=== PATIENT | female | born 1950 | race Caucasian/White ===

== ENCOUNTER → 2016-07-14 | Outpatient (CLI) | payer BC ==
[~2016-07-14] MED LIST: ALBUAER INH; ASPI81TA28 PO; CHOL100010 PO; CLON2TAB3 PO; CRAN1CAP15 PO; HYDR-5688 PO; KLN1X PO; MRLP17 PO; OMEG10007 PO; ONDA4TAB65 PO; ONDA8TAB7 PO; OXYC-164 PO; PANT40TA PO; POLY335019 PO; SERT1TAB68 PO; SNKUDL5 PO; VTMD1000 PO; ZOLP10TA PO
--- NOTE | 2016-07-15 08:17 | PULMONARY FUNCTION TEST ---
Spirometry is consistent with a mild obstructive pattern. Repeat study done following bronchodilator showed mild improvement in function. The forced vital capacity improved by 8% and FEV1 improved by 6%. Flow volume loops were consistent with spirometric findings. No prior studies were available for comparison.
== END | disposition home or self-care (01) ==
LOC: C.RC 10:38
PROVIDERS: ATTEND Family Medicine
DX: R05 Cough (principal)

== ENCOUNTER → 2016-07-19 | Outpatient (CLI) | payer BC ==
--- NOTE | 2016-07-19 12:19 | DIAGNOSTIC IMAGING REPORT ---
CHEST 2 VIEWS ROUTINE HISTORY: Persistent cough. COMPARISON: Chest 10/14/2015. FINDINGS: No focal lung consolidations to suggest pneumonia. No evidence for pulmonary edema. The heart is normal in size. No pleural effusions. No pneumothorax. A few bibasilar linear densities favor subsegmental atelectasis or scarring. This has improved in the interval. IMPRESSION: No acute process. Electronically signed by: Andreas Tavera M.D. 07/19/2016 12:18 PM Dictated Date/Time: 07/19/2016 12:16 PM
== END | disposition home or self-care (01) ==
LOC: C.RAD 11:46
PROVIDERS: ATTEND Family Medicine
DX: J20.9 Acute bronchitis, unspecified (principal); J45.909 Unspecified asthma, uncomplicated

== ENCOUNTER → 2016-10-07 | Outpatient (CLI) | payer BC ==
--- NOTE | 2016-10-07 14:02 | DIAGNOSTIC IMAGING REPORT ---
RIGHT FEMUR 2 VIEWS CLINICAL HISTORY: Right thigh pain. FINDINGS: AP and crosstable lateral views of the right femur are correlated with radiographs of the right hip dated 11/22/2015. The skeletal structures are osteopenic. There is no radiographic evidence of right femoral fracture. Arthritic change is noted in the right hip and knee joints. The visualized right hemipelvis appears intact. Numerous surgical clips project over the pelvis. The soft tissues of the right thigh are normal as imaged. IMPRESSION: Osteopenia with no acute bony abnormality identified in the right femur. Electronically signed by: Saad Pollard M.D. 10/07/2016 2:01 PM Dictated Date/Time: 10/07/2016 1:59 PM
--- NOTE | 2016-10-07 14:05 | DIAGNOSTIC IMAGING REPORT ---
LUMBAR SPINE MIN 4 VIEWS CLINICAL HISTORY: Low back pain and right thigh pain COMPARISON STUDY: 11/22/2015 FINDINGS: There is a mild lumbar levoscoliosis. There are moderate multilevel degenerative changes. There is mild anterolisthesis of L3 on L4 and L4 and L5. This is likely degenerative. There are multiple surgical clips within the pelvis. There are postsurgical changes of prior laminectomies at the L3 and L4 levels. IMPRESSION: Postsurgical and degenerative change. No acute fractures or traumatic subluxations are visualized Electronically signed by: Basilio Patton M.D. 10/07/2016 2:04 PM Dictated Date/Time: 10/07/2016 2:02 PM
== END | disposition home or self-care (01) ==
LOC: C.RDSM 12:50
PROVIDERS: ATTEND Physician Assistant
DX: M85.851 Other specified disorders of bone density and structure, right thigh (principal); M54.5 Low back pain

== ENCOUNTER → 2016-10-26 | Outpatient (CLI) | payer BC ==
--- NOTE | 2016-10-26 15:59 | DIAGNOSTIC IMAGING REPORT ---
LUMBAR SPINE MRI HISTORY: Back pain neuropathy TECHNIQUE: Multiplanar multisequence MRI of the lumbar spine was performed without the use of contrast. COMPARISON: None. FINDINGS: For the purpose of the report the L5-S1 disc space will be located on axial image 27 of 30. Degenerative disc change throughout the entire lumbar region. Partial fusion at L5-S1 segments. Vertebral body stature is unremarkable. Grade 1 anterolisthesis of L4 on L5 estimated at 4 mm. L1-L2: No significant central canal or neural foraminal narrowing. L2-L3: Very mild transverse narrowing of spinal canal. Mild broad-based disc bulge. Minimal narrowing of the neuroforamina bilaterally. L3-L4: Moderate multifactorial narrowing of the spinal canal. Mild broad-based disc herniation. Findings of a prior posterior hemilaminotomy hemilaminotomy. L4-L5: Findings of a posterior hemilaminotomy. Posterior osteophytic and hypertrophic reaction. Moderate narrowing right lateral facet and right neural foramina. Minimal narrowing of the left. L5-S1: Findings consistent with posterior fusion. Neuroforamina are patent bilaterally. IMPRESSION: 1. Significant degenerative disc change at the entire lumbar region. 2. Grade 1 anterolisthesis of L4 on L5 presumably on a degenerative basis. 3. Multilevel narrowing of the spinal canal considered moderate at all levels described. 4. No evidence for a high-grade component of spinal stenosis or significant foraminal stenosis. Electronically signed by: Sergey Escalante M.D. 10/26/2016 3:57 PM Dictated Date/Time: 10/26/2016 3:47 PM
== END | disposition home or self-care (01) ==
LOC: C.MRI 14:12
PROVIDERS: ATTEND Neurological Surgery
DX: M54.40 Lumbago with sciatica, unspecified side (principal); M43.16 Spondylolisthesis, lumbar region

== ENCOUNTER 2016-11-23 11:13 | Inpatient (IN) | payer BC, OTHER ==
[~2016-11-23] VITALS: Ht 165.1 cm; Wt 68.2 kg
[~2016-11-23 11:13] MED LIST changes: -HYDR-5688 PO; -KLN1X PO; -MRLP17 PO; -ONDA4TAB65 PO; -OXYC-164 PO; -POLY335019 PO; -SNKUDL5 PO; -ZOLP10TA PO
[2016-11-23] MEDS ORDERED: OXYC-164 PO (11:29)
[2016-11-23] MEDS ORDERED: ONDANSETRON 8 MG/54 ML D5W IV STA (12:28)
[2016-11-23] MEDS ORDERED: SODIUM CHLORIDE 0.9% 1000ML 1,000 ML IV STA (12:28)
[2016-11-23] MEDS ORDERED: SODIUM CHLORIDE 0.9% 500ML 500 ML IV STA (12:28)
[2016-11-23] MEDS ORDERED: OPTIRAY 320 IV PRN (12:45)
[2016-11-23 12:56] LABS: BASO % 0.1 %; BASO ABS # 0.02 K/uL (0-0.2); COMPLETE YES; EOS % 0.2 %; HEMATOCRIT 44.2 % (37-47); IG% 0.3 %; LYMPH ABS # 1.09 K/uL (1.2-3.4); MEAN CELL VOLUME 94.6 fL (80-100); MEAN CORPUSCULAR HEMOGLOBIN 31.9 pg (25-34); MEAN CORPUSCULAR HGB CONC 33.7 g/dl (32-36); MEAN PLATELET VOLUME 8.7 fL (7.4-10.4); MONO % 4.1 %; NEUT % 88.3 %; PLATELET COUNT 419 K/uL (130-400); RED BLOOD COUNT 4.67 M/uL (4.2-5.4); WHITE BLOOD COUNT 15.55 K/uL (4.8-10.8)
[2016-11-23] MEDS: HYDROmorphone INJ 1 MG/ML SYR IV PRN ×3 (12:57→21:26)
[2016-11-23 13:06] LABS: ALT/SGPT 36 U/L (12-78); BLOOD UREA NITROGEN 20 mg/dl (7-18); BUN/CREATININE RATIO 30.6 (10-20); CARBON DIOXIDE 33 mmol/L (21-32); CHLORIDE 101 mmol/L (98-107); CREATININE 0.65 mg/dl (0.60-1.20); GLUCOSE 124 mg/dl (70-99); POTASSIUM 4.1 mmol/L (3.5-5.1); SODIUM 141 mmol/L (136-145)
[2016-11-23 13:09] LABS: ALKALINE PHOSPHATASE 113 U/L (45-117); AST/SGOT 12 U/L (15-37)
[2016-11-23 13:16] LABS: CALCIUM 10.1 mg/dl (8.5-10.1)
--- NOTE | 2016-11-23 14:38 | DIAGNOSTIC IMAGING REPORT ---
ABDOMEN AND PELVIS CT WITH IV CONTRAST CT DOSE: 562.15 mGy.cm HISTORY: right abd pain, prior obstruction, KAREN TECHNIQUE: Multiaxial CT images of the abdomen and pelvis were performed following the use of intravenous contrast. COMPARISON STUDY: Abdomen and pelvis CT 12/12/2014. FINDINGS: Bibasilar linear densities consistent with subsegmental atelectasis. Mild elevation of the left hemidiaphragm. No pneumoperitoneum. No pneumatosis. Posterior decompression at L3-L4. There are midline skin veronique within the lumbar region due to the recent postoperative change. A 3.6 x 2.2 cm fluid collection posterior to the right L3-L4 facet likely representing postoperative change/seroma. There are multiple distended and fluid-filled loops of small bowel seen throughout the abdomen. There is a transition point located at a thickened loop of small bowel within the right lower quadrant on images 286 through 342. There is also distended and fluid-filled stomach. Therefore, these findings are consistent with a small bowel obstruction. The bladder is unremarkable. The uterus is surgically absent. Moderate stool within the colon. The liver, gallbladder, pancreas, spleen, and adrenal glands are unremarkable. There is a punctate stone within the left kidney. There are also a few punctate stones within the right kidney. No hydronephrosis. There are 1 cm hypodense lesions within each kidney. These favor cysts. No retroperitoneal lymphadenopathy. IMPRESSION: 1. Multiple distended fluid-filled loops of small bowel with a transition point located within a thickened loop of small bowel within the right lower quadrant. These findings are consistent with a small bowel obstruction. The thickened loop of bowel raises the possibility of a focal enteritis. 2. Bilateral nephrolithiasis. No hydronephrosis. 3. Interval postoperative changes within the lumbar spine. Electronically signed by: Andreas Tavera M.D. 11/23/2016 2:37 PM Dictated Date/Time: 11/23/2016 2:22 PM
[2016-11-23] MEDS ORDERED: XYLOCAINE 1%/SOD BICARB 20 ML VIAL INFIL ONE (15:00)
[2016-11-23] MEDS ORDERED: METOCLOPRAMIDE HCL INJ 5 MG/ML 2 ML VIAL IV STA (15:00)
--- NOTE | 2016-11-23 15:29 | History and Physical ---
History & Physical Date & Time of Service: November 23, 2016 at 15:28 Chief Complaint: Nausea, Pain, Dizziness Primary Care Physician: Carroll Simon M.D. History of Present Illness Source: patient 66 y/o F Hx MS, depression/anxiety and chronic back pain. Pt has history of hysterectomy and has had several SBOs due to adhesions, one of which required surgical intervention. 2 weeks ago she underwent Lumbar surgery although this was done from a posterior approach. She developed abdominal pain, nausea and vomiting earlier in the day. A CT obtained on arrival to the hospital is consistent with an SBO. She denies SOB, CP, fevers, dysuria. She morillo not currently require treatment for her MS. Past Medical/Surgical History Medical Problems: (1) Anxiety State Nos Status: Chronic (2) back surgery Status: Resolved (3) Chills with fever Status: Resolved (4) Depressive Disorder Nec Status: Chronic (5) Esophageal Reflux Status: Chronic (6) Fever Status: Resolved (7) Hx pulmonary embolism Status: Resolved (8) Knee replacement Status: Resolved (9) Left knee DJD Status: Resolved (10) Lumbar stenosis with neurogenic claudication Status: Resolved (11) Multiple sclerosis Status: Chronic (12) Pneumonia Status: Resolved (13) Pneumonia Status: Resolved (14) Pulmonary embolism Status: Resolved (15) Rheumatoid Arthritis Status: Chronic Surgical Problems: (1) Hx of hysterectomy Status: Resolved (2) Hx of tonsillectomy Status: Resolved (3) Knee Joint Replacement Status Status: Resolved Family History Diabetes mellitus FH: cancer FH: heart disease Hypertension Father due to DC 82 Mother alive - spinal stenosis Social History Smoking Status: Never Smoker Alcohol Use: socially Drug Use: none Marital Status: Occupational Status: unemployed Immunizations History of Influenza Vaccine: Yes Influenza Vaccine Date: Apr 26, 2013 History of Tetanus Vaccine?: Yes Tetanus Immunization Date: Jul 27, 2012 History of Pneumococcal: Yes Pneumococcal Date: Jul 27, 2010 History of Hepatitis B Vaccine: Yes Hepatitis Immunization Date: Jul 27, 2009 Multi-Drug Resistant Organisms History of MDRO: No Allergies Coded Allergies: Promethazine (Verified Allergy, Intermediate, HALLUCINATIONS, 11/05/15) Adhesives (Verified Allergy, Mild, ALLERGY TO PLASTIC CLEAR TAPE = CAUSES HIVES, 11/05/15) Sulfa Antibiotics (Verified Allergy, Unknown, HIVES, 11/05/15) Home Medications Scheduled Clonazepam (Klonopin), 1-2 TAB PO HS Sertraline Hcl (Zoloft), 100 MG PO BID Scheduled PRN Oxycodone Hcl (Oxycodone Hcl), 10 MG PO Q4H PRN for Pain Review of Systems Constitutional: No chills, No fever, No sweats Eyes: No eye pain, No worsening of vision ENT: No hearing loss, No nasal symptoms, No unusual epistaxis Respiratory: No cough, No sputum, No wheezing Cardiovascular: No PND, No chest pain, No orthopnea Abdomen: + nausea, + pain, + vomiting, No constipation, No diarrhea Musculoskeletal: No joint pain, No muscle pain Genitourinary - Female: No dysuria, No hematuria, No urinary frequency, No urinary incontinence, No urinary retention, No urinary urgency Neurologic: No memory loss, No paralysis, No weakness Psychiatric: No depression symptoms Endocrine: No fatigue Hematologic / Lymphatic: No abnormal bleeding/bruising Integumentary: No rash Allergic / Immunologic: No environmental allergies Physical Exam Vital Signs Date Time Temp Pulse Resp B/P Pulse Ox O2 Delivery O2 Flow Rate FiO2 11/23/16 13:06 87 18 127/71 94 Room Air 11/23/16 11:17 36.8 94 18 123/74 96 General Appearance: WD/WN, no apparent distress Head: normocephalic, atraumatic Eyes: normal inspection, PERRL, EOMI ENT: normal ENT inspection, hearing grossly normal, TMs normal, pharynx normal Neck: supple, no adenopathy, thyroid normal, no JVD Respiratory/Chest: chest non-tender, lungs clear, normal breath sounds, no respiratory distress, no accessory muscle use Cardiovascular: regular rate, rhythm, no edema, no gallop, no JVD, no murmur, normal peripheral pulses Abdomen/GI: + tenderness, + abnormal bowel sounds, + distended Back: normal inspection, no CVA tenderness, no muscle spasm, normal range of motion Extremities/Musculoskelatal: normal inspection, no calf tenderness, normal capillary refill, no pedal edema, normal range of motion Neurologic/Psych: sizing sprayer II-XII nml as tested, no motor/sensory deficits, alert, normal mood/affect, normal reflexes, oriented x 3 Skin: normal color Diagnostics Laboratory Results Results Past 24 Hours Test 11/23/16 12:25 Range/Units White Blood Count 15.55 4.8-10.8 K/uL Red Blood Count 4.67 4.2-5.4 M/uL Hemoglobin 14.9 12.0-16.0 g/dL Hematocrit 44.2 37-47 % Mean Corpuscular Volume 94.6 80-100 fL Mean Corpuscular Hemoglobin 31.9 25-34 pg Mean Corpuscular Hemoglobin Concent 33.7 32-36 g/dl Platelet Count 419 130-400 K/uL Mean Platelet Volume 8.7 7.4-10.4 fL Neutrophils (%) (Auto) 88.3 % Lymphocytes (%) (Auto) 7.0 % Monocytes (%) (Auto) 4.1 % Eosinophils (%) (Auto) 0.2 % Basophils (%) (Auto) 0.1 % Neutrophils # (Auto) 13.72 1.4-6.5 K/uL Lymphocytes # (Auto) 1.09 1.2-3.4 K/uL Monocytes # (Auto) 0.64 0.11-0.59 K/uL Eosinophils # (Auto) 0.03 0-0.5 K/uL Basophils # (Auto) 0.02 0-0.2 K/uL RDW Standard Deviation 43.1 36.4-46.3 fL RDW Coefficient of Variation 12.6 11.5-14.5 % Immature Granulocyte % (Auto) 0.3 % Immature Granulocyte # (Auto) 0.05 0.00-0.02 K/uL Sodium Level 141 136-145 mmol/L Potassium Level 4.1 3.5-5.1 mmol/L Chloride Level 101 98-107 mmol/L Carbon Dioxide Level 33 21-32 mmol/L Anion Gap 7.0 3-11 mmol/L Blood Urea Nitrogen 20 7-18 mg/dl Creatinine 0.65 0.60-1.20 mg/dl Estimated GFR () 106.5 Estimated GFR (Non- 91.9 BUN/Creatinine Ratio 30.6 10-20 Random Glucose 124 70-99 mg/dl Calcium Level 10.1 8.5-10.1 mg/dl Total Bilirubin 0.6 0.2-1 mg/dl Direct Bilirubin 0.1 0-0.2 mg/dl Aspartate Amino Transf (AST/SGOT) 12 15-37 U/L Alanine Aminotransferase (ALT/SGPT) 36 12-78 U/L Alkaline Phosphatase 113 45-117 U/L Total Protein 7.5 6.4-8.2 gm/dl Albumin 4.1 3.4-5.0 gm/dl Lipase 95 73-393 U/L Diagnostic Radiology CT abdomen 1. Multiple distended fluid-filled loops of small bowel with a transition point located within a thickened loop of small bowel within the right lower quadrant. These findings are consistent with a small bowel obstruction. The thickened loop of bowel raises the possibility of a focal enteritis. 2. Bilateral nephrolithiasis. No hydronephrosis. 3. Interval postoperative changes within the lumbar spine. Impression Assessment and Plan 66 y/o F Hx MS, depression/anxiety and chronic back pain. Pt has history of hysterectomy and has had several SBOs due to adhesions, one of which required surgical intervention. 2 weeks ago she underwent Lumbar surgery although this was done from a posterior approach. She developed abdominal pain, nausea and vomiting earlier in the day. A CT obtained on arrival to the hospital is consistent with an SBO. 1) SBO - pt with NG - antiemetics, narcotics, IVF provided - NPO - surgery is following. 2) MS - not currently treated - she also has a diagnosis of RA but has not required treatment in an extended period 3) Anxiety/depression - pt cannot take her Klonazepam so that we will provide PRN Ativan until tolerating PO Full code - Heparin prophylaxis Total time for this admit including review of labs, meds, imaging, records - discussion with pt and ER MD - 34 min Level of Care Med/Surg Resuscitation Status FULL RESUSCITATION VTE Prophylaxis VTE Risk Assessment Done? Y/N: Yes Risk Level: Low Given or contraindicated: Unfractionated heparin SQ
--- NOTE | 2016-11-23 15:36 | Medical Consult ---
Consultation Date of Consultation: November 23, 2016. Attending Physician: Reason for Consultation: bowel obstruction History of Present Illness 66 yo female w/ N/V, abd pain over 2-3 days- ER evaluation shows sbo- possible distal transition point, stool in colon, said she passed flatus h/o hyster, lysis of adhesions- last > 10 yrs ago recent back surgery 2 weeks ago- Dr Luna Davila Past Medical/Surgical History Medical Problems: (1) Anxiety State Nos Status: Chronic (2) Depressive Disorder Nec Status: Chronic (3) Esophageal Reflux Status: Chronic (4) Hypoxia Status: Acute (5) Multiple sclerosis Status: Chronic (6) Precordial chest pain Status: Acute (7) Rheumatoid Arthritis Status: Chronic Family History Diabetes mellitus FH: cancer FH: heart disease Hypertension Social History Smoking Status: Never Smoker Drug Use: none Marital Status: Housing Status: lives with family Occupation Status: unemployed Allergies Coded Allergies: Promethazine (Verified Allergy, Intermediate, HALLUCINATIONS, 11/05/15) Adhesives (Verified Allergy, Mild, ALLERGY TO PLASTIC CLEAR TAPE = CAUSES HIVES, 11/05/15) Sulfa Antibiotics (Verified Allergy, Unknown, HIVES, 11/05/15) Current Inpatient Medications Current Inpatient Medications Medications (Trade) Dose Ordered Sig/Harmeet Route Start Time Stop Time Status Last Admin Dose Admin Hydromorphone HCl 1 mg 1 mg Q15M PRN IV 11/23/16 12:30 12/07/16 12:29 11/23/16 12:57 1 MG Sodium Chloride (Nss 1000ml) 1,000 ml @ 125 mls/hr Q8H STAT IV 11/23/16 12:28 11/23/16 20:27 11/23/16 13:28 125 MLS/HR Ioversol (Optiray 320) 100 ml UD PRN IV 11/23/16 12:45 11/27/16 12:44 Heparin Sodium (Porcine) (Heparin Sq 5000 Unit/0.5ml) 5,000 unit Q8H SQ 11/23/16 15:30 12/23/16 15:29 UNV Ondansetron HCl (Zofran Inj) 4 mg Q6H PRN IV 11/23/16 15:30 12/23/16 15:29 UNV Review of Systems Constitutional: No chills, No fever Respiratory: No cough, No shortness of breath Cardiovascular: No chest pain Abdomen: + nausea, + pain, + vomiting (pain epigastric) Musculoskeletal: No joint pain Genitourinary - Female: No dysuria Integumentary: No rash Physical Exam Date Time Temp Pulse Resp B/P Pulse Ox O2 Delivery O2 Flow Rate FiO2 11/23/16 13:06 87 18 127/71 94 Room Air 11/23/16 11:17 36.8 94 18 123/74 96 General Appearance: WD/WN, + mild distress Head: atraumatic Eyes: sclerae normal Neck: supple Respiratory/Chest: lungs clear Cardiovascular: regular rate, rhythm Abdomen/GI: + distended (upper abd discomfort to deep palpation) Extremities/Musculoskelatal: no pedal edema Neurologic/Psych: alert Skin: no rash Laboratory Results Last 24 Hours Test 11/23/16 12:25 White Blood Count 15.55 K/uL Red Blood Count 4.67 M/uL Hemoglobin 14.9 g/dL Hematocrit 44.2 % Mean Corpuscular Volume 94.6 fL Mean Corpuscular Hemoglobin 31.9 pg Mean Corpuscular Hemoglobin Concent 33.7 g/dl Platelet Count 419 K/uL Mean Platelet Volume 8.7 fL Neutrophils (%) (Auto) 88.3 % Lymphocytes (%) (Auto) 7.0 % Monocytes (%) (Auto) 4.1 % Eosinophils (%) (Auto) 0.2 % Basophils (%) (Auto) 0.1 % Neutrophils # (Auto) 13.72 K/uL Lymphocytes # (Auto) 1.09 K/uL Monocytes # (Auto) 0.64 K/uL Eosinophils # (Auto) 0.03 K/uL Basophils # (Auto) 0.02 K/uL RDW Standard Deviation 43.1 fL RDW Coefficient of Variation 12.6 % Immature Granulocyte % (Auto) 0.3 % Immature Granulocyte # (Auto) 0.05 K/uL Sodium Level 141 mmol/L Potassium Level 4.1 mmol/L Chloride Level 101 mmol/L Carbon Dioxide Level 33 mmol/L Anion Gap 7.0 mmol/L Blood Urea Nitrogen 20 mg/dl Creatinine 0.65 mg/dl Estimated GFR () 106.5 Estimated GFR (Non- 91.9 BUN/Creatinine Ratio 30.6 Random Glucose 124 mg/dl Calcium Level 10.1 mg/dl Total Bilirubin 0.6 mg/dl Direct Bilirubin 0.1 mg/dl Aspartate Amino Transf (AST/SGOT) 12 U/L Alanine Aminotransferase (ALT/SGPT) 36 U/L Alkaline Phosphatase 113 U/L Total Protein 7.5 gm/dl Albumin 4.1 gm/dl Lipase 95 U/L Assessment & Plan 11/23/16- adm with sbo- IV fluids, NG decompression- monitor progress may need operative intervention if she does not improve over 24-48 hrs
[2016-11-23] MEDS ORDERED: LORAZEPAM 2 MG/ML 1 ML VIAL IV PRN (15:45)
[2016-11-23] MEDS ORDERED: LORAZEPAM INJ 1 MG in SYRINGE 0.5 ML IV PRN (16:15)
[2016-11-23] MEDS: ONDANSETRON INJ 2 MG/ML 2 ML VIAL IV PRN ×2 (16:48→21:27)
[2016-11-23 17:15] VITALS: BP 161/77; PULSE 85; TEMP 37.2; O2SAT 92; Ht 165.1 cm; Wt 68.2 kg
--- NOTE | 2016-11-23 17:24 | EMERGENCY ROOM VISIT NOTE ---
History Report prepared by Matthew: Harmony Lr Under the Supervision of: Dr. Fareed Chaudhary M.D. First contact with patient: 12:04 Chief Complaint: PAIN (GENERALIZED) Stated Complaint: NAUSEA, PAIN, DIZZINESS History of Present Illness The patient is a 66 year old female who presents to the Emergency Room with complaints of worsening generalized pain since yesterday afternoon. The patient had a laminectomy and CSF leak repair [address] Carrasco of neurosurgery in [place]. She was discharged from the hospital last week and states that she has been doing well since her surgery. She denies any drainage from her incision or redness around the incision. Yesterday afternoon she developed back pain and diffuse abdominal pain. She has had nausea and vomiting. The patient rates her pain as a 10/10 in severity. She gave herself a suppository and had a normal bowel movement yesterday and this morning. She denies any diarrhea. The patient has a history of a bowel obstruction and multiple abdominal surgeries. She called Dr. Carrasco and he advised her to come to the hospital for further evaluation. Pt denies LOC, headache, fevers, chills, diaphoresis, visual changes , neck pain, chest pain, breathing difficulties, melena, hematochezia, urinary symptoms, numbness, weakness, lymphadenopathy, rash, or other complaints. Source of History: patient Onset: yesterday afternoon Position: other (generalized) Symptom Intensity: 10/10 Timing: worsening Associated Symptoms: + abdominal pain, + back pain, + nausea, + vomiting Review of Systems See HPI for pertinent positives and negatives. A total of ten systems were reviewed and were otherwise negative. Past Medical & Surgical Medical Problems: (1) Anxiety State Nos (2) back surgery (3) CHEST PAIN, UNSPECIFIED (4) Chills with fever (5) Depressive Disorder Nec (6) Esophageal Reflux (7) Fever (8) Hx pulmonary embolism (9) Knee replacement (10) Left knee DJD (11) Lumbar stenosis with neurogenic claudication (12) Multiple sclerosis (13) Pneumonia (14) Pneumonia (15) Pulmonary embolism (16) Rheumatoid Arthritis (17) SBO (small bowel obstruction) Surgical Problems: (1) Hx of hysterectomy (2) Hx of tonsillectomy (3) Knee Joint Replacement Status Family History Diabetes mellitus FH: cancer FH: heart disease Hypertension Social History Smoking Status: Never Smoker Alcohol Use: occasionally Drug Use: none Marital Status: Housing Status: lives with family Occupation Status: unemployed Current/Historical Medications Scheduled Clonazepam (Klonopin), 1-2 TAB PO HS Sertraline Hcl (Zoloft), 100 MG PO BID Scheduled PRN Oxycodone Hcl (Oxycodone Hcl), 10 MG PO Q4H PRN for Pain Allergies Coded Allergies: Promethazine (Verified Allergy, Intermediate, HALLUCINATIONS, 11/05/15) Adhesives (Verified Allergy, Mild, ALLERGY TO PLASTIC CLEAR TAPE = CAUSES HIVES, 11/05/15) Sulfa Antibiotics (Verified Allergy, Unknown, HIVES, 11/05/15) Physical Exam Vital Signs Date Time Temp Pulse Resp B/P Pulse Ox O2 Delivery O2 Flow Rate FiO2 11/23/16 17:08 36.8 82 18 121/68 94 11/23/16 16:51 82 18 121/68 94 Room Air 11/23/16 13:06 87 18 127/71 94 Room Air 11/23/16 11:17 36.8 94 18 123/74 96 Physical Exam GENERAL: Awake, alert, well-appearing, in no distress HENT: Normocephalic, atraumatic. Oropharynx unremarkable. EYES: Normal conjunctiva. Sclera non-icteric. NECK: Supple. No nuchal rigidity. FROM. No JVD. RESPIRATORY: Clear to auscultation. CARDIAC: Regular rate, normal rhythm. Extremities warm and well perfused. Pulses equal. ABDOMEN: Soft, non-distended. Tenderness in the RLQ and epigastric region with mild diffuse abdominal tenderness. No rebound or guarding. No masses. RECTAL: Deferred. MUSCULOSKELETAL: Chest examination reveals no tenderness. The back is symmetrical on inspection without obvious abnormality. Incision is clean, dry, and intact without any redness or drainage. There is no CVA tenderness to palpation. No joint edema. LOWER EXTREMITIES: Calves are equal size bilaterally and non-tender. No edema. No discoloration. NEURO: Normal sensorium. No sensory or motor deficits noted. SKIN: No rash or jaundice noted. Medical Decision & Procedures ER Provider Diagnostic Interpretation: Radiology results as stated below per my review and radiologist interpretation: ABDOMEN AND PELVIS CT WITH IV CONTRAST CT DOSE: 562.15 mGy.cm HISTORY: right abd pain, prior obstruction, KAREN TECHNIQUE: Multiaxial CT images of the abdomen and pelvis were performed following the use of intravenous contrast. COMPARISON STUDY: Abdomen and pelvis CT 12/12/2014. FINDINGS: Bibasilar linear densities consistent with subsegmental atelectasis. Mild elevation of the left hemidiaphragm. No pneumoperitoneum. No pneumatosis. Posterior decompression at L3-L4. There are midline skin veronique within the lumbar region due to the recent postoperative change. A 3.6 x 2.2 cm fluid collection posterior to the right L3-L4 facet likely representing postoperative change/seroma. There are multiple distended and fluid-filled loops of small bowel seen throughout the abdomen. There is a transition point located at a thickened loop of small bowel within the right lower quadrant on images 286 through 342. There is also distended and fluid-filled stomach. Therefore, these findings are consistent with a small bowel obstruction. The bladder is unremarkable. The uterus is surgically absent. Moderate stool within the colon. The liver, gallbladder, pancreas, spleen, and adrenal glands are unremarkable. There is a punctate stone within the left kidney. There are also a few punctate stones within the right kidney. No hydronephrosis. There are 1 cm hypodense lesions within each kidney. These favor cysts. No retroperitoneal lymphadenopathy. IMPRESSION: 1. Multiple distended fluid-filled loops of small bowel with a transition point located within a thickened loop of small bowel within the right lower quadrant. These findings are consistent with a small bowel obstruction. The thickened loop of bowel raises the possibility of a focal enteritis. 2. Bilateral nephrolithiasis. No hydronephrosis. 3. Interval postoperative changes within the lumbar spine. Electronically signed by: Andreas Tavera M.D. 11/23/2016 2:37 PM Dictated Date/Time: 11/23/2016 2:22 PM Laboratory Results 11/23/16 12:25 Red Blood Count 4.67, Mean Corpuscular Volume 94.6, Mean Corpuscular Hemoglobin 31.9, Mean Corpuscular Hemoglobin Concent 33.7, Mean Platelet Volume 8.7, Neutrophils (%) (Auto) 88.3, Lymphocytes (%) (Auto) 7.0, Monocytes (%) (Auto) 4.1, Eosinophils (%) (Auto) 0.2, Basophils (%) (Auto) 0.1, Neutrophils # (Auto) 13.72, Lymphocytes # (Auto) 1.09, Monocytes # (Auto) 0.64, Eosinophils # (Auto) 0.03, Basophils # (Auto) 0.02 11/23/16 12:25 Test 11/23/16 12:25 White Blood Count 15.55 K/uL (4.8-10.8) Red Blood Count 4.67 M/uL (4.2-5.4) Hemoglobin 14.9 g/dL (12.0-16.0) Hematocrit 44.2 % (37-47) Mean Corpuscular Volume 94.6 fL (80-100) Mean Corpuscular Hemoglobin 31.9 pg (25-34) Mean Corpuscular Hemoglobin Concent 33.7 g/dl (32-36) Platelet Count 419 K/uL (130-400) Mean Platelet Volume 8.7 fL (7.4-10.4) Neutrophils (%) (Auto) 88.3 % Lymphocytes (%) (Auto) 7.0 % Monocytes (%) (Auto) 4.1 % Eosinophils (%) (Auto) 0.2 % Basophils (%) (Auto) 0.1 % Neutrophils # (Auto) 13.72 K/uL (1.4-6.5) Lymphocytes # (Auto) 1.09 K/uL (1.2-3.4) Monocytes # (Auto) 0.64 K/uL (0.11-0.59) Eosinophils # (Auto) 0.03 K/uL (0-0.5) Basophils # (Auto) 0.02 K/uL (0-0.2) RDW Standard Deviation 43.1 fL (36.4-46.3) RDW Coefficient of Variation 12.6 % (11.5-14.5) Immature Granulocyte % (Auto) 0.3 % Immature Granulocyte # (Auto) 0.05 K/uL (0.00-0.02) Anion Gap 7.0 mmol/L (3-11) Estimated GFR () 106.5 Estimated GFR (Non- 91.9 BUN/Creatinine Ratio 30.6 (10-20) Calcium Level 10.1 mg/dl (8.5-10.1) Total Bilirubin 0.6 mg/dl (0.2-1) Direct Bilirubin 0.1 mg/dl (0-0.2) Aspartate Amino Transf (AST/SGOT) 12 U/L (15-37) Alanine Aminotransferase (ALT/SGPT) 36 U/L (12-78) Alkaline Phosphatase 113 U/L (45-117) Total Protein 7.5 gm/dl (6.4-8.2) Albumin 4.1 gm/dl (3.4-5.0) Lipase 95 U/L (73-393) Laboratory results reviewed by me. Medications Administered Medications (Trade) Dose Ordered Sig/Harmeet Route Start Time Stop Time Status Last Admin Dose Admin Ondansetron HCl (Zofran 8mg Iv) 8 mg NOW STAT IV 11/23/16 12:28 11/23/16 12:30 DC 11/23/16 12:57 8 MG Hydromorphone HCl 1 mg 1 mg Q15M PRN IV 11/23/16 12:30 12/07/16 12:29 11/23/16 16:48 1 MG Sodium Chloride 1,000 ml @ 125 mls/hr Q8H STAT IV 11/23/16 12:28 11/23/16 20:27 11/23/16 13:28 125 MLS/HR Sodium Chloride (Nss 500ml) 500 ml @ 999 mls/hr Q31M STAT IV 11/23/16 12:28 11/23/16 12:58 DC 11/23/16 12:58 999 MLS/HR Metoclopramide HCl (Reglan Inj) 5 mg NOW STAT IV 11/23/16 15:00 11/23/16 15:03 DC 11/23/16 15:40 5 MG Lidocaine HCl (Buffered Lidocaine 1% Inj) 2 ml ONE ONCE INFIL 11/23/16 15:00 11/23/16 15:03 DC 11/23/16 15:30 2 ML Ondansetron HCl (Zofran Inj) 4 mg Q6H PRN IV 11/23/16 15:30 12/23/16 15:29 11/23/16 16:48 4 MG ED Course 1225: The patient was evaluated in room B9. A complete history and physical exam was performed. 1228: NSS 500 ml @ 999 mls/hr IV, NSS 1000 ml @ 125 mls/hr IV, Zofran 8 mg IV 1230: Dilaudid 1 mg IV - PRN 1312: I reassessed the patient at this time. She is feeling better after Dilaudid. 1459: I spoke with Dr. Antunez of general surgery. We discussed the patient's case and he will come to the ED to evaluate the patient. 1500: Lidocaine HCl 2 ml IV, Reglan 5 mg IV 1504: I reassessed the patient at this time. She is feeling better and resting comfortably. I discussed the results and treatment plan with the patient. I answered all pertaining questions that she had. She expressed understanding and verbalized agreement. 1506: I spoke with Dr. James. We discussed the patient's results and treatment plan. The patient will be evaluated by the [facility] for further management. Medical Decision Triage Nursing notes reviewed. The patient's presentation and history were concerning for abdominal pain. Etiologies such as appendicitis, diverticulitis, obstruction, inflammatory bowel disease, renal colic, PUD, biliary pathology, pancreatitis, mesenteric ischemia, aortic pathology, infections, genitourinary, UTI, perforated viscus, as well as others were entertained. The patient was evaluated. Her back surgery incision appeared to be clean, dry and intact. She had findings concerning on her abdominal examination. She has a history of Valtrex and. The patient had an IV established. She was given Dilaudid, Zofran, and normal saline. Supplemental oxygen was also applied. The patient had a mild leukocytosis on CBC of 15,000. Chemistry panel revealed dehydration. LFTs and lipase were negative. Urinalysis is pending. The patient underwent CT imaging which revealed findings concerning for small bowel obstruction with transition point in the right lower quadrant. Surgery and internal medicine were consulted. The patient was given 5 mg of Reglan and atomized lidocaine in the naris prior to NG tube placement. NG tube was placed and a significant amount of fluid was obtained. Patient was evaluated in the Emergency Room by surgery and internal medicine and admitted for further treatment. The chart was completed utilizing [employer] Speech voice recognition software. Grammatical errors, random word insertions, pronoun errors, and incomplete sentences are an occasional consequence of this system due to software limitations, ambient noise, and hardware issues. Any formal questions or concerns about the content, text, or information contained within the body of this dictation should be directly addressed to the physician for clarification. Consults Time Called: 088 Consulting Physician: Dr. Antunez Returned Call: [address] Antunez of general surgery. We discussed the patient's case and he will come to the ED to evaluate the patient. Additional Consults: Time Called: 1506 Consulted Physician: Dr. James Returned Call: 1506 Additional Comments: I spoke with Dr. James. We discussed the patient's results and treatment plan. The patient will be evaluated by the [facility] for further management. Impression Primary Impression: SBO (small bowel obstruction) Scribe Attestation The scribe's documentation has been prepared under my direction and personally reviewed by me in its entirety. I confirm that the note above accurately reflects all work, treatment, procedures, and medical decision making performed by me. Departure Information Dispostion Being Evaluated By Hospitalist Referrals Carroll Simon M.D. (PCP) Patient Instructions [facility]
[2016-11-23 17:55] VITALS: BP 163/72; PULSE 87; TEMP 37.1; O2SAT 92
[2016-11-23] MEDS: D5W AND NSS 1,000 ML IV SCH (18:20)
[2016-11-23 19:10] VITALS: BP 117/75; PULSE 76; O2SAT 92
[2016-11-23] MEDS: HEPARIN SOD 5000 UNIT/0.5 ML CARP SQ SCH (21:31)
[2016-11-23 23:02] VITALS: BP 122/69; PULSE 84; TEMP 37.1; O2SAT 93
[2016-11-24 00:12] LABS: URINE APPEARANCE CLEAR (CLEAR); URINE BILIRUBIN NEG (NEG); URINE COLOR DK YELLOW; URINE NITRITE NEG (NEG); URINE SPECIFIC GRAVITY > 1.045 (1.000-1.030); UROBILINOGEN NEG (NEG); ZZUR CULT IF INDIC CLEAN CATCH NO
[2016-11-24 00:26] LABS: MANUAL MICROSCOPIC REQUIRED? NO; REVIEW REQ? NO
[2016-11-24] MEDS: HYDROmorphone INJ 1 MG/ML SYR IV PRN ×4 (00:40→18:08)
[2016-11-24] MEDS: D5W AND NSS 1,000 ML IV SCH (00:45)
[2016-11-24] MEDS: ONDANSETRON INJ 2 MG/ML 2 ML VIAL IV PRN ×2 (04:32→10:47)
[2016-11-24 05:47] LABS: HEMATOCRIT 37.4 % (37-47); MEAN CELL VOLUME 96.1 fL (80-100); MEAN CORPUSCULAR HEMOGLOBIN 32.4 pg (25-34); MEAN CORPUSCULAR HGB CONC 33.7 g/dl (32-36); MEAN PLATELET VOLUME 8.7 fL (7.4-10.4); PLATELET COUNT 304 K/uL (130-400); RED BLOOD COUNT 3.89 M/uL (4.2-5.4); WHITE BLOOD COUNT 9.08 K/uL (4.8-10.8)
[2016-11-24 06:13] LABS: BUN/CREATININE RATIO 35.2 (10-20); CALCIUM 8.4 mg/dl (8.5-10.1); CREATININE 0.55 mg/dl (0.60-1.20); PHOSPHORUS 2.9 mg/dl (2.5-4.9); POTASSIUM 3.6 mmol/L (3.5-5.1)
--- NOTE | 2016-11-24 06:18 | Surgery Progress Note ---
Surgery Progress Note Date of Service November 24, 2016. Subjective + flatus, + pain controlled, No bowel movement, No nausea, No vomiting abdominal fullness- NG had 300 bilious output over approx 12 hrs adequate urine output, some flatus, no bm Objective Vital Signs: Date Time Temp Pulse Resp B/P Pulse Ox O2 Delivery O2 Flow Rate FiO2 11/24/16 00:01 Room Air 11/23/16 23:02 37.1 84 16 122/69 93 Room Air 11/23/16 19:10 76 18 117/75 92 Room Air 11/23/16 17:55 37.1 87 18 163/72 92 Room Air 11/23/16 17:15 37.2 85 16 161/77 92 Room Air 11/23/16 17:08 36.8 82 18 121/68 94 11/23/16 16:51 82 18 121/68 94 Room Air 11/23/16 13:06 87 18 127/71 94 Room Air 11/23/16 11:17 36.8 94 18 123/74 96 General Appearance: no apparent distress Respiratory/Chest: no respiratory distress Cardiovascular: regular rate, rhythm Abdomen: + distended (less distended than yesterday, some bs- diminished) Laboratory Results: Results Past 24 Hours Test 11/23/16 12:25 11/23/16 23:17 11/24/16 05:20 Range/Units White Blood Count 15.55 9.08 4.8-10.8 K/uL Red Blood Count 4.67 3.89 4.2-5.4 M/uL Hemoglobin 14.9 12.6 12.0-16.0 g/dL Hematocrit 44.2 37.4 37-47 % Mean Corpuscular Volume 94.6 96.1 80-100 fL Mean Corpuscular Hemoglobin 31.9 32.4 25-34 pg Mean Corpuscular Hemoglobin Concent 33.7 33.7 32-36 g/dl Platelet Count 419 304 130-400 K/uL Mean Platelet Volume 8.7 8.7 7.4-10.4 fL Neutrophils (%) (Auto) 88.3 % Lymphocytes (%) (Auto) 7.0 % Monocytes (%) (Auto) 4.1 % Eosinophils (%) (Auto) 0.2 % Basophils (%) (Auto) 0.1 % Neutrophils # (Auto) 13.72 1.4-6.5 K/uL Lymphocytes # (Auto) 1.09 1.2-3.4 K/uL Monocytes # (Auto) 0.64 0.11-0.59 K/uL Eosinophils # (Auto) 0.03 0-0.5 K/uL Basophils # (Auto) 0.02 0-0.2 K/uL RDW Standard Deviation 43.1 44.1 36.4-46.3 fL RDW Coefficient of Variation 12.6 12.7 11.5-14.5 % Immature Granulocyte % (Auto) 0.3 % Immature Granulocyte # (Auto) 0.05 0.00-0.02 K/uL Sodium Level 141 136-145 mmol/L Potassium Level 4.1 3.5-5.1 mmol/L Chloride Level 101 98-107 mmol/L Carbon Dioxide Level 33 21-32 mmol/L Anion Gap 7.0 3-11 mmol/L Blood Urea Nitrogen 20 7-18 mg/dl Creatinine 0.65 0.60-1.20 mg/dl Estimated GFR () 106.5 Estimated GFR (Non- 91.9 BUN/Creatinine Ratio 30.6 10-20 Random Glucose 124 70-99 mg/dl Calcium Level 10.1 8.5-10.1 mg/dl Total Bilirubin 0.6 0.2-1 mg/dl Direct Bilirubin 0.1 0-0.2 mg/dl Aspartate Amino Transf (AST/SGOT) 12 15-37 U/L Alanine Aminotransferase (ALT/SGPT) 36 12-78 U/L Alkaline Phosphatase 113 45-117 U/L Total Protein 7.5 6.4-8.2 gm/dl Albumin 4.1 3.4-5.0 gm/dl Lipase 95 73-393 U/L Urine Color DK YELLOW Urine Appearance CLEAR CLEAR Urine pH 5.0 4.5-7.5 Urine Specific [place] > 1.045 1.000-1.030 Urine Protein NEG NEG Urine Glucose (UA) NEG NEG Urine Ketones NEG NEG Urine Occult Blood NEG NEG Urine Nitrite NEG NEG Urine Bilirubin NEG NEG Urine Urobilinogen NEG NEG Urine Leukocyte Esterase NEG NEG Assessment & Plan 11/24/16- some mild improvement with NG in place- will try to have pt ambulate. leave NG, check am labs- consider repeat CT with contrast via NG but will hold off for now-
[2016-11-24] MEDS: D5W AND 1/2NSS + 20MEQ KCL 1,000 ML IV SCH ×2 (06:39→15:41)
[2016-11-24] MEDS: HEPARIN SOD 5000 UNIT/0.5 ML CARP SQ SCH ×3 (06:43→22:19)
--- NOTE | 2016-11-24 07:41 | DIAGNOSTIC IMAGING REPORT ---
ABDOMEN 2 VIEWS CLINICAL HISTORY: sob COMPARISON STUDY: CT examination dated 11/23/2016 FINDINGS: Mild improvement in bowel pattern compared to the prior study. Distended loops of small bowel are stable to slightly diminished. Slight increase in air and fecal content within the colon. Stable postoperative changes of the soft tissue pelvis as well as low lumbar spinal region. IMPRESSION: Mild improvement in small bowel obstructive change with a moderate residual ileus. Electronically signed by: Sergey Escalante M.D. 11/24/2016 7:39 AM Dictated Date/Time: 11/24/2016 7:37 AM
[2016-11-24 07:47] VITALS: BP 151/80; PULSE 81; TEMP 36.8; O2SAT 95
[2016-11-24] MEDS ORDERED: HYDROmorphone INJ 1 MG/ML SYR ONE (11:36)
[2016-11-24 15:13] VITALS: BP 120/65; PULSE 86; TEMP 36.9; O2SAT 95
[2016-11-24] MEDS ORDERED: ONDANSETRON INJ 2 MG/ML 2 ML VIAL IV ONE (15:41)
--- NOTE | 2016-11-24 16:10 | Progress Note ---
Subjective Date of Service: November 24, 2016. Subjective pt is tolerating ngt and having waves of abdominal pain scheduled for a barium study to help determine grade of SBO Problem List Medical Problems: (1) Anxiety State Nos Status: Chronic (2) Depressive Disorder Nec Status: Chronic (3) Esophageal Reflux Status: Chronic (4) Hypoxia Status: Acute (5) Multiple sclerosis Status: Chronic (6) Precordial chest pain Status: Acute (7) Rheumatoid Arthritis Status: Chronic Review of Systems Constitutional: No chills, No fever Respiratory: No cough, No shortness of breath Cardiac: No chest pain, No edema Abdomen: + nausea, + pain, No diarrhea, No vomiting Female : No dysuria, No urinary frequency Objective Vital Signs Date Time Temp Pulse Resp B/P Pulse Ox O2 Delivery O2 Flow Rate FiO2 11/24/16 07:47 36.8 81 15 151/80 95 Room Air 11/24/16 00:01 Room Air 11/23/16 23:02 37.1 84 16 122/69 93 Room Air 11/23/16 19:10 76 18 117/75 92 Room Air 11/23/16 17:55 37.1 87 18 163/72 92 Room Air 11/23/16 17:15 37.2 85 16 161/77 92 Room Air 11/23/16 17:08 36.8 82 18 121/68 94 11/23/16 16:51 82 18 121/68 94 Room Air 11/23/16 13:06 87 18 127/71 94 Room Air 11/23/16 11:17 36.8 94 18 123/74 96 Physical Exam General Appearance: WD/WN, + moderate distress Neck: supple, thyroid normal Respiratory/Chest: chest non-tender, lungs clear, normal breath sounds Cardiovascular: regular rate, rhythm, no murmur Abdomen: soft, + abnormal bowel sounds, + guarding, + tenderness Extremities: no pedal edema, no calf tenderness Neurologic/Psychiatric: alert, oriented x 3 Laboratory Results Last 24 Hours Test 11/23/16 12:25 11/23/16 23:17 11/24/16 05:20 White Blood Count 15.55 K/uL 9.08 K/uL Red Blood Count 4.67 M/uL 3.89 M/uL Hemoglobin 14.9 g/dL 12.6 g/dL Hematocrit 44.2 % 37.4 % Mean Corpuscular Volume 94.6 fL 96.1 fL Mean Corpuscular Hemoglobin 31.9 pg 32.4 pg Mean Corpuscular Hemoglobin Concent 33.7 g/dl 33.7 g/dl Platelet Count 419 K/uL 304 K/uL Mean Platelet Volume 8.7 fL 8.7 fL Neutrophils (%) (Auto) 88.3 % Lymphocytes (%) (Auto) 7.0 % Monocytes (%) (Auto) 4.1 % Eosinophils (%) (Auto) 0.2 % Basophils (%) (Auto) 0.1 % Neutrophils # (Auto) 13.72 K/uL Lymphocytes # (Auto) 1.09 K/uL Monocytes # (Auto) 0.64 K/uL Eosinophils # (Auto) 0.03 K/uL Basophils # (Auto) 0.02 K/uL RDW Standard Deviation 43.1 fL 44.1 fL RDW Coefficient of Variation 12.6 % 12.7 % Immature Granulocyte % (Auto) 0.3 % Immature Granulocyte # (Auto) 0.05 K/uL Sodium Level 141 mmol/L 143 mmol/L Potassium Level 4.1 mmol/L 3.6 mmol/L Chloride Level 101 mmol/L 109 mmol/L Carbon Dioxide Level 33 mmol/L 30 mmol/L Anion Gap 7.0 mmol/L 4.0 mmol/L Blood Urea Nitrogen 20 mg/dl 19 mg/dl Creatinine 0.65 mg/dl 0.55 mg/dl Estimated GFR () 106.5 112.5 Estimated GFR (Non- 91.9 97.1 BUN/Creatinine Ratio 30.6 35.2 Random Glucose 124 mg/dl 136 mg/dl Calcium Level 10.1 mg/dl 8.4 mg/dl Total Bilirubin 0.6 mg/dl Direct Bilirubin 0.1 mg/dl Aspartate Amino Transf (AST/SGOT) 12 U/L Alanine Aminotransferase (ALT/SGPT) 36 U/L Alkaline Phosphatase 113 U/L Total Protein 7.5 gm/dl Albumin 4.1 gm/dl Lipase 95 U/L Urine Color DK YELLOW Urine Appearance CLEAR Urine pH 5.0 Urine Specific [place] > 1.045 Urine Protein NEG Urine Glucose (UA) NEG Urine Ketones NEG Urine Occult Blood NEG Urine Nitrite NEG Urine Bilirubin NEG Urine Urobilinogen NEG Urine Leukocyte Esterase NEG Est Creatinine Clear Calc Drug Dose 89.3 ml/min Phosphorus Level 2.9 mg/dl Magnesium Level 2.0 mg/dl Assessment and Plan 66 y/o F history of hysterectomy and has had several SBOs due to adhesions, one of which required surgical intervention. Recent Lumbar surgery from a posterior approach. CT abd/pelvis consistent with an SBO. SBO - NG - antiemetics, narcotics, IVF surgery consult has ordered barium small bowel follow through [place] - not currently treated Anxiety/depression - PRN Ativan hold ssri heparin for DVT prevention
--- NOTE | 2016-11-24 16:28 | Medical Student: [facility] ---
Med Student Progress Note Date of Service November 24, 2016. Subjective Pt evaluation today including: conversation w/ patient, conversation w/ family , physical exam, chart review, lab review, review of studies Pain: controlled with pain meds PO Intake: npo Voiding: no voiding problems no acute events overnight. patient reports symptomatic improvement following placement of NG tube. she has some waves of pain and is feeling nauseated. denies vomiting. had a small bowel movement this morning. no other symptoms to report. Review of Systems Constitutional: + sweats, No chills, No fever Respiratory: No cough, No shortness of breath, No sputum Cardiac: No chest pain, No orthopnea Abdomen: + nausea, + pain, No diarrhea, No vomiting Female : No dysuria Objective Vital Signs Date Time Temp Pulse Resp B/P Pulse Ox O2 Delivery O2 Flow Rate FiO2 11/24/16 15:13 36.9 86 16 120/65 95 Room Air 11/24/16 07:47 36.8 81 15 151/80 95 Room Air 11/24/16 07:15 Room Air 11/24/16 00:01 Room Air 11/23/16 23:02 37.1 84 16 122/69 93 Room Air 11/23/16 19:10 76 18 117/75 92 Room Air 11/23/16 17:55 37.1 87 18 163/72 92 Room Air 11/23/16 17:15 37.2 85 16 161/77 92 Room Air 11/23/16 17:08 36.8 82 18 121/68 94 11/23/16 16:51 82 18 121/68 94 Room Air Physical Exam General Appearance: WD/WN, + mild distress ENT: hearing grossly normal, pharynx normal Neck: supple, no JVD Respiratory/Chest: chest non-tender, lungs clear, normal breath sounds Cardiovascular: regular rate, rhythm, no edema, no gallop, no murmur Abdomen: soft, + abnormal bowel sounds (occasional high pitched tinkling sounds ), + tenderness Extremities: non-tender, normal inspection, no pedal edema Neurologic/Psychiatric: alert, oriented x 3 Skin: normal color, no rash Laboratory Results Last 24 Hours Test 11/23/16 23:17 11/24/16 05:20 Urine Color DK YELLOW Urine Appearance CLEAR Urine pH 5.0 Urine Specific Harts > 1.045 Urine Protein NEG Urine Glucose (UA) NEG Urine Ketones NEG Urine Occult Blood NEG Urine Nitrite NEG Urine Bilirubin NEG Urine Urobilinogen NEG Urine Leukocyte Esterase NEG White Blood Count 9.08 K/uL Red Blood Count 3.89 M/uL Hemoglobin 12.6 g/dL Hematocrit 37.4 % Mean Corpuscular Volume 96.1 fL Mean Corpuscular Hemoglobin 32.4 pg Mean Corpuscular Hemoglobin Concent 33.7 g/dl RDW Standard Deviation 44.1 fL RDW Coefficient of Variation 12.7 % Platelet Count 304 K/uL Mean Platelet Volume 8.7 fL Sodium Level 143 mmol/L Potassium Level 3.6 mmol/L Chloride Level 109 mmol/L Carbon Dioxide Level 30 mmol/L Anion Gap 4.0 mmol/L Blood Urea Nitrogen 19 mg/dl Creatinine 0.55 mg/dl Est Creatinine Clear Calc Drug Dose 89.3 ml/min Estimated GFR () 112.5 Estimated GFR (Non- 97.1 BUN/Creatinine Ratio 35.2 Random Glucose 136 mg/dl Calcium Level 8.4 mg/dl Phosphorus Level 2.9 mg/dl Magnesium Level 2.0 mg/dl Medications Current Inpatient Medications Medications (Trade) Dose Ordered Sig/Harmeet Route Start Time Stop Time Status Last Admin Dose Admin Ioversol (Optiray 320) 100 ml UD PRN IV 11/23/16 12:45 11/27/16 12:44 Heparin Sodium (Porcine) (Heparin Sq 5000 Unit/0.5ml) 5,000 unit Q8H SQ 11/23/16 22:00 12/23/16 21:59 11/24/16 13:46 5,000 UNIT Lorazepam 1 mg 1 mg Q8H PRN IV 11/23/16 15:45 12/23/16 15:44 Lorazepam 1 mg/ Syringe 1 ml @ 1 mls/min Q8H PRN IV 11/23/16 16:15 12/23/16 16:14 Potassium Chloride/Dextrose/ Sod Cl (D5W And 1/2nss + 20meq KCl) 1,000 ml @ 100 mls/hr Q10H IV 11/24/16 05:30 12/24/16 05:29 11/24/16 15:41 100 MLS/HR Hydromorphone HCl (Dilaudid Inj) 1 mg Q3H PRN IV 11/24/16 12:45 12/08/16 12:44 Metoclopramide HCl 10 mg 10 mg Q6H PRN IV 11/24/16 15:45 12/24/16 15:44 Ondansetron HCl/ Dextrose (Zofran Inj/D5 50ml) 54 ml @ 216 mls/hr Q5H PRN IV 11/24/16 16:15 12/24/16 16:14 Assessment and Plan Assessment and Plan: This is a 66 yo female with a history of hysterectomy, back pain, and depression and anxiety who presented with small bowel obstruction. Small bowel obstruction: -CT/Xray consistent with partial small bowel obstruction -Pain relieved partly by NG decompression -Pain control adequate with hydromorphone 1 mg IV q3h -Will do contrast study to evaluate extent of obstruction -Maintain NPO until further information -Ondansetron for nausea -IV fluids running (D5, 1/2 nss, 20 kcl 1000 ml at 100 ml/hr) Back pain: -Recent back surgery -Continue pain management prn Depression/anxiety: -Holding SSRI -Lorazepam prn for anxiety DVT prophylaxis: -Heparin 5000 u subq q8h Disposition: -Will evaluate progression/resolution of SBO following contrast study Continued [facility] stay due to: inadequate po fluid intake, inadequate oral pain control, multiple IV medications needed Discharge planning: home
[2016-11-24] MEDS: METOCLOPRAMIDE HCL INJ 5 MG/ML 2 ML VIAL IV PRN (18:10)
[2016-11-24] MEDS ORDERED: ONDANSETRON INJ 2 MG/ML 2 ML VIAL IV PRN (21:30)
[2016-11-24] MEDS: ONDANSETRON INJ 8 MG in DEXTROSE 5% 50ML 50 ML IV PRN (22:27)
[2016-11-24 23:13] VITALS: BP 108/57; PULSE 76; TEMP 36.9; O2SAT 94
[2016-11-25] MEDS: D5W AND 1/2NSS + 20MEQ KCL 1,000 ML IV SCH ×3 (00:20→21:28)
[2016-11-25] MEDS: HYDROmorphone INJ 1 MG/ML SYR IV PRN ×8 (01:12→23:04)
[2016-11-25] MEDS: METOCLOPRAMIDE HCL INJ 5 MG/ML 2 ML VIAL IV PRN ×3 (04:07→19:24)
[2016-11-25] MEDS: HEPARIN SOD 5000 UNIT/0.5 ML CARP SQ SCH ×3 (05:57→21:33)
[2016-11-25] MEDS: ONDANSETRON INJ 8 MG in DEXTROSE 5% 50ML 50 ML IV PRN ×3 (06:07→23:04)
--- NOTE | 2016-11-25 06:30 | Surgery Progress Note ---
Surgery Progress Note Date of Service November 25, 2016. Subjective No bowel movement, No nausea still some intermittent abd pain- same. increased urine output, min flatus, no bm had 250+ NG output Objective Vital Signs: Date Time Temp Pulse Resp B/P Pulse Ox O2 Delivery O2 Flow Rate FiO2 11/25/16 00:00 Room Air 11/24/16 23:13 36.9 76 16 108/57 94 Room Air 11/24/16 15:45 Room Air 11/24/16 15:13 36.9 86 16 120/65 95 Room Air 11/24/16 07:47 36.8 81 15 151/80 95 Room Air 11/24/16 07:15 Room Air General Appearance: no apparent distress Respiratory/Chest: no respiratory distress Abdomen: + distended (mild distention , decreased bowel sounds) Laboratory Results: Results Past 24 Hours Test 11/25/16 06:07 Range/Units Assessment & Plan 11/25/16- Currently receiving contrast for CT via NG- will check scan- assess transit of contrast- check labs- may need surgery if no improvement. prior operations may increase complexity of surgery if needed. addendum- CT this am shows decompressed small bowel with contrast into cecum- distal small bowel is thickened- c/w enteritis. It would appear sbo is resolving and would not require surgery. Will ask GI to see and leave NG for now- has not had bm yet. If pt requires surgery , I have discussed transfer to [place] with pt and - they would agree 11/24/16- some mild improvement with NG in place- will try to have pt ambulate. leave NG, check am labs- consider repeat CT with contrast via NG but will hold off for now- 11/24/16- some mild improvement with NG in place- will try to have pt ambulate. leave NG, check am labs- consider repeat CT with contrast via NG but will hold off for now-
[2016-11-25 07:41] VITALS: BP 144/74; PULSE 74; TEMP 37; O2SAT 94
[2016-11-25 08:05] LABS: BUN/CREATININE RATIO 14.5 (10-20); CREATININE 0.44 mg/dl (0.60-1.20); MAGNESIUM 1.9 mg/dl (1.8-2.4); PHOSPHORUS 2.7 mg/dl (2.5-4.9); POTASSIUM 3.7 mmol/L (3.5-5.1)
[2016-11-25 08:34] LABS: CALCIUM 8.7 mg/dl (8.5-10.1)
--- NOTE | 2016-11-25 09:43 | DIAGNOSTIC IMAGING REPORT ---
CT ABD/PELVIS IV AND ORAL CONT CLINICAL HISTORY: Diffuse abdominal pain nausea, vomiting. COMPARISON STUDY: 11/23/2016 TECHNIQUE: Following the IV administration of 110 mL of Optiray-320, CT scan of the abdomen and pelvis was performed from the lung bases to the proximal femurs. Images are reviewed in the axial, sagittal, and coronal planes. IV contrast was administered without complication. CT DOSE: 401.33 mGy.cm FINDINGS: Lower chest: There are bibasal atelectatic changes. There is a joint nasogastric tube. Liver: The contrast-enhanced liver is normal in size, contour, and attenuation. There is no intrahepatic biliary ductal dilatation. The hepatic veins and portal veins are patent. Gallbladder: Hyperdense bile, and equivocal gallstone. Spleen: Normal in size and attenuation. Pancreas: Unremarkable. Adrenal glands: Unremarkable. Kidneys: There are small bilateral nonobstructing renal calculi. There is no hydronephrosis. There are bilateral renal cysts the largest of which measures 1 cm on the right, and 12 mm on the left. Bowel: There is contrast present within nondilated colon. There is decreased small bowel dilatation however the proximal small bowel remains more dilated than the distal small bowel. There are multiple small bowel loops demonstrating bowel wall thickening. The findings are consistent with a partial small bowel obstruction or small bowel enteritis. There is no portal venous gas. Peritoneum: There is no intraperitoneal free air or abdominal ascites. Vasculature: The abdominal aorta is normal in course and caliber. Adenopathy: None. Pelvic viscera: The uterus appears surgically absent. Skeletal structures: There are postsurgical changes within the lumbar spine. IMPRESSION: 1. Interval placement of a nasogastric tube 2. Decreasing small bowel dilatation, but continued evidence for a low-grade partial small bowel obstruction. 3. Multiple thick walled small bowel loops, consistent with a nonspecific enteritis 4. Nonobstructing bilateral renal calculi 5. Equivocal gallbladder calculus Electronically signed by: Basilio Patton M.D. 11/25/2016 9:42 AM Dictated Date/Time: 11/25/2016 9:29 AM
[2016-11-25] MEDS ORDERED: ONDANSETRON INJ 8 MG in DEXTROSE 5% 50ML 50 ML IV SCH (10:00)
--- NOTE | 2016-11-25 10:25 | Gastrointestinal Consultation ---
Gastrointestinal Consultation Date of Consultation: November 25, 2016 Attending Physician: Hortensia Consulting Physician: Merlin Reason for Consultation: SBO History of Present Illness Patient is a 66 year old female w/ PMH significant for MS, depression/anxiety, hysterectomy w/ pelvic adhesion, SBO x2, chronic back pain s/p lumbar surgery last week who presented through the ED with abdominal pain, nausea an vomiting. As an outpatient she was using prescribed narcotics at night for back pain since her procedure. She was ambulating well and was tolerating a regular diet. There was gradual onset after eating a salad for dinner of generalized abdominal pain, nausea and vomiting. CT was obtained and indicative of a small bowel obstruction. This has been managed conservatively by surgery. GI is consulted for additional management at the request of Dr. Antunez. Pt was seen and evaluated this AM. Presents is NPO with NG to suction with yellow output. No evidence of hematemesis or coffee ground emesis. She tells me she feels much better than she did on admission. No abdominal pain. No nausea. No vomiting. + flatus. Passed two small pebble like BMs yesterday. None today. Bowels typically move once every two to three days. No persistent episodes of loose stools. No history of BRBPR. No family history of inflammatory bowel disease. CT abd 11/25/16: Interval placement of a nasogastric tube Decreasing small bowel dilatation, but continued evidence for a low-grade partial small bowel obstruction. Multiple thick walled small bowel loops, consistent with a nonspecific enteritis Nonobstructing bilateral renal calculi Equivocal gallbladder calculus KUB 11/24/16: Mild improvement in small bowel obstructive change with a moderate residual ileus. CT abd 11/23/16: Multiple distended fluid-filled loops of small bowel with a transition pointlocated within a thickened loop of small bowel within the right lower quadrant. These findings are consistent with a small bowel obstruction. The thickened loop of bowel raises the possibility of a focal enteritis. Bilateral nephrolithiasis. No hydronephrosis. Interval postoperative changes within the lumbar spine. Colonoscopy: 5 years ago in [place] - advised to repeat in 5 years, I do not have access to these reports EGD: Many years ago by Dr. Regan - was started on a PPI Past Medical/Surgical History Medical Problems: (1) Anxiety State Nos Status: Chronic (2) Depressive Disorder Nec Status: Chronic (3) Esophageal Reflux Status: Chronic (4) Hypoxia Status: Acute (5) Multiple sclerosis Status: Chronic (6) Precordial chest pain Status: Acute (7) Rheumatoid Arthritis Status: Chronic Past Medical History: MS, depression/anxiety, pelvic adhesion, SBO, chronic back Past Surgical History: back surgery 2 weeks ago, hysterectomy, ex-lap, revision of adhesion, EGD, colonoscopy Family History Diabetes mellitus FH: cancer FH: heart disease Hypertension Social History Smoking Status: Never Smoker Alcohol Use: occasionally Drug Use: none Marital Status: Housing Status: lives with family Occupation Status: unemployed Allergies Coded Allergies: Promethazine (Verified Allergy, Intermediate, HALLUCINATIONS, 11/05/15) Adhesives (Verified Allergy, Mild, ALLERGY TO PLASTIC CLEAR TAPE = CAUSES HIVES, 11/05/15) Sulfa Antibiotics (Verified Allergy, Unknown, HIVES, 11/05/15) Current Medications Home Meds and Scripts Medications Dose Route/Sig Max Daily Dose Days Date Category Oxycodone Hcl 10 Mg Tab 10 Mg PO Q4H PRN 11/23/16 Reported Zoloft (Sertraline Hcl) 100 Mg Tab 100 Mg PO BID 11/27/12 Reported Klonopin (Clonazepam) 2 Mg Tab 1-2 Tab PO HS 07/30/12 Reported Review of Systems Constitutional: No chills, No fever Respiratory: No cough, No shortness of breath Cardiac: No chest pain, No edema Abdomen: + constipation, No GI bleeding, No diarrhea, No nausea, No pain, No vomiting Physical Exam Date Time Temp Pulse Resp B/P Pulse Ox O2 Delivery O2 Flow Rate FiO2 11/25/16 07:41 37.0 74 19 144/74 94 Room Air 11/25/16 00:00 Room Air 11/24/16 23:13 36.9 76 16 108/57 94 Room Air 11/24/16 15:45 Room Air 11/24/16 15:13 36.9 86 16 120/65 95 Room Air General Appearance: no apparent distress ( is at bedside, she was reading the paper prior to my examination) Eyes: PERRL ENT: hearing grossly normal Neck: supple Respiratory/Chest: lungs clear, no accessory muscle use Cardiovascular: regular rate, rhythm, no murmur Abdomen: non tender, no organomegaly, no pulsatile mass, + abnormal bowel sounds (present x 4 quadrants but hypoactive), + distended (mild distention) Neurologic/Psych: alert, normal mood/affect, oriented x 3 Skin: normal color, no jaundice, warm/dry, no rash Laboratory Results Last 24 Hours Test 11/25/16 07:19 Sodium Level 140 mmol/L Potassium Level 3.7 mmol/L Chloride Level 104 mmol/L Carbon Dioxide Level 31 mmol/L Anion Gap 5.0 mmol/L Blood Urea Nitrogen 6 mg/dl Creatinine 0.44 mg/dl Est Creatinine Clear Calc Drug Dose 111.6 ml/min Estimated GFR () 121.1 Estimated GFR (Non- 104.5 BUN/Creatinine Ratio 14.5 Random Glucose 113 mg/dl Calcium Level 8.7 mg/dl Phosphorus Level 2.7 mg/dl Magnesium Level 1.9 mg/dl Impression Patient is a 66 year old female with history of SBO (risk factors include numerous abdominal surgeries, adhesions, revision of adhesions) who presented through the ED with nausea, vomiting, constipation and abdominal pain after outpatient narcotic use following a back surgery. On admission, CT evidence of SBO w/ an elevated white count. Surgical eval w/ recommendation for conservative management with IVF, bowel rest, NG tube and daily KUBs. Repeat CT with contrast w/ multiple thick walled small bowel loops, consistent with a nonspecific enteritis. Differentials include nonspecific enteritis, IBD etc. Plan Continue with conservative management of SBO NPO for bowel rest IVF NG tube to suction Antiemetics PRN Avoid narcotic use Encourage ambulation Daily KUB until resolution of SBO May use one dose of Relistor with resolution of SBO Suggest outpatient colonoscopy in 4-6 weeks At discharge, she should be started on a bowel regimen Miralax once daily GI to follow. Further recommendations pending reviewing CT scan with radiologist - Reviewed imaging with Dr. Boyer and radiology - will proceed with Relistor and conservative management. She should be transferred to a tertiary care center if surgical intervention is warranted. She can have an outpatient colonoscopy at regular scheduled interval with previously established provider. ATTESTATION: I have performed a history and physical examination of this patient and reviewed the electronic record. Specifically, on physical examination abdomen is soft with minimal tenderness. I have discussed the case with DIEGO Calloway. The above note reflects my findings, conclusions, and recommendations. Angel Boyer MD
[2016-11-25] MEDS ORDERED: METHYLNALTREXONE BROMIDE INJ 12 MG/0.6 ML SYR SQ SCH (15:00)
--- NOTE | 2016-11-25 15:42 | Medical Student: [facility] ---
Med Student Progress Note Date of Service November 25, 2016. Subjective Pt evaluation today including: conversation w/ patient, conversation w/ family , physical exam, chart review, lab review, review of studies Pain: controlled with IV pain meds PO Intake: npo Voiding: no voiding problems no acute events overnight. patient continues to c/o nausea. pain is well controlled with IV dilaudid. she says that overall she is feeling better. she has not had a bowel movement since yesterday morning. no new symptoms to report. Review of Systems Constitutional: No chills, No fever Respiratory: No cough, No shortness of breath Cardiac: No chest pain Abdomen: + nausea, + pain, No diarrhea, No vomiting Objective Vital Signs Date Time Temp Pulse Resp B/P Pulse Ox O2 Delivery O2 Flow Rate FiO2 11/25/16 07:45 Room Air 11/25/16 07:41 37.0 74 19 144/74 94 Room Air 11/25/16 00:00 Room Air 11/24/16 23:13 36.9 76 16 108/57 94 Room Air 11/24/16 15:45 Room Air Physical Exam General Appearance: WD/WN, no apparent distress ENT: hearing grossly normal, pharynx normal, + pertinent finding (NG tube in right nares) Neck: supple, no JVD Respiratory/Chest: chest non-tender, lungs clear, normal breath sounds Cardiovascular: regular rate, rhythm, no edema, no gallop, no murmur Abdomen: normal bowel sounds, soft, + tenderness (moderate tenderness diffusely , greatest in left lower quadrant) Extremities: non-tender, no pedal edema Neurologic/Psychiatric: alert, oriented x 3 Skin: normal color, no rash Laboratory Results Last 24 Hours Test 11/25/16 07:19 Sodium Level 140 mmol/L Potassium Level 3.7 mmol/L Chloride Level 104 mmol/L Carbon Dioxide Level 31 mmol/L Anion Gap 5.0 mmol/L Blood Urea Nitrogen 6 mg/dl Creatinine 0.44 mg/dl Est Creatinine Clear Calc Drug Dose 111.6 ml/min Estimated GFR () 121.1 Estimated GFR (Non- 104.5 BUN/Creatinine Ratio 14.5 Random Glucose 113 mg/dl Calcium Level 8.7 mg/dl Phosphorus Level 2.7 mg/dl Magnesium Level 1.9 mg/dl Medications Current Inpatient Medications Medications (Trade) Dose Ordered Sig/Harmeet Route Start Time Stop Time Status Last Admin Dose Admin Ioversol (Optiray 320) 100 ml UD PRN IV 11/23/16 12:45 11/27/16 12:44 Heparin Sodium (Porcine) (Heparin Sq 5000 Unit/0.5ml) 5,000 unit Q8H SQ 11/23/16 22:00 12/23/16 21:59 11/25/16 14:29 5,000 UNIT Lorazepam 1 mg 1 mg Q8H PRN IV 11/23/16 15:45 12/23/16 15:44 Lorazepam 1 mg/ Syringe 1 ml @ 1 mls/min Q8H PRN IV 11/23/16 16:15 12/23/16 16:14 Potassium Chloride/Dextrose/ Sod Cl (D5W And 1/2nss + 20meq KCl) 1,000 ml @ 100 mls/hr Q10H IV 11/24/16 05:30 12/24/16 05:29 11/25/16 10:41 100 MLS/HR Hydromorphone HCl (Dilaudid Inj) 1 mg Q3H PRN IV 11/24/16 12:45 12/08/16 12:44 11/25/16 13:13 1 MG Metoclopramide HCl 10 mg 10 mg Q6H PRN IV 11/24/16 15:45 12/24/16 15:44 11/25/16 13:14 10 MG Ondansetron HCl 8 mg/Dextrose 54 ml @ 216 mls/hr Q5H PRN IV 11/24/16 16:15 12/24/16 16:14 11/25/16 06:07 216 MLS/HR Ondansetron HCl/ Dextrose (Zofran Inj/D5 50ml) 54 ml @ 200 mls/hr TODAY@1000 IV 11/25/16 10:00 11/25/16 18:00 11/25/16 10:41 200 MLS/HR Mineral Oil (Mineral Oil) 30 ml NOW ONCE PO 11/25/16 16:00 11/25/16 16:01 Senna (Senokot Syrup) 8.8 mg BID PO 11/25/16 21:00 12/25/16 20:59 Methylnaltrexone [place] (Relistor Inj) 12 mg Q2D SQ 11/25/16 15:00 12/25/16 14:59 Assessment and Plan Assessment and Plan: This is a 66 yo female with a history of hysterectomy, back pain, and depression and anxiety who presented with small bowel obstruction. Small bowel obstruction: -CT with IV and oral contrast this morning showed partial obstruction with small bowel thickening consistent with enteritis -Pain relieved partly by NG decompression -Pain control adequate with hydromorphone 1 mg IV q3h -Started relistor per GI -Maintain NPO until further information -Ondansetron for nausea -IV fluids running (D5, 1/2 nss, 20 kcl 1000 ml at 100 ml/hr) Back pain: -Recent back surgery -Continue pain management prn Depression/anxiety: -Holding SSRI -Lorazepam prn for anxiety DVT prophylaxis: -Heparin 5000 u subq q8h Disposition: -Per recs from surgery, will continue conservative management as it appears that SBO is resolving -Should surgery be necessary, transfer to [facility] given past surgical history. good note concise but informative Continued [facility] stay due to: inadequate po fluid intake, inadequate oral pain control, multiple IV medications needed Discharge planning: home
[2016-11-25 15:46] VITALS: BP 146/81; PULSE 73; TEMP 36.7; O2SAT 93
[2016-11-25] MEDS ORDERED: MINERAL OIL 30 ML UDC PO ONE (16:00)
--- NOTE | 2016-11-25 17:20 | Progress Note ---
Subjective Date of Service: November 25, 2016. Subjective this pt is comfortable and tolerating NGT updated family at bedside Problem List Medical Problems: (1) Anxiety State Nos Status: Chronic (2) Depressive Disorder Nec Status: Chronic (3) Esophageal Reflux Status: Chronic (4) Hypoxia Status: Acute (5) Multiple sclerosis Status: Chronic (6) Precordial chest pain Status: Acute (7) Rheumatoid Arthritis Status: Chronic Review of Systems Constitutional: No chills, No fever Respiratory: No cough, No shortness of breath, No sputum Cardiac: No chest pain, No edema Abdomen: + pain, No diarrhea, No nausea, No vomiting Psychiatric: No anxiety, No depression symptoms Objective Vital Signs Date Time Temp Pulse Resp B/P Pulse Ox O2 Delivery O2 Flow Rate FiO2 11/25/16 07:41 37.0 74 19 144/74 94 Room Air 11/25/16 00:00 Room Air 11/24/16 23:13 36.9 76 16 108/57 94 Room Air 11/24/16 15:45 Room Air 11/24/16 15:13 36.9 86 16 120/65 95 Room Air Physical Exam General Appearance: WD/WN, + mild distress Neck: supple, no JVD Respiratory/Chest: chest non-tender, lungs clear Cardiovascular: regular rate, rhythm, no murmur Abdomen: soft, + abnormal bowel sounds, + guarding, + tenderness Laboratory Results Last 24 Hours Test 11/25/16 07:19 Assessment and Plan 66 y/o F history of hysterectomy and has had several SBOs due to adhesions, one of which required surgical intervention. Recent Lumbar surgery from a posterior approach. initial CT abd/pelvis consistent with an SBO. subsequent CT shows contrast to colon partial bowel obstruction with suggestion of small bowel thickening, will have GI opinion, not advancing diet per surgery and keep ngt MS - not currently treated Anxiety/depression - PRN Ativan hold ssri, she seems to be coping well heparin for DVT prevention Continued [facility] stay due to: inadequate po fluid intake, inadequate oral pain control, multiple IV medications needed Discharge planning: home
[2016-11-25] MEDS: SENNA 8.8 MG/5 ML UDP PO SCH (21:28)
[2016-11-25 23:08] VITALS: BP 129/74; PULSE 76; TEMP 37; O2SAT 92
[2016-11-26] MEDS: METOCLOPRAMIDE HCL INJ 5 MG/ML 2 ML VIAL IV PRN ×4 (03:04→23:45)
[2016-11-26] MEDS: HYDROmorphone INJ 1 MG/ML SYR IV PRN ×7 (03:04→23:45)
[2016-11-26] MEDS ORDERED: HYDROmorphone INJ 1 MG/ML SYR IV PRN (05:30)
--- NOTE | 2016-11-26 05:33 | Surgery Progress Note ---
Surgery Progress Note Date of Service November 26, 2016. Subjective resting comfortably- no record of bm yet min NG output Objective Vital Signs: Date Time Temp Pulse Resp B/P Pulse Ox O2 Delivery O2 Flow Rate FiO2 11/25/16 23:08 37.0 76 16 129/74 92 Room Air 11/25/16 19:35 Room Air 11/25/16 15:46 36.7 73 16 146/81 93 11/25/16 07:45 Room Air 11/25/16 07:41 37.0 74 19 144/74 94 Room Air General Appearance: no apparent distress Respiratory/Chest: no respiratory distress Abdomen: non distended Laboratory Results: Results Past 24 Hours Test 11/25/16 07:19 11/26/16 04:44 11/26/16 04:49 Range/Units Sodium Level 140 136-145 mmol/L Potassium Level 3.7 3.5-5.1 mmol/L Chloride Level 104 98-107 mmol/L Carbon Dioxide Level 31 21-32 mmol/L Anion Gap 5.0 3-11 mmol/L Blood Urea Nitrogen 6 7-18 mg/dl Creatinine 0.44 0.60-1.20 mg/dl Est Creatinine Clear Calc Drug Dose 111.6 ml/min Estimated GFR () 121.1 Estimated GFR (Non- 104.5 BUN/Creatinine Ratio 14.5 10-20 Random Glucose 113 70-99 mg/dl Calcium Level 8.7 8.5-10.1 mg/dl Phosphorus Level 2.7 2.5-4.9 mg/dl Magnesium Level 1.9 1.8-2.4 mg/dl Assessment & Plan 11/26/16- will give dose of Miralax via NG then d/c NG. Try clear liquids. on Relistor and Reglan- on CT , colon has formed stool from cecum to rectum. 11/25/16- Currently receiving contrast for CT via NG- will check scan- assess transit of contrast- check labs- may need surgery if no improvement. prior operations may increase complexity of surgery if needed. addendum- CT this am shows decompressed small bowel with contrast into cecum- distal small bowel is thickened- c/w enteritis. It would appear sbo is resolving and would not require surgery. Will ask GI to see and leave NG for now- has not had bm yet. If pt requires surgery , I have discussed transfer to [place] with pt and - they would agree 11/24/16- some mild improvement with NG in place- will try to have pt ambulate. leave NG, check am labs- consider repeat CT with contrast via NG but will hold off for now- 11/25/16- Currently receiving contrast for CT via NG- will check scan- assess transit of contrast- check labs- may need surgery if no improvement. prior operations may increase complexity of surgery if needed. addendum- CT this am shows decompressed small bowel with contrast into cecum- distal small bowel is thickened- c/w enteritis. It would appear sbo is resolving and would not require surgery. Will ask GI to see and leave NG for now- has not had bm yet. If pt requires surgery , I have discussed transfer to [place] with pt and - they would agree 11/24/16- some mild improvement with NG in place- will try to have pt ambulate. leave NG, check am labs- consider repeat CT with contrast via NG but will hold off for now-
[2016-11-26] MEDS: POLYETHYLENE (MIRALAX) 17 GM PACK PO SCH ×2 (06:05→08:51)
[2016-11-26] MEDS: HEPARIN SOD 5000 UNIT/0.5 ML CARP SQ SCH ×3 (06:06→21:45)
[2016-11-26 07:00] VITALS: BP 131/75; PULSE 67; TEMP 36.9; O2SAT 92
--- NOTE | 2016-11-26 07:10 | Gastroenterology Progress Note ---
Progress Note Date of Service: November 26, 2016 Subjective Pt evaluation today including: conversation w/ patient, physical exam, chart review Pt was seen and evaluated this AM. First dose of relistor given yesterday - no report of BM to date. She is passing gas and abdominal pain is slightly improved this morning on exam - explained more as a pressure and mild discomfort rather than a sharp severe pain. She was given miralax by NG this morning and tolerated. NG was discontinued. She has not gone for her morning KUB yet - will follow up this study when available. Denies fever, chills, chest pain, SOB. Review of Systems Constitutional: No chills, No fever Respiratory: No cough, No shortness of breath Cardiac: No chest pain, No edema Abdomen: + constipation, + pain, No GI bleeding, No diarrhea, No nausea, No vomiting Medications Current Inpatient Medications Medications (Trade) Dose Ordered Sig/Harmeet Route Start Time Stop Time Status Last Admin Dose Admin Ioversol (Optiray 320) 100 ml UD PRN IV 11/23/16 12:45 11/27/16 12:44 Heparin Sodium (Porcine) (Heparin Sq 5000 Unit/0.5ml) 5,000 unit Q8H SQ 11/23/16 22:00 12/23/16 21:59 11/26/16 06:06 5,000 UNIT Lorazepam 1 mg 1 mg Q8H PRN IV 11/23/16 15:45 12/23/16 15:44 Lorazepam 1 mg/ Syringe 1 ml @ 1 mls/min Q8H PRN IV 11/23/16 16:15 12/23/16 16:14 Potassium Chloride/Dextrose/ Sod Cl (D5W And 1/2nss + 20meq KCl) 1,000 ml @ 100 mls/hr Q10H IV 11/24/16 05:30 12/24/16 05:29 11/25/16 21:28 100 MLS/HR Hydromorphone HCl (Dilaudid Inj) 1 mg Q3H PRN IV 11/24/16 12:45 12/08/16 12:44 11/26/16 06:07 1 MG Metoclopramide HCl 10 mg 10 mg Q6H PRN IV 11/24/16 15:45 12/24/16 15:44 11/26/16 03:04 10 MG Ondansetron HCl/ Dextrose (Zofran Inj/D5 50ml) 54 ml @ 216 mls/hr Q5H PRN IV 11/24/16 16:15 12/24/16 16:14 11/25/16 23:04 216 MLS/HR Senna (Senokot Syrup) 8.8 mg BID PO 11/25/16 21:00 12/25/16 20:59 11/25/16 21:28 8.8 MG Methylnaltrexone [place] (Relistor Inj) 12 mg Q2D SQ 11/25/16 15:00 12/25/16 14:59 11/25/16 15:27 12 MG Polyethylene (Miralax Powder Packet) 17 gm DAILY PO 11/26/16 07:00 12/26/16 06:59 11/26/16 06:05 17 GM Hydromorphone HCl (Dilaudid Inj) 0.5 mg Q3H PRN IV 11/26/16 05:30 12/10/16 05:29 Objective Vital Signs Date Time Temp Pulse Resp B/P Pulse Ox O2 Delivery O2 Flow Rate FiO2 11/26/16 07:00 36.9 67 16 131/75 92 Room Air 11/25/16 23:08 37.0 76 16 129/74 92 Room Air 11/25/16 19:35 Room Air 11/25/16 15:46 36.7 73 16 146/81 93 11/25/16 07:45 Room Air 11/25/16 07:41 37.0 74 19 144/74 94 Room Air Physical Exam General Appearance: no apparent distress Eyes: PERRL ENT: hearing grossly normal Neck: supple Respiratory/Chest: lungs clear, no respiratory distress Cardiovascular: regular rate, rhythm, no JVD Abdomen: soft, no organomegaly, no pulsatile mass, + abnormal bowel sounds ( present but hypoactive), + tenderness (generalzied mild discomfort, worse in left quadrant) Neurologic/Psych: alert, normal mood/affect, oriented x 3 Skin: normal color Laboratory Results Last 24 Hours Test 11/25/16 07:19 11/26/16 04:44 11/26/16 04:49 Sodium Level 140 mmol/L Potassium Level 3.7 mmol/L Chloride Level 104 mmol/L Carbon Dioxide Level 31 mmol/L Anion Gap 5.0 mmol/L Blood Urea Nitrogen 6 mg/dl Creatinine 0.44 mg/dl Est Creatinine Clear Calc Drug Dose 111.6 ml/min Estimated GFR () 121.1 Estimated GFR (Non- 104.5 BUN/Creatinine Ratio 14.5 Random Glucose 113 mg/dl Calcium Level 8.7 mg/dl Phosphorus Level 2.7 mg/dl Magnesium Level 1.9 mg/dl Assessment and Plan Patient is a 66 year old female with history of SBO (risk factors include numerous abdominal surgeries, adhesions, revision of adhesions) who presented through the ED with nausea, vomiting, constipation and abdominal pain after outpatient narcotic use following a back surgery. On admission, CT evidence of SBO w/ an elevated white count. Surgical eval w/ recommendation for conservative management with IVF, bowel rest, NG tube and daily KUBs. Repeat CT with contrast w/ multiple thick walled small bowel loops, consistent with a nonspecific enteritis. Differentials include nonspecific enteritis, IBD etc. Plan Continue with conservative management of SBO - will follow advancement with surgery clear liquids as tolerated IVF d/c NG tube Antiemetics PRN Avoid narcotic use Encourage ambulation Daily KUB until resolution of SBO May use one dose of Relistor with resolution of SBO Colonoscopy as outpatient At discharge, she should be started on a bowel regimen Miralax once daily Discussed Relistor with pharmacy - insurance should cover, will order PRN constipation ATTESTATION: I have performed a history and physical examination of this patient and reviewed the electronic record. Specifically, on physical examination abdomen is soft and non-tender. I have discussed the case with DIEGO Calloway. The above note reflects my findings, conclusions, and recommendations. Angel Boyer MD
[2016-11-26 07:15] LABS: HEMATOCRIT 34.3 % (37-47); MEAN CELL VOLUME 92.7 fL (80-100); MEAN CORPUSCULAR HEMOGLOBIN 32.2 pg (25-34); MEAN CORPUSCULAR HGB CONC 34.7 g/dl (32-36); MEAN PLATELET VOLUME 8.6 fL (7.4-10.4); PLATELET COUNT 290 K/uL (130-400)
[2016-11-26] MEDS: D5W AND 1/2NSS + 20MEQ KCL 1,000 ML IV SCH ×2 (07:26→17:55)
[2016-11-26 07:30] VITALS: O2SAT 92
[2016-11-26 07:48] LABS: CALCIUM 8.8 mg/dl (8.5-10.1); CREATININE 0.55 mg/dl (0.60-1.20); MAGNESIUM 1.9 mg/dl (1.8-2.4); POTASSIUM 3.7 mmol/L (3.5-5.1)
[2016-11-26] MEDS: ONDANSETRON INJ 8 MG in DEXTROSE 5% 50ML 50 ML IV PRN ×3 (08:00→19:58)
[2016-11-26 08:01] LABS: PHOSPHORUS 3.9 mg/dl (2.5-4.9)
[2016-11-26] MEDS: SENNA 8.8 MG/5 ML UDP PO SCH ×2 (09:10→21:33)
--- NOTE | 2016-11-26 11:30 | DIAGNOSTIC IMAGING REPORT ---
KUB CLINICAL HISTORY: Small bowel obstruction COMPARISON STUDY: 11/24/2016 FINDINGS: There is contrast present within the colon. Anterior skin veronique are visualized. There are innumerable surgical clips within the lower abdomen and pelvis. There are mildly dilated small bowel loops measuring up to 4 cm in diameter. IMPRESSION: Persistent mild small bowel dilatation with bowel loops measuring up to 4 cm. Contrast within nondilated colon. Electronically signed by: Basilio Patton M.D. 11/26/2016 11:29 AM Dictated Date/Time: 11/26/2016 11:27 AM
--- NOTE | 2016-11-26 12:41 | Medical Student: [facility] ---
Med Student Progress Note Date of Service November 26, 2016. Subjective Pt evaluation today including: conversation w/ patient, physical exam, chart review, lab review, review of studies Pain: well controlled with oral meds PO Intake: clear liquids Voiding: no voiding problems no acute events overnight. patient is feeling much better. no difficulties with removal of NG tube. nausea improved. still has not had a bowel movement. no other symptoms to report. Review of Systems Constitutional: No chills, No fever Respiratory: No cough, No shortness of breath Cardiac: No chest pain, No orthopnea Abdomen: + constipation, + nausea, No diarrhea, No pain, No vomiting Female : No dysuria Objective Vital Signs Date Time Temp Pulse Resp B/P Pulse Ox O2 Delivery O2 Flow Rate FiO2 11/26/16 07:30 92 Room Air 11/26/16 07:00 36.9 67 16 131/75 92 Room Air 11/25/16 23:08 37.0 76 16 129/74 92 Room Air 11/25/16 19:35 Room Air 11/25/16 15:46 36.7 73 16 146/81 93 Physical Exam General Appearance: WD/WN, no apparent distress (seated in chair) ENT: hearing grossly normal, pharynx normal Neck: supple, no JVD Respiratory/Chest: chest non-tender, lungs clear, normal breath sounds Cardiovascular: regular rate, rhythm, no edema, no gallop, no murmur Abdomen: normal bowel sounds, soft, + tenderness (mild tenderness in lower abdomen) Extremities: non-tender, no pedal edema Neurologic/Psychiatric: alert, oriented x 3 Skin: normal color, no rash Laboratory Results Last 24 Hours Test 11/26/16 06:40 White Blood Count 6.70 K/uL Red Blood Count 3.70 M/uL Hemoglobin 11.9 g/dL Hematocrit 34.3 % Mean Corpuscular Volume 92.7 fL Mean Corpuscular Hemoglobin 32.2 pg Mean Corpuscular Hemoglobin Concent 34.7 g/dl RDW Standard Deviation 40.7 fL RDW Coefficient of Variation 12.0 % Platelet Count 290 K/uL Mean Platelet Volume 8.6 fL Sodium Level 141 mmol/L Potassium Level 3.7 mmol/L Chloride Level 104 mmol/L Carbon Dioxide Level 32 mmol/L Anion Gap 5.0 mmol/L Blood Urea Nitrogen 4 mg/dl Creatinine 0.55 mg/dl Est Creatinine Clear Calc Drug Dose 89.3 ml/min Estimated GFR () 112.5 Estimated GFR (Non- 97.1 BUN/Creatinine Ratio 7.0 Random Glucose 117 mg/dl Calcium Level 8.8 mg/dl Phosphorus Level 3.9 mg/dl Magnesium Level 1.9 mg/dl Medications Current Inpatient Medications Medications (Trade) Dose Ordered Sig/Harmeet Route Start Time Stop Time Status Last Admin Dose Admin Ioversol (Optiray 320) 100 ml UD PRN IV 11/23/16 12:45 11/27/16 12:44 Heparin Sodium (Porcine) (Heparin Sq 5000 Unit/0.5ml) 5,000 unit Q8H SQ 11/23/16 22:00 12/23/16 21:59 11/26/16 06:06 5,000 UNIT Lorazepam 1 mg 1 mg Q8H PRN IV 11/23/16 15:45 12/23/16 15:44 Lorazepam 1 mg/ Syringe 1 ml @ 1 mls/min Q8H PRN IV 11/23/16 16:15 12/23/16 16:14 Potassium Chloride/Dextrose/ Sod Cl (D5W And 1/2nss + 20meq KCl) 1,000 ml @ 100 mls/hr Q10H IV 11/24/16 05:30 12/24/16 05:29 11/26/16 07:26 100 MLS/HR Hydromorphone HCl (Dilaudid Inj) 1 mg Q3H PRN IV 11/24/16 12:45 12/08/16 12:44 11/26/16 09:13 1 MG Metoclopramide HCl 10 mg 10 mg Q6H PRN IV 11/24/16 15:45 12/24/16 15:44 11/26/16 09:13 10 MG Ondansetron HCl/ Dextrose (Zofran Inj/D5 50ml) 54 ml @ 216 mls/hr Q5H PRN IV 11/24/16 16:15 12/24/16 16:14 11/26/16 08:00 216 MLS/HR Senna (Senokot Syrup) 8.8 mg BID PO 11/25/16 21:00 12/26/16 20:59 11/26/16 09:10 8.8 MG Polyethylene (Miralax Powder Packet) 17 gm DAILY PO 11/26/16 07:00 12/26/16 06:59 11/26/16 08:51 17 GM Hydromorphone HCl (Dilaudid Inj) 0.5 mg Q3H PRN IV 11/26/16 05:30 12/10/16 05:29 Methylnaltrexone [place] (Relistor Inj) 12 mg Q2D PRN SQ 11/27/16 11:00 12/27/16 10:59 Assessment and Plan Assessment and Plan: This is a 66 yo female with a history of hysterectomy, back pain, and depression and anxiety who presented with small bowel obstruction. Small bowel obstruction: -Continues to improve. NG tube removed this morning -Pain control adequate with hydromorphone 1 mg IV q3h -Started relistor per GI. May receive one more dose tomorrow. -Clear liquid diet. tolerating well -Will consider suppository this afternoon if no bowel movement. -had senna and miralax this morning -Ondansetron for nausea -IV fluids running (D5, 1/2 nss, 20 kcl 1000 ml at 100 ml/hr) Back pain: -Recent back surgery -Continue pain management prn Depression/anxiety: -Resume oral SSRI -Lorazepam prn for anxiety DVT prophylaxis: -Heparin 5000 u subq q8h Disposition: -Per recs from surgery, will continue to monitor for further clinical improvement. -Should surgery be necessary, transfer to [place] given past surgical history. Continued [facility] stay due to: inadequate po fluid intake, inadequate oral pain control, multiple IV medications needed Discharge planning: home
[2016-11-26] MEDS: SERTRALINE HCL 100 MG TAB PO SCH ×2 (13:41→21:32)
--- NOTE | 2016-11-26 13:56 | Progress Note ---
Subjective Date of Service: November 26, 2016. Subjective this pt is doing better, ngt removed, tolerating clears, restarting zoloft Problem List Medical Problems: (1) Anxiety State Nos Status: Chronic (2) Depressive Disorder Nec Status: Chronic (3) Esophageal Reflux Status: Chronic (4) Hypoxia Status: Acute (5) Multiple sclerosis Status: Chronic (6) Precordial chest pain Status: Acute (7) Rheumatoid Arthritis Status: Chronic Review of Systems Constitutional: + chills, + fatigue, + weakness, No fever Respiratory: No cough, No shortness of breath Cardiac: No chest pain, No edema Abdomen: No diarrhea, No nausea, No pain, No vomiting Female : No dysuria, No hematuria Psychiatric: + depression symptoms, No anhedonism Objective Vital Signs Date Time Temp Pulse Resp B/P Pulse Ox O2 Delivery O2 Flow Rate FiO2 11/26/16 07:30 92 Room Air 11/26/16 07:00 36.9 67 16 131/75 92 Room Air 11/25/16 23:08 37.0 76 16 129/74 92 Room Air 11/25/16 19:35 Room Air 11/25/16 15:46 36.7 73 16 146/81 93 Physical Exam General Appearance: WD/WN, + mild distress Neck: supple, no JVD Respiratory/Chest: chest non-tender, lungs clear, normal breath sounds Cardiovascular: regular rate, rhythm, no murmur Abdomen: normal bowel sounds, soft, + guarding, + tenderness Extremities: no pedal edema, no calf tenderness Neurologic/Psychiatric: alert, oriented x 3 Laboratory Results Last 24 Hours Test 11/26/16 06:40 White Blood Count 6.70 K/uL Red Blood Count 3.70 M/uL Hemoglobin 11.9 g/dL Hematocrit 34.3 % Mean Corpuscular Volume 92.7 fL Mean Corpuscular Hemoglobin 32.2 pg Mean Corpuscular Hemoglobin Concent 34.7 g/dl RDW Standard Deviation 40.7 fL RDW Coefficient of Variation 12.0 % Platelet Count 290 K/uL Mean Platelet Volume 8.6 fL Sodium Level 141 mmol/L Potassium Level 3.7 mmol/L Chloride Level 104 mmol/L Carbon Dioxide Level 32 mmol/L Anion Gap 5.0 mmol/L Blood Urea Nitrogen 4 mg/dl Creatinine 0.55 mg/dl Est Creatinine Clear Calc Drug Dose 89.3 ml/min Estimated GFR () 112.5 Estimated GFR (Non- 97.1 BUN/Creatinine Ratio 7.0 Random Glucose 117 mg/dl Calcium Level 8.8 mg/dl Phosphorus Level 3.9 mg/dl Magnesium Level 1.9 mg/dl Assessment and Plan 66 y/o F history of hysterectomy and has had several SBOs due to adhesions, one of which required surgical intervention. Recent Lumbar surgery from a posterior approach. initial CT abd/pelvis consistent with an SBO. subsequent CT shows contrast to colon partial bowel obstruction with suggestion of small bowel thickening, GI opinion is no intervention is needed at this time, ngt removed and advancing diet per surgery MS - not currently treated Anxiety/depression - PRN Ativan restart zoloft consider clonazepam heparin for DVT prevention Continued [facility] stay due to: inadequate po fluid intake, inadequate oral pain control, multiple IV medications needed Discharge planning: home
[2016-11-26] MEDS ORDERED: CLONAZEPAM 0.5 MG TAB PO PRN (14:00)
[2016-11-26 14:10] VITALS: BP 131/75; PULSE 79; TEMP 37.3; O2SAT 93
[2016-11-26 22:50] VITALS: BP 124/70; PULSE 84; TEMP 37.3; O2SAT 95
[2016-11-27] MEDS: ONDANSETRON INJ 8 MG in DEXTROSE 5% 50ML 50 ML IV PRN ×3 (02:24→22:26)
[2016-11-27] MEDS: D5W AND 1/2NSS + 20MEQ KCL 1,000 ML IV SCH ×3 (03:11→22:05)
[2016-11-27] MEDS: HYDROmorphone INJ 1 MG/ML SYR IV PRN ×6 (03:12→22:12)
[2016-11-27] MEDS: HEPARIN SOD 5000 UNIT/0.5 ML CARP SQ SCH ×3 (06:19→22:04)
[2016-11-27] MEDS: METOCLOPRAMIDE HCL INJ 5 MG/ML 2 ML VIAL IV PRN ×3 (06:24→18:58)
--- NOTE | 2016-11-27 06:56 | Surgery Progress Note ---
Surgery Progress Note Date of Service November 27, 2016. Subjective Had bowel movement- very good urine output tolerating clear liquids Objective Vital Signs: Date Time Temp Pulse Resp B/P Pulse Ox O2 Delivery O2 Flow Rate FiO2 11/26/16 23:45 Room Air 11/26/16 22:50 37.3 84 16 124/70 95 Room Air 11/26/16 15:50 Room Air 11/26/16 14:10 37.3 79 16 131/75 93 Room Air 11/26/16 07:30 92 Room Air 11/26/16 07:00 36.9 67 16 131/75 92 Room Air General Appearance: no apparent distress Abdomen: non distended (less distended, more active bowel sounds) Assessment & Plan 11/27/16- Resolving sbo- adv diet to full liquids, decrease IV, limit narctics possible d/c tomorrow if stable- will need some GI folllowup to monitor GI function. Dr Pablo covering over weekend 11/26/16- will give dose of Miralax via NG then d/c NG. Try clear liquids. on Relistor and Reglan- on CT , colon has formed stool from cecum to rectum. 11/25/16- Currently receiving contrast for CT via NG- will check scan- assess transit of contrast- check labs- may need surgery if no improvement. prior operations may increase complexity of surgery if needed. addendum- CT this am shows decompressed small bowel with contrast into cecum- distal small bowel is thickened- c/w enteritis. It would appear sbo is resolving and would not require surgery. Will ask GI to see and leave NG for now- has not had bm yet. If pt requires surgery , I have discussed transfer to [place] with pt and - they would agree 11/24/16- some mild improvement with NG in place- will try to have pt ambulate. leave NG, check am labs- consider repeat CT with contrast via NG but will hold off for now- 11/26/16- will give dose of Miralax via NG then d/c NG. Try clear liquids. on Relistor and Reglan- on CT , colon has formed stool from cecum to rectum. 11/25/16- Currently receiving contrast for CT via NG- will check scan- assess transit of contrast- check labs- may need surgery if no improvement. prior operations may increase complexity of surgery if needed. addendum- CT this am shows decompressed small bowel with contrast into cecum- distal small bowel is thickened- c/w enteritis. It would appear sbo is resolving and would not require surgery. Will ask GI to see and leave NG for now- has not had bm yet. If pt requires surgery , I have discussed transfer to [place] with pt and - they would agree 11/24/16- some mild improvement with NG in place- will try to have pt ambulate. leave NG, check am labs- consider repeat CT with contrast via NG but will hold off for now-
[2016-11-27 06:58] VITALS: BP 124/62; PULSE 78; TEMP 36.9; O2SAT 91
[2016-11-27 07:30] VITALS: O2SAT 91
--- NOTE | 2016-11-27 08:12 | Gastroenterology Progress Note ---
Progress Note Date of Service: November 27, 2016 Subjective Pt evaluation today including: conversation w/ patient, conversation w/ family , chart review, lab review Pt was seen and evaluated this AM. She tells me there was a very small BM yesterday evening - hard and formed, small pebble-like stool. There is still generalized abdominal discomfort and feeling of bloating. She was nauseated this AM after breakfast. No vomiting. KUB 11/27/16: There are multiple surgical clips present within the lower abdomen and pelvis. There is contrast within nondilated colon. There is mild small bowel dilatation with a left midabdominal loop measuring 4.9 cm in diameter. KUB 11/26/16: Persistent mild small bowel dilatation with bowel loops measuring up to 4 cm. Contrast within nondilated colon. Review of Systems Constitutional: No chills, No fever Respiratory: No cough, No shortness of breath Cardiac: No chest pain, No edema Abdomen: + constipation, + nausea, + pain, No GI bleeding, No diarrhea, No vomiting Medications Current Inpatient Medications Medications (Trade) Dose Ordered Sig/Harmeet Route Start Time Stop Time Status Last Admin Dose Admin Ioversol (Optiray 320) 100 ml UD PRN IV 11/23/16 12:45 11/27/16 12:44 Heparin Sodium (Porcine) (Heparin Sq 5000 Unit/0.5ml) 5,000 unit Q8H SQ 11/23/16 22:00 12/23/16 21:59 11/27/16 06:19 5,000 UNIT Lorazepam 1 mg 1 mg Q8H PRN IV 11/23/16 15:45 12/23/16 15:44 Lorazepam 1 mg/ Syringe 1 ml @ 1 mls/min Q8H PRN IV 11/23/16 16:15 12/23/16 16:14 11/26/16 21:34 1 MLS/MIN Potassium Chloride/Dextrose/ Sod Cl (D5W And 1/2nss + 20meq KCl) 1,000 ml @ 50 mls/hr Q20H IV 11/24/16 05:30 11/27/16 03:11 100 MLS/HR Hydromorphone HCl (Dilaudid Inj) 1 mg Q3H PRN IV 11/24/16 12:45 12/08/16 12:44 11/27/16 06:24 1 MG Metoclopramide HCl 10 mg 10 mg Q6H PRN IV 11/24/16 15:45 12/24/16 15:44 11/27/16 06:24 10 MG Ondansetron HCl/ Dextrose (Zofran Inj/D5 50ml) 54 ml @ 216 mls/hr Q5H PRN IV 11/24/16 16:15 12/24/16 16:14 11/27/16 02:24 216 MLS/HR Senna (Senokot Syrup) 8.8 mg BID PO 11/25/16 21:00 12/26/16 20:59 11/26/16 21:33 8.8 MG Polyethylene (Miralax Powder Packet) 17 gm DAILY PO 11/26/16 07:00 12/26/16 06:59 11/26/16 08:51 17 GM Hydromorphone HCl (Dilaudid Inj) 0.5 mg Q3H PRN IV 11/26/16 05:30 12/10/16 05:29 Methylnaltrexone [place] (Relistor Inj) 12 mg Q2D PRN SQ 11/27/16 11:00 12/27/16 10:59 Sertraline HCl (Zoloft Tab) 100 mg BID PO 11/26/16 21:00 12/26/16 20:59 11/26/16 21:32 100 MG Clonazepam (Klonopin Tab) 0.5 mg Q12 PRN PO 11/26/16 14:00 12/26/16 13:59 Objective Vital Signs Date Time Temp Pulse Resp B/P Pulse Ox O2 Delivery O2 Flow Rate FiO2 11/27/16 06:58 36.9 78 18 124/62 91 Room Air 11/26/16 23:45 Room Air 11/26/16 22:50 37.3 84 16 124/70 95 Room Air 11/26/16 15:50 Room Air 11/26/16 14:10 37.3 79 16 131/75 93 Room Air Physical Exam General Appearance: no apparent distress Eyes: PERRL ENT: hearing grossly normal Neck: supple Respiratory/Chest: lungs clear, normal breath sounds Cardiovascular: regular rate, rhythm, no JVD Abdomen: soft, no organomegaly, no pulsatile mass, + abnormal bowel sounds ( hypoactive), + distended, + tenderness Neurologic/Psych: alert, normal mood/affect, oriented x 3 Skin: normal color, no jaundice, warm/dry, no rash Assessment and Plan Patient is a 66 year old female with history of SBO (risk factors include numerous abdominal surgeries, adhesions, revision of adhesions) who presented through the ED with nausea, vomiting, constipation and abdominal pain after outpatient narcotic use following a back surgery. On admission, CT evidence of SBO w/ an elevated white count. Surgical eval w/ recommendation for conservative management with IVF, bowel rest, NG tube and daily KUBs. Repeat CT with contrast w/ multiple thick walled small bowel loops, consistent with a nonspecific enteritis. Differentials include nonspecific enteritis, IBD etc. Plan Continue with conservative management of SBO - will follow advancement with surgery clear liquids as tolerated - advanced diet this AM IVF d/c NG tube Antiemetics PRN Avoid narcotic use Encourage ambulation Daily KUB until resolution of SBO May use a dose of Relistor today, 11/27/16 Suppository today Colonoscopy as outpatient At discharge, she should be started on a bowel regimen Miralax once daily GI to follow. Please call with any questions. ATTESTATION: I have performed a history and physical examination of this patient and reviewed the electronic record. Specifically, on physical examination there is no abdominal tenderness. I have discussed the case with DIEGO Calloway. The above note reflects my findings, conclusions, and recommendations. Angel Boyer MD
--- NOTE | 2016-11-27 08:35 | DIAGNOSTIC IMAGING REPORT ---
KUB CLINICAL HISTORY: SBO, ileus, measure dilation COMPARISON STUDY: 11/26/2016 FINDINGS: There are multiple surgical clips present within the lower abdomen and pelvis. There is contrast within nondilated colon. There is mild small bowel dilatation with a left midabdominal loop measuring 4.9 cm in diameter. IMPRESSION: Persistent small bowel dilatation with small bowel loops measuring up to 4.9 cm in diameter. Contrast within nondilated colon. Electronically signed by: Basilio Patton M.D. 11/27/2016 8:34 AM Dictated Date/Time: 11/27/2016 8:33 AM
[2016-11-27] MEDS: POLYETHYLENE (MIRALAX) 17 GM PACK PO SCH (08:52)
[2016-11-27] MEDS: SERTRALINE HCL 100 MG TAB PO SCH ×2 (08:53→22:05)
[2016-11-27] MEDS: SENNA 8.8 MG/5 ML UDP PO SCH ×2 (08:54→22:05)
[2016-11-27] MEDS ORDERED: BISACODYL 10 MG SUPP PR ONE (10:33)
[2016-11-27] MEDS ORDERED: METHYLNALTREXONE BROMIDE INJ 12 MG/0.6 ML SYR SQ PRN (11:00)
[2016-11-27] MEDS ORDERED: POLYETHYLENE (MIRALAX) 17 GM PACK PO ONE (14:30)
--- NOTE | 2016-11-27 14:49 | Progress Note ---
Subjective Date of Service: November 27, 2016. Subjective pt has some nausea with eating Problem List Medical Problems: (1) Anxiety State Nos Status: Chronic (2) Depressive Disorder Nec Status: Chronic (3) Esophageal Reflux Status: Chronic (4) Hypoxia Status: Acute (5) Multiple sclerosis Status: Chronic (6) Precordial chest pain Status: Acute (7) Rheumatoid Arthritis Status: Chronic Review of Systems Constitutional: No chills, No fever Respiratory: No cough, No dyspnea on exertion, No shortness of breath Cardiac: No chest pain, No edema Abdomen: + nausea, + pain, No diarrhea, No vomiting Female : No dysuria, No urinary frequency Neurologic: No memory loss, No paralysis Psychiatric: + depression symptoms, No anhedonism Objective Vital Signs Date Time Temp Pulse Resp B/P Pulse Ox O2 Delivery O2 Flow Rate FiO2 11/27/16 07:30 91 Room Air 11/27/16 06:58 36.9 78 18 124/62 91 Room Air 11/26/16 23:45 Room Air 11/26/16 22:50 37.3 84 16 124/70 95 Room Air 11/26/16 15:50 Room Air Physical Exam General Appearance: WD/WN, + mild distress Neck: supple, no JVD Respiratory/Chest: chest non-tender, lungs clear, normal breath sounds Cardiovascular: regular rate, rhythm, no murmur Abdomen: normal bowel sounds, soft, + guarding, + tenderness Extremities: no pedal edema, no calf tenderness Neurologic/Psychiatric: no motor/sensory deficits, alert, oriented x 3 Assessment and Plan 66 y/o F history of hysterectomy and has had several SBOs due to adhesions, one of which required surgical intervention. Recent Lumbar surgery from a posterior approach. initial CT abd/pelvis consistent with an SBO. subsequent CT shows contrast to colon suggesting resolution, KUB I interpreted on 11/27 shows persistently dialated loops of small bowel giving me concern of slow or poor resolution of parital sbo partial bowel obstruction with suggestion of small bowel thickening, GI opinion is no intervention is needed at this time, ngt removed 11/26 and advancing diet per surgery MS -stable no symptoms, not currently treated Anxiety/depression - PRN Ativan restart zoloft, clonazepam is used very sparingly by pt heparin for DVT prevention Continued [facility] stay due to: inadequate po fluid intake, inadequate oral pain control, multiple IV medications needed Discharge planning: home
[2016-11-27 15:07] VITALS: BP 124/74; PULSE 75; TEMP 37.2; O2SAT 94
[2016-11-27 23:20] VITALS: BP 148/75; PULSE 80; TEMP 36.9; O2SAT 96
[2016-11-28] MEDS: HYDROmorphone INJ 1 MG/ML SYR IV PRN ×6 (03:02→21:56)
[2016-11-28] MEDS: METOCLOPRAMIDE HCL INJ 5 MG/ML 2 ML VIAL IV PRN ×3 (03:03→18:48)
[2016-11-28] MEDS: HEPARIN SOD 5000 UNIT/0.5 ML CARP SQ SCH ×3 (06:28→21:37)
[2016-11-28 07:54] VITALS: BP 142/78; PULSE 68; TEMP 36.9; O2SAT 93
--- NOTE | 2016-11-28 08:32 | Surgery Progress Note ---
Surgery Progress Note Date of Service November 28, 2016. Subjective Post OP Day: HD 6 + ambulating, + bowel movement (liquid), + complaints (did not do well with solids yesterday), + diet (clears), + feeling well (doing OK), + flatus, No nausea, No vomiting Objective Vital Signs: Date Time Temp Pulse Resp B/P Pulse Ox O2 Delivery O2 Flow Rate FiO2 11/28/16 07:54 36.9 68 18 142/78 93 Room Air 11/27/16 23:30 Room Air 11/27/16 23:20 36.9 80 18 148/75 96 Room Air 11/27/16 15:40 Room Air 11/27/16 15:07 37.2 75 18 124/74 94 Room Air General Appearance: WD/WN, no apparent distress Head: normocephalic, atraumatic Neck: supple, trachea midline Respiratory/Chest: chest non-tender, lungs clear Cardiovascular: regular rate, rhythm Abdomen: normal bowel sounds, soft, + distended, + tenderness (mild) Extremities: non-tender, no pedal edema Assessment & Plan resolving SBO -con't IVF -clears -possible advance tomorrow -if does well possibly home in AM -ambulate -limit narcotics
[2016-11-28] MEDS ORDERED: BISACODYL 10 MG SUPP PR SCH (09:00)
[2016-11-28] MEDS: SERTRALINE HCL 100 MG TAB PO SCH ×2 (09:12→21:35)
[2016-11-28] MEDS: SENNA 8.8 MG/5 ML UDP PO SCH ×3 (09:13→21:00)
[2016-11-28 09:14] VITALS: O2SAT 93
--- NOTE | 2016-11-28 09:33 | DIAGNOSTIC IMAGING REPORT ---
KUB CLINICAL HISTORY: SBO, ileus pain COMPARISON STUDY: 11/27/2006 FINDINGS: Improved bowel pattern. No current small bowel distention. Nonobstructive bowel pattern overall. Stable postoperative change. IMPRESSION: Improved bowel pattern with no evidence for obstruction at the current time. Electronically signed by: Sergey Escalante M.D. 11/28/2016 9:31 AM Dictated Date/Time: 11/28/2016 9:30 AM
[2016-11-28] MEDS: POLYETHYLENE (MIRALAX) 17 GM PACK PO SCH (09:43)
--- NOTE | 2016-11-28 10:48 | PROGRESS NOTE ---
DATE: 11/28/2016 DATE: 11/28/2016. Cross coverage for [employer]. SUBJECTIVE: I had the pleasure of seeing Amara Jha today in regards to a partial small-bowel obstruction. She states that her symptoms have improved slightly. She has noticed some loose liquid stools, though no formed stools as of this time. She has passed gas. She does complain of continued abdominal distention and does continue to have chronic abdominal pain though improved rating it as a 2/10 in intensity generalized without radiation of her symptoms and with no alleviating factors. She does admit that her symptoms were exacerbated after a meal last night containing roast beef. She denies any further complaints. REVIEW OF SYSTEMS: Negative 10 system review other than pertinent positives listed in the HPI. PHYSICAL EXAMINATION: VITAL SIGNS: Include a temp 36.9, pulse 68, respirations 18, blood pressure 142/78, pulse ox 93% on room air. GENERAL EXAMINATION: Awake, cooperative, sitting in her chair at bedside. No acute distress. HEAD: Normocephalic, atraumatic. EYES: Pupils equally round. Extraocular muscles are intact. EARS, NOSE, THROAT: External evaluation of ears and nose are normal. Oropharynx is clear. NECK: Soft and supple. CHEST: Decreased breath sounds bilateral bases. CARDIOVASCULAR SYSTEM: Regular rate and rhythm. ABDOMEN: Soft. Tender throughout. Slightly distended. There are positive bowel sounds. EXTREMITIES: No clubbing, cyanosis, or edema. IMAGING FROM TODAY: Includes a KUB which shows improved bowel pattern with no evidence for obstruction at the current time. IMPRESSION: This is a 66-year-old female with resolving small-bowel obstruction. PLAN: Dr. Pablo from surgery is following the patient and will make further recommendations regarding the patient's diet, though her imaging studies today show an improvement and resolution of her small-bowel obstruction. I would therefore recommend advancing her diet as tolerated. I would avoid use of narcotic analgesics as they can exacerbate dysmotility in the GI tract. I would encourage ambulation and recommend colonoscopy as an outpatient through the [facility] team. Once again, thanks for allowing me to participate in the care of this patient. If you have any further questions, please do not hesitate in contacting me.
--- NOTE | 2016-11-28 15:21 | Progress Note ---
Subjective Date of Service: November 28, 2016. Subjective this pt is with more flat affect, she has persistent post prandial nausea, and some ower quadrant abdominal pain. she did try a regular diet with more pain, and nausea, will downgrade diet and attempt a more slow advancement. other roberson she has no pain on urination and is ambulating without much issue Problem List Medical Problems: (1) Anxiety State Nos Status: Chronic (2) Depressive Disorder Nec Status: Chronic (3) Esophageal Reflux Status: Chronic (4) Hypoxia Status: Acute (5) Multiple sclerosis Status: Chronic (6) Precordial chest pain Status: Acute (7) Rheumatoid Arthritis Status: Chronic Review of Systems Constitutional: No chills, No fatigue, No fever, No weakness Respiratory: No cough, No shortness of breath, No sputum, No wheezing Cardiac: No chest pain, No orthopnea Abdomen: + constipation, + pain, No diarrhea, No vomiting Female : No dysuria, No urinary frequency Psychiatric: No anhedonism, No depression symptoms Objective Vital Signs Date Time Temp Pulse Resp B/P Pulse Ox O2 Delivery O2 Flow Rate FiO2 11/28/16 07:54 36.9 68 18 142/78 93 Room Air 11/27/16 23:30 Room Air 11/27/16 23:20 36.9 80 18 148/75 96 Room Air 11/27/16 15:40 Room Air 11/27/16 15:07 37.2 75 18 124/74 94 Room Air Physical Exam General Appearance: WD/WN, + mild distress Eyes: PERRL, EOMI Neck: supple, no JVD Respiratory/Chest: chest non-tender, lungs clear, normal breath sounds Cardiovascular: regular rate, rhythm, no murmur Abdomen: + guarding, + tenderness Extremities: no pedal edema, no calf tenderness Neurologic/Psychiatric: alert, oriented x 3 Assessment and Plan 66 y/o F history of hysterectomy and has had several SBOs due to adhesions, one of which required surgical intervention. Recent Lumbar surgery from a posterior approach. Initial CT abd/pelvis consistent with an SBO. subsequent CT shows contrast to colon suggesting resolution, KUB I interpreted on 11/28 shows improvement with less dilation of bowel partial bowel obstruction with suggestion of small bowel thickening, GI opinion is no intervention is needed at this time, ngt removed 11/26 and advancing diet slowly, will re evaluate progress 11/29 MS -stable no symptoms, not currently treated Anxiety/depression - flat affect likely from being here so long PRN Ativan restart zoloft, clonazepam is used very sparingly by pt heparin for DVT prevention Continued [facility] stay due to: inadequate po fluid intake, inadequate oral pain control, multiple IV medications needed Discharge planning: home
[2016-11-28 15:36] VITALS: BP 140/72; PULSE 72; TEMP 37; O2SAT 93
[2016-11-28] MEDS: D5W AND 1/2NSS + 20MEQ KCL 1,000 ML IV SCH (16:29)
[2016-11-28] MEDS: ONDANSETRON INJ 8 MG in DEXTROSE 5% 50ML 50 ML IV PRN (21:56)
[2016-11-28 22:51] VITALS: BP 120/66; PULSE 80; TEMP 36.9; O2SAT 94
[2016-11-29] MEDS: HYDROmorphone INJ 1 MG/ML SYR IV PRN ×3 (02:21→10:00)
[2016-11-29] MEDS: HEPARIN SOD 5000 UNIT/0.5 ML CARP SQ SCH (06:13)
[2016-11-29 06:39] LABS: MEAN CORPUSCULAR HEMOGLOBIN 32.2 pg (25-34); MEAN CORPUSCULAR HGB CONC 34.6 g/dl (32-36); MEAN PLATELET VOLUME 8.9 fL (7.4-10.4); PLATELET COUNT 278 K/uL (130-400); RED BLOOD COUNT 3.98 M/uL (4.2-5.4); WHITE BLOOD COUNT 5.75 K/uL (4.8-10.8)
[2016-11-29 06:59] VITALS: BP 117/67; PULSE 69; TEMP 36.9; O2SAT 92
[2016-11-29] MEDS: SERTRALINE HCL 100 MG TAB PO SCH (08:58)
[2016-11-29] MEDS: POLYETHYLENE (MIRALAX) 17 GM PACK PO SCH (08:58)
[2016-11-29] MEDS: SENNA 8.8 MG/5 ML UDP PO SCH (08:58)
--- NOTE | 2016-11-29 09:24 | DIAGNOSTIC IMAGING REPORT ---
KUB HISTORY: Small bowel obstruction. Ileus. COMPARISON: KUB 11/28/2016. FINDINGS: A few gas-filled borderline dilated air-filled loops of small bowel seen within the abdomen. There is gas seen within the colon and rectum. This suggests a mild ileus. This is similar to the prior study. There are midline skin veronique. Multiple surgical clips within the pelvis. No renal calculi. No ureteral calculi. No pneumoperitoneum or pneumatosis. IMPRESSION: Mild small bowel ileus which is not significantly changed. No evidence for bowel obstruction. Electronically signed by: Andreas Tavera M.D. 11/29/2016 9:23 AM Dictated Date/Time: 11/29/2016 9:22 AM
[2016-11-29] MEDS ORDERED: OXYC-164 PO (10:01)
[2016-11-29] MEDS ORDERED: SNKUDL5 PO (10:01)
[2016-11-29] MEDS ORDERED: MRLP17 PO (10:01)
[2016-11-29] MEDS ORDERED: ONDA4TAB65 PO (10:01)
--- NOTE | 2016-11-29 10:05 | Discharge Instructions ---
Discharge Instructions Date of Service November 29, 2016. Admission Reason for Admission: Small Bowel Obstruction Discharge Discharge Diagnosis / Problem: small bowel obstruction Discharge Goals Goal(s): Diagnostic testing, Therapeutic intervention Activity Recommendations Activity Limitations: resume your previous activity . Instructions / Follow-Up Instructions / Follow-Up You may use Tylenol and ibuprofen/Aleve as first line for pain trying to minimize opiate use Current Hospital Diet Patient's current hospital diet: Low Fiber Diet, Regular Diet Discharge Diet Recommended Diet: Regular Diet Pending Studies Studies pending at discharge: no Medical Emergencies . Who to Call and When: Medical Emergencies: If at any time you feel your situation is an emergency, please call 911 immediately. . Non-Emergent Contact Non-Emergency issues call your: Primary Care Provider, Surgeon Call Non-Emergent contact if: temperature is above 101, your pain is unusual for you . . "Provider Documentation" section prepared by Derrick Bazan. . VTE Core Measure Inpt VTE Proph given/why not?: Unfractionated heparin SQ
[2016-11-29 10:18] VITALS: BP 117/67; PULSE 69; TEMP 36.9; O2SAT 92
--- NOTE | 2016-11-29 18:10 | Progress Note ---
Subjective Date of Service: November 29, 2016. Problem List Medical Problems: (1) Anxiety State Nos Status: Chronic (2) Depressive Disorder Nec Status: Chronic (3) Esophageal Reflux Status: Chronic (4) Hypoxia Status: Acute (5) Multiple sclerosis Status: Chronic (6) Precordial chest pain Status: Acute (7) Rheumatoid Arthritis Status: Chronic Objective Vital Signs Date Time Temp Pulse Resp B/P Pulse Ox O2 Delivery O2 Flow Rate FiO2 11/29/16 06:59 36.9 69 17 117/67 92 Room Air 11/29/16 01:33 Room Air 11/28/16 22:51 36.9 80 18 120/66 94 Room Air 11/28/16 15:45 Room Air 11/28/16 15:36 37.0 72 16 140/72 93 Room Air 11/28/16 09:14 93 Room Air Laboratory Results Last 24 Hours Test 11/29/16 05:40 White Blood Count 5.75 K/uL Red Blood Count 3.98 M/uL Hemoglobin 12.8 g/dL Hematocrit 37.0 % Mean Corpuscular Volume 93.0 fL Mean Corpuscular Hemoglobin 32.2 pg Mean Corpuscular Hemoglobin Concent 34.6 g/dl RDW Standard Deviation 40.7 fL RDW Coefficient of Variation 12.0 % Platelet Count 278 K/uL Mean Platelet Volume 8.9 fL Assessment and Plan 66 y/o F history of hysterectomy and has had several SBOs due to adhesions, one of which required surgical intervention. Recent Lumbar surgery from a posterior approach. Initial CT abd/pelvis consistent with an SBO. subsequent CT shows contrast to colon suggesting resolution, KUB I interpreted on 11/28 shows improvement with less dilation of bowel partial bowel obstruction with suggestion of small bowel thickening, GI opinion is no intervention is needed at this time, ngt removed 11/26 and advancing diet slowly, will re evaluate progress 11/29 MS -stable no symptoms, not currently treated Anxiety/depression - flat affect likely from being here so long PRN Ativan restart zoloft, clonazepam is used very sparingly by pt heparin for DVT prevention Continued [facility] stay due to: inadequate po fluid intake, inadequate oral pain control, multiple IV medications needed Discharge planning: home
--- NOTE | 2016-11-29 18:13 | Discharge Summary ---
Discharge Summary Date of Service November 29, 2016. Discharge Summary Admission Date: November 23, 2016 at 15:27 Discharge Date: November 29, 2016 Discharge Disposition: Home Principal Diagnosis: small bowel obstruction resolved Problems/Secondary Diagnoses: (1) Anxiety State Nos Status: Chronic (2) Depressive Disorder Nec Status: Chronic (3) Esophageal Reflux Status: Chronic (4) Multiple sclerosis Status: Chronic (5) Rheumatoid Arthritis Status: Chronic Immunizations: Have You Had Influenza Vaccine: Yes Influenza Vaccine Date: Apr 26, 2013 History of Tetanus Vaccine?: Yes Tetanus Immunization Date: Jul 27, 2012 History of Pneumococcal: Yes Pneumococcal Date: Jul 27, 2010 History of Hepatitis B Vaccine: Yes Hepatitis Immunization Date: Jul 27, 2009 Consultations: general surgery Medication Reconciliation New Medications: Ondansetron Hcl (Zofran) 4 Mg Tab 4 MG PO PRN, #30 TAB Polyethylene (Miralax) 17 Gm Pow 17 GM PO DAILY, #30 DOSE Senna (Senna-Grx) 8.8 Mg/5 Ml Syrp 8.8 MG PO BID, #60 DOSE Continued Medications: Clonazepam (Klonopin) 2 Mg Tab 1-2 TAB PO HS, TAB Oxycodone Hcl (Oxycodone Hcl) 10 Mg Tab 10 MG PO Q4H PRN for Pain, #30 DOSE (This prescription has been renewed) Sertraline Hcl (Zoloft) 100 Mg Tab 100 MG PO BID, TAB Discharge Exam Review of Systems: Constitutional: No chills, No fever Abdomen: No nausea, No pain, No vomiting Physical Exam: General Appearance: WD/WN, no apparent distress Eyes: PERRL, EOMI Abdomen / GI: non tender, soft Hospital Course 66 y/o F history of hysterectomy and has had several SBOs due to adhesions, one of which required surgical intervention. Recent Lumbar surgery from a posterior approach. Initial CT abd/pelvis consistent with an SBO. subsequent CT shows contrast to colon suggesting resolution, KUB I interpreted on 11/28 shows improvement 11/29 with near resolution of partial bowel obstruction. Previous suggestion of small bowel thickening, GI opinion is no intervention is needed at this time, pt will consider follow up at [facility] and may wish to have barium small bowel study before appointment or at time of eval there, will call on their own to make appointment according to MS -stable no symptoms, not currently treated Anxiety/depression - flat affect likely from being here so long PRN Ativan restarted zoloft when advancing diet, clonazepam is used very sparingly by pt Total Time Spent: Greater than 30 minutes This includes examination of the patient, discharge planning, medication reconciliation, and communication with other providers. Discharge Instructions Please refer to the electronic Patient Visit Report (Discharge Instructions) for additional information.
[2016-12-30] MEDS ORDERED: ZOLP10TA PO (09:30)
[2017-01-08] MEDS ORDERED: POLY335019 PO (14:36)
== END 2016-11-29 11:30 | disposition home or self-care (01) | DRG 390 ==
LOC: ENRESERVDT → ENRESERVTM → C.EDB 11:14 → C.MSN 15:27
PROVIDERS: ADMIT Internal Medicine; ATTEND Internal Medicine
PROC: 0D9670Z Drainage of Stomach with Drainage Device, Via Natural or Artificial Opening (ICD-10-PCS; principal; 2016-11-23)
DX: K56.60 Unspecified intestinal obstruction (principal); K52.9 Noninfective gastroenteritis and colitis, unspecified; M54.9 Dorsalgia, unspecified; G89.29 Other chronic pain; G35 Multiple sclerosis; F32.9 Major depressive disorder, single episode, unspecified; F41.9 Anxiety disorder, unspecified; Z79.899 Other long term (current) drug therapy; Z98.890 Other specified postprocedural states

== ENCOUNTER 2016-12-28 09:16 | Emergency (ER) | payer BC, OTHER ==
[~2016-12-28] VITALS: Ht 165.1 cm; Wt 66.9 kg
[~2016-12-28 09:16] MED LIST changes: -ALBUAER INH; -ASPI81TA28 PO; -CHOL100010 PO; -CRAN1CAP15 PO; +MRLP17 PO; -OMEG10007 PO; -ONDA8TAB7 PO; +OXYC-164 PO; -PANT40TA PO; +SNKUDL5 PO; -VTMD1000 PO
[2016-12-28 09:18] VITALS: TEMP 37; Ht 165.1 cm; Wt 66.9 kg
[2016-12-28] MEDS ORDERED: IBUPROFEN 600 MG TAB PO STA (09:48)
--- NOTE | 2016-12-28 10:28 | DIAGNOSTIC IMAGING REPORT ---
RIGHT HAND 4 VIEWS CLINICAL HISTORY: Fall with right hand injury. FINDINGS: 4 views of the right hand are obtained. No prior studies are available for comparison at the time of dictation. The skeletal structures are osteopenic. There is a horizontally oriented and angulated fracture through the proximal shaft of the fifth proximal phalanx with overlying soft tissue edema. No intra-articular extension is seen. No additional fracture is identified. Advanced osteoarthritic change Is present at the first carpometacarpal articulation with bony overgrowth, subluxation, and sclerosis. Arthritic changes also seen at the second carpometacarpal joint. There is chondrocalcinosis of the triangular fibrocartilage. Osteoarthritic change is seen involving the interphalangeal joints, distal greater than proximal. IMPRESSION: 1. Fifth proximal phalangeal fracture as above. 2. No additional fracture is seen. 3. Osteopenia and advanced arthritic change as above. Electronically signed by: Saad Pollard M.D. 12/28/2016 10:26 AM Dictated Date/Time: 12/28/2016 10:23 AM
[2016-12-28] MEDS ORDERED: BUPIVACAINE 0.5 % 5 MG/1 ML MPF 30ML VIAL INFIL STA (10:51)
[2016-12-28] MEDS ORDERED: XYLOCAINE 1%/SOD BICARB 20 ML VIAL INFIL STA (10:51)
[2016-12-28] MEDS ORDERED: KETOROLAC TROMETHAMINE 60 MG/2 ML VIAL IM STA (10:57)
[2016-12-28] MEDS ORDERED: KLN1X PO (12:12)
--- NOTE | 2016-12-28 12:40 | DIAGNOSTIC IMAGING REPORT ---
RIGHT FINGER(S) MIN 2 VIEWS ROUTINE CLINICAL HISTORY: Post reduce. Fracture. Right COMPARISON: 11:32 AM same date DISCUSSION: Fracture base proximal phalanx right fifth finger. Angulation persists. Dyspepsia slightly diminished. There is no evidence for soft tissue swelling. IMPRESSION: Slight improvement in angulation fracture base proximal phalanx fifth finger. Electronically signed by: Sergey Escalante M.D. 12/28/2016 12:38 PM Dictated Date/Time: 12/28/2016 12:37 PM
[2016-12-28] MEDS ORDERED: HYDR-5688 PO (12:50)
--- NOTE | 2016-12-28 12:52 | EMERGENCY ROOM VISIT NOTE ---
History First contact with patient: 09:28 Chief Complaint: FINGER PAIN Stated Complaint: PINKY FINGER ON RT HAND-FROM A FALL History of Present Illness The patient is a 66 year old female who presents to the Emergency Room via private vehicle with complaints of "pinky finger of right hand, from a fall". The patient states that around 10 PM yesterday evening, she slipped on the wet bathroom floor. This was in her home. She states that she has extreme pain in the right fifth through third digits. She points to the right MCP joint as a location of pain she rates as a 9/10. She had throbbing pain in this region. There is associated bruising. No breaks in the integument. She has tried ice without relief. She denies striking her head or loss of consciousness. Review of Systems A complete 6-point Review of Systems was discussed with the patient, with pertinent positives and negatives listed in the History of Present Illness. All remaining Review of Systems questions can be considered negative unless otherwise specified. Past Medical/Surgical History Medical Problems: (1) Anxiety State Nos (2) back surgery (3) CHEST PAIN, UNSPECIFIED (4) Chills with fever (5) Depressive Disorder Nec (6) Esophageal Reflux (7) Fever (8) Hx pulmonary embolism (9) Knee replacement (10) Left knee DJD (11) Lumbar stenosis with neurogenic claudication (12) Multiple sclerosis (13) Pneumonia (14) Pneumonia (15) Pulmonary embolism (16) Rheumatoid Arthritis (17) SBO (small bowel obstruction) Surgical Problems: (1) Hx of hysterectomy (2) Hx of tonsillectomy (3) Knee Joint Replacement Status Family History Diabetes mellitus FH: cancer FH: heart disease Hypertension Social History Smoking Status: Never Smoker Alcohol Use: occasionally Drug Use: none Marital Status: Housing Status: lives with family Occupation Status: unemployed Current/Historical Medications Scheduled Clonazepam (Clonazepam), 1 MG PO HS Polyethylene (Miralax), 17 GM PO DAILY Sertraline Hcl (Zoloft), 100 MG PO DAILY Scheduled PRN Hydrocodone/Acetaminophen 5MG/325MG ([place] 5MG/325MG), 1-2 TABLET PO Q6 PRN for Pain Allergies Coded Allergies: Promethazine (Verified Allergy, Intermediate, HALLUCINATIONS, 11/05/15) Adhesives (Verified Allergy, Mild, ALLERGY TO PLASTIC CLEAR TAPE = CAUSES HIVES, 11/05/15) Sulfa Antibiotics (Verified Allergy, Unknown, HIVES, 11/05/15) Physical Exam Vital Signs Date Time Temp Pulse Resp B/P (MAP) Pulse Ox O2 Delivery O2 Flow Rate FiO2 12/28/16 13:01 72 18 155/76 97 Room Air 12/28/16 11:38 69 18 138/96 96 12/28/16 09:18 37.0 76 20 95 Room Air Physical Exam VITAL SIGNS - Vital signs and nursing notes were reviewed. Patient is afebrile , and nontoxic tachycardic. She is saturating well on room air 95%. GENERAL -66-year-old female appearing her stated age who is in no acute distress. Communicates well with provider and answers questions appropriately. SKIN - Without rashes. There is ecchymosis noted to the right fifth MCP. Skin is intact. HEAD - NC/AT. EXTREMITIES - No clubbing or peripheral cyanosis. No pretibial edema present. There is deformity noted to the right fifth digit at the location of the right fifth MCP joint. There is tenderness to palpation overlying this region. No tenderness to the right wrist or right elbow. +5/5 strength noted in UE/LE bilaterally. NEUROLOGIC - Cranial nerves II through XII grossly intact. PSYCH - Pt is very pleasant and interacts well with examiner. Medical Decision & Procedures ER Provider Diagnostic Interpretation: RIGHT HAND 4 VIEWS CLINICAL HISTORY: Fall with right hand injury. FINDINGS: 4 views of the right hand are obtained. No prior studies are available for comparison at the time of dictation. The skeletal structures are osteopenic. There is a horizontally oriented and angulated fracture through the proximal shaft of the fifth proximal phalanx with overlying soft tissue edema. No intra-articular extension is seen. No additional fracture is identified. Advanced osteoarthritic change Is present at the first carpometacarpal articulation with bony overgrowth, subluxation, and sclerosis. Arthritic changes also seen at the second carpometacarpal joint. There is chondrocalcinosis of the triangular fibrocartilage. Osteoarthritic change is seen involving the interphalangeal joints, distal greater than proximal. IMPRESSION: 1. Fifth proximal phalangeal fracture as above. 2. No additional fracture is seen. 3. Osteopenia and advanced arthritic change as above. Electronically signed by: Saad Pollard M.D. 12/28/2016 10:26 AM Dictated Date/Time: 12/28/2016 10:23 AM RIGHT FIFTH FINGER(S) MIN 2 VIEWS ROUTINE CLINICAL HISTORY: Post reduction of 5th metacarpal fx Right COMPARISON STUDY: Right hand 12/28/2016. FINDINGS: Overlying splint material obscures fine bony detail. Slightly angulated fracture at the base of the proximal phalanx of the right fifth finger. This is not significantly changed. IMPRESSION: No change in the slightly angulated fracture at the base of the proximal phalanx of the right fifth finger. Electronically signed by: Andreas Tavera M.D. 12/28/2016 12:53 PM Dictated Date/Time: 12/28/2016 12:51 PM RIGHT FINGER(S) MIN 2 VIEWS ROUTINE CLINICAL HISTORY: Post reduce. Fracture. Right COMPARISON: 11:32 AM same date DISCUSSION: Fracture base proximal phalanx right fifth finger. Angulation persists. Dyspepsia slightly diminished. There is no evidence for soft tissue swelling. IMPRESSION: Slight improvement in angulation fracture base proximal phalanx fifth finger. Electronically signed by: Sergey Escalante M.D. 12/28/2016 12:38 PM Dictated Date/Time: 12/28/2016 12:37 PM Medications Administered Medications (Trade) Dose Ordered Sig/Harmeet Route Start Time Stop Time Status Last Admin Dose Admin Lidocaine HCl (Buffered Lidocaine 1% Inj) 20 ml ONE STAT INFIL 12/28/16 10:51 12/28/16 10:52 DC 12/28/16 11:14 20 ML Bupivacaine HCl (Marcaine 0.5% MPF Inj) 30 ml NOW STAT INFIL 12/28/16 10:51 12/28/16 10:52 DC 12/28/16 11:14 30 ML Ketorolac Tromethamine (Toradol Inj) 60 mg NOW STAT IM 12/28/16 10:57 12/28/16 10:59 DC 12/28/16 11:13 60 MG Medical Decision Patient was seen and evaluated as above. After obtaining a thorough history and physical examination radiographs obtained of the right hand. No other injuries noted from this fall on physical examination. She did request some of her pain but could still drive. I did probe was initially ordered, then canceled and changed to Toradol. Radiograph reveals a right fifth digit fracture. Patient provided consent, therefore the right fifth digit was cleansed with Betadine, and a 50-50 ratio of 0.5% bupivacaine and 1% lidocaine was utilized to form a digital block. 4 mL's was used total. Patient tolerated this well. After appropriate anesthetization, consent was obtained again and the fracture was attempted to be reduced. There was what appeared to be anatomic alignment on physical examination after reduction by applying traction, and then alignment. Repeat radiograph reveals persistence of the angulation. The patient was still anesthetized, therefore a reattempt was tried. It was then find that the patient went back into alignment, and then continued to move out of alignment. I discussed the case with my attending, and the decision was made despite the patient in an ulnar gutter in the most anatomic aligned position, with close follow-up. I did have our case management rn contact the patient's establish with orthopedic office and establish an appointment tomorrow at 8:45 AM. I do believe this is reasonable. Patient was informed that she was not fully anatomically aligned, and that surgery may be warranted. I do not believe that surgical consult needs to be obtained at this time, and believe that 8:45 AM tomorrow morning is appropriate for the patient follow-up. Patient does seem happy with plan of care, and a brief pain medication prescription will be sent to her pharmacy. She was educated upon worrisome symptoms which to return, had questions of her discharge, and was discharged home in good condition. In evaluation treatment this patient following differential diagnoses were entertained: Right fifth digit fracture, contusion, dislocation, among others. [place] Drug Monitoring Program Search Results: patient reviewed within database, no issues identified Impression Primary Impression: Finger fracture, right Departure Information Dispostion Home / Self-Care Condition GOOD Prescriptions Hydrocodone/Acetaminophen 5MG/325MG ([place] 5MG/325MG) Tab 1-2 TABLET PO Q6 Y for Pain, #15 TAB For Initial Treatment Prov: Benito Gunter PA-C 12/28/16 Referrals Carroll Simon M.D. (PCP) Vimal Brand M.D. Patient Instructions My [facility] Additional Instructions You have been treated in the Emergency Department for a fall and finger fracture. You have been prescribed NORCO to be used for pain control. This is a narcotic medication. You cannot drive or consume alcohol while on this medicine. This medicine should only be used for pain that cannot be controlled with over-the- counter pain medicines. For pain control, you can use the following [id number] medicines (if >12 yo): - Regular strength (325mg/tab) Tylenol (acetaminophen) 2 tabs every 4-6 hours as needed. Do not exceed 12 tablets in a 24 hour period. Avoid taking more than 3 grams (3000 mg) of Tylenol per day. This includes any other sources of acetaminophen you may take on a regular basis. - Regular strength (200 mg/tab) Advil (ibuprofen) 1-2 tabs every 4-6 hours as needed. Do not exceed a dose of 3200 mg per day. If this is a recent injury (<24 hrs), ice can be applied to the area of pain for the first 3 days to help decrease pain and inflammation. You have been provided the number for an Orthopaedic Surgeon. You should call this number as soon as possible to establish a follow-up visit from today's Emergency Department visit. Our case management rn are establishing an appointment for you. if you are not called by this evenign please call [phone] and ask for a case management rn. Thank you. Keep the brace/splint in place until evaluated by Orthopedics. Return to the Emergency Department if your current symptoms worsen despite treatment course outlined above, or if you develop any of the following symptoms : intractable pain despite aforementioned treatment course or new onset of numbness or tingling of the fingers. Please return with any new/concerning symptoms. Problem Qualifiers Primary Impression: Finger fracture, right Encounter type: initial encounter Fracture type: closed Phalanx: proximal Fracture alignment: displaced
--- NOTE | 2016-12-28 12:55 | DIAGNOSTIC IMAGING REPORT ---
RIGHT FIFTH FINGER(S) MIN 2 VIEWS ROUTINE CLINICAL HISTORY: Post reduction of 5th metacarpal fx Right COMPARISON STUDY: Right hand 12/28/2016. FINDINGS: Overlying splint material obscures fine bony detail. Slightly angulated fracture at the base of the proximal phalanx of the right fifth finger. This is not significantly changed. IMPRESSION: No change in the slightly angulated fracture at the base of the proximal phalanx of the right fifth finger. Electronically signed by: Andreas Tavera M.D. 12/28/2016 12:53 PM Dictated Date/Time: 12/28/2016 12:51 PM
[2016-12-28 13:01] VITALS: BP 155/76; PULSE 72; O2SAT 97
--- NOTE | 2016-12-28 15:02 | EMERGENCY ROOM VISIT NOTE ---
ED Visit Note First contact with patient: 09:28 I have personally discussed and evaluated the films of the patient with the PA. She did leave prior to my evaluation. I agree with the diagnosis and management decisions and have been personally involved in the case. Please see Benito Gunter PA-C's notes for further details of the history, physical and visit.
[2016-12-30] MEDS ORDERED: ZOLP10TA PO (09:30)
[2017-01-08] MEDS ORDERED: POLY335019 PO (14:36)
== END 2016-12-28 13:09 | disposition home or self-care (01) ==
LOC: C.EDC 09:47
DX: S62.616A Displaced fracture of proximal phalanx of right little finger, initial encounter for closed fracture (principal); W01.0XXA Fall on same level from slipping, tripping and stumbling without subsequent striking against object, initial encounter; Y92.012 Bathroom of single-family (private) house as the place of occurrence of the external cause; F41.9 Anxiety disorder, unspecified; F32.9 Major depressive disorder, single episode, unspecified; K21.9 Gastro-esophageal reflux disease without esophagitis; Z86.711 Personal history of pulmonary embolism; M17.9 Osteoarthritis of knee, unspecified; G35 Multiple sclerosis; M48.06 Spinal stenosis, lumbar region; Z87.01 Personal history of pneumonia (recurrent); M06.9 Rheumatoid arthritis, unspecified; Z83.3 Family history of diabetes mellitus; Z80.9 Family history of malignant neoplasm, unspecified; Z82.49 Family history of ischemic heart disease and other diseases of the circulatory system; Z79.899 Other long term (current) drug therapy

== ENCOUNTER → 2016-12-29 | Outpatient (CLI) | payer BC ==
[~2016-12-29] MED LIST changes: -CLON2TAB3 PO; +HYDR-5688 PO; +KLN1X PO; -OXYC-164 PO; +POLY335019 PO; -SNKUDL5 PO; +ZOLP10TA PO
--- NOTE | 2016-12-29 10:29 | DIAGNOSTIC IMAGING REPORT ---
RIGHT HAND MIN 3 VIEWS CLINICAL HISTORY: Fracture. COMPARISON: 12/28/2016 DISCUSSION: The fine bony detail is obscured by overlying fiberglass splint. There is a mildly angulated fracture involving the proximal phalanx of the fifth digit. There has been no change in alignment. There is 26 degrees of Vertex radial angulation at the fracture site. The distal fragment is radially displaced x 2.5 mm. No additional fractures or dislocations are visualized. There are advanced arthritic changes at the level the first carpal metacarpal joint. IMPRESSION: No change in the alignment of the fracture involving the proximal phalanx of the fifth finger. Electronically signed by: Basilio Patton M.D. 12/29/2016 10:28 AM Dictated Date/Time: 12/29/2016 10:27 AM
== END | disposition home or self-care (01) ==
LOC: C.RDSM 10:05
PROVIDERS: ATTEND Physician Assistant
DX: S62.616A Displaced fracture of proximal phalanx of right little finger, initial encounter for closed fracture (principal); X58.XXXA Exposure to other specified factors, initial encounter

== ENCOUNTER → 2017-01-05 | Day surgery (SDC) | payer BC ==
[2016-12-30 09:30] VITALS: Ht 165.1 cm; Wt 67.7 kg
--- NOTE | 2017-01-04 14:44 | HISTORY & PHYSICAL EXAMINATION ---
DATE OF ADMISSION: 01/05/2017 CHIEF COMPLAINT: Right fifth finger pain x1 week. HISTORY OF PRESENT ILLNESS: The patient is a pleasant 66-year-old female who is here today for preoperative history and physical. She is scheduled to have a closed reduction and percutaneous pinning of her right fifth proximal phalanx fracture with Dr. Brand on 01/05/2017. She fell at her home on late Wednesday evening. She woke up and had a lot of pain and swelling of her right fifth finger. She went to the Emergency Room of [facility]. At the Emergency Room, she had x-rays of her right hand, which showed a fifth finger proximal phalanx displaced extraarticular fracture. She had a digital block at that time and attempt to reduce the fracture was done twice. She states it was very painful. She was placed in a splint. The alignment was not significantly improved and she was referred to orthopedics. She saw me last week and she did not allow me to attempt to reduce the fracture again here in the office. She wanted to have Dr. Brand take a look at it. He was out of the office at that time, so back for a week evaluation. Her fracture still appears to be displaced and due to these findings, it was recommended a closed reduction and percutaneous pinning of her right small finger (fifth) proximal phalanx fracture. She is scheduled for that surgery on 01/05/[address] Brand. PAST MEDICAL HISTORY: Significant for, 1. Anxiety. 2. Asthma. 3. Cobalamin deficiency. 4. Depression. 5. Varicose veins. 6. History of pulmonary embolus about 15-20 years ago after some abdominal surgery. 7. History of small bowel obstruction. 8. History of kidney stones. 9. History of a left total knee arthroplasty. 10. Insomnia. 11. Migraines. 12. Multiple sclerosis. 13. Osteoporosis. 14. History of reactive airway disease. 15. History of sciatica. 16. Spinal stenosis. 17. Gastroesophageal reflux disease. 18. History of DVT of her left lower extremity. 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 CURRENT MEDICATIONS: 1. Naproxen 2 capsules p.o. q. 12 hours as needed for pain. 2. MiraLax 17 grams p.o. daily as needed. 3. Ambien 10 mg 1 tab p.o. at bedtime as needed for sleep. 4. Albuterol 90 mcg per inhaler MDI 2 puffs inhaled q.i.d. as needed for wheezing. 5. Clonazepam 2 mg 1 tab p.o. at bedtime, she takes one and a half tablets at bedtime as needed and 0.5 mg during the day as needed for anxiety. 7. Zoloft 100 mg 1 tab p.o. b.i.d. ALLERGIES: 1. BACTRIM DS/SULFA DRUGS CAUSE HIVES AND ITCHINESS. 2. COPAXONE CAUSES THE SHAKES. 3. PHENERGAN CAUSES DELUSIONS AND HALLUCINATIONS. 4. ADHESIVE TAPE, WHICH CAUSES A LOCALIZED RASH AND SWELLING AFTER A PERIOD OF TIME. PAST SURGICAL HISTORY: 1. She had a previous great saphenous vein surgery in October of 2015. 2. She has a history of back surgery in November of [address] Carrasco. 3. History of a left knee ACL repair and removal of patella. 4. History of left total knee arthroplasty. 5. History of lysis of adhesions x5. 6. History of lumbar decompression. 7. History of total abdominal hysterectomy and bilateral salpingo-oophorectomy in before 1999. 8. Tonsillectomy before 1989. 9. Carpal tunnel release. SOCIAL HISTORY: Admits to alcohol use occasionally. She states she drinks wine 3-5 times per week. She states that she does live with her in their own home. She denies any tobacco use. She is currently unemployed. She denies any chemical dependency. FAMILY HISTORY: Her brother has a history of asthma and hyperlipidemia. Her father has a history of atrial fibrillation, cardiovascular disease, carotid artery stenosis, diabetes, and a history of heart attack. Her mother has a history of spinal stenosis, scoliosis, memory loss and high blood pressure. She has a sister with a history of breast cancer and ovarian cancer. REVIEW OF SYSTEMS: She denies any recent headaches, migraines, seizures, syncopal episodes, lightheadedness or dizziness. She denies any blurry vision or hearing loss. She denies any recent history of phlebitis, DVT or pulmonary embolism. She states that her history was approximately 20 years ago after having some abdominal surgery. She denies any chest pain, shortness of breath, or heart palpitations. Denies any recent fevers or chills. She did have recent back surgery at the [facility] with Dr. Carrasco to remove some heterotopic bone ossification as well as some scar tissue. She said that she did get some epidural headaches after that procedure, but has not had any since. She also then was admitted for small bowel obstruction in the [facility] after that procedure, but did not require surgery. She denies any current abdominal pain, reflux, indigestion, heartburn, nausea or vomiting. Denies any recent constipation or diarrhea. She does take MiraLax on a routine basis to prevent that. She also takes a stool softener while on pain medications to prevent that as well. She denies any urinary symptoms or frequent urinary tract infections. PHYSICAL EXAMINATION: GENERAL: She is alert and oriented x3. She has normal mood and affect. Weight is 149 pounds. HEENT: Head is atraumatic and normocephalic. Eyes: Extraocular movements intact. Sclerae are normal. Pupils are equal, round and reactive to light. Ears: Hearing is grossly normal. TMs are clear with normal light reflex. Nose: Normal terminus with nares patent bilaterally. THROAT: Oropharynx is clear. Mucous membranes are moist. Good dentition. Uvula midline. NECK: Supple. No lymphadenopathy. LUNGS: Clear to auscultation. Chest is nontender with palpation. No adventitious sounds appreciated. HEART: Regular rate and rhythm. Normal S1 and S2. No murmurs appreciated. ABDOMEN: Soft and nontender. Bowel sounds heard in all 4 quadrants. EXTREMITIES: Examination of her right fifth finger, it is in a splint today. The distal sensation is intact and normal. She has localized bruising, resolving ecchymosis and swelling. Exam is limited today due to her splint. Last week, her sensation was completely normal with swelling and ecchymosis as well. She is nontender throughout rest of her hand or her wrist. RADIOLOGY IMAGES: Three views of her right fifth finger were taken and show a displaced proximal phalanx fracture. It is extraarticular. ASSESSMENT: Displaced fifth proximal phalanx fracture of the right hand. PLAN: At this point, she is scheduled for a closed reduction and percutaneous pinning of her right small (fifth) finger proximal phalanx fracture with Dr. Brand on 01/05/2017. Risks and complications of surgery were explained to the patient, include but are not limited to infection, pain, bleeding, scarring, nerve and blood vessel damage, wound problems, weakness, stiffness, incomplete relief of symptoms, hardware failure, nonunion, malunion, arthritis, heart attack, stroke and , blood clots and embolisms. All questions were answered and informed consent was obtained. She was given a prescription for Percocet for postoperative pain control as well as Keflex 500 mg t.i.d. for 5 days for surgical prophylaxis. She will be given Ancef in the OR preoperatively. She will follow up with me 1 week after surgery for pin cleaning and postoperative instructions were briefly presented. She is to remain in the splint or whatever dressing she is on tomorrow until her next followup. She does not need outpatient physical therapy. She will follow up Dr. Brand about 2 weeks after surgery for x-rays and a pin check. All questions were answered. She knows to call with any problems or questions. She had recent lab work, EKG, and chest x-ray due to her surgery back in November with Dr. Carrasco for her back pain. She knows to call with any worsening problems or questions. ANJALI
[~2017-01-05] VITALS: Ht 165.1 cm; Wt 67.7 kg
[~2017-01-05] MED LIST changes: +ATROPINE SULFATE 0.1 MG/ML 5ML SYR IV PRN; +BUPIVACAINE 0.5 % 5 MG/1 ML PF 10ML VIAL ONE; +CEFAZOLIN 2000 MG/60 ML D5W IV SCH; +EpHEDrine SULFATE INJ 50 MG/ML AMP IV PRN; +FENTANYL CITRATE INJ 50 MCG/1 ML 2 ML VIAL ONE; -HYDR-5688 PO; +LACTATED RINGER'S 1000ML 1,000 ML IV SCH; +LIDOCAINE HCL 1% 20 ML VIAL ONE; +LIDOCAINE HCL 2% 2 ML VIAL (20MG/ML) ONE; +MIDAZOLAM HCL 1 MG/ML 2ML VIAL ONE; +OXYCODONE/ACETAMINOPHEN 5-325 TAB ONE; +OXYCODONE/ACETAMINOPHEN 5-325 TAB PO PRN; +PROPOFOL IV EMULSION 10 MG/ML 20 ML VIAL IV ONE; +SODIUM CHLORIDE 0.9% 1000ML 1,000 ML IV SCH
--- NOTE | 2017-01-05 06:40 | History & Physical Bridge Note ---
H&P Re-Evaluation Bridge Note: I have examined the patient, reviewed the History & Physical and in the interval since the performance of the History & Physical I have noted the following changes of clinical significance: No changes noted
--- NOTE | 2017-01-05 06:41 | Discharge Instructions ---
Discharge Instructions Date of Service Jan 05, 2017. Visit Reason for Visit: Right 5TH Finger Proximal Phalanx Fracture Discharge Discharge Diagnosis / Problem: same Discharge Goals Goal(s): Improve function Medications Stopped Medications Name(s): na Restart Stopped Medication(s): resume all scripts as label directs Activity Recommendations Activity Limitations: as noted below Lifting Limitations: until after follow-up appointment Exercise/Sports Limitations: until after follow-up appointment May Resume Sexual Activity: when tolerated Shower/Bathe: keep incision dry Driving or Machine Use: no limitations Anesthesia . Post Anesthesia Instructions: If you have had General Anesthesia or IV Sedation: * Do not drive today. * Resume driving when surgeon permits. * Do not make important decisions or sign legal documents today. * Call surgeon for: 1. Temperature elevations greater than 101 degrees F. 2. Uncontrollable pain. 3. Excessive bleeding. 4. Persistent nausea and vomiting. 5. Medication intolerance (nausea, vomiting or rash). * For nausea and vomiting use only clear liquids such as: tea, soda, bouillon until nausea subsides, then gradually increase diet as tolerated. * If you have any concerns or questions, call your surgeon's office. If physician is unavailable and it is an emergency, call 911 or go to the nearest emergency room. . Diet Recommendations Recommended Home Diet: resume previous diet Procedures Procedures Performed: [facility]PP Pending Studies Studies pending at discharge: no Medical Emergencies . Who to Call and When: Medical Emergencies: If at any time you feel your situation is an emergency, please call 911 immediately. . Non-Emergent Contact Non-Emergency issues call your: Specialist Call Non-Emergent contact if: temperature is above 101.5 . . "Provider Documentation" section prepared by Vimal Brand. .
--- NOTE | 2017-01-05 07:37 | [facility] Post Operative Brief Note ---
Immediate Operative Summary Operative Date Jan 05, 2017. Pre-Operative Diagnosis Right 5th Finger Proximal Palanx Fracture Post-Operative Diagnosis same Procedure(s) Performed Right 5th Finger Closed Reduction Percutaneous Pinning Surgeon Dr. Loni Brand Reception Centre Manager Surgeon(s) Khang Blue PA-C Estimated Blood Loss trace Findings displaced dx Fluids (cc crystalloids) 450cc Specimens none Drains none Anesthesia local/sedation Complication(s) None Disposition Recovery Room / PACU
[2017-01-05 07:42] VITALS: TEMP 36.4
--- NOTE | 2017-01-05 07:56 | Anesthesia Progress Nt - [facility] ---
Anesthesia Post Op Note Date & Time Jan 05, 2017 at 07:56 Vital Signs Pain Intensity: 5 Vital Signs Past 12 Hours Date Time Temp Pulse Resp B/P (MAP) Pulse Ox O2 Delivery O2 Flow Rate FiO2 01/05/17 06:36 36.6 72 18 131/75 (93) 99 Room Air Notes Mental Status: alert / awake / arousable, participated in evaluation Pt Amnestic to Procedure: Yes Nausea / Vomiting: adequately controlled Pain: adequately controlled Airway Patency, RR, SpO2: stable & adequate BP & HR: stable & adequate Hydration State: stable & adequate Anesthetic Complications: no major complications apparent
[2017-01-05 08:19] VITALS: BP 129/78; PULSE 67; O2SAT 97
--- NOTE | 2017-01-05 09:25 | [facility] Operative Report ---
Operative Report Operative Date Jan 05, 2017. Pre-Operative Diagnosis Right 5th Finger Proximal Palanx Fracture Post-Operative Diagnosis same Procedure(s) Performed Right 5th Finger Closed Reduction Percutaneous Pinning Surgeon Dr. Loni Brand Financial Management Surgeon(s) Khang Blue PA-C Estimated Blood Loss trace Findings unstable fracture proximal phalanx Fluids (cc crystalloids) 450cc Specimens none Drains none Anesthesia local/sedation Complication(s) None Disposition Implants k wire 0.45 Indications unstable fracture Description of Procedure closed reduction percutaneous pinning with flouro I attest to the content of the Intraoperative Record and any orders documented therein. Any exceptions are noted below.
--- NOTE | 2017-01-15 09:28 | EDITING REQUIRED CODING QUERY ---
CODING QUERY To promote full compliance with coding requirements relating to patient care, provider participation is requested in all cases of grinder set up operator jig uncertainty. Please assist us with the question(s) below: Coding Question(s): The operative report on file does not contain the details of the procedure needed to code. Could you please dictate the details of this procedure below, or add an addendum to the report that already exists, when available? Physician's Response(s): Thank you Marta Archer Principal Diagnosis: "_that condition established after study, to be chiefly responsible for occasioning the admission of the patient to the hospital for care." Co-Existing Principal Diagnosis: "_when two or more diagnoses equally meet the criteria for principal diagnosis as determined by the circumstances of admission, diagnostic work up, and/or therapy provided, and the Alphabetic Index, Tabular List, or another coding guideline does not provide sequencing direction, any one of the diagnoses may be sequenced first." "When the physician has documented what appears to be a current diagnosis in the body of the record, but has not included the diagnosis in the final diagnostic statement, the physician should be asked whether the diagnosis should be added." (Source [facility]oding [facility] 2 QTR90. p3-4)
== END | disposition home or self-care (01) ==
LOC: X.SURG 06:19
PROVIDERS: ATTEND Physical Medicine & Rehabilitation Sports Medicine
DX: S62.616A Displaced fracture of proximal phalanx of right little finger, initial encounter for closed fracture (principal); W19.XXXA Unspecified fall, initial encounter; Y92.009 Unspecified place in unspecified non-institutional (private) residence as the place of occurrence of the external cause; G35 Multiple sclerosis; J45.909 Unspecified asthma, uncomplicated; F41.9 Anxiety disorder, unspecified; F32.9 Major depressive disorder, single episode, unspecified; Z86.711 Personal history of pulmonary embolism; Z96.652 Presence of left artificial knee joint; Z86.718 Personal history of other venous thrombosis and embolism; Z88.0 Allergy status to penicillin; Z90.710 Acquired absence of both cervix and uterus; Z90.89 Acquired absence of other organs; Z68.25 Body mass index [BMI] 25.0-25.9, adult; Z82.5 Family history of asthma and other chronic lower respiratory diseases; Z83.42 Family history of familial hypercholesterolemia; Z82.49 Family history of ischemic heart disease and other diseases of the circulatory system; Z80.3 Family history of malignant neoplasm of breast; Z80.41 Family history of malignant neoplasm of ovary

== ENCOUNTER → 2017-01-18 | Day surgery (SDC) | payer BC ==
[2017-01-08 14:36] VITALS: Ht 165.1 cm; Wt 67.7 kg
[~2017-01-18] VITALS: Ht 165.1 cm; Wt 67.7 kg
[~2017-01-18] MED LIST changes: -ATROPINE SULFATE 0.1 MG/ML 5ML SYR IV PRN; -BUPIVACAINE 0.5 % 5 MG/1 ML PF 10ML VIAL ONE; -CEFAZOLIN 2000 MG/60 ML D5W IV SCH; -EpHEDrine SULFATE INJ 50 MG/ML AMP IV PRN; -FENTANYL CITRATE INJ 50 MCG/1 ML 2 ML VIAL ONE; -LACTATED RINGER'S 1000ML 1,000 ML IV SCH; -LIDOCAINE HCL 1% 20 ML VIAL ONE; -MRLP17 PO; +ONDANSETRON INJ 2 MG/ML 2 ML VIAL ONE; -OXYCODONE/ACETAMINOPHEN 5-325 TAB ONE; -OXYCODONE/ACETAMINOPHEN 5-325 TAB PO PRN; +PHENYLEPHRINE 100MCG/ML 5ML SYR ONE; -SODIUM CHLORIDE 0.9% 1000ML 1,000 ML IV SCH
[2017-01-18 14:33] VITALS: TEMP 36.6
--- NOTE | 2017-01-18 15:32 | Endo History and Physical ---
History & Physical Date of Service: Jan 18, 2017. Chief Complaint: Fam hx colon cancer Referring Physician: Dr. Carroll Simon History of Present Illness For colonoscopy Past Medical History Osteoporosis, Pulmonary Emboli, Anxiety, Kidney Disease, Other, Depression Past Surgical History Hx Cardiac Surgery: No Hx Internal Defibrillator: No Hx Pacemaker: No Hx Abdominal Surgery: Yes (NESTOR WITH BSO, KAREN) Hx of Implantable Prosthesis: No Hx Post-Op Nausea and Vomiting: Yes Hx Cancer Surgery: No Hx Thoracic Surgery: No Hx Orthopedic: Yes (LEFT TKA, LUMBAR DISCECTOMY, RT HANG FINGER SX HARDWARE) Hx Urinary Tract Surgery: No Family History Colon CA Social History Smoking Status: Never Smoker Hx Substance Use: No Hx Alcohol Use: Yes (OCCASIONALLY) Allergies Coded Allergies: Promethazine (Verified Allergy, Intermediate, HALLUCINATIONS, 01/08/17) Sulfamethoxazole w/Trimethoprim (Verified Allergy, Intermediate, HIVES, ) Adhesives (Verified Allergy, Mild, ALLERGY TO PLASTIC CLEAR TAPE = CAUSES HIVES, 01/08/17) Sulfa Antibiotics (Verified Allergy, Unknown, HIVES, 01/08/17) Current Medications Reported Home Medications Medications Dose Route/Sig Max Daily Dose Days Date Category Miralax (Polyethylene Glycol 3350) 1 Pow Pow 17 Gm PO DAILY PRN 01/08/17 Reported Ambien (Zolpidem Tartrate) 10 Mg Tab 10 Mg PO HS PRN 12/30/16 Reported Clonazepam 1 Mg Tab 1 Mg PO HS PRN 12/28/16 Reported Zoloft (Sertraline Hcl) 100 Mg Tab 100 Mg PO QAM 11/27/12 Reported Vital Signs Weight (Kilograms): 67.73 Height (Feet): 5 Height (Inches): 5 Date Time Temp Pulse Resp B/P (MAP) Pulse Ox O2 Delivery O2 Flow Rate FiO2 01/18/17 14:33 36.6 74 20 153/66 (95) 98 Room Air Physical Exam General Appearance: WD/WN, + pertinent finding (cast right hand) Respiratory/Chest: Respiratory effort: no dyspnea Cardiovascular: Heart Auscultation: RRR Abdomen: Inspection & Palpation: soft Assessment and Plan Fam hx colon cancer for colonoscopy
--- NOTE | 2017-01-18 16:01 | Discharge Instructions ---
Endoscopy Patient Instructions Date / Procedure(s) Performed Jan 18, 2017. Colonoscopy Allergy Information Coded Allergies: Promethazine (Verified Allergy, Intermediate, HALLUCINATIONS, 01/08/17) Sulfamethoxazole w/Trimethoprim (Verified Allergy, Intermediate, HIVES, ) Adhesives (Verified Allergy, Mild, ALLERGY TO PLASTIC CLEAR TAPE = CAUSES HIVES, 01/08/17) Sulfa Antibiotics (Verified Allergy, Unknown, HIVES, 01/08/17) Discharge Date / Findings Jan 18, 2017. normal colon Medication Instructions Restart Stopped Medication(s): resume meds Reported Home Medications Medications Dose Route/Sig Max Daily Dose Days Date Category Miralax (Polyethylene Glycol 3350) 1 Pow Pow 17 Gm PO DAILY PRN 01/08/17 Reported Ambien (Zolpidem Tartrate) 10 Mg Tab 10 Mg PO HS PRN 12/30/16 Reported Clonazepam 1 Mg Tab 1 Mg PO HS PRN 12/28/16 Reported Zoloft (Sertraline Hcl) 100 Mg Tab 100 Mg PO QAM 11/27/12 Reported Provider Instructions Activity Restrictions - No exercising or heavy lifting for 24 hours. - Do not drink alcohol the day of the procedure. - Do not drive a car or operate machinery until the day after the procedure. - Do not make any important decisions or sign important papers in 24 hours after the procedure. Following Day: - Return to full activity which may include returning to work/school. Diet Start your diet with liquids and light foods (jello, soup, juice, toast). Then eat your usual diet if not nauseated. Treatment For Common After Affects For mild abdominal pain, bloating, or excessive gas: - Rest - Eat lightly - Lie on right side Follow-Up Information Follow-up with Dr. Carroll Simon as scheduled Anesthesia Information What You Should Know You have had a procedure that required some medicine to reduce anxiety and discomfort. This treatment is called moderate sedation. After receiving the treatment, you may be sleepy, but you will be able to breathe on your own. The effects of the treatment may last for several hours. Follow these instructions along with Activity/Diet recommendations noted above: * Do NOT do anything where dizziness or clumsiness would be dangerous. * Rest quietly at home today, then you can be up and about tomorrow. * Have a responsible person stay with you the rest of today. * You may have had an I.V. today. If so, you may take the dressing off later today. Recommendations Call your doctor if: * Trouble breathing * Continuous vomiting for more than 24 hours * Temperature above 101 degrees * Severe abdominal pain or bloating * Pain not relieved by pain medicine ordered * There is increased drainage or redness from any incision * A large amount of rectal bleeding greater than 2-3 tablespoons. (If you had a polyp/s removed or have hemorrhoids, a small amount of blood - from the rectum is to be expected.) * You have any unanswered questions or concerns. IN THE EVENT OF A SERIOUS EMERGENCY, GO TO THE NEAREST EMERGENCY ROOM Your discharge instructions were prepared by provider Mookie Smiley. Patient Instructions Signature Page Amara Jha Patient (or Guardian) Signature/Date: I have read and understand the instructions given to me by my caregivers. Caregiver/RN/Doctor Signature/Date: The above-named patient and/or guardian has received patient instructions on this date. + Original Patient Signature Page (only) stays with chart. Please make copy for patient.
--- NOTE | 2017-01-18 16:04 | GI REPORT ---
Procedure Date: 01/18/2017 3:32 PM Procedure: Colonoscopy Indications: Family history of colon cancer in multiple second-degree relatives Medicines: Midazolam 2 mg IV, Zofran 4 mg IV, Propofol total dose 240 mg IV, Neosynephrine 50 mcg IV, Lidocaine 40 mg IV Complications: No immediate complications. Estimated Blood Loss: Estimated blood loss: none. Procedure: Pre-Anesthesia Assessment: - Prior to the procedure, a History and Physical was performed, and patient medications, allergies and sensitivities were reviewed. The patient's tolerance of previous anesthesia was reviewed. - The risks and benefits of the procedure and the sedation options and risks were discussed with the patient. All questions were answered and informed consent was obtained. After I obtained informed consent, the scope was passed under direct vision. Throughout the procedure, the patient's blood pressure, pulse, and oxygen saturations were monitored continuously. The scope was introduced through the anus and advanced to the cecum, identified by appendiceal orifice and ileocecal valve. The colonoscopy was performed without difficulty. The patient tolerated the procedure well. The quality of the bowel preparation was good. Findings: The entire examined colon appeared normal. Impression: - The entire examined colon is normal. - No specimens collected. Recommendation: - Discharge patient to home (ambulatory). - Continue present medications. - Repeat colonoscopy in 5 years for surveillance. - Return to primary care physician PRN. Mookie Smiley M.D. Mookie Smiley MD 01/18/2017 4:04:00 PM This report has been signed electronically. Note Initiated On: 01/18/2017 3:32 PM I attest to the content of the Intraoperative Record and orders documented therein, exceptions below
--- NOTE | 2017-01-18 16:09 | Anesthesiology Progress Note ---
Anesthesia Post Op Note Date & Time Jan 18, 2017 at 16:09 Vital Signs Pain Intensity: 7 Vital Signs Past 12 Hours Date Time Temp Pulse Resp B/P (MAP) Pulse Ox O2 Delivery O2 Flow Rate FiO2 01/18/17 14:33 36.6 74 20 153/66 (95) 98 Room Air Notes Mental Status: alert / awake / arousable, participated in evaluation Pt Amnestic to Procedure: Yes Nausea / Vomiting: adequately controlled Pain: adequately controlled Airway Patency, RR, SpO2: stable & adequate BP & HR: stable & adequate Hydration State: stable & adequate Anesthetic Complications: no major complications apparent
[2017-01-18 16:29] VITALS: BP 147/67; PULSE 66; O2SAT 96
== END | disposition home or self-care (01) ==
LOC: C.GI 14:09
PROVIDERS: ATTEND Internal Medicine Gastroenterology
DX: Z12.11 Encounter for screening for malignant neoplasm of colon (principal); Z80.0 Family history of malignant neoplasm of digestive organs; N28.9 Disorder of kidney and ureter, unspecified; F32.9 Major depressive disorder, single episode, unspecified; F41.9 Anxiety disorder, unspecified; M81.0 Age-related osteoporosis without current pathological fracture; Z86.711 Personal history of pulmonary embolism; Z79.899 Other long term (current) drug therapy

== ENCOUNTER → 2017-02-04 | Outpatient (CLI) | payer BC ==
[~2017-02-04] MED LIST changes: -LIDOCAINE HCL 2% 2 ML VIAL (20MG/ML) ONE; -MIDAZOLAM HCL 1 MG/ML 2ML VIAL ONE; -ONDANSETRON INJ 2 MG/ML 2 ML VIAL ONE; -PHENYLEPHRINE 100MCG/ML 5ML SYR ONE; -PROPOFOL IV EMULSION 10 MG/ML 20 ML VIAL IV ONE
--- NOTE | 2017-02-04 15:21 | DIAGNOSTIC IMAGING REPORT ---
RIGHT HAND 3 VIEWS CLINICAL HISTORY: Follow-up fifth proximal phalangeal fracture. FINDINGS: 3 views of the right hand are compared to study dated 12/29/2016. The skeletal structures are osteopenic. There is no acute fracture identified. There is unchanged alignment of a healing fracture through the proximal shaft of the fifth proximal phalanx as compared to 12/29/2016. Overlying soft tissue edema has almost completely resolved. There is advanced arthritic change seen at the first carpometacarpal joint, with bony sclerosis, overgrowth, subchondral cyst formation, and subluxation. Moderate arthritic change is seen involving the radial of the carpal bones. There is degenerative narrowing at the radiocarpal articulation and calcification of the triangular fibrocartilage. Osteoarthritic change is noted involving the interphalangeal joints, distal greater than proximal. IMPRESSION: 1. Unchanged alignment of a healing fracture through the proximal shaft of the fifth proximal phalanx as compared to 12/29/2016. 2. No acute fracture is seen. 3. Osteopenia and advanced arthritic change as above. Electronically signed by: Saad Pollard M.D. 02/04/2017 3:19 PM Dictated Date/Time: 02/04/2017 3:17 PM
== END | disposition home or self-care (01) ==
LOC: C.RDSM 13:49
PROVIDERS: ATTEND Physician Assistant
DX: S62.617D Displaced fracture of proximal phalanx of left little finger, subsequent encounter for fracture with routine healing (principal); X58.XXXD Exposure to other specified factors, subsequent encounter

== ENCOUNTER → 2017-03-22 | Outpatient (CLI) | payer BC | END | disposition home or self-care (01) | LOC: C.RDSM 09:02 | PROVIDERS: ATTEND Physical Medicine & Rehabilitation Sports Medicine | DX: S62.617D Displaced fracture of proximal phalanx of left little finger, subsequent encounter for fracture with routine healing (principal); X58.XXXD Exposure to other specified factors, subsequent encounter ==

== ENCOUNTER → 2017-05-24 | Outpatient (CLI) | payer BC ==
[~2017-05-24] MED LIST changes: +GADAVIST IV PRN
--- NOTE | 2017-05-24 12:27 | DIAGNOSTIC IMAGING REPORT ---
BRAIN COMBO FOR MS CLINICAL HISTORY: 66 years-old Female presenting with MS, concern for progression of disease. TECHNIQUE: Multisequence, multiplanar MR imaging of the brain was performed before and after the administration of intravenous contrast. IV contrast: 6.5 mL of Gadavist COMPARISON: 08/14/2015. FINDINGS: Ventricles and sulci normal in size. Numerous white matter signal abnormalities scattered throughout the supratentorial brain, which are identical in size, number, and distribution. No evidence of a new lesion. No mass effect or midline shift. No restricted diffusion to suggest acute ischemia. No hemorrhage. No extra-axial fluid collection. T2 skull base flow voids preserved. No abnormal parenchymal enhancement. Bone marrow signal intensity within the calvarium within normal limits. Bilateral salt river lenses are absent. Mucosal thickening and layering fluid in the left maxillary sinus. IMPRESSION: 1. Stable findings of multifocal white matter disease, which are identical in size, number, and distribution to the prior exam. No abnormal enhancement to suggest active disease. No evidence of progression of disease. 2. Findings concerning for acute sinusitis in the left maxillary sinus. Electronically signed by: Matt Floyd M.D. 05/24/2017 12:26 PM Dictated Date/Time: 05/24/2017 12:14 PM
== END | disposition home or self-care (01) ==
LOC: C.MRIBC 10:53
PROVIDERS: ATTEND Psychiatry & Neurology Neurology
DX: G35 Multiple sclerosis (principal)

== ENCOUNTER → 2017-06-01 | Day surgery (SDC) | payer BC ==
[2017-05-19 09:09] VITALS: Ht 165.1 cm; Wt 67.7 kg
[~2017-06-01] VITALS: Ht 165.1 cm; Wt 67.7 kg
[~2017-06-01] MED LIST changes: +ATROPINE SULFATE 0.1 MG/ML 5ML SYR IV PRN; +BUPIVACAINE 0.5 % 5 MG/1 ML PF 10ML VIAL ONE; +CEFAZOLIN 2000MG IV PUSH 10 ML IV SCH; +EpHEDrine SULFATE INJ 50 MG/ML AMP IV PRN; +FENTANYL CITRATE INJ 50 MCG/1 ML 2 ML VIAL IV PRN; +FENTANYL CITRATE INJ 50 MCG/1 ML 2 ML VIAL ONE; -GADAVIST IV PRN; +HYDROCODONE/ACETAMOPHEN 5/325MG TAB PO PRN; +LACTATED RINGER'S 1000ML 1,000 ML IV SCH; +LIDOCAINE HCL 2% 2 ML VIAL (20MG/ML) ONE; +LIDOCAINE HCL 2% LOCAL 20 ML VIAL ONE; +MIDAZOLAM HCL 1 MG/ML 2ML VIAL ONE; +ONDANSETRON INJ 2 MG/ML 2 ML VIAL IV PRN; +ONDANSETRON INJ 2 MG/ML 2 ML VIAL ONE; +PROPOFOL IV EMULSION 10 MG/ML 20 ML VIAL IV ONE; +SODIUM CHLORIDE 0.9% 1000ML 1,000 ML IV SCH
--- NOTE | 2017-06-01 06:50 | History & Physical Bridge Note ---
H&P Re-Evaluation Bridge Note: I have examined the patient, reviewed the History & Physical and in the interval since the performance of the History & Physical I have noted the following changes of clinical significance:consent obtained,added long finger trigger. No changes noted
--- NOTE | 2017-06-01 06:52 | Discharge Instructions ---
Discharge Instructions Date of Service Jun 01, 2017. Visit Reason for Visit: Right Carpal Tunnel Syndrome, Right Ring and long Finger Tr Discharge Discharge Diagnosis / Problem: same Discharge Goals Goal(s): Decrease discomfort, Improve function Medications Stopped Medications Name(s): na Restart Stopped Medication(s): use scripts as directed Activity Recommendations Activity Limitations: as noted below Lifting Limitations: until after follow-up appointment Exercise/Sports Limitations: until after follow-up appointment May Resume Sexual Activity: when tolerated Shower/Bathe: keep incision dry Driving or Machine Use: Anesthesia . Post Anesthesia Instructions: If you have had General Anesthesia or IV Sedation: * Do not drive today. * Resume driving when surgeon permits. * Do not make important decisions or sign legal documents today. * Call surgeon for: 1. Temperature elevations greater than 101 degrees F. 2. Uncontrollable pain. 3. Excessive bleeding. 4. Persistent nausea and vomiting. 5. Medication intolerance (nausea, vomiting or rash). * For nausea and vomiting use only clear liquids such as: tea, soda, bouillon until nausea subsides, then gradually increase diet as tolerated. * If you have any concerns or questions, call your surgeon's office. If physician is unavailable and it is an emergency, call 911 or go to the nearest emergency room. . Instructions / Follow-Up Instructions / Follow-Up The following are instructions to follow after minor hand surgery. ACTIVITY RECOMMENDATIONS: * Minimize activity until your first visit after surgery. * No excessive walking, jogging, sports or laboring. * Return to activity is individualized. Most patients are able to return to everyday activities within 2 weeks. * Return to sports or intensive labor usually occurs at 1-2 months. * DRIVING: Driving may be resumed when you feel you have adequate pain control and use of the hand. * BATHING: You may shower or sponge-bathe immediately after surgery. The dressing will need to be covered with a plastic bag or plastic wrap until the dressing is changed on the fourth or fifth day after surgery. Once the dressing has been changed on the fourth or fifth day after surgery, you may shower and get the incision wet. * Wash with regular soap and water. * Do not bathe (submerge the incision), soak, swim or use a hot tub until the incision is completely healed over with normal skin and the doctor has given the OK to proceed. * There is no need to apply any ointments, powders or salves to your incision. * Do not apply alcohol or hydrogen peroxide directly to the incision. Diluted peroxide (50:50 mixture with sterile saline) may be used to clean dried blood from around the incision area. WORK/SCHOOL: * You may return to sedentary work or school when you are feeling comfortable. This is usually 3-7 days after surgery. * Expect increased discomfort with increased activity. Continue to elevate and ice the hand as much as possible. DIET: * Resume previous diet. MEDICATIONS: * You will have a prescription for pain medication and an anti-inflammatory medication after surgery. Use the pain pills for severe pain and the anti-inflammatory for less severe pain. * Once the pain pills have run out, try to use the anti-inflammatory. If this is not effective then contact the office for assistance. * The pain medication may cause nausea, constipation and sleepiness. You should see how they affect you before driving or similar activity. * The anti-inflammatory may cause stomach upset and bleeding. If this occurs, let your doctor know immediately . * Some patients may need blood clot prevention. This can be done with either a pill or a simple shot. Your doctor will advise you on when to begin these medications and how to take them. * Do not take aspirin or other anti-inflammatory products (i.e. Advil or Aleve ) if taking blood thinner medication. * Take a stool softener like Colace or a stimulant like Senokot to prevent constipation. SPECIAL CARE INSTRUCTIONS: ICE: * Do not apply ice directly to the skin. * Use a thin dressing or stockinet between the skin and ice bag. The dressing in place after surgery will suffice. * Apply ice for 20-30 minutes and repeat every 2-4 hours. This is especially important for the first 3-7 days after surgery. * Once the pain improves, use ice as needed. ELEVATION: * Keep your hand elevated at or above the level of your heart as much as possible. * Expect some increased discomfort and swelling if you allow your hand to hang down for any length of time. DRESSING: * Your dressing will be changed 4-5 days after surgery by the physical therapist or physician's assistant professor of religion. Leave your dressing intact until this time. * You may then change your dressing daily with clean dry gauze or Band-aids and a soft wrap or stockinet. * Always wash your hands prior to touching the incision area. * Once the stitches are removed, you may leave the wound open to air or cover with a thin bandage. * There is no need to apply any ointments, powders or salves to your incision. * Expect some bloody drainage for the first few days after surgery. * Leave the tape strips in place (if present) for 5-7 days. * The initial dressing after surgery may become soaked with blood or fluid which is normal. You may reinforce your dressing with clean, dry gauze as needed. BRACE: * Bracing is generally not needed after routine hand surgery. THERAPY: * Physical therapy may be prescribed after your surgery. * For carpal tunnel and trigger digit surgery you may begin moving your fingers and wrist immediately after surgery as tolerated. * Be careful to not overuse. * Once the sutures are removed, further range of motion exercises can be performed. * Hand incisions may be very sensitive for a few months after surgery so avoid excessive pressure on the incision. If necessary, use a padded weightlifters' glove. * You may massage the incision with skin cream to make it less sensitive and reduce scarring. * Hand strength usually returns with normal use. * If needed, squeezing a soft sponge or Play-dough may help. * Your doctor will recommend physical therapy if necessary. PROBLEMS/QUESTIONS: * If you have any problems such as severe pain, numbness, tingling or high fevers or if you have any questions, please contact the office at [phone]. * It is not uncommon to have some numbness and tingling after the surgery especially if you have had a nerve block done. This should gradually improve over the first 1- 2 days. If this persists longer or worsens then contact the office. FOLLOW UP VISIT: * If not already scheduled, please call the office at to schedule follow-up appointments for approximately 10 days, 6 weeks and 3 months after surgery. Diet Recommendations Recommended Home Diet: resume previous diet Procedures Procedures Performed: see op note Pending Studies Studies pending at discharge: no Medical Emergencies . Who to Call and When: Medical Emergencies: If at any time you feel your situation is an emergency, please call 911 immediately. . Non-Emergent Contact Non-Emergency issues call your: Specialist Call Non-Emergent contact if: temperature is above 101.5, wound has increased drainage, wound has increased redness, wound has increased pain . . "Provider Documentation" section prepared by Vimal Brand. .
--- NOTE | 2017-06-01 07:46 | [facility] Post Operative Brief Note ---
Immediate Operative Summary Operative Date Jun 01, 2017. Pre-Operative Diagnosis Right wrist carpal tunnel syndrome, right ring finger trigger digit Post-Operative Diagnosis same Procedure(s) Performed Right Carpal Tunnel Open Release, Right Ring Finger Trigger Digit Release, Right Long Finger Tirgger Digit Release Surgeon Dr Brand Formula Bottler Surgeon(s) SHEBA Engel Estimated Blood Loss trace Findings see op note Fluids (cc crystalloids) see anesthesia report Specimens none Drains none Anesthesia local/sedation Complication(s) None Disposition
--- NOTE | 2017-06-01 08:07 | OPERATIVE REPORT ---
DATE OF OPERATION: 06/01/2017 SURGEON: Dr. Brand. AUTOMOBILE CARPETS MOLDER: Khang Blue PA-C PREOPERATIVE DIAGNOSES: 1. Right carpal tunnel syndrome. 2. Trigger digit, right long finger. 3. Trigger digit, right ring finger. OPERATION PERFORMED: 1. Right carpal tunnel release. 2. Right trigger digit release, long finger. 3. Right trigger digit release, ring finger. PERIOPERATIVE SITUATION: Medically cleared female with intractable carpal tunnel and trigger digits of the long and ring finger of her right hand. DESCRIPTION OF PROCEDURE: The patient was appropriately identified, site verified, consent verified, and 2 grams of Ancef confirmed as being given. The upper extremity was blocked with 4 mL of 0.5% plain Marcaine and 4 mL of 2% plain lidocaine. The arm was then prepped and draped in the usual routine fashion. Tourniquet inflated to 250 mmHg after exsanguination of limb with a rubber Esmarch bandage for a total of 25 minutes. A curvilinear incision was then made based on the fourth ray. Blunt dissection carried down to the palmar fascia. This was then incised under direct vision. The transverse carpal ligament and antebrachial fascia then identified and released under direct vision. The nerve became hyperemic. The floor of the carpal canal had no masses. The FPL was identified. The motor takeoff branch was not explored. The wound was then irrigated and closed with horizontal mattress 4-0 nylon suture. Attention was then turned towards the long finger and ring finger. A horizontal incision was made over those areas and connected and then blunt dissection down to the flexor mechanism. The A1 yassine was then identified at its proximal and distal extent and then released. There was some minor fraying of the tendons in both areas, but the ring finger had the most severe changes. Of note is that she had some chronic swan changes of the long finger prior to this as well. She has significant degenerative disease to the small joints. Active flexion and extension of the digit produced no triggering. The wound was then irrigated and then closed with horizontal 4-0 nylon mattress sutures. The wounds were then dressed with Dermabond, Xeroform, light dressing and a volar splint. The patient transferred to the holding area in satisfactory condition having tolerated the procedure well. ESTIMATED BLOOD LOSS: Trace. CRYSTALLOID: Per anesthesia report. I attest to the content of the Intraoperative Record and any orders documented therein. Any exception s are noted below.
--- NOTE | 2017-06-01 08:18 | Anesthesia Progress Nt - [facility] ---
Anesthesia Post Op Note Date & Time Jun 01, 2017 at 08:18 Vital Signs Vital Signs Past 12 Hours Date Time Temp Pulse Resp B/P (MAP) Pulse Ox O2 Delivery O2 Flow Rate FiO2 06/01/17 07:50 36.5 72 16 137/80 (99) 95 Room Air 06/01/17 06:24 36.7 64 16 144/82 (102) 95 Room Air Notes Mental Status: alert / awake / arousable, participated in evaluation Pt Amnestic to Procedure: Yes Nausea / Vomiting: adequately controlled Pain: adequately controlled Airway Patency, RR, SpO2: stable & adequate BP & HR: stable & adequate Hydration State: stable & adequate Anesthetic Complications: no major complications apparent
[2017-06-01 09:01] VITALS: BP 111/69; PULSE 69; TEMP 36.7; O2SAT 95
--- NOTE | 2017-06-01 15:15 | [facility] Operative Report ---
Operative Report Operative Date Jun 01, 2017. 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 She had tried conservative care measures including activity modification and splinting without success. She elected to proceed with surgical intervention after being educated about potential risks and outcomes. Preoperative EMG was obtained. Description of Procedure Patient was taken to the operating room where she was given local anesthetic and sedation. She was prepped and draped in usual sterile fashion. Please see Dr. Brand's operative report for specifics of the procedure. I was present for the entire case from initial patient positioning through final wound closure. Assistance was provided in tissue traction, hemostasis, final wound closure and splint application. Patient was taken to phase 2 recovery in satisfactory condition. I attest to the content of the Intraoperative Record and any orders documented therein. Any exceptions are noted below.
== END | disposition home or self-care (01) ==
LOC: X.SURG 06:11
PROVIDERS: ATTEND Physical Medicine & Rehabilitation Sports Medicine
DX: G56.01 Carpal tunnel syndrome, right upper limb (principal); M65.331 Trigger finger, right middle finger; M65.341 Trigger finger, right ring finger; G35 Multiple sclerosis; M81.0 Age-related osteoporosis without current pathological fracture; J45.909 Unspecified asthma, uncomplicated; G47.00 Insomnia, unspecified; M19.90 Unspecified osteoarthritis, unspecified site; F41.9 Anxiety disorder, unspecified; F32.9 Major depressive disorder, single episode, unspecified; Z86.718 Personal history of other venous thrombosis and embolism; Z86.711 Personal history of pulmonary embolism; Z79.899 Other long term (current) drug therapy

== ENCOUNTER → 2017-09-20 | Outpatient (CLI) | payer BC ==
[~2017-09-20] MED LIST changes: -ATROPINE SULFATE 0.1 MG/ML 5ML SYR IV PRN; -BUPIVACAINE 0.5 % 5 MG/1 ML PF 10ML VIAL ONE; -CEFAZOLIN 2000MG IV PUSH 10 ML IV SCH; -EpHEDrine SULFATE INJ 50 MG/ML AMP IV PRN; -FENTANYL CITRATE INJ 50 MCG/1 ML 2 ML VIAL IV PRN; -FENTANYL CITRATE INJ 50 MCG/1 ML 2 ML VIAL ONE; -HYDROCODONE/ACETAMOPHEN 5/325MG TAB PO PRN; -LACTATED RINGER'S 1000ML 1,000 ML IV SCH; -LIDOCAINE HCL 2% 2 ML VIAL (20MG/ML) ONE; -LIDOCAINE HCL 2% LOCAL 20 ML VIAL ONE; -MIDAZOLAM HCL 1 MG/ML 2ML VIAL ONE; -ONDANSETRON INJ 2 MG/ML 2 ML VIAL IV PRN; -ONDANSETRON INJ 2 MG/ML 2 ML VIAL ONE; -PROPOFOL IV EMULSION 10 MG/ML 20 ML VIAL IV ONE; -SODIUM CHLORIDE 0.9% 1000ML 1,000 ML IV SCH
--- NOTE | 2017-09-20 13:30 | DIAGNOSTIC IMAGING REPORT ---
R PELVIS UNILATERAL HIP 1 VIEW CLINICAL HISTORY: RIGHT HIP PAIN pain. COMPARISON: None. DISCUSSION: Considerable degenerative narrowing right to lesser extent left hip joint space. Sclerosis of the acetabular margins. No evidence for acetabular protrusion. Mild osteophytic changes seen peripherally around the femoral heads bilaterally. No evidence for fracture or dislocation. There is no evidence for soft tissue swelling. IMPRESSION: Considerable degenerative change of the right and to lesser extent left hip. No acute bony abnormality. The above report was generated using voice recognition software. It may contain grammatical, syntax or spelling errors. Electronically signed by: Sergey Escalante M.D. 09/20/2017 1:29 PM Dictated Date/Time: 09/20/2017 1:28 PM
== END | disposition home or self-care (01) ==
LOC: C.RDSM 13:20
PROVIDERS: ATTEND Physician Assistant
DX: M25.551 Pain in right hip (principal)

== ENCOUNTER → 2017-11-01 | Outpatient (CLI) | payer BC ==
--- NOTE | 2017-11-01 10:26 | DIAGNOSTIC IMAGING REPORT ---
R ANKLE MIN 3 VIEWS CLINICAL HISTORY: RIGHT ANKLE PAIN COMPARISON: None. DISCUSSION: The bones are osteopenic. No acute fractures are visualized. The ankle mortise appears intact. There calcifications within the Achilles tendon. There are plantar calcifications. IMPRESSION: 1. No acute fractures 2. Mild osteopenia 3. Plantar fascial calcification 4. Achilles calcification Electronically signed by: Basilio Patton M.D. 11/01/2017 10:24 AM Dictated Date/Time: 11/01/2017 10:23 AM
== END | disposition home or self-care (01) ==
LOC: C.RDSM 10:05
PROVIDERS: ATTEND Physician Assistant
DX: M25.571 Pain in right ankle and joints of right foot (principal); M25.871 Other specified joint disorders, right ankle and foot

== ENCOUNTER 2021-07-23 05:20 | Observation (INO) ==
--- NOTE | 2021-02-27 13:09 | PAT Medication Instructions ---
Medication Instructions Date of Service February 27, 2021 Home Medications Medication Instructions Recorded topiramate 100 mg capsule,extended 100 mg PO DAILY #90 cap 05/06/20 release 24 hr modafinil 200 mg tablet 200 mg PO DAILY #30 tab 10/15/20 sertraline 100 mg tablet (Zoloft) 100 mg PO BID 30 Days #60 tab 12/10/20 clonazepam 2 mg tablet 2 mg PO HS PRN 30 Days #30 tab 01/23/21 ondansetron HCl 8 mg tablet 8 mg PO TID PRN #30 tab 02/25/21 aspirin 81 mg tablet,delayed release (Aspirin Low Dose) 81 mg PO QPM cholecalciferol (vitamin D3) 25 mcg (1,000 unit) capsule (Vitamin D3) 1,000 unit PO QPM topiramate 100 mg capsule,extended release 24 hr 100 mg PO DAILY modafinil 200 mg tablet 200 mg PO DAILY sertraline 100 mg tablet (Zoloft) 100 mg PO BID clonazepam 2 mg tablet 2 mg PO HS PRN ondansetron HCl 8 mg tablet 8 mg PO TID PRN albuterol sulfate 90 mcg/actuation aerosol inhaler 1 inh INHALATION QID PRN DO NOT take the morning of surgery cholecalciferol (vitamin D3) 25 mcg (1,000 unit) capsule (Vitamin D3) 1,000 unit PO QPM modafinil 200 mg tablet 200 mg PO DAILY Take morning of surgery With a small sip of water, OTHERWISE NOTHING TO EAT OR DRINK AFTER MIDNIGHT: topiramate 100 mg capsule,extended release 24 hr 100 mg PO DAILY sertraline 100 mg tablet (Zoloft) 100 mg PO BID ondansetron HCl 8 mg tablet 8 mg PO TID PRN (if needed) albuterol sulfate 90 mcg/actuation aerosol inhaler 1 inh INHALATION QID PRN (use if needed; please bring rescue inhaler with you to hospital day of surgery if possible) Take evening before surgery aspirin 81 mg tablet,delayed release (Aspirin Low Dose) 81 mg PO QPM (continue as normal unless told otherwise by surgeon) cholecalciferol (vitamin D3) 25 mcg (1,000 unit) capsule (Vitamin D3) 1,000 unit PO QPM sertraline 100 mg tablet (Zoloft) 100 mg PO BID clonazepam 2 mg tablet 2 mg PO HS PRN (if needed) ondansetron HCl 8 mg tablet 8 mg PO TID PRN (if needed) albuterol sulfate 90 mcg/actuation aerosol inhaler 1 inh INHALATION QID PRN (if needed) Other Notes If you have any questions please call us at [phone] or [phone] or [phone] or [phone]
--- NOTE | 2021-03-03 11:16 | Anesthesiology Consultation ---
Date of Service March 03, 2021 Assessment & Plan (1) Encounter for pre-operative examination: - COVID screening: Per assessment on 02/26: Travel screen negative, no known COVID-19 positive contacts or current COVID-19 related symptoms. Patient vaccinated. Surgeon arranging preop COVID testing. Awaiting results. - Cardiology office visit (10/02/20): "She had 3 episodes of syncope earlier this year.. Event recorder was negative for any arrhythmia.. I reassured her this all sounds orthostatic. It does not sound like it is an arrhythmia. Her exam is normal. Her EKG is normal. Her carotid upstrokes felt brisk. I just recommended an echocardiogram for completeness to make sure that her LV function is normal as well as rule out pulmonary hypertension given her history of prior pulmonary emboli as well as r/o RV dysfunction.. We will see her back on an as- needed basis." Lifestyle modifications provided and recommendation to f/u as needed. Unremarkable ECHO done 11/2020* - Hx multiple sclerosis: Right JESSICA done under [place] (04/20/18) > Grade view 1, MAC#3, ETT 7.5 at [facility] Chart Review Chart Review: Acceptable Risk for Surgery (pending surgeon-ordered PCP clearance) and Patient seen in Pre Admission Testing Teaching & Discussion Pre-Anesthesia Teaching/Discussion Notes: Instructed NPO after midnight before surgery,except medications with 15 cc of water. Medication instructions provided according to the PAT guidelines. History Surgery Operation Date: 03/26/21 07:00 Proposed Procedures p Total Knee Arthroplasty - Vimal Brand MD Right* Height/Weight Height: 5 ft 5 in Weight: 68.4 kg Allergies Allergy/AdvReac Type Severity Reaction Status Date / Time adhesive Allergy Intermediate Plastic Verified 02/27/21 15:49 clear tape (hives) Bactrim Allergy Intermediate HIVES Verified 06/01/17 06:23 Sulfa (Sulfonamide Allergy Intermediate Hives Verified 02/27/21 15:49 Antibiotics) sulfamethoxazole Allergy Intermediate Hives Verified 02/27/21 15:49 trimethoprim Allergy Intermediate Hives Verified 02/27/21 15:49 promethazine AdvReac Intermediate Hallucinati Verified 02/27/21 15:49 ons Medications Home Medications Medication Instructions Recorded Confirmed Last Taken aspirin 81 mg tablet,delayed 81 mg PO QPM 09/02/26/21 04/19/18 08:00 release (Aspirin Low Dose) cholecalciferol (vitamin D3) 25 1,000 unit PO QPM 03/28/18 02/26/21 04/08/18 20:00 mcg (1,000 unit) capsule (Vitamin D3) topiramate 100 mg capsule,extended 100 mg PO DAILY #90 cap 05/06/20 02/26/21 Unknown release 24 hr modafinil 200 mg tablet 200 mg PO DAILY #30 tab 10/15/20 02/26/21 Unknown sertraline 100 mg tablet (Zoloft) 100 mg PO BID 30 Days #60 tab 12/10/20 02/26/21 Unknown clonazepam 2 mg tablet 2 mg PO HS PRN 30 Days #30 tab 01/23/21 02/26/21 Unknown ondansetron HCl 8 mg tablet 8 mg PO TID PRN #30 tab 02/25/21 02/26/21 Unknown albuterol sulfate 90 mcg/actuation 1 inh INHALATION QID PRN 02/26/21 02/26/21 Unknown aerosol inhaler Past Medical History Medical History Anxiety and depression GERD (gastroesophageal reflux disease) Migraine Multiple sclerosis Stable, currently off meds without issues Osteoarthritis Pulmonary embolism Post-op abdominal surgery (25 years ago), was on AC x short period of time Spinal stenosis Uses inhaler device Per pt, used as needed for remote, intermittent wheezing. No definitive diagnosis Exercise / Class Metabolic Activity II 4-5 Yardwork/Stairs/Walk up hill (one FS (no CP, no SOB)) Past Family History Family History Grandfather (Paternal) Family hx of colon cancer Other No family history of adverse response to anesthesia Past Surgical History Surgical History H/O colonoscopy History of back surgery Lumbar spine (3 surgeries total) History of cataract surgery R/L History of esophagogastroduodenoscopy (EGD) History of exploratory laparotomy r/t adhesions History of hysterectomy History of tonsillectomy and adenoidectomy History of tooth extraction History of total hip arthroplasty Right JESSICA (04/20/18): Grade view 1, MAC#3, ETT 7.5 at [facility] History of total knee arthroplasty Left S/P LASIK surgery Past Anesthesia History No Hx of Anesthesia Complications and No Family Hx of Anesthesia Complications History of PONV No Hx of PONV and Hx of Motion Sickness (Remote) Social History Smoking Status: Never smoker Do You Dip or Chew Tobacco: No Hx Alcohol Use: Yes Alcohol type: wine alcohol intake frequency: a few times a month Hx Substance Use: No substance use type: does not use Review of Systems Patient denies chest pain, shortness of breath, dyspnea on exertion, fever, chills, cough, wheezing, palpitations. Physical Exam Vital Signs VITALS BP 151/83 P 63 TEMP 98.4 SP02 96%RA RESP 16 PHYSICAL Full cervical extension range of motion. Full TMJ range of motion. TMD 3 finger breaths Mallampati Score 3 Dentition: intact, lower left bridge over molars Lungs: clear throughout to auscultation Cardiac: regular rate and rhythm, no murmurs noted Spine: normal Carotid arteries: negative bruit Extremities: no edema Lab Results Anesthesia Preop Results Results Anesthesia Widget: WBC 4.08 K/uL (4.8-10.8) L 03/03/21 Hgb 14.1 g/dL (12.0-16.0) 03/03/21 Hct 41.5 % (37-47) 03/03/21 Plt 191 K/uL (130-400) 03/03/21 Na 141 mmol/L (136-145) 03/03/21 K 4.2 mmol/L (3.5-5.1) 03/03/21 Cl 105 mmol/L (98-107) 03/03/21 CO2 30 mmol/L (21-32) 03/03/21 BUN 20 mg/dl (7-18) H 03/03/21 Creat 0.52 mg/dl (0.6-1.2) L 03/03/21 Glucose Level 91 mg/dl (70-99) 03/03/21 PT 9.8 Seconds (9.0-12.0) 03/03/21 PTT 21.9 Seconds (21.0-31.0) 03/03/21 INR 1.0 (0.9-1.1) 03/03/21 Urine Color Yellow 03/03/21 Urine Appearance Clear (Clear) 03/03/21 Urine pH 5.5 (4.5-7.5) 03/03/21 Urine Specific [place] 1.021 (1.000-1.030) 03/03/21 Urine Protein Negative (Negative) 03/03/21 Urine Glucose (UA) Negative (Negative) 03/03/21 Urine Ketones Negative (Negative) 03/03/21 Urine Blood Negative (Negative) 03/03/21 Urine Nitrite Positive (Negative) A 03/03/21 Urine Bilirubin Negative (Negative) 03/03/21 Urine Urobilinogen Negative (Negative) 03/03/21 Urine Leukocyte Esterase 1+ (Negative) H 03/03/21 Urine WBC (Auto) 10-30 /hpf (0-5) H 03/03/21 Urine RBC (Auto) 0-4 /hpf (0-4) 03/03/21 Urine Hyaline Casts (Auto) 1-5 /lpf (0-5) 03/03/21 Urine Epithelial Cells (Auto) >30 /lpf (0-5) H 03/03/21 Urine Bacteria (Auto) 4+ (Negative) H 03/03/21 Blood Type B Positive 03/03/21 Antibody Screen NEGATIVE 03/03/21 Lab Comments: Surgeon's office made aware of abnormal UA. Testing Electrocardiogram Date: 07/22/20 Findings: + NSR @ (62) Chest X-Ray Date: 03/03/21 FINDINGS: A few linear scarlike densities within the right middle lobe and li ngula, unchanged. Otherwise, the lungs are clear. No pleural effusions. No pneumothorax. The heart is normal in size. IMPRESSION: No significant change compared to the prior study. No acute process. Echocardiogram Date: 12/04/20 EF 65%. No regional wall motion abnormality. No LVH. Grade 2 diastolic dysfunction. Indeterminate left atrial pressure. Normal RV size and function. Mild AI.
--- NOTE | 2021-03-10 17:45 | History & Physical Report ---
Date of Service March 10, 2021 Assessment & Plan (1) Right knee DJD: Plan: Postoperative prescriptions for Percocet and Coumadin will be provided at discharge from the hospital. Anticipate discharge to home with home health services. She already has a walker and cane. The patient is aware of the COVID-19 risks associated with surgery. She is currently asymptomatic of any COVID-19 symptoms. She will obtain nasal swab testing 2 days prior to surgery. Preoperative labs, EKG, and chest x-ray were ordered today. Medical clearance was requested from her PCP, Dr. Saini. PDMP was checked and there are no concerning findings. History of Present Illness Chief Complaint: Right knee pain Primary Care Provider: Chandni Marino MD This 70-year-old female presents for her preoperative history and physical. She is scheduled to undergo a right knee total knee arthroplasty on 03/26/2021. The patient has had right knee pain since July of 2018. Pain has overall wax and wane, but has become more consistent and persistent over the last 6 months. She previously was getting relief with Euflexxa injections and activity modification. This is no longer the case. Pain is worse with weightbearing. It is affecting her ADLs. No numbness or tingling. She denies any effusions. There is occasional night pain. She elects to proceed with surgical intervention in hopes of alleviating her pain. Preoperative imaging has been obtained. She does note some loss of motion. Allergies Allergy/AdvReac Type Severity Reaction Status Date / Time adhesive Allergy Intermediate Plastic Verified 02/27/21 15:49 clear tape (hives) Bactrim Allergy Intermediate HIVES Verified 06/01/17 06:23 Sulfa (Sulfonamide Allergy Intermediate Hives Verified 02/27/21 15:49 Antibiotics) sulfamethoxazole Allergy Intermediate Hives Verified 02/27/21 15:49 trimethoprim Allergy Intermediate Hives Verified 02/27/21 15:49 promethazine AdvReac Intermediate Hallucinati Verified 02/27/21 15:49 ons Home Medications Medication Instructions Recorded Confirmed Type aspirin 81 mg tablet,delayed 81 mg PO QPM 03/28/18 02/26/21 History release (Aspirin Low Dose) cholecalciferol (vitamin D3) 25 1,000 unit PO QPM 03/28/18 02/26/21 History mcg (1,000 unit) capsule (Vitamin D3) topiramate 100 mg capsule,extended 100 mg PO DAILY #90 cap 05/06/20 02/26/21 Rx release 24 hr modafinil 200 mg tablet 200 mg PO DAILY #30 tab 10/15/20 02/26/21 Rx sertraline 100 mg tablet (Zoloft) 100 mg PO BID 30 Days #60 tab 12/10/20 02/26/21 Rx clonazepam 2 mg tablet 2 mg PO HS PRN 30 Days #30 tab 01/23/21 02/26/21 Rx ondansetron HCl 8 mg tablet 8 mg PO TID PRN #30 tab 02/25/21 02/26/21 Rx albuterol sulfate 90 mcg/actuation 1 inh INHALATION QID PRN 02/26/21 02/26/21 History aerosol inhaler Past Med/Surg History Medical History Anxiety and depression GERD (gastroesophageal reflux disease) Migraine Multiple sclerosis Stable, currently off meds without issues Osteoarthritis Pulmonary embolism Post-op abdominal surgery (25 years ago), was on AC x short period of time Spinal stenosis Uses inhaler device Per pt, used as needed for remote, intermittent wheezing. No definitive diagnosis Surgical History H/O colonoscopy History of back surgery Lumbar spine (3 surgeries total) History of cataract surgery R/L History of esophagogastroduodenoscopy (EGD) History of exploratory laparotomy r/t adhesions History of hysterectomy History of tonsillectomy and adenoidectomy History of tooth extraction History of total hip arthroplasty Right JESSICA (04/20/18): Grade view 1, MAC#3, ETT 7.5 at [facility] History of total knee arthroplasty Left S/P LASIK surgery Family History (Updated 03/10/21 @ 17:43 by Khang Blue PA-C) Grandfather (Paternal) Family hx of colon cancer Other Asthma Atrial fibrillation Breast cancer Cancer Diabetes Heart disease Hypertension No family history of adverse response to anesthesia Ovarian cancer Skin cancer Social History (Updated 03/10/21 @ 17:40 by Khang Blue PA-C) Smoking Status: Never smoker Second Hand Exposure: Yes ( A CHILD); Hx Alcohol Use: Yes Alcohol type: wine Hx Substance Use: No Preferred Language: Amharic Communication Ability: Effective Visual Impairment: No Limitations Windsurfing Instructor Required: No Beliefs That Will Affect Care: None marital status: Current Living Situation: Spouse current occupational status: retired Feels Safe at Home: Yes Assistive Devices: None Review of Systems Review of Systems: All systems reviewed & are unremarkable except as noted in HPI & below A total of 10 systems were reviewed Physical Exam Physical Exam: Vitals: Height 164 cm, weight 68 kg, BMI 25.3, temperature 36.8, BP 120/70, pulse 72, O2 sat 98% on room air, and respiratory rate 20. General: Well-developed, well-nourished, elderly white female in no acute distress. Looks younger than her stated age. Sitting in a chair. Alert and oriented. Conversive. Skin: Warm and dry with good turgor. No rashes or lesions. No ecchymosis or erythema. No intra-articular effusion in the right knee. HEENT: Normocephalic, atraumatic. Eyes: PERRLA, EOMI. Nares and oropharynx exams deferred due to COVID precautions. She is known to have dental caps. Heart: RRR, no MGR. Lungs: Clear to auscultation bilaterally. No crackles, rhonchi or wheezing. Good air movement. Abdomen: Bowel sounds present x4, soft, nontender. No organomegaly. No masses. Musculoskeletal: Right knee evaluation reveals no intraarticular effusion. She lacks about 5 degrees of terminal extension. Flexion to greater than 110 degrees. Strength is 5/5 with fair quad tone. She has focal discomfort with palpation over the medial and lateral joint lines today. There is crepitus with motion. Stable LCL and MCL. No defect in the patellar tendon or quadriceps tendon. Ambulating today with a slightly antalgic gait using her cane. Neurologic: Gross sensation is intact across the right leg by soft touch. Peripheral pulses are 2+. Results & Data Results & Data ([facility]) Diagnostic Findings Radiographic imaging previously obtained shows end-stage DJD of her right knee. Periarticular osteophytes, subchondral sclerosis, and joint space narrowing are all present. Code Status & VTE Plan VTE Prophylaxis Plan VTE Prophylaxis will be ordered: Yes
--- NOTE | 2021-06-25 10:37 | PAT Medication Instructions ---
Medication Instructions Date of Service June 25, 2021 Home Medications Medication Instructions Recorded modafinil 200 mg tablet 200 mg PO DAILY #30 tab 05/05/21 clonazepam 2 mg tablet 2 mg PO HS PRN 30 Days #30 tab 05/21/21 meclizine 25 mg tablet 25 mg PO TID PRN #90 tab 05/21/21 ondansetron HCl 8 mg tablet 8 mg PO TID PRN #30 tab 05/21/21 topiramate 50 mg tablet 50 mg PO BID #60 tab 05/21/21 sertraline 100 mg tablet (Zoloft) 100 mg PO BID 30 Days #60 tab 06/23/21 aspirin 81 mg tablet,delayed release (Aspirin Low Dose) 81 mg PO QPM cholecalciferol (vitamin D3) 25 mcg (1,000 unit) capsule (Vitamin D3) 1,000 unit PO QPM albuterol sulfate 90 mcg/actuation aerosol inhaler 1 inh INHALATION QID PRN modafinil 200 mg tablet 200 mg PO DAILY clonazepam 2 mg tablet 2 mg PO HS PRN meclizine 25 mg tablet 25 mg PO TID PRN ondansetron HCl 8 mg tablet 8 mg PO TID PRN topiramate 50 mg tablet 50 mg PO BID sertraline 100 mg tablet (Zoloft) 100 mg PO BID DO NOT take the morning of surgery modafinil 200 mg tablet 200 mg PO DAILY Take morning of surgery With a small sip of water, OTHERWISE NOTHING TO EAT OR DRINK AFTER MIDNIGHT: albuterol sulfate 90 mcg/actuation aerosol inhaler 1 inh INHALATION QID PRN (use if needed; please bring with you to hospital day of surgery if possible) meclizine 25 mg tablet 25 mg PO TID PRN (if needed) ondansetron HCl 8 mg tablet 8 mg PO TID PRN (if needed) topiramate 50 mg tablet 50 mg PO BID sertraline 100 mg tablet (Zoloft) 100 mg PO BID Take evening before surgery aspirin 81 mg tablet,delayed release (Aspirin Low Dose) 81 mg PO QPM (unless surgeon directs otherwise) cholecalciferol (vitamin D3) 25 mcg (1,000 unit) capsule (Vitamin D3) 1,000 unit PO QPM albuterol sulfate 90 mcg/actuation aerosol inhaler 1 inh INHALATION QID PRN (if needed) clonazepam 2 mg tablet 2 mg PO HS PRN (if needed) meclizine 25 mg tablet 25 mg PO TID PRN (if needed) ondansetron HCl 8 mg tablet 8 mg PO TID PRN (if needed) topiramate 50 mg tablet 50 mg PO BID sertraline 100 mg tablet (Zoloft) 100 mg PO BID Other Notes If you have any questions please call us at [phone] or [phone] or [phone] or [phone]
--- NOTE | 2021-06-26 15:18 | Anesthesiology Consultation ---
Date of Service June 26, 2021 Assessment & Plan (1) Encounter for pre-operative examination: - Anesthesia: She states she wants to undergo GA, does NOT want neuraxial anesthesia given MS. She does NOT want to pursue outpatient joint pathway expressing concern for h/o bowel obstructions post-op day 1-2 with previous surgeries. H/o blood transfusions after joint replacements per pt > 20 yrs ago, denies work-up/reason for transfusion. - abnormal UA: Surgeon's office notified, to surgeon's discretion if will be pursuing surgery at planned date. - neurology office visit 05/21/2021 [place]: "...patient has history of multiple sclerosis. She is on no disease modifying therapy and has been stable. Her last MRIs were in August of 2019. The patient has episodic positional vertigo over the last 2 months. She has bilateral tinnitus and this is likely inner ear in origin. Patient has had migraines resolved on topiramate but now they have returned. Restart topirimate...Meclizine 25 milligrams...hold on labs and or MRIs at this time...Otherwise return to clinic in 6 months..." - last PCP note. - surgeon ordered medical/cardiac clearance. - will attempt to obtain 2016 stress test report. - upcoming dental work: Pt verbalized understanding she will make surgeon's office aware. - COVID screening: Per assessment on 06/26/2021: Travel screen negative, no known COVID-19 positive contacts or current COVID-19 related symptoms in past 2 weeks. Patient vaccinated. Surgeon arranging preop COVID testing, scheduled 07/21/2020 [place]. Awaiting results. Chart Review Chart Review: Acceptable Risk for Surgery (pending last PCP note/surgical pre-op clearance) and Patient seen in Pre Admission Testing Teaching & Discussion Pre-Anesthesia Teaching/Discussion Notes: Instructed NPO after midnight before surgery, except medications with 15 cc of water. Medication instructions provided according to the PAT guidelines. History Surgery Operation Date: 04/08/21 07:15 Proposed Procedures p Right Total Knee Arthroplasty - Vimal Brand MD Operation Date: 07/23/21 08:55 Proposed Procedures p Right Total Knee Arthroplasty - Vimal Brand MD Height/Weight Height: 5 ft 3 in Weight: 64.1 kg Allergies Allergy/AdvReac Type Severity Reaction Status Date / Time adhesive Allergy Intermediate Plastic Verified 06/25/21 08:35 clear tape (hives) Bactrim Allergy Intermediate HIVES Verified 06/01/17 06:23 Sulfa (Sulfonamide Allergy Intermediate Hives Verified 06/25/21 08:35 Antibiotics) sulfamethoxazole Allergy Intermediate Hives Verified 06/25/21 08:35 trimethoprim Allergy Intermediate Hives Verified 06/25/21 08:35 promethazine AdvReac Intermediate Hallucinati Verified 06/25/21 08:35 ons Medications Home Medications Medication Instructions Recorded Confirmed Last Taken aspirin 81 mg tablet,delayed 81 mg PO QPM 03/28/18 06/25/21 04/19/18 08:00 release (Aspirin Low Dose) cholecalciferol (vitamin D3) 25 1,000 unit PO QPM 03/28/18 06/25/21 04/08/18 20:00 mcg (1,000 unit) capsule (Vitamin D3) albuterol sulfate 90 mcg/actuation 1 inh INHALATION QID PRN 02/26/21 06/25/21 Unknown aerosol inhaler modafinil 200 mg tablet 200 mg PO DAILY #30 tab 05/05/21 06/25/21 Unknown clonazepam 2 mg tablet 2 mg PO HS PRN 30 Days #30 tab 05/21/21 06/25/21 Unknown meclizine 25 mg tablet 25 mg PO TID PRN #90 tab 05/21/21 06/25/21 Unknown ondansetron HCl 8 mg tablet 8 mg PO TID PRN #30 tab 05/21/21 06/25/21 Unknown topiramate 50 mg tablet 50 mg PO BID #60 tab 05/21/21 06/25/21 Unknown sertraline 100 mg tablet (Zoloft) 100 mg PO BID 30 Days #60 tab 06/23/21 06/25/21 Unknown Past Medical History Medical History (Updated 06/26/21 @ 15:53 by Marielos Raphael PA-C) Anxiety and depression controlled, stable per pt Cervical radiculopathy GERD (gastroesophageal reflux disease) controlled, stable per pt History of blood transfusion x2, post-op > 40 yrs ago at [facility] [place]; post-op TKA > 20 yrs ago; pt states unknown reason Migraine controlled, stable per pt Multiple sclerosis Stable, currently off meds without issues, [place] neuro 05/21/2021 Osteoarthritis Pulmonary embolism Post-op abdominal surgery (25 years ago), was on AC x short period of time Spinal stenosis Uses inhaler device Per pt, used as needed for remote, intermittent wheezing. No definitive diagnosis (HAS NOT USED FOR A WHILE) Vertigo on prn meclizine by neuro, pt denies recent symptoms Patient denies h/o stroke, seizures, heart attack, heart failure, DM, or HTN. Exercise / Class Metabolic Activity II 4-5 Yardwork/Stairs/Walk up hill (denies CP or SOB with 1 FOS) Past Family History Family History Grandfather (Paternal) Family hx of colon cancer Other Asthma Atrial fibrillation Breast cancer Cancer Diabetes Heart disease Hypertension No family history of adverse response to anesthesia Ovarian cancer Skin cancer Past Surgical History Surgical History H/O colonoscopy History of back surgery Lumbar spine (3 surgeries total) History of cataract surgery R/L History of esophagogastroduodenoscopy (EGD) History of exploratory laparotomy r/t adhesions History of hysterectomy History of tonsillectomy and adenoidectomy History of tooth extraction History of total hip arthroplasty Right JESSICA (04/20/18): Grade view 1, MAC#3, ETT 7.5 at [facility]. No issues per anesthesia postop progress note. History of total knee arthroplasty Left S/P LASIK surgery Past Anesthesia History No Hx of Anesthesia Complications and No Family Hx of Anesthesia Complications History of PONV History of PONV (does well with IV meds, states once received scop patch however had difficulty d/t vision changes) and Hx of Motion Sickness Social History Smoking Status: Never smoker Do You Dip or Chew Tobacco: No Hx Alcohol Use: Yes Alcohol type: wine alcohol intake frequency: a few times a month substance use type: does not use Review of Systems Patient denies chest pain, shortness of breath, dyspnea on exertion, snoring, witnessed apneas, fever, chills, cough, wheezing, or palpitations. Physical Exam Vital Signs Vitals BP 119/73 P 66 TEMP 98.6 SP02 95% on RA RESP 17 Physical Mildly limited cervical extension range of motion without pain Full TMJ range of motion TMD 3 finger breaths Mallampati Score 2 Dentition: intact, right upper temporary bridge; denies loose or chipped teeth, caps/crowns or implants Lungs: normal respiratory effort. Clear throughout to auscultation, no adventitious breath sounds Cardiac: regular rate and rhythm, no murmurs noted Carotid arteries: negative bruit bilat Extremities: no distal extremity edema Lab Results Anesthesia Preop Results Results Anesthesia Widget: WBC 4.02 K/uL (4.8-10.8) L 06/26/21 Hgb 13.1 g/dL (12.0-16.0) 06/26/21 Hct 38.4 % (37-47) 06/26/21 Plt 164 K/uL (130-400) 06/26/21 Na 141 mmol/L (136-145) 06/26/21 K 4.5 mmol/L (3.5-5.1) 06/26/21 Cl 109 mmol/L (98-107) H 06/26/21 CO2 28 mmol/L (21-32) 06/26/21 BUN 18 mg/dl (7-18) 06/26/21 Creat 0.74 mg/dl (0.6-1.2) 06/26/21 Glucose Level 105 mg/dl (70-99) H 06/26/21 PT 10.2 Seconds (9.0-12.0) 06/26/21 PTT 24.1 Seconds (21.0-31.0) 06/26/21 INR 1.0 (0.9-1.1) 06/26/21 Urine Color Yellow 06/26/21 Urine Appearance Clear (Clear) 06/26/21 Urine pH 7.5 (4.5-7.5) 06/26/21 Urine Specific [place] 1.024 (1.000-1.030) 06/26/21 Urine Protein Negative (Negative) 06/26/21 Urine Glucose (UA) Negative (Negative) 06/26/21 Urine Ketones Trace (Negative) H 06/26/21 Urine Blood Negative (Negative) 06/26/21 Urine Nitrite Negative (Negative) 06/26/21 Urine Bilirubin Negative (Negative) 06/26/21 Urine Urobilinogen Negative (Negative) 06/26/21 Urine Leukocyte Esterase 2+ (Negative) H 06/26/21 Urine WBC (Auto) >30 /hpf (0-5) H 06/26/21 Urine RBC (Auto) 0-4 /hpf (0-4) 06/26/21 Urine Hyaline Casts (Auto) 5-10 /lpf (0-5) H 06/26/21 Urine Epithelial Cells (Auto) 20-30 /lpf (0-5) H 06/26/21 Urine Bacteria (Auto) 4+ (Negative) H 06/26/21 Blood Type B Positive 06/26/21 Antibody Screen NEGATIVE 06/26/21 Lab Comments: Surgeon's office, Saige, made aware of abnormal UA. Testing Electrocardiogram Date: 03/03/21 Normal sinus rhythm, rate 65 bpm. Chest X-Ray Date: 03/03/21 FINDINGS: A few linear scarlike densities within the right middle lobe and lingula, unchanged. Otherwise, the lungs are clear. No pleural effusions. No pneumothorax. The heart is normal in size. IMPRESSION: No significant change compared to the prior study. No acute process. Echocardiogram Date: 12/04/20 EF 65% normal LV size and systolic function with no regional wall motion abnormalities grade 2 diastolic dysfunction no LVH mildly dilated left atrium mild aortic insufficiency Stress Test Date: 10/15/15 Dobutamine stress echo MPHR 87%
--- NOTE | 2021-07-09 16:53 | History & Physical Report ---
Date of Service July 09, 2021 Assessment & Plan (1) Right knee DJD: Plan: Approximately 15 minutes were spent with the patient reviewing operative procedure, postoperative recovery, physical therapy requirements and medication use. Postoperative prescriptions for Percocet and Coumadin will be provided at discharge from the hospital. Anticipate discharge to home with Home Health Services. She already has a walker and cane. She is aware of the COVID-19 risk s associated with surgery. She is currently asymptomatic of any COVID-19 symptoms. She will obtain nasal swab testing 4 days prior to surgery. Preoperative lab work has been reordered. EKG and chest x-ray remain up-to-date. PDMP was checked and there are no concerning findings. She understands that there is a chance for cancellation secondary to hospital bed availability. History of Present Illness Chief Complaint: Right knee pain Primary Care Provider: Chandni Marino MD This 70-year-old female presents for her preoperative history and physical. She is scheduled to undergo a right knee total knee arthroplasty on 07/23/2021. The patient has been scheduled for this surgery twice in the past, once on 03/26/2021 and once on 04/08/2021. Both of these were canceled secondary to lack of bed availability at the hospital. She is now hoping to get her surgery completed in July. She has had right knee pain since July 2018. Pain has overall waxed and waned but has become more consistent and persistent over the last 10 months. She previously was getting relief with Euflexxa injections and activity modification. They no longer help. Pain is worse with weightbearing. It is affecting her ADLs. No numbness or tingling. Occasional effusions. Frequent night pain. Preoperative imaging has been obtained. She does note some loss of motion. Allergies Allergy/AdvReac Type Severity Reaction Status Date / Time adhesive Allergy Intermediate Plastic Verified 06/25/21 08:35 clear tape (hives) Bactrim Allergy Intermediate HIVES Verified 06/01/17 06:23 Sulfa (Sulfonamide Allergy Intermediate Hives Verified 06/25/21 08:35 Antibiotics) sulfamethoxazole Allergy Intermediate Hives Verified 06/25/21 08:35 trimethoprim Allergy Intermediate Hives Verified 06/25/21 08:35 promethazine AdvReac Intermediate Hallucinati Verified 06/25/21 08:35 ons Home Medications Medication Instructions Recorded Confirmed Type aspirin 81 mg tablet,delayed 81 mg PO QPM 03/28/18 06/25/21 History release (Aspirin Low Dose) cholecalciferol (vitamin D3) 25 1,000 unit PO QPM 03/28/18 06/25/21 History mcg (1,000 unit) capsule (Vitamin D3) albuterol sulfate 90 mcg/actuation 1 inh INHALATION QID PRN 02/26/21 06/25/21 History aerosol inhaler modafinil 200 mg tablet 200 mg PO DAILY #30 tab 05/05/21 06/25/21 Rx clonazepam 2 mg tablet 2 mg PO HS PRN 30 Days #30 tab 05/21/21 06/25/21 Rx meclizine 25 mg tablet 25 mg PO TID PRN #90 tab 05/21/21 06/25/21 Rx ondansetron HCl 8 mg tablet 8 mg PO TID PRN #30 tab 05/21/21 06/25/21 Rx sertraline 100 mg tablet (Zoloft) 100 mg PO BID 30 Days #60 tab 06/23/21 06/25/21 Rx topiramate 50 mg tablet 50 mg PO BID #60 tab 06/30/21 Rx Past Med/Surg History Medical History Anxiety and depression controlled, stable per pt Celiac artery stenosis 90%; per cardio records Cervical radiculopathy GERD (gastroesophageal reflux disease) controlled, stable per pt History of blood transfusion x2, post-op > 40 yrs ago at [facility] [place] post-op TKA > 20 yrs ago; pt states unknown reason Migraine controlled, stable per pt Multiple sclerosis Stable, currently off meds without issues, [place] neuro 05/21/2021 Osteoarthritis Pulmonary embolism Post-op abdominal surgery (25 years ago), was on AC x short period of time Spinal stenosis Uses inhaler device Per pt, used as needed for remote, intermittent wheezing. No definitive diagnosis (HAS NOT USED FOR A WHILE) Vertigo on prn meclizine by neuro, pt denies recent symptoms Surgical History H/O colonoscopy History of back surgery Lumbar spine (3 surgeries total) History of cataract surgery R/L History of esophagogastroduodenoscopy (EGD) History of exploratory laparotomy r/t adhesions History of hysterectomy History of tonsillectomy and adenoidectomy History of tooth extraction History of total hip arthroplasty Right JESSICA (04/20/18): Grade view 1, MAC#3, ETT 7.5 at [facility]. No issues per anesthesia postop progress note. History of total knee arthroplasty Left S/P LASIK surgery Family History Grandfather (Paternal) Family hx of colon cancer Other Asthma Atrial fibrillation Breast cancer Cancer Diabetes Heart disease Hypertension No family history of adverse response to anesthesia Ovarian cancer Skin cancer Social History Smoking Status: Never smoker Second Hand Exposure: Yes ( A CHILD); Hx Alcohol Use: Yes Alcohol type: wine Preferred Language: Venezuelan Communication Ability: Effective Visual Impairment: No Limitations Steam Trap Worker Required: No Beliefs That Will Affect Care: None marital status: Current Living Situation: Spouse current occupational status: retired Feels Safe at Home: Yes Assistive Devices: None Review of Systems Review of Systems: All systems reviewed & are unremarkable except as noted in HPI & below A total of 10 systems were reviewed. Physical Exam Physical Exam: Vitals: Height 162 cm, weight 63.2 kilograms, BMI 24.1, temperature 36.5, BP 140/82, pulse 88, O2 sat 96% on room air, respirations 16. GENERAL: Well-developed, well-nourished, elderly white female in no acute distress. Looks younger than her stated age. Sitting in a chair. Alert and oriented. Conversive. Skin: Warm and dry with good turgor. No rashes or lesions. No ecchymosis or erythema. No intra-articular effusion in the right knee. HEENT: Normocephalic, atraumatic. Eyes: PERRLA, EOMI. Nares and oropharynx exams deferred due to COVID precautions. She is known to have dental caps. Heart: RRR. No MGR. Lungs: Clear to auscultation bilaterally. No crackles, rhonchi or wheezing. Good air movement. Abdomen: Bowel sounds present x4, soft, nontender. No organomegaly. No masses. Musculoskeletal: Right knee evaluation reveals no intraarticular effusion. She has nearly full terminal extension. Flexion to greater than 110 degrees. Strength is 5/5 with fair quad tone. She continues to have focal discomfort with palpation over the medial and lateral joint lines. There is crepitus palpable with motion. Stable collateral ligaments. No defect in the patellar tendon or quadriceps tendon. Ambulates today with a slightly antalgic gait. She is using a cane. Neurologic: Gross sensation is intact across the right leg by soft touch. Peripheral pulses are 2+. Results & Data Results & Data ([facility]) Diagnostic Findings Radiographic imaging previously obtained shows end-stage DJD of the right knee. Periarticular osteophytes, subchondral sclerosis, and joint space narrowing are all present. Code Status & VTE Plan VTE Prophylaxis Plan VTE Prophylaxis will be ordered: Yes
[~2021-07-23 05:20] MED LIST changes: -KLN1X PO; +LR 15ML/HR IV SCH; +LR 60ML/HR IV SCH; -POLY335019 PO; +ROPIVACAINE 0.5% HCL/PF 150 MG, BUPIVACAINE 0.75% MPF 20 ML, EPINEPHrine 0.15 MG, Ketor... INFIL SCH; -SERT1TAB68 PO; +TRANEXAMIC ACID 1,000 MG x 1 **For Topical Use TOP SCH; -ZOLP10TA PO; +ceFAZolin 2000MG 2,000 MG/15 ML SYR IV SCH
[2021-07-23] MEDS ORDERED: TRANEXAMIC ACID / 0.7% NACL 1000MG/100ML BAG IV ONE (05:27)
[2021-07-23] MEDS ORDERED: LR 60ML/HR IV SCH (06:00)
[2021-07-23] MEDS ORDERED: LR 15ML/HR IV SCH (06:00)
[2021-07-23] MEDS ORDERED: ROPIVACAINE 0.5% HCL/PF 150 MG, BUPIVACAINE 0.75% MPF 20 ML, EPINEPHrine 0.15 MG, Ketor... INFIL SCH (06:00)
[2021-07-23] MEDS ORDERED: TRANEXAMIC ACID 1,000 MG **IV Intra-op IV SCH (06:00)
[2021-07-23] MEDS ORDERED: ceFAZolin 2000MG 2,000 MG/15 ML SYR IV SCH (06:00)
[2021-07-23] MEDS ORDERED: TRANEXAMIC ACID 1,000 MG x 1 **For Topical Use TOP SCH (06:00)
[2021-07-23] MEDS ORDERED: EPINEPHrine INJ 1 MG/ML AMP ONE (06:25)
[2021-07-23] MEDS ORDERED: ROPIVACAINE 0.5% 5 MG/ML 30 ML VIAL ONE (06:26)
[2021-07-23] MEDS ORDERED: BUPIVACAINE 0.5 % 5 MG/1 ML PF 10ML VIAL ONE (06:26)
--- NOTE | 2021-07-23 06:28 | History & Physical Bridge Note ---
Date of Service July 23, 2021 History & Physical Bridge Note I have examined the patient, reviewed the History & Physical and in the interval since the performance of the History & Physical I have noted the following changes of clinical significance: consent obtained/site verified/covid screen negative.no changes noted
[2021-07-23] MEDS ORDERED: ONDANSETRON INJ 2 MG/ML 2 ML VIAL ONE (06:35)
[2021-07-23] MEDS ORDERED: fentaNYL citrate 100 MCG/2 ML VIAL ONE ×2 (06:35→07:12)
[2021-07-23] MEDS ORDERED: DEXAMETHASONE SOD INJ 4 MG/ML VIAL ONE (06:35)
[2021-07-23] MEDS ORDERED: PROPOFOL IV EMULSION 10 MG/ML 20 ML VIAL IV ONE (06:35)
[2021-07-23] MEDS ORDERED: MIDAZOLAM HCL 1 MG/ML 2ML VIAL ONE (06:35)
[2021-07-23] MEDS ORDERED: LIDOCAINE 2% 2 ML VIAL/AMP(20MG/ML) INFIL ONE (06:35)
[2021-07-23] MEDS ORDERED: ORTHO JOINT ANESTHETIC ONE (06:40)
[2021-07-23] MEDS ORDERED: LABETALOL HCL IV 5 MG/ML 20ML IV PRN (07:29)
[2021-07-23] MEDS ORDERED: fentaNYL citrate 100 MCG/2 ML VIAL IV PRN (07:29)
[2021-07-23] MEDS ORDERED: ATROPINE SULFATE 0.1 MG/ML 10ML SYR IV PRN (07:29)
[2021-07-23] MEDS ORDERED: ONDANSETRON INJ 2 MG/ML 2 ML VIAL IV PRN ×2 (07:29→11:14)
[2021-07-23] MEDS ORDERED: HYDROmorphone INJ 1 MG/ML SYRINGE IV PRN (07:29)
[2021-07-23] MEDS ORDERED: MEPERIDINE HCL 25 MG/ML CARP/VIAL IV PRN (07:29)
[2021-07-23] MEDS ORDERED: ePHEDrine sulfate 50 MG/ML AMP IV PRN (07:29)
[2021-07-23] MEDS ORDERED: PHENYLEPHRINE 100MCG/ML 5ML SYR IV PRN (07:29)
--- NOTE | 2021-07-23 08:36 | Post Operative Brief Note ---
Immediate Post Op Note v1 Date of Surgery July 23, 2021 Pre & Post Diagnosis Operation Date: 04/08/21 07:15 <No data on this case meets the specified criteria> Operation Date: 07/23/21 07:00 Pre-Op Diagnosis: Right Knee degenerative joint disease Post-Op Diagnosis: Right Knee degenerative joint disease I identified the patient and participated in the time-out.: Yes Procedure Operation Date: 04/08/21 07:15 <No data on this case meets the specified criteria> Operation Date: 07/23/21 07:00 Actual Procedures p Right Total Knee Arthroplasty(Right) - Vimal Brand MD Surgeon Vimal Brand MD Ground Wirer Sohan/Mirza Estimated Blood Loss 25 Findings Consistent with Post-Op Diagnosis
--- NOTE | 2021-07-23 08:50 | Operative Report ---
Post Operative Report Pre & Post Diagnosis Operation Date: 04/08/21 07:15 <No data on this case meets the specified criteria> Operation Date: 07/23/21 07:00 Pre-Op Diagnosis: Right Knee degenerative joint disease Post-Op Diagnosis: Right Knee degenerative joint disease I identified the patient and participated in the time-out.: Yes Procedure Operation Date: 04/08/21 07:15 <No data on this case meets the specified criteria> Operation Date: 07/23/21 07:00 Actual Procedures p Right Total Knee Arthroplasty(Right) - Vimal Brand MD Surgeon BRIDGET Brand MD Leather Patcher Sohan/Mirza MCINTOSH Estimated Blood Loss 25 Findings Consistent with Post-Op Diagnosis see operative report Specimens see operative report Drains none Complications none Disposition Accompanied Patient To Recovery: Yes Indications This 71 year old female presented to the office with complaints of intractable right knee pain. She had tried conservative care measures without improvement. She elected to proceed with surgical intervention after being educated about potential risks and outcomes. Preoperative imaging was obtained. Description of Procedure Patient was taken to the operating room where she was administered general anesthesia. She was prepped and draped in the usual sterile fashion. Please see Dr. Brand's operative report for specifics of the procedure. I was present for the entire case from initial patient positioning through final wound closure. Assistance was provided in tissue retraction, hemostasis, trial implant placement, final implant placement, and final wound closure. Patient was taken to the recovery room in satisfactory condition. I attest to the content of the Intraoperative Record and any orders documented therein. Any exceptions are noted below.
--- NOTE | 2021-07-23 08:51 | Operative Report ---
Post Operative Report Pre & Post Diagnosis Operation Date: 04/08/21 07:15 <No data on this case meets the specified criteria> Operation Date: 07/23/21 07:00 Pre-Op Diagnosis: Right Knee degenerative joint disease Post-Op Diagnosis: Right Knee degenerative joint disease I identified the patient and participated in the time-out.: Yes Procedure Operation Date: 04/08/21 07:15 <No data on this case meets the specified criteria> Operation Date: 07/23/21 07:00 Actual Procedures p Right Total Knee Arthroplasty(Right) - Vimal Brand MD Surgeon Loni Brand MD Patient Services Clerk Sohan/Mirza Estimated Blood Loss 25 Findings Consistent with Post-Op Diagnosis Consistent with post op diagnosis Specimens no specimens Description of Procedure I participated in prepping, dressing and assisted Dr. Brand during the procedure. Please see Dr. Brand note. I attest to the content of the Intraoperative Record and any orders documented therein. Any exceptions are noted below. Supervising Physician Co-Signing Physician Notes Dr. Brand
--- NOTE | 2021-07-23 09:16 | Anesthesiology Progress Note ---
Date of Service July 23, 2021 Anesthesia Post Procedure Vital Signs Vital Signs: Temp Pulse Pulse Resp BP Pulse Ox 07/23/21 09:05 77 15 119/60 95 07/23/21 08:55 78 14 103/61 95 07/23/21 08:48 36.3 C L 87 18 115/68 95 07/23/21 05:48 36.9 C 68 16 174/91 H 94 Pain Intensity Right Knee: Pain Intensity: 2 Transfer of Care Handoff Completed per policy Notes Mental Status: alert / awake / arousable Patient Amnestic to Procedure: Yes Nausea / Vomiting: adequately controlled Pain: adequately controlled Airway Patency, RR, SpO2: stable & adequate BP & HR: stable & adequate Hydration State: stable & adequate Anesthetic Complications: no major complications apparent and Pt Satisfied with anesthetic care Notes: The patient is awake and comfortable.
--- NOTE | 2021-07-23 09:34 | XRay Report ---
XR knee RT 1 or 2V routine CLINICAL HISTORY: S/P R TKA. COMPARISON STUDY: 03/03/2021 TECHNIQUE: 2 right knee views FINDINGS: The patient is status post total knee replacement. The prosthetic components are in anatomi c alignment with no acute abnormality seen. Air is present within the soft tissues from the procedure . Skin veronique are seen anteriorly. IMPRESSION: Status post total knee replacement. ACT 112: Negative or not required by law. Electronically signed by: Luca Gramajo M.D. 07/23/2021 9:33 AM
--- NOTE | 2021-07-23 09:40 | Operative Report (OR) ---
DATE OF SERVICE: 07/23/2021. SURGEON: Vimal Brand MD. STORAGE MANAGER: Woo Parry MD. SECOND STORAGE MANAGER: Khang Blue PA-C. PREOPERATIVE DIAGNOSIS: Osteoarthritis, right knee. POSTOPERATIVE DIAGNOSIS: Osteoarthritis, right knee. OPERATION PERFORMED: Cemented right total knee replacement. SUMMARY OF IMPLANTS: Size 3 right femur posterior cruciate substituting size 3 mobile bearing tray, size 38 patella, size 3 x 10 mm insert. ESTIMATED BLOOD LOSS: 25 mL. CRYSTALLOID: 1200 mL. PATHOLOGY: Pending on bone. DVT prophylaxis per protocol, start tomorrow. PERIOPERATIVE SITUATION: Medically cleared female who has been followed for decades with progressive knee pain. Most recent MRI scan 2 years ago showed tricompartmental chondral changes. Her x-rays d o not reveal severe disease, but has definite medial joint space narrowing, has recurrent effusions a nd has failed conservative management. She understands the risks and consequences, and wants to proc eed with surgical treatment for a total knee replacement. DESCRIPTION OF PROCEDURE: The patient was appropriately identified, site verified, consent verified. Antibiotics were confirmed as being given. The right lower extremity was prepped and draped in usu al routine fashion. Tourniquet was inflated to 275 mmHg after exsanguination of the limb with a rubb er Esmarch bandage for a total of 50 minutes. Midline exposure was utilized. Parapatellar arthrotom y performed. Synovectomy completed. There were grade 4 changes along the central trochlea approxima tely 60% of its area. There was grade 4 changes about a quarter-sized area of the distal femur media l compartment, remaining knee was not very severe, but there was very hypertrophic synovium. There w as marked degenerative changes of both menisci particularly the lateral meniscus with significant cho ndrocalcinosis and horizontal cleavage degenerative radial tears. Once everything was debrided, the tibia was subluxated. Once the cruciates were resected, the distal femur was entered and the distal femur resected 12 mm, proximal tibia resected 4 mm, the extension g ap was excellent. The tibia was sized to a 3, the femur was sized to between a 4 and 3 was measured for cut 3. There was no notching. The flexion gap was excellent. The box cut was then made and the size 3 femur fit well. The tibia was then subluxated, broached and reamed for a size 3 tray and with a 10 mm spacer. The knee was stable in full extension, mid range f lexion and full flexion. The patella tracked well. The patella was resected leaving 14 to 15 mm, 38 button trial was then seated after the seating holes were made. It tracked well. The Orthomix was then injected all about the knee including posteriorly. All implants were then removed and then the TXA was applied for 4 minutes and then irrigated with Betadine for a minute and then irrigated and th e permanent cemented in position tibia, femur, and patella in that order. After 12 minutes, the tourniquet was deflated. After 14 minutes, minor cement removal was occurred. The wound was irrigated one final time and then the permanent liner seated. The knee reduced and jud sed in 40 degrees of flexion using #2 Vicryl, 2-0 Vicryl and stainless steel clips. Appropriate dres sing applied. The patient was transferred to recovery room in satisfactory condition, having tolerat ed the procedure well. Again, DVT prophylaxis will start CARLA tomorrow. We will minimize narcotic u se based on her history of bowel obstructions. Job ID: [id number]
--- NOTE | 2021-07-23 09:54 | Progress Notes ---
DATE OF SERVICE: 07/23/2021. SUBJECTIVE: Postop check status post right total knee replacement. The patient was seen in the post -anesthesia care area, awaiting for a bed. She denies any chest pain, shortness of breath, fever, ch ills, nausea, vomiting or headache. Pain is well managed. She is quite comfortable. She falls asle ep easily. Of note, she has MS and has some weakness throughout all extremities, but her neurovascular check bot h lower extremities is within normal limits. The right hip is within normal limits. It is located. Wound dressing clean, dry and intact. Calf is nontender. Postoperative x-rays, AP and lateral of the right knee reveals well-fixed, well-aligned knee replacem ent. ASSESSMENT: Doing well status post right total knee replacement. PLAN: Continue postoperative care pathway. Potential discharge tomorrow. Job ID: [id number]
--- NOTE | 2021-07-23 10:13 | Discharge Summary (DS) ---
DATE OF ADMISSION: 07/23/2021 DATE OF POTENTIAL DISCHARGE: 07/24/2021 depends on her GI function. HISTORY OF PRESENT ILLNESS: The patient is a female admitted for right total knee replacement. Proc edure has gone uneventfully. Postoperative x-rays look excellent. She has a history complicated by multiple medical comorbidities, particularly multiple sclerosis, multiple small-bowel obstructions an d multiple abdominal surgeries. At this point in time, we will try to minimize her narcotics. She has periarticular injections place d during surgery. At present, she is quite comfortable. ALLERGIES: BACTRIM, SULFA, PROMETHAZINE. HOME MEDICATIONS: Aspirin, vitamin D, albuterol inhaler, modafinil, clonazepam, meclizine, ondansetr on, sertraline, topiramate. Please see doses in med reconciliation. PAST MEDICAL AND PAST SURGICAL HISTORY: Remarkable for anxiety and depression, celiac artery stenosi s, cervical radiculopathy, GERD, migraine, history of transfusions, multiple sclerosis, pulmonary emb olism, spinal stenosis, vertigo. Surgeries include EGDs, lumbar spine, laparotomy, hysterectomy, T a nd A, tooth extraction, right hip replacement, left knee replacement, LASIK surgery, multiple left kn ee procedures as a young adult. FAMILY HISTORY: Remarkable for colon cancer, asthma, atrial fibrillation, breast cancer, diabetes, h eart disease, hypertension, ovarian cancer, skin cancer. SOCIAL HISTORY: Reveals she does not smoke. Alcohol socially. She is . REVIEW OF SYSTEMS: Noncontributory. ASSESSMENT: Status post right total knee replacement. PLAN: Continue with postoperative care pathway. Potential discharge on 07/24/2021 if she does well overnight. Needs to be mobilized quickly. Needs to minimize narcotic use and needs to be pushed wit h physical therapy and occupational therapy. Job ID: [id number]
[2021-07-23] MEDS ORDERED: ACETAMINOPHEN 500 MG TAB PO PRN (11:07)
[2021-07-23] MEDS ORDERED: HYDROmorphone HCL 2 MG TAB PO PRN (11:08)
[2021-07-23] MEDS ORDERED: MAGNESIUM HYDROXIDE SUSP 30 ML UDC PO PRN (11:14)
[2021-07-23] MEDS ORDERED: ALBUTEROL HFA 8 GM INHALER INH PRN (11:14)
[2021-07-23] MEDS ORDERED: NALOXONE HCL 0.4 MG/1 ML VIAL/CARP IV PRN (11:14)
[2021-07-23] MEDS ORDERED: METOCLOPRAMIDE HCL INJ 5 MG/ML 2 ML VIAL IV PRN (11:14)
[2021-07-23] MEDS ORDERED: diphenhydrAMINE 50 MG/ML VIAL IV PRN (11:14)
[2021-07-23] MEDS ORDERED: bisacodyL 10 MG SUPP PR PRN (11:14)
[2021-07-23] MEDS ORDERED: ALUMINUM/MAGNESIUM SUSP 30 ML UDC PO PRN (11:14)
[2021-07-23] MEDS ORDERED: clonazePAM 1 MG TAB PO PRN (11:14)
--- NOTE | 2021-07-23 11:25 | Progress Notes ---
DATE OF SERVICE: 07/23/2021 SUBJECTIVE: Amara Jha is seen in the PACU, awaiting for a bed on the floor. She has been sleepi ng for at least an hour or an hour and a half or above. OBJECTIVE: Vitals are excellent. Her pulse is in the 60s. Her blood pressure is in the 110 range. She is not uncomfortable when aroused, she states she is in pain. It is clear that this is a percep tion of pain, but she is clinically doing very well. Neurovascular check of femoral sciatic nerve is normal. Wound dressing is clean, dry and intact. ASSESSMENT AND PLAN: Overall, doing well. Suggest Tylenol 1000 mg around the clock q.8 hours, p.r.n . use of p.o. Dilaudid to minimize any other Tylenol use and do not overmedicate. Job ID: [id number]
[2021-07-23] MEDS ORDERED: MECLIZINE HCL 25 MG TAB PO PRN (11:44)
[2021-07-23] MEDS: SODIUM CHLORIDE 0.9% 1000ML 1,000 ML IV SCH ×2 (12:49→22:00)
[2021-07-23] MEDS: SERTRALINE HCL 100 MG TABLET PO SCH ×2 (13:14→20:13)
[2021-07-23] MEDS: modafiniL 100 MG TAB PO SCH (13:14)
[2021-07-23] MEDS: DOCUSATE SODIUM 100 MG CAP PO SCH ×2 (13:14→20:12)
[2021-07-23] MEDS: MULTIVITAMIN TAB PO SCH (13:14)
[2021-07-23] MEDS: KETOROLAC TROMETHAMINE 15 MG/ML VIAL IV SCH ×3 (13:14→23:18)
[2021-07-23] MEDS: ACETAMINOPHEN 500 MG TAB PO SCH ×2 (13:41→22:01)
[2021-07-23] MEDS: ORTHO WARFARIN NOMOGRAM SCH (14:16)
[2021-07-23] MEDS: ceFAZolin 2000MG 2,000 MG/15 ML SYR IV SCH ×2 (15:54→22:01)
[2021-07-23] MEDS: FERROUS GLUCONATE 324 MG TAB PO SCH (17:46)
[2021-07-23] MEDS: ASCORBIC ACID 500 MG TAB PO SCH (17:46)
[2021-07-23] MEDS: oxyCODONE HCL IR 5 MG TAB (IMMEDIATE RELEASE) PO PRN (17:53)
[2021-07-23] MEDS ORDERED: VANCOMYCIN HCL 1,000 MG in SODIUM CHLORIDE 0.9% 250 ML IV SCH (19:00)
[2021-07-23] MEDS: HYDROmorphone INJ 0.5 MG/0.5 ML SYR IV PRN (20:12)
[2021-07-23] MEDS ORDERED: ASPIRIN 81 MG ECTAB PO SCH (21:00)
[2021-07-23] MEDS ORDERED: SENNA 8.6 MG TAB PO SCH (21:00)
[2021-07-24] MEDS: oxyCODONE HCL IR 5 MG TAB (IMMEDIATE RELEASE) PO PRN ×3 (01:22→12:31)
[2021-07-24] MEDS: HYDROmorphone INJ 0.5 MG/0.5 ML SYR IV PRN ×2 (04:02→08:51)
[2021-07-24] MEDS: KETOROLAC TROMETHAMINE 15 MG/ML VIAL IV SCH (05:28)
[2021-07-24] MEDS: ACETAMINOPHEN 500 MG TAB PO SCH ×2 (05:29→13:53)
[2021-07-24 06:19] LABS: Hematocrit (blood only) 30.3 % (37-47); Mean Corpuscular Hemoglobin 32.2 pg (25-34); Mean Corpuscular Volume 97.4 fL (80-100); Mean Platelet Volume 8.9 fL (7.4-10.4); Platelet Count 127 K/uL (130-400); RDW Coefficient of Variation 13.4 % (11.5-14.5); RDW Standard Deviation 47.6 fL (36.4-46.3); Red Blood Count 3.11 M/uL (4.2-5.4); White Blood Count 5.88 K/uL (4.8-10.8)
[2021-07-24 06:26] LABS: Prothrombin Time 10.3 Seconds (9.0-12.0)
[2021-07-24 06:51] LABS: BUN Creatinine Ratio 27.3 (10-20); Calcium 8.4 mg/dl (8.5-10.1); Creatinine Clr Calc Pharmacy 79.8 ml/min; Est GFR (African American) 108.6 ml/min; Est GFR (Non-African American) 93.7 ml/min; Potassium 3.8 mmol/L (3.5-5.1)
[2021-07-24] MEDS: ORTHO WARFARIN NOMOGRAM SCH (07:16)
[2021-07-24] MEDS ORDERED: WARFARIN SOD 5 MG TAB PO ONE (07:30)
[2021-07-24] MEDS ORDERED: dexAMETHasone 10 MG in SYRINGE 0 ML IV SCH (08:00)
[2021-07-24] MEDS: ASCORBIC ACID 500 MG TAB PO SCH (09:06)
[2021-07-24] MEDS: modafiniL 100 MG TAB PO SCH (09:07)
[2021-07-24] MEDS: DOCUSATE SODIUM 100 MG CAP PO SCH (09:07)
[2021-07-24] MEDS: MULTIVITAMIN TAB PO SCH (09:07)
[2021-07-24] MEDS: FERROUS GLUCONATE 324 MG TAB PO SCH (09:07)
[2021-07-24] MEDS: SERTRALINE HCL 100 MG TABLET PO SCH (09:07)
--- NOTE | 2021-07-24 10:24 | Orthopedic Progress Note ---
Date of Service July 24, 2021 Assessment & Plan (1) S/P total knee arthroplasty: Plan: Patient's dressing was changed today by me. She was encouraged to be out of bed. Per the nurse, she does have bowel sounds and they are quite active. She has not moved her bowels yet. Patient was offered an enema to assist with bowel movement. She declined at this time, stating she would see how she does after lunch. Start PT/OT this morning. She was shown how to do heel props. Continue her knee immobilizer today and tomorrow when out of bed. Discontinue on Wednesday. Coumadin today per nomogram. Discharge instructions were provided. Prescriptions were warfarin and Percocet were sent to her pharmacy. She will take Coumadin 4 mg daily on Wednesday, Wednesday, and Wednesday, and have her blood rechecked on Wednesday. Case management has visited with her and will establish home care. Patient was encouraged to increase her fluid intake, as this will also assist with moving her bowels. Admission and Anticipated Discharge Date Admission Date: July 23, 2021 Subjective 71-year-old female seen today in her room. She is 1 day status post right total knee arthroplasty. Patient states she did not do well overnight. Her pain increased around 8 PM. She states it was not well controlled through the evening. She is not worried about being discharged and not having bowel sounds. She is concerned about obstruction and states she will be right back here tonight in the ED if she is discharged before having a bowel movement. She states she was out of bed once overnight to go to the bathroom. Other than that she has been in bed. She denies any nausea or vomiting. No chest pain or shortness of breath. No other complaints. Review of Systems Review of Systems: Unchanged from yesterday. Physical Exam Physical Exam: General: Well-developed well-nourished elderly white female, in no acute distress. Laying in bed. Alert and oriented. Conversive. Skin: Warm dry with good turgor. No rashes. Postsurgical dressing is placed on the right knee. There is a small amount of dried blood on her dressings. Upon arrival, she has no active bleeding. Karol are in place. Wound edges are well approximated. No erythema or warmth. No drainage. No ecchymosis. No edema. Her leg looks really good. Musculoskeletal: Patient has intact motor function of the ankle and toes. She is able to set her quad and perform straight leg raise. Full terminal extension. No significant discomfort when doing heel props. Flexion to around 40 degrees easily. Neurologic: Gross sensation is intact across the right leg but soft touch. Peripheral pulses are 2+. Results & Data ([facility] [place]) Vital Signs (Past 12 Hours) Vital Signs Temp Pulse Resp BP Pulse Ox 07/24/21 08:06 36.9 C 72 17 117/67 07/24/21 04:12 37.1 C 63 14 107/64 90 07/24/21 03:48 36.5 C 71 18 114/68 92 Laboratory Results CBC this morning shows WBCs of 5.8. H&H of 10.0 and 30.3. PRP is unremarkable. BUN 15 and creatinine 0.55. This is consistent with her baseline. Glucose 115. Calcium 8.4. INR is 1.0.
--- NOTE | 2021-07-26 08:06 | Discharge Summary (DS) ---
DATE OF ADMISSION: 07/24/2021. ATTENDING PHYSICIAN: Vimal Brand MD. CONSULTING PHYSICIAN: None. CONDITION ON DISCHARGE: Stable. ADMITTING DIAGNOSES: Right knee end-stage degenerative joint disease. DISCHARGE DIAGNOSIS: Right knee, status post total knee arthroplasty. HISTORY OF PRESENT ILLNESS: This is a 71-year-old female who has had a longstanding history of right knee pain. She was previously scheduled for the same surgery in March and June, but these w ere canceled due to lack of bed space. She has had right knee pain since 07/2018. It has become con sistent and more persistent over the last 10 to 12 months. She had tried conservative care measures, which were no longer helping. Preoperative imaging was obtained. HOSPITAL COURSE: The patient was admitted through same day surgery on 07/23/2021. She underwent suc cessful right total knee arthroplasty without event. The patient was taken to the recovery room and was transferred to the orthopedic floor. She continued to do well for the remainder of the day. Vit als remained stable. Pain was controlled using IV and oral narcotics. Vital signs remained stable w ith pressures in the 110s to 120s. The patient was reassessed on the morning of 07/24/2021. She states she had a difficult night with p ain control. Vitals again remained stable. T-max overnight was 37.6. Morning labs showed an H and H of 10.0 and 30.3. WBCs were 5.88. INR was 1.0. Sodium 139, potassium 3.8, chloride 108, CO2 of 2 5. BUN of 15 with creatinine 0.55. Glucose was 115. Patient did receive her first dose of Coumadin the night of surgery. With her INR 1.0, mammogram was continued and she received a second dose on of the . The patient did participate in PT and OT and did well. She had concerns abo ut bowel obstruction and lack of bowel sounds. Nursing staff did assess and the patient did have jacek quate bowel sounds. She was reassured. She was able to ambulate numerous times throughout the day a nd was able to void. Appetite was good. Pain control was improved by the afternoon. She was deemed acceptable for discharge and was sent home to the care of her . Case management was involved and arranged for [facility] with start of care on Wednesday07/25/2021. DISCHARGE MEDICATIONS: Percocet 5/325 mg to be used q. 6 hours p.r.n., warfarin 2 mg to use 2 tablet s daily through the weekend with recheck of INR on Wednesday. DISCHARGE INSTRUCTIONS: Written discharge instructions were provided to the patient. She may be clare ghtbearing as tolerated. Call the office with any concerns. No driving. The surgical incision and dressings should be kept dry. Resume regular diet. Follow up in the office on 08/07/2021 at 1:30 p. m. for staple removal. Patient should continue her knee immobilizer when out of bed for the next 2 d ays and discontinue on Wednesday. Job ID: [id number]
== END 2021-07-24 15:27 | disposition home health service (06) ==
LOC: ASU 05:20 → PACUINP 05:20 → 3E 12:19

== ENCOUNTER 2022-11-03 14:06 | Inpatient (IN) ==
--- NOTE | 2022-11-03 14:21 | ED Triage Note ---
Date of Service November 03, 2022 History of Present Illness This patient was briefly evaluated while in triage. An abbreviated physical exam was performed. This patient is a 72-year-old Female who presents to the ED for evaluation of periumbilical abdominal pain. Symptoms have been ongoing but got progressively worse yesterday. Reports n/v and diarrhea. Denies fever/chills. Recent gastroparesis diagnosis. Physical Exam Constitutional: alert and oriented x3. no acute distress. HEENT: normocephalic, atraumatic. normal conjunctiva.EOM's grossly intact. Respiratory: lungs are clear to auscultation without wheezes, rhonchi, or rales bilaterally. equal chest rise. normal respiratory effort, no accessory muscle use. Cardiovascular: normal heart sounds without murmur. regular rate and rhythm. GI: abdomen is soft, nondistended. Diffuse abdominal tenderness. No palpable masses. No rebound tenderness or guarding. No CVA tenderness Psych:appropriate mood and affect. Initial orders for labs and / or imaging were placed and patient was placed in the waiting area until a bed is available. Please see further documentation for the full ED course.
[2022-11-03] MEDS ORDERED: ACETAMINOPHEN 1,000 MG/100 ML VIAL IV STA (16:57)
[2022-11-03 17:30] LABS: Basophils # (auto) 0.01 K/uL (0-0.2); Basophils % (auto) 0.1 %; Eosinophils # (auto) 0.04 K/uL (0-0.50); Eosinophils % (auto) 0.5 %; Hematocrit (blood only) 44.7 % (37.0-47.0); Hemoglobin 15.6 g/dl (12.0-16.0); Immature Granulocytes # (auto) 0.02 K/uL (0.01-0.20); Immature Granulocytes % (auto) 0.3 %; Lymphocytes # (auto) 1.48 K/uL (1.2-3.4); Lymphocytes % (auto) 18.5 %; Mean Corpuscular Hemoglobin 32.7 pg (25.0-34.0); Mean Corpuscular Hgb Conc 34.9 g/dL (32.0-36.0); Mean Corpuscular Volume 93.7 fL (80.0-100.0); Mean Platelet Volume 9.2 fL (9.4-12.4); Monocytes % (auto) 6.3 %; Neutrophils # (auto) 5.94 K/uL (1.40-6.50); Neutrophils % (auto) 74.3 %; Platelet Count 212 K/uL (130-400); RDW Standard Deviation 44.6 fL (36.4-46.3); Red Blood Count 4.77 M/uL (4.20-5.40); White Blood Count 7.99 K/ul (4.8-10.8)
[2022-11-03 18:05] LABS: Albumin Globulin Ratio 1.8 (0.9-2); Albumin Level 4.9 gm/dl (3.4-5.0); BUN Creatinine Ratio 32.2 (10-20); Bilirubin,Total 0.6 mg/dl (0.2-1.0); Calcium 10.2 mg/dl (8.6-10.3); Creatinine Clr Calc Pharmacy 73.3 ml/min; Est GFR (African American) 105.4 ml/min; Est GFR (Non-African American) 90.9 ml/min; Globulin 2.8 gm/dl (2.5-4.0); Potassium 3.7 mmol/L (3.5-5.1); Total Protein 7.7 gm/dl (6.0-8.3)
[2022-11-03] MEDS ORDERED: SODIUM CHLORIDE 0.9% 1000ML 500 ML IV ONE (18:12)
[2022-11-03] MEDS ORDERED: ONDANSETRON INJ 2 MG/ML 2 ML VIAL IV STA (18:12)
[2022-11-03] MEDS ORDERED: HYDROmorphone INJ 0.5 MG/0.5 ML SYR IV PRN ×2 (18:12→19:55)
[2022-11-03] MEDS ORDERED: OPTIRAY 320 500ml IV ONE (18:45)
--- NOTE | 2022-11-03 19:22 | CT Scan Report ---
CT angio abdomen pelvis w con CT DOSE: 318.39 mGy.cm CLINICAL HISTORY: severe abdominal pain. known compression of celiac TECHNIQUE: Multiaxial CT images of the abdomen and pelvis were performed following the intravenous ad ministration of 113 cc of Optiray 320 to evaluate the major arterial structures. Maximum intensity pr ojection images and sagittal and coronal reconstructions were also reviewed. A dose lowering techniq ue was utilized adhering to the principles of ALARA. COMPARISON STUDY: Abdomen and pelvis CTA 09/01/2022. FINDINGS: Bibasilar linear densities consistent with subsegmental atelectasis. No pneumoperitoneum. N o pneumatosis. There is a right total hip arthroplasty. Prior laminectomy again noted within the lumb ar spine. The stomach is distended and filled with gas and fluid. The proximal to mid small bowel loo ps are also distended and filled with fluid and measure up to 4 cm in diameter. Cluster decompressed loops of small bowel seen within the left lower quadrant, one of which likely accounts for the transi tion point of the proximal small bowel obstruction. Specifically, the transition point is likely loca melissa within the left lower quadrant on image 351 at the expected location of a distal jejunal loop. So me of these decompressed loops of small bowel within the left lower quadrant demonstrate questionable mild wall thickening. However, this could be due to the decompression. The distal jejunal loops are also decompressed. The pelvic structures are partially obscured by metallic artifact from hip prosthe sis. The bladder appears unremarkable. Prior hysterectomy. Mild pelvic floor collapse. No retroperito donovan or pelvic lymphadenopathy. The liver, gallbladder, pancreas, spleen, and adrenal glands are unre markable. There is a punctate stone within the left kidney and a 4 mm stone within the right kidney. Stable 15 mm right renal cyst. No hydronephrosis. Focal severe stenosis again noted at the takeoff of the celiac artery. This remains unchanged. The re maining celiac artery is normal in caliber. The superior mesenteric, inferior mesenteric, and single bilateral renal arteries are widely patent. The iliac arteries are also patent. IMPRESSION: 1. Small bowel obstruction with the transition point located within the left lower quadrant likely at the level of the distal jejunal loops. Some of these distal jejunal loops may be slightly thickened. However, this could be due to the underdistention. 2. 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 The remaining mesenteric vessels a ppear patent. 3. Bilateral nephrolithiasis. No hydronephrosis. ACT 112: Negative or not required by law. Electronically signed by: Andreas Tavera M.D. 11/03/2022 7:19 PM
--- NOTE | 2022-11-03 20:42 | Emergency Department Note ---
Impression & Plan SBO (small bowel obstruction) ED Provider Note INFORMANT: Patient and ED PROVIDER(S): Fareed Chaudhary MD CHIEF COMPLAINT: Abdominal pain PLAN: Disposition: Admitted Condition: Good Outpatient prescription management: none Referral: None MEDICAL DECISION MAKING: Patient presented because of abdominal pain. She had a recent evaluation at for concerns about intestinal ischemia. She did not have intervention at that time. She does have a remote history of small bowel obstruction. She had an IV established. There was some difficulty and IV team was needed. IV was established. Her CBC was unremarkable. Chemistry panel showed some dehydration. LFTs and lipase were negative. Lactate was negative. Patient's ECG showed normal sinus rhythm. Patient underwent CT imaging and this was very concerning for small bowel obstruction. Patient's symptoms were treated with IV Dilaudid, Tylenol, and Zofran. Patient was given IV normal sa line. After CT imaging was done and bowel obstruction identified the patient did have an NG tube placed. General surgery, Dr. Lunsford was consulted. He recommended conservative management and will follow the patient. Consultation was made with Dr. Jessee Payne of the [facility] service. Patient was evaluated in the ER for further management. Tono with business transformation manager After review of the information above and other included data, I feel the patient requires admission. The patient was seen and examined with Dr. Davey, resident physician. We discussed the case and treatments ordered, reviewed the results, and determine the disposition. I have been directly involved with the management and disposition as well as independently evaluated the patient as documented in this note. Triage Nursing notes reviewed and agree them. Vital Signs: reviewed and remarkable for no significant abnormalities Prior /Outside records reviewed: Prior hospitalization records from reviewed. GI and vascular surgery consultations did not recommend intervention. Differential diagnosis: SBO, ovarian cyst, ovarian torsion, iinfections, diverticulitis, UTI, mesenteric ischemia, aortic pathology, inflammatory bowel disease, renal colic, PUD, pancreatitis, biliary pathology, hernia, volvulus, constipation, as well as other pathologies. Diagnostics, as interpreted by me: EC Lead ECG performed and revealed Normal sinus rhythm at 70, normal [place], QRS normal. No elevation or depression. No PACs or PVCs Cardiac Monitoring: Cardiac monitoring ordered by me: The patient was placed on continuous cardiac monitoring and observed. It revealed a normal sinus rhythm at 78 beats per minute without ectopy or evidence of dysrhythmia. Medical decision rules: none Imaging studies: CT scan of the abdomen pelvis is consistent with small bowel obstruction. No signs of mesenteric ischemia per radiology. HPI: The patient is a 72year old female who presents to the Emergency Room with complaints of abdominal pain. This started 2 days ago and is worsening. Patient has been dealing with abdominal pain issues recently and was down to for consultation and admission regarding possible mesenteric ischemia from a SMA narrowing. No intervention was done at that [facility]. Patient states she is seeking a second opinion at [facility]. The patient does note a history of bowel obstruction from adhesions secondary to 30 years ago. The patient also notes the following associated symptoms, abdominal bloating, nausea, vomiting. The patient has tried Zofran orally for relieving factors. Current pain is rated as 7/10. Pt denies LOC, headache, fevers, chills, diaphoresis, visual changes, neck pain, chest pain, breathing difficulties, back pain, melena, hematochezia, urinary symptoms, numbness, weakness, lymphadenopathy, rash, or other complaints. PAST MEDICAL HISTORY: See Below, SBO PAST SURGICAL HISTORY: See Below, lysis of adhesions, SOCIAL HISTORY: See Below, HOME MEDICATIONS: See Below ALLERGIES: See Below VITALS: See Below PHYSICAL EXAMINATION: GENERAL: Awake, alert, comfortable-appearing, in no distress HENT: Normocephalic, atraumatic. Oropharynx unremarkable. EYES: Normal conjunctiva. Sclera non-icteric. NECK: Inspection normal. Non-tender. Supple. No nuchal rigidity. FROM. No masses. RESPIRATORY: Clear to auscultation. No wheezes. No rales. Normal respiratory effort. CARDIAC: Normal rate. Normal rhythm. No murmurs. No rubs. Extremities warm and well perfused. Pulses equal. No JVD. GI: Soft, mildly-distended. Mild diffuse tenderness to palpation. No rebound or guarding. No masses. RECTAL: Deferred. MUSCULOSKELETAL: Atraumatic. Chest examination reveals no tenderness. The back is symmetrical on inspection without obvious abnormality. There is no CVA tenderness to palpation. No joint edema. LOWER EXTREMITIES: Calves are equal size bilaterally and non-tender. No edema. No discoloration. NEURO: Normal sensorium. No sensory or motor deficits noted. SKIN: No rash or jaundice noted. 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 ? D/T DAMAGE WITH HX PE History of blood transfusion x2, post-op > 40 yrs ago at [facility]; post-op TKA > 20 yrs ago; pt states unknown reason History of unsteady gait & ON OCC Migraine controlled, stable per pt Multiple sclerosis Stable, currently off meds without issues, [place] neuro 05/21/[address] CROSS NEXT WEEK Osteoarthritis Pulmonary embolism Post-op abdominal surgery (25 years ago), was on AC x short period of time Spinal stenosis Uses inhaler device Per pt, used as needed for remote, intermittent wheezing. No definitive diagnosis (HAS NOT USED FOR A WHILE) Vertigo HX prn meclizine by neuro, pt denies recent symptoms - THERAPY FOR AND EFFECTIVE Surgical History H/O colonoscopy History of back surgery Lumbar spine (3 surgeries total) History of cataract surgery R/L History of esophagogastroduodenoscopy (EGD) History of exploratory laparotomy r/t adhesions History of hysterectomy History of surgery on left wrist History of tonsillectomy and adenoidectomy History of tooth extraction History of total hip arthroplasty Right JESSICA (04/20/18): Grade view 1, MAC#3, ETT 7.5 at [facility]. No issues per anesthesia postop progress note. History of total knee arthroplasty Left History of total right knee replacement S/P LASIK surgery Family History Grandfather (Paternal) Family hx of colon cancer Mother Diabetes Other Asthma Atrial fibrillation Breast cancer Cancer Heart disease Hypertension No family history of adverse response to anesthesia No family history of bleeding disorder Ovarian cancer Skin cancer Social History Smoking Status: Former smoker Second Hand Exposure: No; Hx Alcohol Use: Yes Alcohol type: wine Hx Substance Use: No Preferred Language: Estonian Communication Ability: Effective Visual Impairment: No Limitations Retail Greeting Card Merchandiser Required: No Beliefs That Will Affect Care: None marital status: Current Living Situation: Spouse current occupational status: retired Feels Safe at Home: Yes Assistive Devices: None Allergies Allergies Allergy/AdvReac Type Severity Reaction Status Date / Time adhesive Allergy Intermediate Plastic Verified 11/03/22 17:35 clear tape (hives) Sulfa (Sulfonamide Allergy Intermediate Hives Verified 11/03/22 17:35 Antibiotics) sulfamethoxazole Allergy Intermediate Hives Verified 11/03/22 17:35 trimethoprim Allergy Intermediate Hives Verified 11/03/22 17:35 promethazine AdvReac Severe Hallucinati Verified 11/03/22 17:35 ons Home Meds Home Medications Medication Instructions Recorded Confirmed aspirin 81 mg tablet,delayed 81 mg PO QPM 03/28/18 11/03/22 release (Contreras Low Dose Aspirin) cholecalciferol (vitamin D3) 25 5,000 unit PO QAM 03/28/18 11/03/22 mcg (1,000 unit) capsule (Vitamin D3) albuterol sulfate 90 mcg/actuation 1 inh inhalation UD PRN Wheezing 02/26/21 11/03/22 aerosol inhaler cranberry 400 mg capsule 4,200 mg PO BID 04/28/22 11/03/22 omega 3-ata-mns-fish oil 100 1 cap PO BID 04/28/22 11/03/22 mg-160 mg-1,000 mg capsule (Fish Oil) turmeric 400 mg capsule 400 mg PO QAM 04/28/22 11/03/22 cyanocobalamin (vitamin B-12) 100 500 mcg PO QAM 06/01/22 11/03/22 mcg tablet (Vitamin B-12) ondansetron HCl 8 mg tablet 8 mg PO UD PRN Nausea And Vomiting 06/01/22 11/03/22 pantoprazole 40 mg tablet,delayed 40 mg PO QPM 06/01/22 11/03/22 release (Protonix) topiramate 50 mg tablet 50 mg PO BID 06/01/22 11/03/22 calcium carbonate 600 mg calcium 1,200 mg PO QAM 11/03/22 11/03/22 (1,500 mg) tablet (Calcium) diclofenac sodium 1 % topical gel 2 g topical DIRECTED PRN Pain 11/03/22 11/03/22 docusate sodium 100 mg capsule 200 mg PO BID 11/03/22 11/03/22 (Col-Rite) meclizine 25 mg tablet 25 mg PO BID 11/03/22 11/03/22 naproxen 500 mg tablet 500 mg PO DIRECTED PRN Pain 11/03/22 11/03/22 Previous Rx's Medication Instructions Recorded sertraline 100 mg tablet (Zoloft) 100 mg PO BID 30 days #60 tabs 05/06/22 clonazepam 2 mg tablet 2 mg PO HS #30 tabs 07/23/22 modafinil 200 mg tablet (Provigil) 200 mg PO QAM 30 days #30 tabs 09/28/22 Results & Data (ED) Vital Signs Vital Signs - 24 hr 11/03/22 14:17 11/03/22 16:49 11/03/22 17:27 Temperature 36.6 C Temperature Source Temporal Artery Scan Pulse Rate 86 71 Pulse Rate [Left] 78 Pulse Rhythm [Left] Regular Respiratory Rate 18 18 Respiratory Effort / Characteristics Spontaneous Respiratory Depth Normal Blood Pressure 102/68 Blood Pressure [Left Arm] 139/74 Blood Pressure Mean 79 Blood Pressure Mean [Left Arm] 95 Blood Pressure Position [Left Arm] Lying Pulse Oximetry 95 94 Oxygen Delivery Method Room Air Sepsis Recent Fever Within 48 Hours No Sepsis New/Unexplained Change in Mental Status N/A Sepsis Action Taken by Nursing No Action Required Laboratory Data 11/03/22 Unknown 11/03/22 Unknown Lab Results 11/03/22 11/03/22 11/03/22 Range/Units 18:26 Unknown Unknown WBC 7.99 (4.8-10.8) K/ul RBC 4.77 (4.20-5.40) M/uL Hgb 15.6 (12.0-16.0) g/dl Hct 44.7 (37.0-47.0) % MCV 93.7 (80.0-100.0) fL MCH 32.7 (25.0-34.0) pg MCHC 34.9 (32.0-36.0) g/dL RDW Std Deviation 44.6 (36.4-46.3) fL RDW Coeff of Satya 13.0 (11.5-14.5) % Plt Count 212 (130-400) K/uL MPV 9.2 L (9.4-12.4) fL Immature Gran % (Auto) 0.3 % Neut % (Auto) 74.3 % Lymph % (Auto) 18.5 % [place] % (Auto) 6.3 % Eos % (Auto) 0.5 % Baso % (Auto) 0.1 % Neut # (Auto) 5.94 (1.40-6.50) K/uL Lymph # (Auto) 1.48 (1.2-3.4) K/uL [place] # (Auto) 0.50 (0.11-0.59) K/uL Eos # (Auto) 0.04 (0-0.50) K/uL Baso # (Auto) 0.01 (0-0.2) K/uL Immature Gran # (Auto) 0.02 (0.01-0.20) K/uL Sodium 142 (136-145) mmol/L Potassium 3.7 (3.5-5.1) mmol/L Chloride 104 (98-107) mmol/L Carbon Dioxide 32 (21-32) mmol/L Anion Gap 6 (3-11) BUN 19 (6-23) mg/dl Creatinine 0.59 L (0.6-1.2) mg/dl Est Cr Clr Drug Dosing 73.3 ml/min Est GFR ( Amer) 105.4 ml/min Est GFR (Non-Af Amer) 90.9 ml/min BUN/Creatinine Ratio 32.2 H (10-20) Glucose 118 H (70-99(Fasting)) mg/dl Lactate 0.9 (0.4-2.0) mmol/L Calcium 10.2 (8.6-10.3) mg/dl Total Bilirubin 0.6 (0.2-1.0) mg/dl AST 15 (13-39) U/L ALT 15 (7-52) U/L Alkaline Phosphatase 250 H (34-104) U/L Total Protein 7.7 (6.0-8.3) gm/dl Albumin 4.9 (3.4-5.0) gm/dl Globulin 2.8 (2.5-4.0) gm/dl Albumin/Globulin Ratio 1.8 (0.9-2) Lipase 10 L (11-82) U/L Administered Medications Discontinued Medications Hydromorphone HCl (Hydromorphone Inj 0.5 Mg/0.5 Ml Syr) 0.25 mg IV Q15M PRN PRN Reason: Pain Stop: 11/17/22 18:11 Last Admin: 11/03/22 18:55 Dose: 0.25 mg Documented By: ZECHARIAH Acetaminophen (Ofirmev) 1,000 mg in 100 mls @ 400 mls/hr IV NOW STA Stop: 11/03/22 17:11 Last Infusion: 11/03/22 18:07 Dose: 0 mls/hr Documented By: Admin: 11/03/22 17:29 Dose: 400 mls/hr Documented By: ZECHARIAH Sodium Chloride (Nss 1000ml) 500 mls @ 999 mls/hr IV .Q31M ONE Stop: 11/03/22 18:42 Last Admin: 11/03/22 18:55 Dose: 999 mls/hr Documented By: ZECHARIAH Ioversol (Optiray 320 500ml) 113 ml IV ONCE ONE Stop: 11/03/22 18:46 Last Admin: 11/03/22 18:45 Dose: 113 ml Documented By: FRANSISCO Ondansetron HCl (Ondansetron Inj 2 Mg/Ml 2 Ml Vial) 4 mg IV NOW STA Stop: 11/03/22 18:13 Last Admin: 11/03/22 18:55 Dose: 4 mg Documented By: ZECHARIAH Imaging Data Radiologist's Impression: Abdomen/Pelvis CTA 11/03/22 16:52 CT angio abdomen pelvis w con CT DOSE: 318.39 mGy.cm CLINICAL HISTORY: severe abdominal pain. known compression of celiac TECHNIQUE: Multiaxial CT images of the abdomen and pelvis were performed following the intravenous administration of 113 cc of Optiray 320 to evaluate the major arterial structures. Maximum intensity projection images and sagittal and coronal reconstructions were also reviewed. A dose lowering technique was utilized adhering to the principles of ALARA. COMPARISON STUDY: Abdomen and pelvis CTA 09/01/2022. FINDINGS: Bibasilar linear densities consistent with subsegmental atelectasis. No pneumoperitoneum. No pneumatosis. There is a right total hip arthroplasty. Prior laminectomy again noted within the lumbar spine. The stomach is distended and filled with gas and fluid. The proximal to mid small bowel loops are also distended and filled with fluid and measure up to 4 cm in diameter. Cluster decompressed loops of small bowel seen within the left lower quadrant, one of which likely accounts for the transition point of the proximal small bowel obstruction. Specifically, the transition point is likely located within the left lower quadrant on image 351 at the expected location of a distal jejunal loop. Some of these decompressed loops of small bowel within the left lower quadrant demonstrate questionable mild wall thickening. However, this could be due to the decompression. The distal jejunal loops are also decompressed. The pelvic structures are partially obscured by metallic artifact from hip prosthesis. The bladder appears unremarkable. Prior hysterectomy. Mild pelvic floor collapse. No retroperitoneal or pelvic lymphadenopathy. The liver, gallbla dder, pancreas, spleen, and adrenal glands are unremarkable. There is a punctate stone within the left kidney and a 4 mm stone within the right kidney. Stable 15 mm right renal cyst. No hydronephrosis. Focal severe stenosis again noted at the takeoff of the celiac artery. This remains unchanged. The remaining celiac artery is normal in caliber. The superior mesenteric, inferior mesenteric, and single bilateral renal arteries are widely patent. The iliac arteries are also patent. IMPRESSION: 1. Small bowel obstruction with the transition point located within the left lower quadrant likely at the level of the distal jejunal loops. Some of these distal jejunal loops may be slightly thickened. However, this could be due to the underdistention. 2. 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 The remaining mesenteric vessels appear patent. 3. Bilateral nephrolithiasis. No hydronephrosis. ACT 112: Negative or not required by law. Electronically signed by: Andreas Tavera M.D. 11/03/2022 7:19 PM Discharge Plan Visit Data Chief Complaint: GI Assessment Stated Complaint: STOMACH ISSUES ED Provider: Fareed Chaudhary ED Midlevel Provider: Artem Davey Discharge Problem: SBO (small bowel obstruction) Forms Stand Alone Forms: [employer] Prescriptions Prescriptions: No Action sertraline [Zoloft] 100 mg tablet 100 mg PO BID 30 Days Qty: 60 5RF modafinil [Provigil] 200 mg tablet 200 mg PO QAM 30 Days Qty: 30 0RF Fish Oil 100-160-1,000 mg capsule 1 cap PO BID Patient Comments: 100 MG TWICE DAY turmeric 400 mg capsule 400 mg PO QAM cranberry 400 mg capsule 4,200 mg PO BID Rx Instructions: administer with a meal clonazepam 2 mg tablet 2 mg PO HS Qty: 30 5RF aspirin [Contreras Low Dose Aspirin] 81 mg Tablet,Delayed Release (Dr/Ec) 81 mg PO QPM cholecalciferol (vitamin D3) [Vitamin D3] 1,000 unit Capsule 5,000 unit PO QAM albuterol sulfate 90 mcg/actuation Hfa Aerosol Inhaler 1 inh INHALATION UD PRN (Reason: Wheezing) calcium carbonate [Calcium 600] 600 mg calcium (1,500 mg) Tablet 1,200 mg PO QAM meclizine 25 mg Tablet 25 mg PO BID docusate sodium [Col-Rite] 100 mg Capsule 200 mg PO BID naproxen 500 mg Tablet 500 mg PO DIRECTED PRN (Reason: Pain) diclofenac sodium [Voltaren] 1 % Gel 2 g TOPICAL DIRECTED PRN (Reason: Pain) cyanocobalamin (vitamin B-12) [Vitamin B-12] 100 mcg Tablet 500 mcg PO QAM Patient Comments: SWALLOW FORM pantoprazole [Protonix] 40 mg Tablet,Delayed Release (Dr/Ec) 40 mg PO QPM ondansetron HCl 8 mg tablet 8 mg PO UD PRN (Reason: Nausea And Vomiting) topiramate 50 mg tablet 50 mg PO BID Rx Instructions: TAKE 1 TABLET BY MOUTH TWICE A DAY Referrals Referrals: Niles Saini [Primary Care Provider] -
[2022-11-03] MEDS ORDERED: LORazepam 2 MG/1 ML VIAL IV PRN (20:52)
--- NOTE | 2022-11-03 20:53 | History & Physical Report ---
Date of Service November 03, 2022 Assessment & Plan (1) SBO (small bowel obstruction): (2) Rheumatoid arthritis: (3) Multiple sclerosis: (4) Anxiety state, unspecified: (5) Common migraine without aura: (6) Vitamin D deficiency: (7) B12 deficiency: (8) SNHL (sensorineural hearing loss): (9) Anxiety and depression: (10) GERD (gastroesophageal reflux disease): (11) Lumbar stenosis with neurogenic claudication: (12) Celiac artery stenosis: Plan Small bowel obstruction- Transition point left lower quadrant N.p.o. NG tube to low intermittent suction Pantoprazole 40 mg IV daily Zofran 4 mg IV every 6 hours as needed Zosyn 4.5 g IV every 8 hours Acetaminophen 1 g IV every 8 hours as needed for mild pain or fever Toradol 15 mg IV every 6 hours as needed for moderate pain Dilaudid 0.25 mg IV every 3 hours as needed for severe pain NSS + KCl 20 mEq at 100 mils per hour General surgical consult Multiple sclerosis/rheumatoid arthritis- Hold all medications: Sertraline, topiramate, modafinil and clonazepam Anxiety with depression- Hold clonazepam and sertraline Lorazepam 0.5 mg IV every 8 hours as needed Vit B12 deficiency- Hold oral supplementation Vitamin D deficiency- Hold oral supplementation History of Present Illness Chief Complaint: The patient reports that she woke up this morning feeling somewhat nauseous with abdominal pain, and as the day progressed developed more significant nausea, vomiting and abdominal pain. Her last bowel movement was 3 days ago, her urination has been unchanged. Primary Care Provider: Niles Saini The patient is a 72-year-old female with a past medical history including small bowel obstruction x3, with most recent 5 years ago, pneumonia, lumbar stenosis with neurogenic claudication, status post total hip arthroplasty, rheumatoid arthritis, multiple sclerosis, anxiety, C8 radiculopathy,, migraine without aura, vitamin D deficiency, vitamin B-12 deficiency, SNHL, gait disturbance, bilateral sacroiliitis, anxiety with depression and GERD. The patient presents emergency department with a cute onset and progressively worsening of symptoms as noted above. She has a history of a hysterectomy, resulting in multiple exploratory lap due to adhesions, and has had 3 small bowel obstructions in the past, with most recently [address] scan of abdomen pelvis this evening shows a small bowel obstruction with transition point left lower quadrant, and a stable severe stenosis at the origin of the celiac artery. She has undergone recent evaluation at [facility] for possible intestinal ischemia, with no intervention made. Allergies Allergy/AdvReac Type Severity Reaction Status Date / Time adhesive Allergy Intermediate Plastic Verified 11/03/22 17:35 clear tape (hives) Sulfa (Sulfonamide Allergy Intermediate Hives Verified 11/03/22 17:35 Antibiotics) sulfamethoxazole Allergy Intermediate Hives Verified 11/03/22 17:35 trimethoprim Allergy Intermediate Hives Verified 11/03/22 17:35 promethazine AdvReac Severe Hallucinati Verified 11/03/22 17:35 ons Home Medications Medication Instructions Recorded Confirmed Type aspirin 81 mg tablet,delayed 81 mg PO QPM 03/28/18 11/03/22 History release (Contreras Low Dose Aspirin) cholecalciferol (vitamin D3) 25 5,000 unit PO QAM 03/28/18 11/03/22 History mcg (1,000 unit) capsule (Vitamin D3) albuterol sulfate 90 mcg/actuation 1 inh inhalation UD PRN Wheezing 02/26/21 11/03/22 History aerosol inhaler cranberry 400 mg capsule 4,200 mg PO BID 04/28/22 11/03/22 History omega 8-dym-sdu-fish oil 100 1 cap PO BID 04/28/22 11/03/22 History mg-160 mg-1,000 mg capsule (Fish Oil) turmeric 400 mg capsule 400 mg PO QAM 04/28/22 11/03/22 History sertraline 100 mg tablet (Zoloft) 100 mg PO BID 30 days #60 tabs 05/06/22 11/03/22 Rx cyanocobalamin (vitamin B-12) 100 500 mcg PO QAM 06/01/22 11/03/22 History mcg tablet (Vitamin B-12) ondansetron HCl 8 mg tablet 8 mg PO UD PRN Nausea And Vomiting 06/01/22 11/03/22 History pantoprazole 40 mg tablet,delayed 40 mg PO QPM 06/01/22 11/03/22 History release (Protonix) topiramate 50 mg tablet 50 mg PO BID 06/01/22 11/03/22 History clonazepam 2 mg tablet 2 mg PO HS #30 tabs 07/23/22 11/03/22 Rx modafinil 200 mg tablet (Provigil) 200 mg PO QAM 30 days #30 tabs 09/28/22 11/03/22 Rx calcium carbonate 600 mg calcium 1,200 mg PO QAM 11/03/22 11/03/22 History (1,500 mg) tablet (Calcium) diclofenac sodium 1 % topical gel 2 g topical DIRECTED PRN Pain 11/03/22 11/03/22 History docusate sodium 100 mg capsule 200 mg PO BID 11/03/22 11/03/22 History (Col-Rite) meclizine 25 mg tablet 25 mg PO BID 11/03/22 11/03/22 History naproxen 500 mg tablet 500 mg PO DIRECTED PRN Pain 11/03/22 11/03/22 History Past Med/Surg History Medical History (Updated 11/04/22 @ 03:28 by Jessee Payne MD) Anxiety and depression controlled, stable per pt Bilateral sacroiliitis 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 ? D/T DAMAGE WITH HX PE History of blood [place] x2, [place] [facility] [facility] [place] post-op TKA > 20 yrs ago; pt states unknown reason History of unsteady gait & ON OCC Migraine controlled, stable per pt Multiple sclerosis Stable, currently off meds without issues, [place] neuro 05/21/[address] CROSS NEXT WEEK Osteoarthritis Pulmonary embolism Post-op abdominal surgery (25 years ago), was on AC x short period of time Spinal stenosis Uses inhaler device Per pt, used as needed for remote, intermittent wheezing. No definitive diagnosis (HAS NOT USED FOR A WHILE) Vertigo HX prn meclizine by neuro, pt denies recent symptoms - THERAPY FOR AND EFFECTIVE Surgical History H/O colonoscopy History of back surgery Lumbar spine (3 surgeries total) History of cataract surgery R/L History of esophagogastroduodenoscopy (EGD) History of exploratory laparotomy r/t adhesions History of hysterectomy History of surgery on left wrist History of tonsillectomy and adenoidectomy History of tooth extraction History of total hip arthroplasty Right JESSICA (04/20/18): Grade view 1, MAC#3, ETT 7.5 at [facility]. No issues per anesthesia postop progress note. History of total knee arthroplasty Left History of total right knee replacement S/P LASIK surgery Family History Grandfather (Paternal) Family hx of colon cancer Mother Diabetes Other Asthma Atrial fibrillation Breast cancer Cancer Heart disease Hypertension No family history of adverse response to anesthesia No family history of bleeding disorder Ovarian cancer Skin cancer Social History Smoking Status: Never smoker Second Hand Exposure: No; Hx Alcohol Use: Yes Alcohol type: wine Hx Substance Use: No Preferred Language: German Communication Ability: Effective Visual Impairment: No Limitations Speech Communication Instructor Required: No Beliefs That Will Affect Care: None marital status: Current Living Situation: Spouse Current Living Situation Comment: lives in [address], bedroom on first floor, with current occupational status: retired Other Information That Helps Us Care for You: No Feels Safe at Home: Yes Safety Concerns: Feels Safe At This Time Assistive Devices: Hearing Aid - Bilateral Review of Systems Review of Systems: The patient denies chest pain, palpitations, shortness of breath, dyspnea on exertion, cough, lower extremity swelling, sore throat, fevers, chills, sweats, diarrhea, blood in urine or stool, dysuria, urinary frequency or urgency, lightheadedness, dizziness, headache, memory loss, loss of consciousness, rash, abnormal bruising or bleeding, imbalance, focal or generalized weakness, numbness or tingling in arms or legs, generalized arthralgias or myalgias, back or neck pain, or night sweats. The review of systems is otherwise negative other than for that already noted above, and at least 10 systems have been reviewed. Physical Exam Physical Exam: The patient is awake, alert and oriented 3, well developed and well nourished, normocephalic and atraumatic, lying in bed and in no acute distress. HEENT--PERRL, EOMI, mucous membranes and oropharynx dry. Neck--supple. No JVD. No bruits. Thyroid normal, trachea midline, no adenopathy. Heart--normal S1 and S2. No murmurs, rubs or gallops. Lungs--clear bilaterally, no respiratory distress, no accessory muscle use. Abdomen--decreased bowel sounds and soft. Nontender. Nondistended, no hernias or masses, no organomegaly. Extremities--no cyanosis or clubbing. No edema. Dermatologic--normal skin turgor, normal color, no abnormal lymph nodes, no rash. Neurologic--cranial nerves II through XII grossly intact. Rheumatologic--normal range of motion. Psychiatric--normal affect. Results & Data Results & Data Vital Signs (Past 12 Hours) Vital Signs Temp Pulse Pulse Resp BP BP Pulse Ox 11/03/22 17:27 78 18 139/74 94 11/03/22 16:49 71 11/03/22 14:17 36.6 C 86 18 102/68 95 O2 Del Method 11/03/22 17:27 Room Air 11/03/22 16:49 11/03/22 14:17 Laboratory Results Laboratory Results WBC 7.99 K/ul (4.8-10.8) 11/03/22 Unknown RBC 4.77 M/uL (4.20-5.40) 11/03/22 Unknown Hgb 15.6 g/dl (12.0-16.0) 11/03/22 Unknown Hct 44.7 % (37.0-47.0) 11/03/22 Unknown MCV 93.7 fL (80.0-100.0) 11/03/22 Unknown MCH 32.7 pg (25.0-34.0) 11/03/22 Unknown MCHC 34.9 g/dL (32.0-36.0) 11/03/22 Unknown RDW Std Deviation 44.6 fL (36.4-46.3) 11/03/22 Unknown RDW Coeff of Satya 13.0 % (11.5-14.5) 11/03/22 Unknown Plt Count 212 K/uL (130-400) 11/03/22 Unknown MPV 9.2 fL (9.4-12.4) L 11/03/22 Unknown Immature Gran % (Auto) 0.3 % 11/03/22 Unknown Neut % (Auto) 74.3 % 11/03/22 Unknown Lymph % (Auto) 18.5 % 11/03/22 Unknown [place] % (Auto) 6.3 % 11/03/22 Unknown Eos % (Auto) 0.5 % 11/03/22 Unknown Baso % (Auto) 0.1 % 11/03/22 Unknown Neut # (Auto) 5.94 K/uL (1.40-6.50) 11/03/22 Unknown Lymph # (Auto) 1.48 K/uL (1.2-3.4) 11/03/22 Unknown [place] # (Auto) 0.50 K/uL (0.11-0.59) 11/03/22 Unknown Eos # (Auto) 0.04 K/uL (0-0.50) 11/03/22 Unknown Baso # (Auto) 0.01 K/uL (0-0.2) 11/03/22 Unknown Immature Gran # (Auto) 0.02 K/uL (0.01-0.20) 11/03/22 Unknown Sodium 142 mmol/L (136-145) 11/03/22 Unknown Potassium 3.7 mmol/L (3.5-5.1) 11/03/22 Unknown Chloride 104 mmol/L (98-107) 11/03/22 Unknown Carbon Dioxide 32 mmol/L (21-32) 11/03/22 Unknown Anion Gap 6 (3-11) 11/03/22 Unknown BUN 19 mg/dl (6-23) 11/03/22 Unknown Creatinine 0.59 mg/dl (0.6-1.2) L 11/03/22 Unknown Est Cr Clr Drug Dosing 73.3 ml/min 11/03/22 Unknown Est GFR ( Amer) 105.4 ml/min 11/03/22 Unknown Est GFR (Non-Af Amer) 90.9 ml/min 11/03/22 Unknown BUN/Creatinine Ratio 32.2 (10-20) H 11/03/22 Unknown Glucose 118 mg/dl (70-99(Fasting)) H 11/03/22 Unknown Lactate 0.9 mmol/L (0.4-2.0) 11/03/22 18:26 Calcium 10.2 mg/dl (8.6-10.3) 11/03/22 Unknown Total Bilirubin 0.6 mg/dl (0.2-1.0) 11/03/22 Unknown AST 15 U/L (13-39) 11/03/22 Unknown ALT 15 U/L (7-52) 11/03/22 Unknown Alkaline Phosphatase 250 U/L (34-104) H 11/03/22 Unknown Total Protein 7.7 gm/dl (6.0-8.3) 11/03/22 Unknown Albumin 4.9 gm/dl (3.4-5.0) 11/03/22 Unknown Globulin 2.8 gm/dl (2.5-4.0) 11/03/22 Unknown Albumin/Globulin Ratio 1.8 (0.9-2) 11/03/22 Unknown Lipase 10 U/L (11-82) L 11/03/22 Unknown SARS-CoV-2, RNA, NAAT NEGATIVE (NEGATIVE) 11/03/22 21:40 Impressions Abdomen/Pelvis CTA 11/03/22 16:52 CT angio abdomen pelvis w con CT DOSE: 318.39 mGy.cm CLINICAL HISTORY: severe abdominal pain. known compression of celiac TECHNIQUE: Multiaxial CT images of the abdomen and pelvis were performed following the intravenous administration of 113 cc of Optiray 320 to evaluate the major arterial structures. Maximum intensity projection images and sagittal and coronal reconstructions were also reviewed. A dose lowering technique was utilized adhering to the principles of ALARA. COMPARISON STUDY: Abdomen and pelvis CTA 09/01/2022. FINDINGS: Bibasilar linear densities consistent with subsegmental atelectasis. No pneumoperitoneum. No pneumatosis. There is a right total hip arthroplasty. Prior laminectomy again noted within the lumbar spine. The stomach is distended and filled with gas and fluid. The proximal to mid small bowel loops are also distended and filled with fluid and measure up to 4 cm in diameter. Cluster decompressed loops of small bowel seen within the left lower quadrant, one of which likely accounts for the transition point of the proximal small bowel obstruction. Specifically, the transition point is likely located within the left lower quadrant on image 351 at the expected location of a distal jejunal loop. Some of these decompressed loops of small bowel within the left lower quadrant demonstrate questionable mild wall thickening. However, this could be due to the decompression. The distal jejunal loops are also decompressed. The pelvic structures are partially obscured by metallic artifact from hip prosthesis. The bladder appears unremarkable. Prior hysterectomy. Mild pelvic floor collapse. No retroperitoneal or pelvic lymphadenopathy. The liver, gallbladder, pancreas, spleen, and adrenal glands are unremarkable. There is a punctate stone within the left kidney and a 4 mm stone within the right kidney. Stable 15 mm right renal cyst. No hydronephrosis. Focal severe stenosis again noted at the takeoff of the celiac artery. This remains unchanged. The remaining celiac artery is normal in caliber. The superior mesenteric, inferior mesenteric, and single bilateral renal arteries are widely patent. The iliac arteries are also patent. IMPRESSION: 1. Small bowel obstruction with the transition point located within the left lower quadrant likely at the level of the distal jejunal loops. Some of these distal jejunal loops may be slightly thickened. However, this could be due to the underdistention. 2. 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 The remaining mesenteric vessels appear patent. 3. Bilateral nephrolithiasis. No hydronephrosis. ACT 112: Negative or not required by law. Electronically signed by: Andreas Tavera M.D. 11/03/2022 7:19 PM Code Status & VTE Plan Code Status Full code VTE Prophylaxis Plan VTE Prophylaxis will be ordered: Yes PG Care Time/CCT Total # of Minutes Spent Total Time Spent with Patient: Total time spent is greater than 50% in coordination of care (as documented) at patient's floor/unit and/or counseling patient: Coding Level of Care Code 41989 INT INP/OBS CARE 3/75MIN Diagnoses SBO (small bowel obstruction) K56.609 Rheumatoid arthritis M06.9 Multiple sclerosis G35 Anxiety state, unspecified F41.1 Common migraine without aura G43.009 Vitamin D deficiency E55.9 B12 deficiency E53.8 SNHL (sensorineural hearing loss) H90.3 Laterality: bilateral Anxiety and depression F41.9; F32.9 GERD (gastroesophageal reflux disease) K21.9 Lumbar stenosis with neurogenic claudication M48.062 Celiac artery stenosis I77.1 (8) SNHL (sensorineural hearing loss) Laterality: bilateral Qualified Code(s): H90.3 - Sensorineural hearing loss, bilateral
--- NOTE | 2022-11-03 21:56 | Communication Note ---
Date of Service: November 03, 2022 Resident attestation: ED patient. I saw this patient today and discussed my findings w/ Dr. Amin who has examined the patient independently. Please see his documentation.
--- NOTE | 2022-11-03 21:58 | Surgery Consultation ---
Date of Consultation November 03, 2022 Assessment & Plan (1) SBO (small bowel obstruction): 72-year-old woman with small bowel obstruction. She has had prior small bowel obstruction in the past. She has a normal white count and no fever. Her pain is improving. We will treat her with conservative management. We will recheck her labs in the morning. We will place her on IV fluids and continue the NG tube decompression. We discussed the possible need for surgical management if her symptoms worsen or fail to improve. We will continue to follow along while she is in the hospital. History of Present Illness Reason for Consultation: Small bowel obstruction Requesting Physician: Dr. Castillo Attending Physician: Dr. Castillo History of Present Illness 72-year-old woman with a history of a hysterectomy and multiple operations for adhesions presents with 2-day history of abdominal pain, nausea, vomiting. She has not had a bowel movement in 5 days. She usually has a bowel movement every week or so. She has not passed gas since yesterday morning. She had 10 out of 10 pain last night however today it is improved slightly. She denies fevers. She denies any blood in her stool, coffee-ground emesis. She has had prior small bowel obstructions that have resolved with conservative management. Her last bowel obstruction was approximately 5 years ago. Her prior surgeries were done by [facility] at [place] over 20 years ago. Allergies Allergy/AdvReac Type Severity Reaction Status Date / Time adhesive Allergy Intermediate Plastic Verified 11/03/22 17:35 clear tape (hives) Sulfa (Sulfonamide Allergy Intermediate Hives Verified 11/03/22 17:35 Antibiotics) sulfamethoxazole Allergy Intermediate Hives Verified 11/03/22 17:35 trimethoprim Allergy Intermediate Hives Verified 11/03/22 17:35 promethazine AdvReac Severe Hallucinati Verified 11/03/22 17:35 ons Home Medications Medication Instructions Recorded Confirmed Type aspirin 81 mg tablet,delayed 81 mg PO QPM 03/28/18 11/03/22 History release (Contreras Low Dose Aspirin) cholecalciferol (vitamin D3) 25 5,000 unit PO QAM 03/28/18 11/03/22 History mcg (1,000 unit) capsule (Vitamin D3) albuterol sulfate 90 mcg/actuation 1 inh inhalation UD PRN Wheezing 02/26/21 11/03/22 History aerosol inhaler cranberry 400 mg capsule 4,200 mg PO BID 04/28/22 11/03/22 History omega 9-elv-yyz-fish oil 100 1 cap PO BID 04/28/22 11/03/22 History mg-160 mg-1,000 mg capsule (Fish Oil) turmeric 400 mg capsule 400 mg PO QAM 04/28/22 11/03/22 History sertraline 100 mg tablet (Zoloft) 100 mg PO BID 30 days #60 tabs 05/06/22 11/03/22 Rx cyanocobalamin (vitamin B-12) 100 500 mcg PO QAM 06/01/22 11/03/22 History mcg tablet (Vitamin B-12) ondansetron HCl 8 mg tablet 8 mg PO UD PRN Nausea And Vomiting 06/01/22 11/03/22 History pantoprazole 40 mg tablet,delayed 40 mg PO QPM 06/01/22 11/03/22 History release (Protonix) topiramate 50 mg tablet 50 mg PO BID 06/01/22 11/03/22 History clonazepam 2 mg tablet 2 mg PO HS #30 tabs 07/23/22 11/03/22 Rx modafinil 200 mg tablet (Provigil) 200 mg PO QAM 30 days #30 tabs 09/28/22 11/03/22 Rx calcium carbonate 600 mg calcium 1,200 mg PO QAM 11/03/22 11/03/22 History (1,500 mg) tablet (Calcium) diclofenac sodium 1 % topical gel 2 g topical DIRECTED PRN Pain 11/03/22 11/03/22 History docusate sodium 100 mg capsule 200 mg PO BID 11/03/22 11/03/22 History (Col-Rite) meclizine 25 mg tablet 25 mg PO BID 11/03/22 11/03/22 History naproxen 500 mg tablet 500 mg PO DIRECTED PRN Pain 11/03/22 11/03/22 History Patient History Medical History Anxiety and depression controlled, stable per pt Bilateral sacroiliitis 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 ? D/T DAMAGE WITH HX PE History of blood transfusion x2, post-op > 40 yrs ago at [facility] [place]; post-op TKA > 20 yrs ago; pt states unknown reason History of unsteady gait & ON OCC Migraine controlled, stable per pt Multiple sclerosis Stable, currently off meds without issues, [place] neuro 05/21/[address] CROSS NEXT WEEK Osteoarthritis Pulmonary embolism Post-op abdominal surgery (25 years ago), was on AC x short period of time Spinal stenosis Uses inhaler device Per pt, used as needed for remote, intermittent wheezing. No definitive diagnosis (HAS NOT USED FOR A WHILE) Vertigo HX prn meclizine by neuro, pt denies recent symptoms - THERAPY FOR AND EFFECTIVE Surgical History H/O colonoscopy History of back surgery Lumbar spine (3 surgeries total) History of cataract surgery R/L History of esophagogastroduodenoscopy (EGD) History of exploratory laparotomy r/t adhesions History of hysterectomy History of surgery on left wrist History of tonsillectomy and adenoidectomy History of tooth extraction History of total hip arthroplasty Right JESSICA (04/20/18): Grade view 1, MAC#3, ETT 7.5 at [facility]. No issues per anesthesia postop progress note. History of total knee arthroplasty Left History of total right knee replacement S/P LASIK surgery Family History Grandfather (Paternal) Family hx of colon cancer Mother Diabetes Other Asthma Atrial fibrillation Breast cancer Cancer Heart disease Hypertension No family history of adverse response to anesthesia No family history of bleeding disorder Ovarian cancer Skin cancer Social History Smoking Status: Former smoker Second Hand Exposure: No; Hx Alcohol Use: Yes Alcohol type: wine Hx Substance Use: No Preferred Language: Lithuanian Communication Ability: Effective Visual Impairment: No Limitations Cash Management Clerk Required: No Beliefs That Will Affect Care: None marital status: Current Living Situation: Spouse current occupational status: retired Feels Safe at Home: Yes Assistive Devices: None Review of Systems Review of Systems: All systems reviewed & are unremarkable except as noted in HPI & below Physical Exam Constitutional: WD/WN, vitals as above Eyes: PERRL, conjunctivae normal, anicteric sclerae Neck: trachea midline, no thyromegaly Respiratory: normal respiratory effort; no respiratory distress and no labored breathing Cardiovascular: Rate/Rhythm: regular rate and regular rhythm Gastrointestinal (Abdomen): Inspection/Auscultation: abdomen normal to inspect ion, + abdomen distended (Mild) and + hypoactive bowel sounds Percussion/Palpation: + abdomen tender (Diffusely, mainly lower abdomen) and abdomen soft; no guarding and abdomen not rigid NG tube in place draining greenish fluid Skin: no rashes, warm and dry Psychiatric: A+Ox3, euthymic affect Results & Data Vital Signs (Past 12 Hours) Vital Signs Temp Pulse Pulse Resp BP BP Pulse Ox 11/03/22 21:44 67 20 145/74 H 96 11/03/22 17:27 78 18 139/74 94 11/03/22 16:49 71 11/03/22 14:17 36.6 C 86 18 102/68 95 O2 Del Method O2 Flow Rate 11/03/22 21:44 Nasal Cannula 2 11/03/22 17:27 Room Air 11/03/22 16:49 11/03/22 14:17 Laboratory Results 11/03/22 11/03/22 11/03/22 Range/Units Unknown Unknown 21:40 WBC 7.99 (4.8-10.8) K/ul RBC 4.77 (4.20-5.40) M/uL Hgb 15.6 (12.0-16.0) g/dl Hct 44.7 (37.0-47.0) % MCV 93.7 (80.0-100.0) fL MCH 32.7 (25.0-34.0) pg MCHC 34.9 (32.0-36.0) g/dL RDW Std Deviation 44.6 (36.4-46.3) fL RDW Coeff of Satya 13.0 (11.5-14.5) % Plt Count 212 (130-400) K/uL MPV 9.2 L (9.4-12.4) fL Immature Gran % (Auto) 0.3 % Neut % (Auto) 74.3 % Lymph % (Auto) 18.5 % [place] % (Auto) 6.3 % Eos % (Auto) 0.5 % Baso % (Auto) 0.1 % Neut # (Auto) 5.94 (1.40-6.50) K/uL Lymph # (Auto) 1.48 (1.2-3.4) K/uL [place] # (Auto) 0.50 (0.11-0.59) K/uL Eos # (Auto) 0.04 (0-0.50) K/uL Baso # (Auto) 0.01 (0-0.2) K/uL Immature Gran # (Auto) 0.02 (0.01-0.20) K/uL Sodium 142 (136-145) mmol/L Potassium 3.7 (3.5-5.1) mmol/L Chloride 104 (98-107) mmol/L Carbon Dioxide 32 (21-32) mmol/L Anion Gap 6 (3-11) BUN 19 (6-23) mg/dl Creatinine 0.59 L (0.6-1.2) mg/dl Est Cr Clr Drug Dosing 73.3 ml/min Est GFR ( Amer) 105.4 ml/min Est GFR (Non-Af Amer) 90.9 ml/min BUN/Creatinine Ratio 32.2 H (10-20) Glucose 118 H (70-99(Fasting)) mg/dl Lactate (0.4-2.0) mmol/L Calcium 10.2 (8.6-10.3) mg/dl Total Bilirubin 0.6 (0.2-1.0) mg/dl AST 15 (13-39) U/L ALT 15 (7-52) U/L Alkaline Phosphatase 250 H (34-104) U/L Total Protein 7.7 (6.0-8.3) gm/dl Albumin 4.9 (3.4-5.0) gm/dl Globulin 2.8 (2.5-4.0) gm/dl Albumin/Globulin Ratio 1.8 (0.9-2) Lipase 10 L (11-82) U/L SARS-CoV-2, RNA, NAAT Pending 11/03/22 Range/Units 18:26 WBC (4.8-10.8) K/ul RBC (4.20-5.40) M/uL Hgb (12.0-16.0) g/dl Hct (37.0-47.0) % MCV (80.0-100.0) fL MCH (25.0-34.0) pg MCHC (32.0-36.0) g/dL RDW Std Deviation (36.4-46.3) fL RDW Coeff of Satya (11.5-14.5) % Plt Count (130-400) K/uL MPV (9.4-12.4) fL Immature Gran % (Auto) % Neut % (Auto) % Lymph % (Auto) % [place] % (Auto) % Eos % (Auto) % Baso % (Auto) % Neut # (Auto) (1.40-6.50) K/uL Lymph # (Auto) (1.2-3.4) K/uL [place] # (Auto) (0.11-0.59) K/uL Eos # (Auto) (0-0.50) K/uL Baso # (Auto) (0-0.2) K/uL Immature Gran # (Auto) (0.01-0.20) K/uL Sodium (136-145) mmol/L Potassium (3.5-5.1) mmol/L Chloride (98-107) mmol/L Carbon Dioxide (21-32) mmol/L Anion Gap (3-11) BUN (6-23) mg/dl Creatinine (0.6-1.2) mg/dl Est Cr Clr Drug Dosing ml/min Est GFR ( Amer) ml/min Est GFR (Non-Af Amer) ml/min BUN/Creatinine Ratio (10-20) Glucose (70-99(Fasting)) mg/dl Lactate 0.9 (0.4-2.0) mmol/L Calcium (8.6-10.3) mg/dl Total Bilirubin (0.2-1.0) mg/dl AST (13-39) U/L ALT (7-52) U/L Alkaline Phosphatase (34-104) U/L Total Protein (6.0-8.3) gm/dl Albumin (3.4-5.0) gm/dl Globulin (2.5-4.0) gm/dl Albumin/Globulin Ratio (0.9-2) Lipase (11-82) U/L SARS-CoV-2, RNA, NAAT Diagnostic Findings CT angio abdomen pelvis w con CT DOSE: 318.39 mGy.cm CLINICAL HISTORY: severe abdominal pain. known compression of celiac TECHNIQUE: Multiaxial CT images of the abdomen and pelvis were performed following the intravenous administration of 113 cc of Optiray 320 to evaluate the major arterial structures. Maximum intensity projection images and sagittal and coronal reconstructions were also reviewed. A dose lowering technique was utilized adhering to the principles of ALARA. COMPARISON STUDY: Abdomen and pelvis CTA 09/01/2022. FINDINGS: Bibasilar linear densities consistent with subsegmental atelectasis. No pneumoperitoneum. No pneumatosis. There is a right total hip arthroplasty. Prior laminectomy again noted within the lumbar spine. The stomach is distended and filled with gas and fluid. The proximal to mid small bowel loops are also distended and filled with fluid and measure up to 4 cm in diameter. Cluster decompressed loops of small bowel seen within the left lower quadrant, one of which likely accounts for the transition point of the proximal small bowel obstruction. Specifically, the transition point is likely located within the left lower quadrant on image 351 at the expected location of a distal jejunal loop. Some of these decompressed loops of small bowel within the left lower quadrant demonstrate questionable mild wall thickening. However, this could be due to the decompression. The distal jejunal loops are also decompressed. The pelvic structures are partially obscured by metallic artifact from hip prosthesis. The bladder appears unremarkable. Prior hysterectomy. Mild pelvic floor collapse. No retroperitoneal or pelvic lymphadenopathy. The liver, gallbladder, pancreas, spleen, and adrenal glands are unremarkable. There is a punctate stone within the left kidney and a 4 mm stone within the right kidney. Stable 15 mm right renal cyst. No hydronephrosis. Focal severe stenosis again noted at the takeoff of the celiac artery. This r emains unchanged. The remaining celiac artery is normal in caliber. The superior mesenteric, inferior mesenteric, and single bilateral renal arteries are widely patent. The iliac arteries are also patent. IMPRESSION: 1. Small bowel obstruction with the transition point located within the left lower quadrant likely at the level of the distal jejunal loops. Some of these distal jejunal loops may be slightly thickened. However, this could be due to the underdistention. 2. 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 The remaining mesenteric vessels appear patent. 3. Bilateral nephrolithiasis. No hydronephrosis.
[2022-11-03] MEDS ORDERED: ACETAMINOPHEN 1,000 MG/100 ML VIAL IV PRN (23:36)
[2022-11-03] MEDS ORDERED: PIPERACILLIN/TAZOBACTAM 4.5 GM in DEXTROSE 5% 100 ML IV SCH (23:36)
[2022-11-03] MEDS: KETOROLAC TROMETHAMINE 15 MG/ML VIAL IV PRN (23:51)
[2022-11-03] MEDS: HEPARIN SOD 5,000 UNIT/0.5 ML VIAL SQ SCH (23:51)
[2022-11-03] MEDS: NSS + 20MEQ KCL 20 MEQ/1,000 ML BAG IV SCH (23:52)
[2022-11-04] MEDS ORDERED: PIPERACILLIN/TAZOBACTAM 4.5 GM (over 30 mins) IV ONE
[2022-11-04] MEDS: HYDROmorphone INJ 0.5 MG/0.5 ML SYR IV PRN ×5 (02:19→20:53)
[2022-11-04] MEDS: ONDANSETRON INJ 2 MG/ML 2 ML VIAL IV PRN ×3 (02:28→14:05)
[2022-11-04] MEDS: PIPERACILLIN/TAZOBACTAM 4.5 GM in DEXTROSE 5% 100 ML IV SCH ×3 (05:24→22:40)
[2022-11-04] MEDS: HEPARIN SOD 5,000 UNIT/0.5 ML VIAL SQ SCH ×2 (08:03→20:53)
--- NOTE | 2022-11-04 09:34 | Hospitalist Progress Note ---
Date of Service November 04, 2022 Assessment & Plan (1) SBO (small bowel obstruction): Plan: Per patient this is her third bowel obstruction Per patient had significant adhesive disease with lysis of adhesions in past at [facility] point left lower quadrant NPO with NGT to LIS Initially had over 800 green bilious drainage out in ER, currently with 50ml green drainage in container Continue Pantoprazole 40 mg IV daily, Zofran 4 mg IV every 6 hours as needed Zosyn 4.5 g IV every 8 hours Acetaminophen 1 g IV every 8 hours Toradol 15 mg IV every 6 hours as needed for moderate pain Dilaudid 0.5 mg IV every 5 hours as needed for severe pain (7,8,9,10) NSS + KCl 20 mEq at 100 mils per hour Encourage up and OOB General surgical consult (2) Multiple sclerosis: Plan: Multiple sclerosis/rheumatoid arthritis- Hold all medications: Sertraline, topiramate, modafinil and clonazepam (3) Vitamin D deficiency: Plan: - Home vitamin D3 5000 IU daily on hold while NPO (4) B12 deficiency: Plan: - Home B12 500mcg daily on hold while NPO (5) Anxiety and depression: Plan: Clonazepam and sertraline on hold Lorazepam 0.5 mg IV every 8 hours as needed (6) GERD (gastroesophageal reflux disease): Plan: - Currently on IV Pantoprazole (7) Delayed gastric emptying: Plan: Recent GES with significant delayed emptying at 2 and 4 hours Following with GI Was told to follow a low fat, low fiber diet and small frequent meals per day Admission and Anticipated Discharge Date Admission Date: November 03, 2022 Subjective Patient is awake laying in bed, is at her bedside. She states she is still having abdominal discomfort. She denies passing any flatus and last BM was 4 days ago. She denies any further N/V with NGT. Review of Systems Review of Systems: The patient denies chest pain, palpitations, shortness of breath, dyspnea on exertion, cough, lower extremity swelling, sore throat, fevers, chills, sweats, diarrhea, blood in urine or stool, dysuria, urinary frequency or urgency, lightheadedness, dizziness, headache, memory loss, loss of consciousness, rash, abnormal bruising or bleeding, imbalance, focal or generalized weakness, numbness or tingling in arms or legs, generalized arthralgias or myalgias, back or neck pain, or night sweats. The review of systems is otherwise negative other than for that already noted above, and at least 10 systems have been reviewed. Physical Exam Constitutional: WD/WN, vitals as above ENMT: NGT to LIS Neck: trachea midline, no thyromegaly Respiratory: normal respiratory effort, lungs clear to auscultation Cardiovascular: RRR, no murmur, no edema Extremities: no calf tenderness, no pedal edema and no edema Gastrointestinal (Abdomen): Inspection/Auscultation: abdomen normal to inspe ction decreased BS, very minimal Skin: no rashes, warm and dry Psychiatric: A+Ox3, euthymic affect Results & Data Results & Data Vital Signs (Past 12 Hours) Vital Signs Temp Pulse Pulse Resp BP Pulse Ox O2 Del Method 11/04/22 07:16 36.5 C 63 16 111/51 L 98 Nasal Cannula 11/03/22 23:30 Nasal Cannula 11/03/22 23:30 36.6 C 67 18 158/64 H 97 Nasal Cannula 11/03/22 21:44 67 20 145/74 H 96 Nasal Cannula O2 Flow Rate 11/04/22 07:16 1.5 11/03/22 23:30 2 11/03/22 23:30 2 11/03/22 21:44 2 Laboratory Results Abnormal lab results 11/03/22 11/03/22 Range/Units Unknown Unknown MPV 9.2 L (9.4-12.4) fL Creatinine 0.59 L (0.6-1.2) mg/dl BUN/Creatinine Ratio 32.2 H (10-20) Glucose 118 H (70-99(Fasting)) mg/dl Alkaline Phosphatase 250 H (34-104) U/L Lipase 10 L (11-82) U/L Diagnostic Findings Abnormal lab results Abdomen/Pelvis CTA 11/03/22 16:52 CT angio abdomen pelvis w con CT DOSE: 318.39 mGy.cm CLINICAL HISTORY: severe abdominal pain. known compression of celiac TECHNIQUE: Multiaxial CT images of the abdomen and pelvis were performed following the intravenous administration of 113 cc of Optiray 320 to evaluate the major arterial structures. Maximum intensity projection images and sagittal and coronal reconstructions were also reviewed. A dose lowering technique was utilized adhering to the principles of ALARA. COMPARISON STUDY: Abdomen and pelvis CTA 09/01/2022. FINDINGS: Bibasilar linear densities consistent with subsegmental atelectasis. No pneumoperitoneum. No pneumatosis. There is a right total hip arthroplasty. Prior laminectomy again noted within the lumbar spine. The stomach is distended and filled with gas and fluid. The proximal to mid small bowel loops are also distended and filled with fluid and measure up to 4 cm in diameter. Cluster decompressed loops of small bowel seen within the left lower quadrant, one of which likely accounts for the transition point of the proximal small bowel obstruction. Specifically, the transition point is likely located within the left lower quadrant on image 351 at the expected location of a distal jejunal loop. Some of these decompressed loops of small bowel within the left lower quadrant demonstrate questionable mild wall thickening. However, this could be due to the decompression. The distal jejunal loops are also decompressed. The pelvic structures are partially obscured by metallic artifact from hip prosthesis. The bladder appears unremarkable. Prior hysterectomy. Mild pelvic floor collapse. No retroperitoneal or pelvic lymphadenopathy. The liver, gallbladder, pancreas, spleen, and adrenal glands are unremarkable. There is a punctate stone within the left kidney and a 4 mm stone within the right kidney. Stable 15 mm right renal cyst. No hydronephrosis. Focal severe stenosis again noted at the takeoff of the celiac artery. This remains unchanged. The remaining celiac artery is normal in caliber. The superior mesenteric, inferior mesenteric, and single bilateral renal arteries are widely patent. The iliac arteries are also patent. IMPRESSION: 1. Small bowel obstruction with the transition point located within the left lower quadrant likely at the level of the distal jejunal loops. Some of these distal jejunal loops may be slightly thickened. However, this could be due to the underdistention. 2. 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 The remaining mesenteric vessels appear patent. 3. Bilateral nephrolithiasis. No hydronephrosis. ACT 112: Negative or not required by law. Electronically signed by: Andreas Tavera M.D. 11/03/2022 7:19 PM 10 L (11-82) U/L PG Care Time/CCT Total # of Minutes Spent Total Time Spent with Patient: Total time spent is greater than 50% in coordination of care (as documented) at patient's floor/unit and/or counseling patient: Coding Level of Care Code 87028 SUB INP/OBS CARE Diagnoses SBO (small bowel obstruction) K56.609 Multiple sclerosis G35 Vitamin D deficiency E55.9 B12 deficiency E53.8 Anxiety and depression F41.9; F32.9 GERD (gastroesophageal reflux disease) K21.9 Delayed gastric emptying K30
[2022-11-04] MEDS: NSS + 20MEQ KCL 20 MEQ/1,000 ML BAG IV SCH ×2 (10:19→20:53)
[2022-11-04] MEDS: KETOROLAC TROMETHAMINE 15 MG/ML VIAL IV PRN (10:20)
[2022-11-04] MEDS: PANTOprazole 40 MG in SYRINGE 0 ML IV SCH (11:41)
[2022-11-04] MEDS ORDERED: HYDROmorphone INJ 0.5 MG/0.5 ML SYR IV PRN ×2 (15:47→16:02)
--- NOTE | 2022-11-04 16:07 | Surgery Progress Note ---
Date of Service November 04, 2022 Assessment & Plan (1) SBO (small bowel obstruction): Plan: 72-year-old woman with small bowel obstruction. She has had prior small bowel obstruction in the past. She has a normal white count and no fever. NGT with 800 cc total output since placement avss abdomen is soft but still having pain and nausea no return of bowel function yet Plan: Continue conservative management encouraged oob to chair and ambulate hallway to increase gi motility pain management as needed will continue to monitor Discussed with Dr. Lunsford who agrees with above. Admission and Anticipated Discharge Date Admission Date: November 03, 2022 Subjective feeling just minimally better than yesterday still having abdominal pain, does not feel bloated +nausea no vomiting urinating without difficulty no flatus or bowel movement Physical Exam Constitutional: WD/WN, vitals as above cooperative and comfortable; no acute distress and not ill appearing Neck: normal visual inspection and trachea midline Respiratory: normal respiratory effort; no respiratory distress Gastrointestinal (Abdomen): Inspection/Auscultation: abdomen normal to inspection and + hypoactive bowel sounds; abdomen not distended and + abnormal bowel sounds Percussion/Palpation: + abdomen tender (LUQ), + guarding (LUQ voluntary on deep palpation) and abdomen soft; abdomen not rigid and abdomen not firm NGT with dark green output in canister Skin: no rashes, warm and dry Psychiatric: Orientation: alert and oriented x 3 Results & Data Vital Signs (Past 12 Hours) Vital Signs Temp Pulse Resp BP Pulse Ox O2 Del Method O2 Flow Rate 11/04/22 15:22 36.7 C 60 16 118/64 96 Nasal Cannula 1.5 11/04/22 07:16 36.5 C 63 16 111/51 L 98 Nasal Cannula 1.5 Laboratory Results 11/03/22 11/03/22 11/03/22 Range/Units Unknown Unknown 21:40 WBC 7.99 (4.8-10.8) K/ul RBC 4.77 (4.20-5.40) M/uL Hgb 15.6 (12.0-16.0) g/dl Hct 44.7 (37.0-47.0) % MCV 93.7 (80.0-100.0) fL MCH 32.7 (25.0-34.0) pg MCHC 34.9 (32.0-36.0) g/dL RDW Std Deviation 44.6 (36.4-46.3) fL RDW Coeff of Satya 13.0 (11.5-14.5) % Plt Count 212 (130-400) K/uL MPV 9.2 L (9.4-12.4) fL Immature Gran % (Auto) 0.3 % Neut % (Auto) 74.3 % Lymph % (Auto) 18.5 % [place] % (Auto) 6.3 % Eos % (Auto) 0.5 % Baso % (Auto) 0.1 % Neut # (Auto) 5.94 (1.40-6.50) K/uL Lymph # (Auto) 1.48 (1.2-3.4) K/uL [place] # (Auto) 0.50 (0.11-0.59) K/uL Eos # (Auto) 0.04 (0-0.50) K/uL Baso # (Auto) 0.01 (0-0.2) K/uL Immature Gran # (Auto) 0.02 (0.01-0.20) K/uL Sodium 142 (136-145) mmol/L Potassium 3.7 (3.5-5.1) mmol/L Chloride 104 (98-107) mmol/L Carbon Dioxide 32 (21-32) mmol/L Anion Gap 6 (3-11) BUN 19 (6-23) mg/dl Creatinine 0.59 L (0.6-1.2) mg/dl Est Cr Clr Drug Dosing 73.3 ml/min Est GFR ( Amer) 105.4 ml/min Est GFR (Non-Af Amer) 90.9 ml/min BUN/Creatinine Ratio 32.2 H (10-20) Glucose 118 H (70-99(Fasting)) mg/dl Lactate (0.4-2.0) mmol/L Calcium 10.2 (8.6-10.3) mg/dl Total Bilirubin 0.6 (0.2-1.0) mg/dl AST 15 (13-39) U/L ALT 15 (7-52) U/L Alkaline Phosphatase 250 H (34-104) U/L Total Protein 7.7 (6.0-8.3) gm/dl Albumin 4.9 (3.4-5.0) gm/dl Globulin 2.8 (2.5-4.0) gm/dl Albumin/Globulin Ratio 1.8 (0.9-2) Lipase 10 L (11-82) U/L SARS-CoV-2, RNA, NAAT NEGATIVE (NEGATIVE) 11/03/22 Range/Units 18:26 WBC (4.8-10.8) K/ul RBC (4.20-5.40) M/uL Hgb (12.0-16.0) g/dl Hct (37.0-47.0) % MCV (80.0-100.0) fL MCH (25.0-34.0) pg MCHC (32.0-36.0) g/dL RDW Std Deviation (36.4-46.3) fL RDW Coeff of Satya (11.5-14.5) % Plt Count (130-400) K/uL MPV (9.4-12.4) fL Immature Gran % (Auto) % Neut % (Auto) % Lymph % (Auto) % [place] % (Auto) % Eos % (Auto) % Baso % (Auto) % Neut # (Auto) (1.40-6.50) K/uL Lymph # (Auto) (1.2-3.4) K/uL [place] # (Auto) (0.11-0.59) K/uL Eos # (Auto) (0-0.50) K/uL Baso # (Auto) (0-0.2) K/uL Immature Gran # (Auto) (0.01-0.20) K/uL Sodium (136-145) mmol/L Potassium (3.5-5.1) mmol/L Chloride (98-107) mmol/L Carbon Dioxide (21-32) mmol/L Anion Gap (3-11) BUN (6-23) mg/dl Creatinine (0.6-1.2) mg/dl Est Cr Clr Drug Dosing ml/min Est GFR ( Amer) ml/min Est GFR (Non-Af Amer) ml/min BUN/Creatinine Ratio (10-20) Glucose (70-99(Fasting)) mg/dl Lactate 0.9 (0.4-2.0) mmol/L Calcium (8.6-10.3) mg/dl Total Bilirubin (0.2-1.0) mg/dl AST (13-39) U/L ALT (7-52) U/L Alkaline Phosphatase (34-104) U/L Total Protein (6.0-8.3) gm/dl Albumin (3.4-5.0) gm/dl Globulin (2.5-4.0) gm/dl Albumin/Globulin Ratio (0.9-2) Lipase (11-82) U/L SARS-CoV-2, RNA, NAAT (NEGATIVE)
--- NOTE | 2022-11-04 16:41 | Electrocardiogram Report ---
Test Reason : Blood Pressure : / mmHG Vent. Rate : 070 BPM Atrial Rate : 070 BPM P-R Int : 180 ms QRS Dur : 090 ms QT Int : 396 ms P-R-T Axes : 043 000 031 degrees QTc Int : 427 ms Normal sinus rhythm Normal ECG When compared with ECG of 28-MAR-2018 11:04, Nonspecific T wave abnormality now evident in Anterior leads Confirmed by Angel Desir ([id number]) on 11/04/2022 4:41:00 PM Referred By: REFERRED SELF Confirmed By:Angel Desir
[2022-11-04] MEDS: ACETAMINOPHEN 1,000 MG/100 ML VIAL IV SCH (20:53)
[2022-11-04 21:52] LABS: Appearance Urine Clear (Clear); Bilirubin Urine Negative (Negative); Blood Urine Negative (Negative); Color Urine Yellow; Glucose Urine UA Negative (Negative); Ketones Urine 1+ (Negative); Leukocyte Esterase Urine Negative (Negative); Nitrite Urine Negative (Negative); Protein Urine Negative (Negative); Specific Gravity Urine 1.033 (1.000-1.030); Urobilinogen Urine Negative (Negative)
[2022-11-05] MEDS: ONDANSETRON INJ 2 MG/ML 2 ML VIAL IV PRN ×3 (01:50→13:36)
[2022-11-05] MEDS: HYDROmorphone INJ 0.5 MG/0.5 ML SYR IV PRN ×5 (01:50→20:26)
[2022-11-05] MEDS: PIPERACILLIN/TAZOBACTAM 4.5 GM in DEXTROSE 5% 100 ML IV SCH ×3 (06:14→22:22)
[2022-11-05] MEDS: ACETAMINOPHEN 1,000 MG/100 ML VIAL IV SCH ×3 (06:14→21:54)
[2022-11-05] MEDS: NSS + 20MEQ KCL 20 MEQ/1,000 ML BAG IV SCH ×2 (06:15→15:10)
[2022-11-05] MEDS: PANTOprazole 40 MG in SYRINGE 0 ML IV SCH (09:18)
[2022-11-05] MEDS: HEPARIN SOD 5,000 UNIT/0.5 ML VIAL SQ SCH ×2 (09:18→20:30)
[2022-11-05] MEDS: KETOROLAC TROMETHAMINE 15 MG/ML VIAL IV PRN ×2 (09:21→17:36)
[2022-11-05 10:40] LABS: Hematocrit (blood only) 37.4 % (37.0-47.0); Hemoglobin 12.8 g/dl (12.0-16.0); Mean Corpuscular Hemoglobin 32.6 pg (25.0-34.0); Mean Corpuscular Hgb Conc 34.2 g/dL (32.0-36.0); Mean Corpuscular Volume 95.2 fL (80.0-100.0); Mean Platelet Volume 9.4 fL (9.4-12.4); Platelet Count 132 K/uL (130-400); RDW Coefficient of Variation 12.3 % (11.5-14.5); RDW Standard Deviation 43.3 fL (36.4-46.3); Red Blood Count 3.93 M/uL (4.20-5.40); White Blood Count 2.95 K/ul (4.8-10.8)
[2022-11-05 10:54] LABS: BUN Creatinine Ratio 38.3 (10-20); Calcium 8.8 mg/dl (8.6-10.3); Creatinine Clr Calc Pharmacy 95.9 ml/min; Est GFR (African American) 113.6 ml/min; Magnesium 1.7 mg/dl (1.7-2.4); Potassium 3.8 mmol/L (3.5-5.1)
--- NOTE | 2022-11-05 16:52 | Hospitalist Progress Note ---
Date of Service November 05, 2022 Assessment & Plan (1) SBO (small bowel obstruction): Plan: Per patient this is her third bowel obstruction Per patient had significant adhesive disease with lysis of adhesions in past at [facility] point left lower quadrant NPO with NGT to LIS Initially had over 800 green bilious drainage out in ER, currently with 50ml green drainage in container Continue Pantoprazole 40 mg IV daily, Zofran 4 mg IV every 6 hours as needed Zosyn 4.5 g IV every 8 hours Acetaminophen 1 g IV every 8 hours Toradol 15 mg IV every 6 hours as needed for moderate pain Dilaudid 0.5 mg IV every 5 hours as needed for severe pain (7,8,9,10) NSS + KCl 20 mEq at 100 mils per hour Encourage up and OOB General surgery following (2) Multiple sclerosis: Plan: Multiple sclerosis/rheumatoid arthritis- Hold all medications: Sertraline, topiramate, modafinil and clonazepam (3) Vitamin D deficiency: Plan: - Home vitamin D3 5000 IU daily on hold while NPO (4) B12 deficiency: Plan: - Home B12 500mcg daily on hold while NPO (5) Anxiety and depression: Plan: Clonazepam and sertraline on hold Lorazepam 0.5 mg IV every 8 hours as needed (6) GERD (gastroesophageal reflux disease): Plan: - Currently on IV Pantoprazole (7) Delayed gastric emptying: Plan: Recent GES with significant delayed emptying at 2 and 4 hours Following with GI Was told to follow a low fat, low fiber diet and small frequent meals per day Admission and Anticipated Discharge Date Admission Date: November 03, 2022 Supervising Physician Co-Signing Physician Notes Attending Attestation - Chart reviewed, pt care plan d/w SHEBA Alonso. I agree with the cruz components of her documentation. Carroll Dixon MD Subjective Patient states she is feeling slightly better than yesterday Continues with nausea but no vomiting no flatus or bowel movement She is trying to get up and walk some 100ml dark bilious liquid in container Review of Systems Review of Systems: The patient denies chest pain, palpitations, shortness of breath, dyspnea on exertion, cough, lower extremity swelling, sore throat, fevers, chills, sweats, diarrhea, blood in urine or stool, dysuria, urinary frequency or urgency, lightheadedness, dizziness, headache, memory loss, loss of consciousness, rash, abnormal bruising or bleeding, imbalance, focal or generalized weakness, numbness or tingling in arms or legs, generalized arthralgias or myalgias, back or neck pain, or night sweats. The review of systems is otherwise negative other than for that already noted above, and at least 10 systems have been reviewed. Physical Exam Constitutional: WD/WN, vitals as above Neck: trachea midline, no thyromegaly Respiratory: normal respiratory effort, lungs clear to auscultation Cardiovascular: RRR, no murmur, no edema Extremities: no calf tenderness, no pedal edema and no edema Gastrointestinal (Abdomen): Inspection/Auscultation: abdomen normal to inspection + bs improved from yesterday but still decreased, soft abdomen mild tender to palpation left lower abdomen, No R/R/G Skin: no rashes, warm and dry Psychiatric: A+Ox3, euthymic affect Results & Data Results & Data Vital Signs (Past 12 Hours) Vital Signs Temp Pulse Resp BP Pulse Ox O2 Del Method 11/05/22 15:12 37 C 78 18 95 Room Air 11/05/22 15:53 158/72 H 11/05/22 07:46 36.8 C 72 18 157/70 H 91 Room Air PG Care Time/CCT Total # of Minutes Spent Total Time Spent with Patient: Total time spent is greater than 50% in coordination of care (as documented) at patient's floor/unit and/or counseling patient: Coding Level of Care Code 42509 SUB INP/OBS CARE 2/35MIN Diagnoses SBO (small bowel obstruction) K56.609 Multiple sclerosis G35 Vitamin D deficiency E55.9 B12 deficiency E53.8 Anxiety and depression F41.9; F32.9 GERD (gastroesophageal reflux disease) K21.9 Delayed gastric emptying K30
--- NOTE | 2022-11-05 16:58 | Surgery Progress Note ---
Date of Service November 05, 2022 Assessment & Plan (1) SBO (small bowel obstruction): Plan: 72-year-old woman with small bowel obstruction. She has had prior small bowel obstruction in the past. She has a normal white count and no fever. NGT with 200 cc output last shift avss abdomen is soft but still having pain and nausea no return of bowel function yet Plan: Continue conservative management encouraged oob to chair and ambulate hallway to increase gi motility pain management as needed will continue to monitor will need outpatient GI follow-up as she may have decreased GI motility (history of getting SBFT during last SBO and then repeat imaging few weeks later showed retained contrast per patient) Dr. Lunsford has seen and examined pt, agrees with above. Admission and Anticipated Discharge Date Admission Date: November 03, 2022 Supervising Physician Co-Signing Physician Notes I have seen and examined the patient and agree with the above assessment and plan. She continues with NG tube decompression, IV fluids, pain management. We will continue to monitor. If she fails to improve or worsens, she may require operative intervention. We will continue to follow. Subjective feeling slightly better today regarding her pain but no significant improvement compared to yesterday still not flatus or bowel movement walked yesterday no vomiting Physical Exam Constitutional: well developed, well nourished, cooperative and comfortable; no acute distress Respiratory: normal respiratory effort; no respiratory distress Gastrointestinal (Abdomen): Inspection/Auscultation: abdomen normal to inspection; abdomen not distended Percussion/Palpation: + abdomen tender (LUQ), + guarding (LUQ on deep palpation) and abdomen soft; abdomen not rigid NGT with dark bilious output in canister about 200 cc Skin: no rashes, warm and dry Psychiatric: Orientation: alert and oriented x 3 Results & Data Vital Signs (Past 12 Hours) Vital Signs Temp Pulse Resp BP Pulse Ox O2 Del Method 11/05/22 15:12 37 C 78 18 95 Room Air 11/05/22 15:53 158/72 H 11/05/22 07:46 36.8 C 72 18 157/70 H 91 Room Air Laboratory Results 11/05/22 11/05/22 11/04/22 Range/Units 10:10 10:10 21:00 WBC 2.95 L (4.8-10.8) K/ul RBC 3.93 L (4.20-5.40) M/uL Hgb 12.8 (12.0-16.0) g/dl Hct 37.4 (37.0-47.0) % MCV 95.2 (80.0-100.0) fL MCH 32.6 (25.0-34.0) pg MCHC 34.2 (32.0-36.0) g/dL RDW Std Deviation 43.3 (36.4-46.3) fL RDW Coeff of Satya 12.3 (11.5-14.5) % Plt Count 132 (130-400) K/uL MPV 9.4 (9.4-12.4) fL Sodium 140 (136-145) mmol/L Potassium 3.8 (3.5-5.1) mmol/L Chloride 108 H (98-107) mmol/L Carbon Dioxide 25 (21-32) mmol/L Anion Gap 7 (3-11) BUN 18 (6-23) mg/dl Creatinine 0.47 L (0.6-1.2) mg/dl Est Cr Clr Drug Dosing 95.9 ml/min Est GFR ( Amer) 113.6 ml/min Est GFR (Non-Af Amer) 98.0 ml/min BUN/Creatinine Ratio 38.3 H (10-20) Glucose 73 (70-99(Fasting)) mg/dl Calcium 8.8 (8.6-10.3) mg/dl Magnesium 1.7 (1.7-2.4) mg/dl Urine Color Yellow Urine Appearance Clear (Clear) Urine pH 5.0 (4.5-7.5) Ur Specific [place] 1.033 H (1.000-1.030) Urine Protein Negative (Negative) Urine Glucose (UA) Negative (Negative) Urine Ketones 1+ H (Negative) Urine Blood Negative (Negative) Urine Nitrite Negative (Negative) Urine Bilirubin Negative (Negative) Urine Urobilinogen Negative (Negative) Ur Leukocyte Esterase Negative (Negative)
[2022-11-06] MEDS: KETOROLAC TROMETHAMINE 15 MG/ML VIAL IV PRN ×4 (00:37→20:32)
[2022-11-06] MEDS: NSS + 20MEQ KCL 20 MEQ/1,000 ML BAG IV SCH ×3 (01:54→22:03)
[2022-11-06] MEDS: HYDROmorphone INJ 0.5 MG/0.5 ML SYR IV PRN ×5 (01:54→19:16)
[2022-11-06] MEDS: PIPERACILLIN/TAZOBACTAM 4.5 GM in DEXTROSE 5% 100 ML IV SCH ×3 (05:50→21:45)
[2022-11-06] MEDS: ACETAMINOPHEN 1,000 MG/100 ML VIAL IV SCH ×3 (05:51→21:16)
[2022-11-06] MEDS: ONDANSETRON INJ 2 MG/ML 2 ML VIAL IV PRN ×3 (05:59→19:20)
[2022-11-06] MEDS: HEPARIN SOD 5,000 UNIT/0.5 ML VIAL SQ SCH ×2 (07:36→20:37)
[2022-11-06] MEDS: PANTOprazole 40 MG in SYRINGE 0 ML IV SCH (11:25)
--- NOTE | 2022-11-06 11:50 | Surgery Progress Note ---
Date of Service November 06, 2022 Assessment & Plan (1) SBO (small bowel obstruction): Plan: 72-year-old woman with small bowel obstruction. She has had prior small bowel obstruction in the past. She has a normal white count and no fever. NGT with 200 cc output last shift avss abdomen is soft but still having pain and nausea Possible small amount of flatus this morning Plan: Continue conservative management encouraged oob to chair and ambulate hallway to increase gi motility pain management as needed will continue to monitor will need outpatient GI follow-up as she may have decreased GI motility (history of getting SBFT during last SBO and then repeat imaging few weeks later showed retained contrast per patient) Admission and Anticipated Discharge Date Admission Date: November 03, 2022 Subjective no significant improvement compared to yesterday Possible small amount of flatus this morning walked yesterday no vomiting Physical Exam Gastrointestinal (Abdomen): Inspection/Auscultation: abdomen normal to inspection; abdomen not distended Percussion/Palpation: + abdomen tender (LUQ) and abdomen soft; abdomen not rigid Results & Data Vital Signs (Past 12 Hours) Vital Signs Temp Pulse Resp BP Pulse Ox O2 Del Method 11/06/22 10:15 94 Room Air 11/06/22 07:40 Room Air 11/06/22 07:32 36.8 C 73 16 159/71 H 91 Room Air
--- NOTE | 2022-11-06 13:43 | Hospitalist Progress Note ---
Date of Service November 06, 2022 Assessment & Plan (1) SBO (small bowel obstruction): Plan: Per patient this is her third bowel obstruction Per patient had significant adhesive disease with lysis of adhesions in past at [facility] point left lower quadrant NPO with NGT to LIS Initially had over 800 green bilious drainage out in ER, currently with 50ml green drainage in container Continue Pantoprazole 40 mg IV daily, Zofran 4 mg IV every 6 hours as needed Zosyn 4.5 g IV every 8 hours Acetaminophen 1 g IV every 8 hours Toradol 15 mg IV every 6 hours as needed for moderate pain Dilaudid 0.5 mg IV every 5 hours as needed for severe pain (7,8,9,10) NSS + KCl 20 mEq at 100 mils per hour Encourage up and OOB General surgery following (2) Multiple sclerosis: Plan: Multiple sclerosis/rheumatoid arthritis Chronic and stable Hold all medications: Sertraline, topiramate, modafinil and clonazepam (3) Vitamin D deficiency: Plan: Chronic and stable - Home vitamin D3 5000 IU daily on hold while NPO (4) B12 deficiency: Plan: chronic and stable - Home B12 500mcg daily on hold while NPO (5) Anxiety and depression: Plan: Chronic and stable Clonazepam and sertraline on hold Lorazepam 0.5 mg IV every 8 hours as needed (6) GERD (gastroesophageal reflux disease): Plan: Chronic and stable - Currently on IV Pantoprazole (7) Delayed gastric emptying: Plan: Recent GES with significant delayed emptying at 2 and 4 hours Following with GI Was told to follow a low fat, low fiber diet and small frequent meals per day Admission and Anticipated Discharge Date Admission Date: November 03, 2022 Supervising Physician Co-Signing Physician Notes Attending Attestation - Chart reviewed, pt care plan d/w SHEBA Alonso. I agree with the cruz components of her documentation. Carroll Dixon MD Subjective Patient states she feels about the same She thinks she had a very small amount of flatus x1 last night She is still nauseated at times She has been up and walking in the hallways Review of Systems Review of Systems: The patient denies chest pain, palpitations, shortness of breath, dyspnea on exertion, cough, lower extremity swelling, sore throat, fevers, chills, sweats, diarrhea, blood in urine or stool, dysuria, urinary frequency or urgency, lightheadedness, dizziness, headache, memory loss, loss of consciousness, rash, abnormal bruising or bleeding, imbalance, focal or generalized weakness, numbness or tingling in arms or legs, generalized arthralgias or myalgias, back or neck pain, or night sweats. The review of systems is otherwise negative other than for that already noted above, and at least 10 systems have been reviewed. Physical Exam Constitutional: WD/WN, vitals as above ENMT: NGT in place dark bilious drainage in container Neck: trachea midline, no thyromegaly Respiratory: normal respiratory effort, lungs clear to auscultation Cardiovascular: RRR, no murmur, no edema Extremities: no calf tenderness, no pedal edema and no edema Gastrointestinal (Abdomen): Inspection/Auscultation: abdomen normal to inspection + BS present but still decreased, soft and mild tender LLQ Skin: no rashes, warm and dry Psychiatric: A+Ox3, euthymic affect Results & Data Results & Data Vital Signs (Past 12 Hours) Vital Signs Temp Pulse Resp BP Pulse Ox O2 Del Method 11/06/22 10:15 94 Room Air 11/06/22 07:40 Room Air 11/06/22 07:32 36.8 C 73 16 159/71 H 91 Room Air PG Care Time/CCT Total # of Minutes Spent Total Time Spent with Patient: Total time spent is greater than 50% in coordination of care (as documented) at patient's floor/unit and/or counseling patient: Coding Level of Care Code 96765 SUB INP/OBS CARE 2/35MIN Diagnoses SBO (small bowel obstruction) K56.609 Multiple sclerosis G35 Vitamin D deficiency E55.9 B12 deficiency E53.8 Anxiety and depression F41.9; F32.9 GERD (gastroesophageal reflux disease) K21.9 Delayed gastric emptying K30
[2022-11-07] MEDS: HYDROmorphone INJ 0.5 MG/0.5 ML SYR IV PRN ×5 (00:13→22:04)
[2022-11-07] MEDS: ACETAMINOPHEN 1,000 MG/100 ML VIAL IV SCH ×2 (04:59→13:54)
[2022-11-07] MEDS: PIPERACILLIN/TAZOBACTAM 4.5 GM in DEXTROSE 5% 100 ML IV SCH ×3 (05:00→21:13)
--- NOTE | 2022-11-07 05:34 | Surgery Progress Note ---
Date of Service November 07, 2022 Assessment & Plan (1) SBO (small bowel obstruction): Plan: Patient has been admitted on the medical service. We recommend proceeding as follows: Continue n.p.o. status and NG tube until further improvement of bowel function is noted Continue IV fluids until oral intake can be advanced and deemed to be adequate Provide analgesics Provide antiemetics Continue antibiotics in the form of Zosyn Encourage ambulation as this may help GI motility A.m. labs have been ordered and are pending. Check these once available Plans noted for potential GI evaluation as an outpatient Subcutaneous heparin is in place for DVT prevention Admission and Anticipated Discharge Date Admission Date: November 03, 2022 Supervising Physician Co-Signing Physician Notes Dr. Wyatt examined patient in her room. She has decreased NG output but still some pain and nausea Received Dilaudid Her abdomen is flat and soft and she does have some bowel sounds but decreased We will add senna syrup and try clamping NG tube for 4 hours and back to suction 2 hours Continue ambulation Subjective Patient is currently resting comfortably in bed. She denies any nausea or vomiting. She does note some intermittent abdominal pain. She denies any fe vers, shakes, or chills. She says she has passed a small amount of flatus but has not had a bowel movement since admission. Physical Exam Gastrointestinal (Abdomen): Abdomen is nondistended and nonrigid. Bowel sounds are present. Pain is noted with palpation in the lower abdomen. NG tube is in place and is drained approximately 700 cc over the past 24 hours. Results & Data Vital Signs (Past 12 Hours) Vital Signs Temp Pulse Resp BP Pulse Ox O2 Del Method 11/06/22 21:03 36.8 C 67 15 156/66 H 96 Room Air PG Care Time/CCT Total # of Minutes Spent Total Time Spent with Patient: Total time spent is greater than 50% in coordination of care (as documented) at patient's floor/unit and/or counseling patient: Coding Level of Care Code 52387 SUB INP/OBS CARE 08/05MIN Diagnoses SBO (small bowel obstruction) K56.609
[2022-11-07 07:24] LABS: Hematocrit (blood only) 38.7 % (37.0-47.0); Hemoglobin 13.2 g/dl (12.0-16.0); Mean Corpuscular Hemoglobin 32.5 pg (25.0-34.0); Mean Corpuscular Hgb Conc 34.1 g/dL (32.0-36.0); Mean Corpuscular Volume 95.3 fL (80.0-100.0); Mean Platelet Volume 9.4 fL (9.4-12.4); Platelet Count 149 K/uL (130-400); RDW Coefficient of Variation 12.2 % (11.5-14.5); RDW Standard Deviation 42.7 fL (36.4-46.3); Red Blood Count 4.06 M/uL (4.20-5.40); White Blood Count 2.93 K/ul (4.8-10.8)
[2022-11-07] MEDS: NSS + 20MEQ KCL 20 MEQ/1,000 ML BAG IV SCH (08:13)
[2022-11-07] MEDS: HEPARIN SOD 5,000 UNIT/0.5 ML VIAL SQ SCH ×2 (08:14→21:13)
[2022-11-07] MEDS: ONDANSETRON INJ 2 MG/ML 2 ML VIAL IV PRN ×2 (08:14→15:48)
[2022-11-07] MEDS: SENNOSIDES 8.8 MG/5 ML UDC PO SCH ×2 (10:08→21:12)
[2022-11-07 10:45] LABS: Calcium 8.9 mg/dl (8.6-10.3); Magnesium 1.6 mg/dl (1.7-2.4); Potassium 4.3 mmol/L (3.5-5.1)
[2022-11-07] MEDS: PANTOprazole 40 MG in SYRINGE 0 ML IV SCH (10:46)
[2022-11-07 10:57] LABS: BUN Creatinine Ratio 15.7 (10-20); Creatinine Clr Calc Pharmacy 88.4 ml/min; Est GFR (African American) 110.6 ml/min; Est GFR (Non-African American) 95.4 ml/min
[2022-11-07] MEDS ORDERED: DEXTROSE 50% 50 ML SYRINGE IV STA (11:02)
[2022-11-07] MEDS: MAGNESIUM SULFATE / D5W 1 GM/100 ML BAG IV SCH ×2 (11:32→13:41)
[2022-11-07] MEDS: D5NSS + 20MEQ KCL 20 MEQ/1,000 ML BAG IV SCH (14:33)
--- NOTE | 2022-11-07 15:12 | Hospitalist Progress Note ---
Date of Service November 07, 2022 Assessment & Plan (1) SBO (small bowel obstruction): Plan: likely 2nd to adhesions has had SBO in the past she had a surgery in the and during such had KAR[facility] Transition point left lower quadrant on admission CT remains on NG tube gen surg managing; appreciate their assistance cont IV fluids, pain meds, etc repeat labs am (2) Hypomagnesemia: Plan: mag sulfate 2gm IV x 1 repeat level am (3) Chronic insomnia: Plan: takes clonazepam for such on regular basis at HS schedule ativan 0.5mg HS to prevent withdrawal (4) Multiple sclerosis: Plan: Multiple sclerosis/rheumatoid arthritis Chronic and stable Usual meds - Sertraline, topiramate, modafinil and clonazepam - on hold resume when able (5) Hypoglycemia: Plan: 2nd to fasting state D50 x 1 given then added D5 to basal fluids BSG following the hypoglycemia showed resolution (6) Vitamin D deficiency: Plan: 25-OH vit D 2021 was wnl can resume supplementation once taking PO again (7) B12 deficiency: Plan: B12 level 2021 wnl Very robust level then (>1000) (8) Anxiety and depression: Plan: Try to resume SSRI to prevent SSRI withdrawal Perhaps give during a clamp trial (9) GERD (gastroesophageal reflux disease): Plan: Cont Pantoprazole (10) Delayed gastric emptying: Plan: Recent GES with significant delayed emptying at 2 and 4 hours Following with GI Was told to follow a low fat, low fiber diet and small frequent meals per day 2nd to MS?? Plan DVT proph - heparin 5000 BID and daughter updated at bedside Admission and Anticipated Discharge Date Admission Date: November 03, 2022 Subjective patient had nausea after NG tube clamp trial very little flatus passage - passed some last pm but none today no vomiting when NG tube was clamped denies abd pain is walking the halls with no dyspnea no chest pain denies sore throat from NG tube pt reports taking clonazepam on a fairly regular basis at bedtime for several years Review of Systems Review of Systems: gen - no fevers cv - no orthopnea pulm - no cough Physical Exam Physical Exam: gen - NAD, nontoxic, pleasant mouth - MMM nose - NG tube in place neck - no JVD heart - RRR, s1 s2, no murmur lungs - CTA b/l abd - soft NT BS+; slightly distended; no peritoneal signs ext - no edema, pulses 2+ b/l Results & Data Results & Data Vital Signs (Past 12 Hours) Vital Signs Temp Pulse Resp BP Pulse Ox O2 Del Method 11/07/22 07:04 36.5 C 63 16 152/72 H 92 Room Air Laboratory Results Laboratory Results - last 24 hr 11/07/22 11/07/22 06:02 06:02 WBC 2.93 L RBC 4.06 L Hgb 13.2 Hct 38.7 MCV 95.3 MCH 32.5 MCHC 34.1 RDW Std Deviation 42.7 RDW Coeff of Satya 12.2 Plt Count 149 MPV 9.4 Sodium 139 Potassium 4.3 Chloride 103 Carbon Dioxide 17 L Anion Gap 19 H BUN 8 Creatinine 0.51 L Est Cr Clr Drug Dosing 88.4 Est GFR ( Amer) 110.6 Est GFR (Non-Af Amer) 95.4 BUN/Creatinine Ratio 15.7 Glucose 52 L* Calcium 8.9 Magnesium 1.6 L PG Care Time/CCT Total # of Minutes Spent Total Time Spent with Patient: Total time spent is greater than 50% in coordination of care (as documented) at patient's floor/unit and/or counseling patient: Coding Level of Care Code 66412 SUB INP/OBS CARE 2/35MIN Diagnoses SBO (small bowel obstruction) K56.609 Hypomagnesemia E83.42 Chronic insomnia F51.04 Multiple sclerosis G35 Hypoglycemia E16.2 Vitamin D deficiency E55.9 B12 deficiency E53.8 Anxiety and depression F41.9; F32.9 GERD (gastroesophageal reflux disease) K21.9 Delayed gastric emptying K30
[2022-11-07] MEDS: KETOROLAC TROMETHAMINE 15 MG/ML VIAL IV PRN (19:34)
[2022-11-08] MEDS: D5NSS + 20MEQ KCL 20 MEQ/1,000 ML BAG IV SCH ×3 (00:30→22:26)
[2022-11-08] MEDS: ONDANSETRON INJ 2 MG/ML 2 ML VIAL IV PRN ×4 (02:04→23:01)
--- NOTE | 2022-11-08 05:35 | Surgery Progress Note ---
Date of Service November 08, 2022 Assessment & Plan (1) SBO (small bowel obstruction): Plan: Patient has been admitted on the medical service. We recommend proceeding as follows: Continue NG tube for the present time as patient reported some intermittent nausea with NG tube clamped and she is only passing small amounts of flatus. Maintain n.p.o. status. Continue IV fluids until oral intake can be advanced and deemed to be adequate Continue analgesics as needed Provide antiemetics as needed Continue antibiotics in the form of Zosyn Ambulation has been encouraged A.m. labs have been ordered and are pending. Check these once available Plans noted for potential GI evaluation as an outpatient Subcutaneous heparin is in place for DVT prevention Admission and Anticipated Discharge Date Admission Date: November 03, 2022 Supervising Physician Co-Signing Physician Notes Dr. Antunezpatient is passing more flatus, abdomen is flat and soft and she does have some bowel sounds We will give her a dose of mineral oil per NG tube and clamp, will leave NG tube for now May continue PPN if unable to take p.o. over the next 24 to 48 hours Subjective Patient is resting comfortably in bed. The patient notes that she did have some intermittent nausea when her NG tube was clamped yesterday which did seem to respond to Zofran. She continues to have a cramp-like abdominal pain in her mid abdomen. She says she is passing only small amounts of flatus and has not had a bowel movement since admission. Physical Exam Gastrointestinal (Abdomen): Abdomen is soft and nondistended. There is no rebound tenderness or guarding but she did exhibit some pain with palpation in the mid abdomen. NG tube is in place and is drained approximately 250 cc over the past 24 hours. Results & Data Vital Signs (Past 12 Hours) Vital Signs Temp Pulse Resp BP BP Pulse Ox O2 Del Method 11/07/22 21:54 36.8 C 63 16 183/73 H 179/74 H 96 Room Air PG Care Time/CCT Total # of Minutes Spent Total Time Spent with Patient: Total time spent is greater than 50% in coordination of care (as documented) at patient's floor/unit and/or counseling patient: Coding Level of Care Code 09119 SUB INP/OBS CARE 25MIN Diagnoses SBO (small bowel obstruction) K56.609
[2022-11-08] MEDS: PIPERACILLIN/TAZOBACTAM 4.5 GM in DEXTROSE 5% 100 ML IV SCH ×2 (06:09→14:57)
[2022-11-08] MEDS: HYDROmorphone INJ 0.5 MG/0.5 ML SYR IV PRN ×5 (06:10→23:56)
[2022-11-08] MEDS ORDERED: MINERAL OIL 30 ML UDC PO ONE (06:21)
[2022-11-08 06:45] LABS: Basophils # (auto) 0.02 K/uL (0-0.2); Basophils % (auto) 0.7 %; Eosinophils # (auto) 0.11 K/uL (0-0.50); Hematocrit (blood only) 38.5 % (37.0-47.0); Hemoglobin 13.6 g/dl (12.0-16.0); Lymphocytes # (auto) 0.92 K/uL (1.2-3.4); Lymphocytes % (auto) 33.7 %; Mean Corpuscular Hemoglobin 32.7 pg (25.0-34.0); Mean Corpuscular Hgb Conc 35.3 g/dL (32.0-36.0); Mean Corpuscular Volume 92.5 fL (80.0-100.0); Monocytes # (auto) 0.32 K/uL (0.11-0.59); Monocytes % (auto) 11.7 %; Neutrophils # (auto) 1.36 K/uL (1.40-6.50); Neutrophils % (auto) 49.9 %; Platelet Count 136 K/uL (130-400); RDW Coefficient of Variation 12.4 % (11.5-14.5); RDW Standard Deviation 41.9 fL (36.4-46.3); Red Blood Count 4.16 M/uL (4.20-5.40); White Blood Count 2.73 K/ul (4.8-10.8)
[2022-11-08 07:08] LABS: BUN Creatinine Ratio 10.4 (10-20); Calcium 8.9 mg/dl (8.6-10.3); Creatinine Clr Calc Pharmacy 93.9 ml/min; Est GFR (African American) 112.8 ml/min; Est GFR (Non-African American) 97.3 ml/min; Magnesium 1.7 mg/dl (1.7-2.4)
[2022-11-08] MEDS ORDERED: MAGNESIUM SULFATE / D5W 1 GM/100 ML BAG IV ONE (08:53)
[2022-11-08] MEDS: SENNOSIDES 8.8 MG/5 ML UDC PO SCH ×2 (09:31→20:43)
[2022-11-08] MEDS: HEPARIN SOD 5,000 UNIT/0.5 ML VIAL SQ SCH ×2 (09:31→20:42)
[2022-11-08] MEDS: PANTOprazole 40 MG in SYRINGE 0 ML IV SCH (10:37)
--- NOTE | 2022-11-08 14:35 | Hospitalist Progress Note ---
Date of Service November 08, 2022 Assessment & Plan (1) SBO (small bowel obstruction): Plan: likely 2nd to adhesions has had SBO in the past she had a surgery in the and during such had lysis of adhesions Transition point left lower quadrant on admission CT remains on NG tube with NG tube clamping trials ongoing gen surg managing; appreciate their assistance cont IV fluids, pain meds, etc repeat labs am noted that K and mag levels today are wnl hopefully she will open up soon (2) Hypomagnesemia: Plan: repleted improved repeat level am (3) Chronic insomnia: Plan: takes clonazepam for such on regular basis at HS schedule ativan 0.5mg HS to prevent withdrawal (4) Multiple sclerosis: Plan: Multiple sclerosis/rheumatoid arthritis Chronic and stable Usual meds - Sertraline, topiramate, modafinil and clonazepam - have been on hold Has been on high dose zoloft for 20+ years and thus will experience withdrawal if it is held any longer thus, resume zoloft 100mg BID -- give during clamp trials (5) Hypoglycemia: Plan: resolved with addition of dextrose in fluids (6) Vitamin D deficiency: Plan: 25-OH vit D 2021 was wnl can resume supplementation once taking PO again (7) B12 deficiency: Plan: B12 level 2021 wnl Very robust level then (>1000) (8) Anxiety and depression: Plan: resume zoloft today (9) GERD (gastroesophageal reflux disease): Plan: Cont Pantoprazole IV (10) Delayed gastric emptying: Plan: Recent GES with significant delayed emptying at 2 and 4 hours Following with GI Was told to follow a low fat, low fiber diet and small frequent meals per day 2nd to MS?? Plan DVT proph - heparin 5000 BID updated at bedside again today Admission and Anticipated Discharge Date Admission Date: November 03, 2022 Subjective passing a little more flatus today but still not robust amount no stool during clamp trials still some nausea but not as bad as previous days we resumed her zoloft - she has been on such for 20+ years - and when she took it during a clamp trial it caused dyspepsia no vomiting fortunately during clamp trials still some mild LLQ abd pain no dyspnea no [place] no cp Review of Systems Review of Systems: cv - no orthopnea pulm - no cough HENT - no sore throat Physical Exam Physical Exam: gen - NAD, nontoxic, pleasant, lying flat in bed comfortably mouth - MMM nose - NG tube in place draining bilious liquid neck - no JVD heart - RRR, s1 s2, no murmur lungs - CTA b/l abd - soft NT BS+; modestly distended - perhaps slightly better than yesterday; no peritoneal signs ext - no edema, pulses 2+ b/l Results & Data Results & Data Vital Signs (Past 12 Hours) Vital Signs Temp Pulse Resp BP Pulse Ox O2 Del Method 11/08/22 07:25 36.5 C 65 16 151/82 H 93 Room Air Laboratory Results Laboratory Results - last 24 hr 11/07/22 11/08/22 11/08/22 15:13 06:18 06:18 WBC 2.73 L RBC 4.16 L Hgb 13.6 Hct 38.5 MCV 92.5 MCH 32.7 MCHC 35.3 RDW Std Deviation 41.9 RDW Coeff of Satya 12.4 Plt Count 136 MPV 9.0 L Immature Gran % (Auto) 0.0 Neut % (Auto) 49.9 Lymph % (Auto) 33.7 [place] % (Auto) 11.7 Eos % (Auto) 4.0 Baso % (Auto) 0.7 Neut # (Auto) 1.36 L Lymph # (Auto) 0.92 L [place] # (Auto) 0.32 Eos # (Auto) 0.11 Baso # (Auto) 0.02 Immature Gran # (Auto) 0.00 L Sodium 140 Potassium 4.0 Chloride 107 Carbon Dioxide 28 Anion Gap 5 BUN 5 L Creatinine 0.48 L Est Cr Clr Drug Dosing 93.9 Est GFR ( Amer) 112.8 Est GFR (Non-Af Amer) 97.3 BUN/Creatinine Ratio 10.4 Glucose 140 H POC Glucose 94 Calcium 8.9 Magnesium 1.7 PG Care Time/CCT Total # of Minutes Spent Total Time Spent with Patient: Total time spent is greater than 50% in coordination of care (as documented) at patient's floor/unit and/or counseling patient: Coding Level of Care Code 66948 SUB INP/OBS CARE 25MIN Diagnoses SBO (small bowel obstruction) K56.609 Hypomagnesemia E83.42 Chronic insomnia F51.04 Multiple sclerosis G35 Hypoglycemia E16.2 Vitamin D deficiency E55.9 B12 deficiency E53.8 Anxiety and depression F41.9; F32.9 GERD (gastroesophageal reflux disease) K21.9 Delayed gastric emptying K30
[2022-11-08] MEDS: SERTRALINE HCL 100 MG TABLET PO SCH ×2 (15:07→20:43)
[2022-11-08] MEDS: KETOROLAC TROMETHAMINE 15 MG/ML VIAL IV PRN (16:42)
[2022-11-08] MEDS: LORazepam 2 MG/1 ML VIAL IV SCH (20:43)
[2022-11-09] MEDS: ONDANSETRON INJ 2 MG/ML 2 ML VIAL IV PRN ×4 (05:38→22:23)
[2022-11-09] MEDS: HYDROmorphone INJ 0.5 MG/0.5 ML SYR IV PRN ×4 (05:38→20:15)
--- NOTE | 2022-11-09 10:29 | Surgery Progress Note ---
Date of Service November 09, 2022 Assessment & Plan (1) SBO (small bowel obstruction): Plan: 72-year-old woman with small bowel obstruction. She has had prior small bowel obstruction in the past. She has a normal white count and no fever. avss abdomen is soft but still having pain No distention Passing flatus Plan: We will obtain a UGI small bowel follow-through today Continue conservative management encouraged oob to chair and ambulate hallway to increase gi motility pain management as needed will need outpatient GI follow-up as she may have decreased GI motility (history of getting SBFT during last SBO and then repeat imaging few weeks later showed retained contrast per patient) Admission and Anticipated Discharge Date Admission Date: November 03, 2022 Subjective Doing okay this morning. Passing small amounts of flatus. Still complains of some pain in her left lower quadrant. Denies nausea or vomiting. NG tube is clamped currently. Physical Exam Gastrointestinal (Abdomen): Inspection/Auscultation: abdomen normal to inspection and + hypoactive bowel sounds; abdomen not distended Percussion/Palpation: + abdomen tender (LUQ) and abdomen soft; no guarding and abdomen not rigid Results & Data Vital Signs (Past 12 Hours) Vital Signs Temp Pulse Resp BP Pulse Ox O2 Del Method 11/09/22 07:30 36.8 C 71 16 178/76 H 98 Room Air
[2022-11-09 11:02] LABS: Basophils # (auto) 0.01 K/uL (0-0.2); Basophils % (auto) 0.4 %; Eosinophils # (auto) 0.03 K/uL (0-0.50); Eosinophils % (auto) 1.2 %; Hematocrit (blood only) 38.4 % (37.0-47.0); Hemoglobin 13.4 g/dl (12.0-16.0); Lymphocytes # (auto) 0.87 K/uL (1.2-3.4); Lymphocytes % (auto) 35.4 %; Mean Corpuscular Hemoglobin 32.7 pg (25.0-34.0); Mean Corpuscular Hgb Conc 34.9 g/dL (32.0-36.0); Mean Corpuscular Volume 93.7 fL (80.0-100.0); Mean Platelet Volume 9.2 fL (9.4-12.4); Monocytes # (auto) 0.25 K/uL (0.11-0.59); Monocytes % (auto) 10.2 %; Neutrophils % (auto) 52.8 %; Platelet Count 123 K/uL (130-400); RDW Coefficient of Variation 12.6 % (11.5-14.5); RDW Standard Deviation 43.6 fL (36.4-46.3); White Blood Count 2.46 K/ul (4.8-10.8)
[2022-11-09 11:16] LABS: BUN Creatinine Ratio 9.3 (10-20); Calcium 9.2 mg/dl (8.6-10.3); Creatinine Clr Calc Pharmacy 104.8 ml/min; Est GFR (African American) 116.9 ml/min; Est GFR (Non-African American) 100.9 ml/min; Magnesium 1.5 mg/dl (1.7-2.4); Potassium 4.1 mmol/L (3.5-5.1)
[2022-11-09] MEDS: D5NSS + 20MEQ KCL 20 MEQ/1,000 ML BAG IV SCH ×2 (12:07→17:14)
[2022-11-09] MEDS: SERTRALINE HCL 100 MG TABLET PO SCH (12:09)
[2022-11-09] MEDS: HEPARIN SOD 5,000 UNIT/0.5 ML VIAL SQ SCH ×2 (12:10→20:16)
[2022-11-09] MEDS ORDERED: TPN/PPN CONSULT PHARMACY PRN (12:13)
[2022-11-09] MEDS: PANTOprazole 40 MG in SYRINGE 0 ML IV SCH (12:15)
[2022-11-09] MEDS: SENNOSIDES 8.8 MG/5 ML UDC PO SCH ×3 (12:15→20:16)
[2022-11-09] MEDS ORDERED: TPN/PPN CONSULT PHARMACY STA (12:17)
--- NOTE | 2022-11-09 12:53 | Fluoroscopy Report ---
[place] small bowel follow through CLINICAL HISTORY: Small bowel obstruction. Follow-up. COMPARISON STUDY: Abdomen and pelvis CT 11/03/2022. Fluoroscopy: None. FINDINGS: Monument Setter images demonstrate a nasogastric tube within the stomach. There are multiple surgical clips within the pelvis and a right total arthroplasty. A total of 600 cc of one-to-one mixture of O ptiray 320 and water were placed through the indwelling nasogastric tube. There are few prominent loo ps of small bowel within the left side of the abdomen. However, contrast reaches the colon at 40 marcela srinivas. Therefore, no evidence for a small bowel obstruction. At most, this could represent a low-grade partial small bowel obstruction. The terminal ileum appears normally distensible. IMPRESSION: There are few prominent loops of small bowel within the left side of the abdomen. Howeve r, contrast reaches the colon at 40 minutes. Therefore, no evidence for a high-grade small bowel obst ruction. At most, this could represent a low-grade partial small bowel obstruction. ACT 112: Negative or not required by law. Electronically signed by: Andreas Tavera M.D. 11/09/2022 12:52 PM
[2022-11-09 13:29] LABS: Bilirubin,Total 0.4 mg/dl (0.2-1.0); Phosphorus 3.2 mg/dl (2.5-4.9)
[2022-11-09] MEDS ORDERED: MAGNESIUM SULFATE / D5W 1 GM/100 ML BAG IV ONE (13:30)
--- NOTE | 2022-11-09 14:42 | Hospitalist Progress Note ---
Date of Service November 09, 2022 Assessment & Plan (1) SBO (small bowel obstruction): Plan: likely 2nd to adhesions has had SBOs in the past she had a surgery in the and during such had lysis of adhesions Transition point left lower quadrant on admission CT remains on NG tube with NG tube clamping trials ongoing gen surg managing NG tube; appreciate their assistance today underwent upper GI series with SBFT contrast reached the colon in 40 minutes thus, SBO resolving gen surg to potentially allow clears later today in the event intake of clears does not go well will provide PPN overnight pharmacy consult placed stop IV fluids once PPN is hung repeat labs in am (2) Abnormal LFTs (liver function tests): Plan: LFTs were normal at time of admission on 11/03/22 now AST/ALT/alk phos all mildly elevated acute liver injury 2nd to recent zosyn use? (was on such until yesterday) viral process given the low WBC count and low platelets? other? plan - repeat LFTs am, repeat CBC am, liver/GB ultrasound ordered (3) Thrombocytopenia: Plan: etiology uncertain viral? reactive? due to recent antibiotics (zosyn)? other? repeat CBC am (4) Neutropenia: Plan: her WBC count is chronically low but now she has very mild neutropenia etiology uncertain repeat CBC with diff AM if any worsening add neutropenic precautions if any worsening consider w/u for viral process (BioFire panel, CMV/EBV, other tests) (5) Celiac artery stenosis: Plan: known diagnosis high-grade 90% [facility] following it does seem she is having chronic symptoms from such (post-prandial pain for several months) will need to get back to [facility] shortly after d/c (6) Delayed gastric emptying: Plan: Recent GES with significant delayed emptying at 2 and 4 hours Following with [facility] Was told to follow a low fat, low fiber diet and small frequent meals per day 2nd to MS?? other etiology? (7) Multiple sclerosis: Plan: Multiple sclerosis/rheumatoid arthritis Chronic and stable Usual meds - Sertraline, topiramate, modafinil and clonazepam - have been on hold Has been on high dose zoloft for 20+ years and thus will experience withdrawal if it is held any longer thus, resumed zoloft 100mg BID -- give during clamp trials HOWEVER - unable to tolerate - after taking it several times yesterday/today it is causing abd pain will place on hold again (8) Hypomagnesemia: Plan: repleted improved now low again will have mag sulfate repletion in her PPN repeat level am (9) Chronic insomnia: Plan: takes clonazepam for such on regular basis at HS cont scheduled ativan 0.5mg HS to prevent withdrawal (10) Hypoglycemia: Plan: resolved with addition of dextrose in fluids (11) Vitamin D deficiency: Plan: 25-OH vit D 2021 was wnl can resume supplementation once taking PO again (12) B12 deficiency: Plan: B12 level 2021 wnl Very robust level then (>1000) (13) Anxiety and depression: Plan: attempted to resume zoloft but she couldn't tolerate it thus, place it back on hold (14) GERD (gastroesophageal reflux disease): Plan: Cont Pantoprazole IV Plan DVT proph - heparin 5000 BID updated at bedside again today care d/w gen surgery Admission and Anticipated Discharge Date Admission Date: November 03, 2022 Subjective passing perhaps a little more flatus overnight/today in comparison to previous days still no stool had NG tube clamped all night this am she had nausea underwent upper GI with SBFT when she returned from such, due to nausea, NG tube placed back to ILWS a large amount of fluid returned after such I saw her in the afternoon NG tube was still on suction no fluid was being suctioned during the visit patient reports she continues with mild LLQ abd pain no upper abd pain she mentions she follows with Ms Aundrea Becerril at [facility] in [place] they are aware of her celiac artery stenosis and recent dx of gastroparesis she has f/u with Ms Becerril coming up soon patient does state she gets abd pain fairly regularly after she eats - typically 1-2 hours post-eating also with chronic nausea after eating Review of Systems Review of Systems: gen - no fevers, feels tired - but able to walk in hallways cv - no chest pain pulm - no dyspnea GI - see HPI Physical Exam Physical Exam: gen - NAD, nontoxic, looks tired today mouth - MMM nose - NG tube in place - no fluid in the tubing neck - no JVD heart - RRR, s1 s2, no murmur lungs - CTA b/l abd - soft BS+; distension unchanged; minimal tenderness LLQ ext - no edema, pulses 2+ b/l Results & Data Results & Data Vital Signs (Past 12 Hours) Vital Signs Temp Pulse Resp BP Pulse Ox O2 Del Method 11/09/22 07:30 36.8 C 71 16 178/76 H 98 Room Air Laboratory Results Laboratory Results - last 24 hr 11/09/22 11/09/22 10:41 10:41 WBC 2.46 L RBC 4.10 L Hgb 13.4 Hct 38.4 MCV 93.7 MCH 32.7 MCHC 34.9 RDW Std Deviation 43.6 RDW Coeff of Satya 12.6 Plt Count 123 L MPV 9.2 L Immature Gran % (Auto) 0.0 Neut % (Auto) 52.8 Lymph % (Auto) 35.4 [place] % (Auto) 10.2 Eos % (Auto) 1.2 Baso % (Auto) 0.4 Neut # (Auto) 1.30 L Lymph # (Auto) 0.87 L [place] # (Auto) 0.25 Eos # (Auto) 0.03 Baso # (Auto) 0.01 Immature Gran # (Auto) 0.00 L Sodium 140 Potassium 4.1 Chloride 104 Carbon Dioxide 31 Anion Gap 5 BUN 4 L Creatinine 0.43 L Est Cr Clr Drug Dosing 104.8 Est GFR ( Amer) 116.9 Est GFR (Non-Af Amer) 100.9 BUN/Creatinine Ratio 9.3 L Glucose 115 H Calcium 9.2 Phosphorus 3.2 Magnesium 1.5 L Total Bilirubin 0.4 AST 94 H ALT 105 H Alkaline Phosphatase 190 H Triglycerides 172 H PG Care Time/CCT Total # of Minutes Spent Total Time Spent with Patient: Total time spent is greater than 50% in coordination of care (as documented) at patient's floor/unit and/or counseling patient: Coding Level of Care Code 44195 SUB INP/OBS CARE 2/35MIN Diagnoses SBO (small bowel obstruction) K56.609 Abnormal LFTs (liver function tests) R79.89 Thrombocytopenia D69.6 Neutropenia D70.9 Celiac artery stenosis I77.1 Delayed gastric emptying K30 Multiple sclerosis G35 Hypomagnesemia E83.42 Chronic insomnia F51.04 Hypoglycemia E16.2 Vitamin D deficiency E55.9 B12 deficiency E53.8 Anxiety and depression F41.9; F32.9 GERD (gastroesophageal reflux disease) K21.9
--- NOTE | 2022-11-09 15:11 | Pharmacy Report ---
Pharmacy PN Initial Consult - Date of Service November 09, 2022 - Scope Pharmacy has been consulted to manage parenteral nutrition orders and order appropriate labs. As part of the Nutrition Support Team guidelines, pharmacy will work in conjunction with dietary when determining the patients caloric needs. - Subjective The patient is a 72 year old F admitted on 11/03/22 20:52 for SBO. Patient is to receive parenteral nutrition for a small bowel obstruction leading to 7 days without oral intake. Pertinent PMH: * SBO x 3 (most recent 5 years ago) * RA * MS * GERD - Objective Height: 5 ft 5 in Weight: 59.1 kg Diet: NPO Intake & Output (Last 24Hrs): Intake & Output 11/07/22 11/08/22 11/09/22 11/10/22 06:59 06:59 06:59 06:59 Intake Total 2611.667 / 2611.667 3655.000 / 3655.000 2220 / 2220 1000 / 1000 Output Total 390 / 390 200 / 200 700 / 700 Balance 2221.667 / 2221.667 3630.000 / 3630.000 2019 / 2019 300 / 300 Weight 59.1 kg 59.1 kg Laboratory Data (Last 24 Hrs):: 11/09/22 10:41 Sodium 140 Potassium 4.1 Chloride 104 Carbon Dioxide 31 BUN 4 L Creatinine 0.43 L Glucose 115 H Calcium 9.2 Phosphorus 3.2 Magnesium 1.5 L Total Bilirubin 0.4 AST 94 H ALT 105 H Alkaline Phosphatase 190 H Triglycerides 172 H Nutrition Assessment:: Please refer to the Notes section of the EMR for the most recent blender/braze applicator note. - Assessment 11/09: * Received consult to initiate PPN in patient this afternoon. Consulted IV team to assess peripheral access and registered dietitian for help with macronutrient goals. * IV team okayed peripheral site per RN. Will place another peripheral line for other IV med administration. Appreciate assistance. * Spoke with RD who recommended starting day #1 macros lower then proceeding to goal macros on day #2. Appreciate assistance. * Electrolytes all within normal limits except for Magnesium. * Magnesium levels: 11/07-->1.6 mg/dL (received 2 g), 11/08-->1.7 mg/dL (received 1 g), 11/09: 1.5 mg/dL (received 1 g). Will replete in PPN bag as well today. * Transaminitis and hypertriglyceridemia present on this afternoons labs: * Possible causes of drug induced liver injury include Zosyn, Heparin and Zoloft. Rare that these medications are linked to DILI. * Alerted hospitalist. Will trend LFTs and and order Liver US. No need to hold any PPN components at this time. - Plan For day #1 of PPN administration, the following will be ordered: Macronutrients Amino acids 56 grams/day Dextrose 66 grams/day Lipids 50 grams/day Micronutrients Combined electrolytes 20 mL - contains 35 mEq Na, 20 meq K, 4.5 mEq Ca, 5 mEq Mg, 35 mEq Cl, 29.5 mEq acetate per 20 mL Sodium chloride 40 mEq Sodium acetate 20 mEq Potassium phosphate 9 mMol Potassium chloride 20 mEq Potassium acetate 20 mEq Magnesium sulfate 8.12 mEq Multivitamins 10 mL Trace Elements 1 mL Thiamine 100 mg Total volume 1403 mL to be infused over 24 hrs will provide 948.8 kcal/day Final osmolarity 889.98 mOsm/L (maximum for PPN is 900 mOsm/L) Labs to be ordered per PN order protocol Pharmacy will follow and adjust parenteral nutrition orders on a daily basis. Thank you.
[2022-11-09] MEDS ORDERED: DEXTROSE 10% 1,000 ML IV PRN (16:00)
[2022-11-09] MEDS ORDERED: PERIPHERAL TPN IV SCH (16:00)
[2022-11-09] MEDS ORDERED: [UNRECOGNIZED DRUG - OTHER] IV SCH (16:00)
[2022-11-09] MEDS ORDERED: CLINOLIPID 20% IV FAT EMULSION 250 ML IV SCH (16:00)
[2022-11-09] MEDS: LORazepam 2 MG/1 ML VIAL IV SCH (20:27)
[2022-11-09] MEDS ORDERED: STOP CLINOLIPID SCH (22:00)
[2022-11-10] MEDS: HYDROmorphone INJ 0.5 MG/0.5 ML SYR IV PRN ×5 (00:23→22:41)
[2022-11-10] MEDS: ONDANSETRON INJ 2 MG/ML 2 ML VIAL IV PRN ×4 (04:19→22:41)
--- NOTE | 2022-11-10 08:04 | Ultrasound Report ---
ABDOMINAL ULTRASOUND, RIGHT UPPER QUADRANT HISTORY: acutely elevated LFTs. COMPARISON: Abdomen and pelvis CT 11/03/2022. FINDINGS: Pancreas: The pancreas demonstrates a normal echotexture. Liver: Unremarkable. Gallbladder: No gallbladder wall thickening. No gallstones. Suggestion of trace sludge within the gal lbladder. CBD: 4 mm. Right kidney: No hydronephrosis. There is 1.7 cm cyst. There is a 4 mm echogenic focus within the mid cortex. This could represent an area of scarring. There is a 3 mm lower pole stone. IMPRESSION: 1. Possible trace gallbladder sludge. No gallbladder wall thickening or gallstones. 2. Right-sided nephrolithiasis. No hydronephrosis. ACT 112: Negative or not required by law. Electronically signed by: Andreas Tavera M.D. 11/10/2022 7:57 AM
[2022-11-10 08:18] LABS: Basophils # (auto) 0.01 K/uL (0-0.2); Basophils % (auto) 0.2 %; Eosinophils # (auto) 0.03 K/uL (0-0.50); Eosinophils % (auto) 0.6 %; Hematocrit (blood only) 38.4 % (37.0-47.0); Hemoglobin 13.4 g/dl (12.0-16.0); Lymphocytes # (auto) 1.22 K/uL (1.2-3.4); Lymphocytes % (auto) 23.8 %; Mean Corpuscular Hemoglobin 32.5 pg (25.0-34.0); Mean Corpuscular Hgb Conc 34.9 g/dL (32.0-36.0); Mean Corpuscular Volume 93.2 fL (80.0-100.0); Mean Platelet Volume 9.8 fL (9.4-12.4); Monocytes # (auto) 0.43 K/uL (0.11-0.59); Monocytes % (auto) 8.4 %; Neutrophils # (auto) 3.44 K/uL (1.40-6.50); Platelet Count 133 K/uL (130-400); RDW Coefficient of Variation 12.4 % (11.5-14.5); RDW Standard Deviation 42.8 fL (36.4-46.3); Red Blood Count 4.12 M/uL (4.20-5.40); White Blood Count 5.13 K/ul (4.8-10.8)
[2022-11-10 08:31] LABS: BUN Creatinine Ratio 22.5 (10-20); Bilirubin,Total 0.5 mg/dl (0.2-1.0); Calcium 9.2 mg/dl (8.6-10.3); Creatinine Clr Calc Pharmacy 112.7 ml/min; Est GFR (African American) 119.8 ml/min; Est GFR (Non-African American) 103.3 ml/min; Magnesium 1.9 mg/dl (1.7-2.4); Phosphorus 4.1 mg/dl (2.5-4.9); Potassium 4.3 mmol/L (3.5-5.1); Total Protein 6.2 gm/dl (6.0-8.3)
[2022-11-10] MEDS: SENNOSIDES 8.8 MG/5 ML UDC PO SCH ×2 (08:35→20:09)
[2022-11-10] MEDS: HEPARIN SOD 5,000 UNIT/0.5 ML VIAL SQ SCH ×2 (08:35→20:09)
--- NOTE | 2022-11-10 10:00 | Surgery Progress Note ---
Date of Service November 10, 2022 Assessment & Plan (1) SBO (small bowel obstruction): Plan: 72-year-old woman with small bowel obstruction. She has had prior small bowel obstruction in the past. She has a normal white count and no fever. avss abdomen is soft but still having pain No distention Passing flatus UGI SBFT normal yesterday Plan: remove NGT; advance diet as tolerated Continue conservative management encouraged oob to chair and ambulate hallway to increase gi motility pain management as needed will need outpatient GI follow-up as she may have decreased GI motility (history of getting SBFT during last SBO and then repeat imaging few weeks later showed retained contrast per patient) Admission and Anticipated Discharge Date Admission Date: November 03, 2022 Subjective doing ok this am. passing flatus and small BM. no fevers. some left sided abdominal pain Physical Exam Gastrointestinal (Abdomen): Inspection/Auscultation: abdomen normal to inspection and + hypoactive bowel sounds; abdomen not distended Percussion/Palpation: + abdomen tender (LUQ) and abdomen soft; no guarding and abdomen not rigid Results & Data Vital Signs (Past 12 Hours) Vital Signs Temp Pulse Resp BP Pulse Ox O2 Del Method 11/10/22 07:18 36.7 C 77 18 150/77 H 94 Room Air
[2022-11-10] MEDS: PANTOprazole 40 MG in SYRINGE 0 ML IV SCH (11:31)
[2022-11-10] MEDS ORDERED: PERIPHERAL TPN IV SCH (16:00)
[2022-11-10] MEDS ORDERED: CLINOLIPID 20% IV FAT EMULSION 250 ML IV SCH (16:00)
[2022-11-10] MEDS ORDERED: [UNRECOGNIZED DRUG - OTHER] IV SCH (16:00)
[2022-11-10] MEDS: LORazepam 2 MG/1 ML VIAL IV SCH (20:05)
[2022-11-10] MEDS: STOP CLINOLIPID SCH (22:00)
--- NOTE | 2022-11-10 22:56 | Hospitalist Progress Note ---
Date of Service November 10, 2022 Assessment & Plan (1) SBO (small bowel obstruction): Plan: likely 2nd to adhesions has had SBOs in the past she had a surgery in the and during such had lysis of adhesions Transition point left lower quadrant on admission CT remains on NG tube with NG tube clamping trials ongoing gen surg managing NG tube; appreciate their assistance today underwent upper GI series with SBFT contrast reached the colon in 40 minutes thus, SBO resolving gen surg to potentially allow clears later today in the event intake of clears does not go well will provide PPN overnight pharmacy consult placed PPN placed. Patient is passing gas, and smal loose BM. NG tube is clamped on 11/10 will monitor (2) Abnormal LFTs (liver function tests): Plan: LFTs were normal at time of admission on 11/03/22 now AST/ALT/alk phos all mildly elevated acute liver injury 2nd to recent zosyn use? (was on such until yesterday) viral process given the low WBC count and low platelets? other? plan - repeat LFTs am, repeat CBC am, liver/GB ultrasound ordered (3) Thrombocytopenia: Plan: etiology uncertain viral? reactive? due to recent antibiotics (zosyn)? other? repeat CBC am (4) Neutropenia: Plan: her WBC count is chronically low but now she has very mild neutropenia etiology uncertain repeat CBC with diff AM if any worsening add neutropenic precautions if any worsening consider w/u for viral process (BioFire panel, CMV/EBV, other tests) (5) Celiac artery stenosis: Plan: known diagnosis high-grade 90% [facility] following it does seem she is having chronic symptoms from such (post-prandial pain for several months) will need to get back to [facility] shortly after d/c (6) Delayed gastric emptying: Plan: Recent GES with significant delayed emptying at 2 and 4 hours Following with [facility] Was told to follow a low fat, low fiber diet and small frequent meals per day 2nd to MS?? other etiology? (7) Multiple sclerosis: Plan: Multiple sclerosis/rheumatoid arthritis Chronic and stable Usual meds - Sertraline, topiramate, modafinil and clonazepam - have been on hold Has been on high dose zoloft for 20+ years and thus will experience withdrawal if it is held any longer thus, resumed zoloft 100mg BID -- give during clamp trials HOWEVER - unable to tolerate - after taking it several times yesterday/today it is causing abd pain will place on hold again (8) Hypomagnesemia: Plan: repleted improved now low again will have mag sulfate repletion in her PPN repeat level am (9) Chronic insomnia: Plan: takes clonazepam for such on regular basis at HS cont scheduled ativan 0.5mg HS to prevent withdrawal (10) Hypoglycemia: Plan: resolved with addition of dextrose in fluids (11) Vitamin D deficiency: Plan: 25-OH vit D 2021 was wnl can resume supplementation once taking PO again (12) B12 deficiency: Plan: B12 level 2021 wnl Very robust level then (>1000) (13) Anxiety and depression: Plan: attempted to resume zoloft but she couldn't tolerate it thus, place it back on hold (14) GERD (gastroesophageal reflux disease): Plan: Cont Pantoprazole IV Plan DVT proph - heparin 5000 BID updated at bedside again today care d/w gen surgery Admission and Anticipated Discharge Date Admission Date: November 03, 2022 Subjective Patient reports passing gas and had 2 loose bowel movements. Patient is asking for a ice pad for her neck. Review of Systems Review of Systems: All systems reviewed & are unremarkable except as noted in HPI & below Physical Exam Physical Exam: gen - NAD, nontoxic, looks tired today mouth - MMM nose - NG tube in place - no fluid in the tubing neck - no JVD heart - RRR, s1 s2, no murmur lungs - CTA b/l abd - soft BS+; distension unchanged; minimal tenderness LLQ ext - no edema, pulses 2+ b/l Results & Data Results & Data Vital Signs (Past 12 Hours) Vital Signs Temp Pulse Resp BP BP Pulse Ox O2 Del Method 11/10/22 20:14 37.3 C 77 16 140/69 94 Room Air 11/10/22 15:36 37.1 C 71 18 145/71 H 90 Room Air PG Care Time/CCT Total # of Minutes Spent Total Time Spent with Patient: Total time spent is greater than 50% in coordination of care (as documented) at patient's floor/unit and/or counseling patient: Coding Level of Care Code 59036 SUB INP/OBS CARE 2/35MIN Diagnoses SBO (small bowel obstruction) K56.609 Abnormal LFTs (liver function tests) R79.89 Thrombocytopenia D69.6 Neutropenia D70.9 Celiac artery stenosis I77.1 Delayed gastric emptying K30 Multiple sclerosis G35 Hypomagnesemia E83.42 Chronic insomnia F51.04 Hypoglycemia E16.2 Vitamin D deficiency E55.9 B12 deficiency E53.8 Anxiety and depression F41.9; F32.9 GERD (gastroesophageal reflux disease) K21.9
[2022-11-11] MEDS: HYDROmorphone INJ 0.5 MG/0.5 ML SYR IV PRN ×2 (03:12→20:08)
[2022-11-11 07:04] LABS: BUN Creatinine Ratio 38.1 (10-20); Calcium 9.6 mg/dl (8.6-10.3); Creatinine Clr Calc Pharmacy 107.3 ml/min; Est GFR (African American) 117.9 ml/min; Est GFR (Non-African American) 101.7 ml/min; Phosphorus 4.1 mg/dl (2.5-4.9); Potassium 4.3 mmol/L (3.5-5.1)
[2022-11-11] MEDS: HEPARIN SOD 5,000 UNIT/0.5 ML VIAL SQ SCH ×2 (08:04→20:12)
[2022-11-11] MEDS: SENNOSIDES 8.8 MG/5 ML UDC PO SCH ×2 (08:04→20:11)
[2022-11-11] MEDS: PANTOprazole 40 MG in SYRINGE 0 ML IV SCH (11:23)
[2022-11-11] MEDS ORDERED: clonazePAM 1 MG TAB PO PRN (13:20)
[2022-11-11] MEDS ORDERED: oxyCODONE HCL IR 5 MG TAB (IMMEDIATE RELEASE) PO PRN (13:20)
--- NOTE | 2022-11-11 15:24 | Hospitalist Progress Note ---
Date of Service November 11, 2022 Assessment & Plan (1) SBO (small bowel obstruction): Plan: likely 2nd to adhesions has had SBOs in the past she had a surgery in the and during such had lysis of adhesions Transition point left lower quadrant on admission CT NG tube now removed and tolerating clears gen surg consult appreciated upper GI series with SBFT-contrast reached the colon in 40 minutes and no other abnormalities of significance noted -continue clears diet for today, advance as tolerated tomorrow -continue PPN again overnight given poor nutrition for last 7 days -follow CBC, CMP, Mag, Phos in AM (2) Abnormal LFTs (liver function tests): Plan: LFTs were normal at time of admission on 11/03/22 Then AST/ALT/alk phos all mildly elevated acute liver injury 2nd to recent zosyn use? (was on such initially) viral process given the low WBC count and low platelets? other? RUQ US trace GB sludge, otherwise negative plan - repeat LFTs am, repeat CBC am (3) Thrombocytopenia: Plan: etiology uncertain viral? reactive? due to recent antibiotics (zosyn)? other? repeat CBC am (4) Neutropenia: Plan: her WBC count is chronically low but now she has very mild neutropenia etiology uncertain repeat CBC with diff AM if any worsening add neutropenic precautions if any worsening consider w/u for viral process (BioFire panel, CMV/EBV, other tests) (5) Celiac artery stenosis: Plan: known diagnosis high-grade 90% [facility] following it does seem she is having chronic symptoms from such (post-prandial pain for several months) will need to get back to [facility] shortly after d/c (6) Delayed gastric emptying: Plan: Recent GES with significant delayed emptying at 2 and 4 hours Following with [facility] Was told to follow a low fat, low fiber diet and small frequent meals per day 2nd to MS?? other etiology? discussed reglan prn but not great candidate given MS and neuro issues advised taking miralax daily at home to keep bowels moving once daily-currently has BM q3-4 days at home (7) Multiple sclerosis: Plan: Multiple sclerosis/rheumatoid arthritis Chronic and stable Usual meds - Sertraline, topiramate, modafinil and clonazepam - have been on hold-restart all po meds but modafinil (8) Chronic insomnia: Plan: takes clonazepam for such on regular basis at HS dc ativan IV and restart home clonazepam hs (9) Vitamin D deficiency: Plan: 25-OH vit D 2021 was wnl can resume supplementation on discharge (10) B12 deficiency: Plan: B12 level 2021 wnl Very robust level then (>1000) (11) Anxiety and depression: Plan: restarted Zoloft, klonopin (12) GERD (gastroesophageal reflux disease): Plan: change Pantoprazole IV to po for tomorrow now that taking po Plan DVT proph - heparin 5000 BID and daughter updated at bedside today Dispo-hopefully home in 1-2 days aif tolerates advancement of diet Admission and Anticipated Discharge Date Admission Date: November 03, 2022 Subjective NGT removed this AM and started on clears diet. Had a large loose stool today, some mild nausea relieved with ZOfran. Some LLQ abd pain that is mild-moderate. Is ambulating halls often. Physical Exam Constitutional: WD/WN, vitals as above Respiratory: normal respiratory effort, lungs clear to auscultation Cardiovascular: RRR, no murmur, no edema Gastrointestinal (Abdomen): Inspection/Auscultation: + abdomen distended (only mild) and normal bowel sounds Percussion/Palpation: + abdomen tender (LLQ w/o guarding/rebound) and abdomen soft Psychiatric: A+Ox3, euthymic affect Results & Data Results & Data Vital Signs (Past 12 Hours) Vital Signs Temp Pulse Resp BP Pulse Ox O2 Del Method 11/11/22 14:44 36.6 C 83 16 136/72 95 Room Air 11/11/22 07:03 36.7 C 74 16 123/76 94 Room Air Laboratory Results BMP, magnesium levels reviewed PG Care Time/CCT Total # of Minutes Spent Total Time Spent with Patient: Total time spent is greater than 50% in coordination of care (as documented) at patient's floor/unit and/or counseling patient: Coding Level of Care Code 34916 SUB INP/OBS CARE 2/35MIN Diagnoses SBO (small bowel obstruction) K56.609 Abnormal LFTs (liver function tests) R79.89 Thrombocytopenia D69.6 Neutropenia D70.9 Celiac artery stenosis I77.1 Delayed gastric emptying K30 Multiple sclerosis G35 Chronic insomnia F51.04 Vitamin D deficiency E55.9 B12 deficiency E53.8 Anxiety and depression F41.9; F32.9 GERD (gastroesophageal reflux disease) K21.9
--- NOTE | 2022-11-11 15:43 | Surgery Progress Note ---
Date of Service November 11, 2022 Assessment & Plan (1) SBO (small bowel obstruction): Plan: 72-year-old woman with small bowel obstruction. She has had prior small bowel obstruction in the past. She has a normal white count and no fever. avss abdomen is soft but still having pain No distention Passing flatus UGI SBFT normal Plan: remove NGT; advance diet as tolerated Continue conservative management encouraged oob to chair and ambulate hallway to increase gi motility pain management as needed will need outpatient GI follow-up as she may have decreased GI motility (history of getting SBFT during last SBO and then repeat imaging few weeks later showed retained contrast per patient) Admission and Anticipated Discharge Date Admission Date: November 03, 2022 Subjective feeling ok; still some nausea. passing flatus and BM. Physical Exam Gastrointestinal (Abdomen): Inspection/Auscultation: abdomen normal to inspection and + hypoactive bowel sounds; abdomen not distended Percussion/Palpation: + abdomen tender (LUQ) and abdomen soft; no guarding and abdomen not rigid Results & Data Vital Signs (Past 12 Hours) Vital Signs Temp Pulse Resp BP Pulse Ox O2 Del Method 11/11/22 14:44 36.6 C 83 16 136/72 95 Room Air 11/11/22 07:03 36.7 C 74 16 123/76 94 Room Air
[2022-11-11] MEDS ORDERED: PERIPHERAL TPN IV SCH (16:00)
[2022-11-11] MEDS ORDERED: [UNRECOGNIZED DRUG - OTHER] IV SCH (16:00)
[2022-11-11] MEDS ORDERED: CLINOLIPID 20% IV FAT EMULSION 250 ML IV SCH (16:00)
[2022-11-11] MEDS: ASPIRIN 81 MG ECTAB PO SCH (20:11)
[2022-11-11] MEDS: TOPIRAMATE 50 MG TAB PO SCH (20:11)
[2022-11-11] MEDS: STOP CLINOLIPID SCH (22:08)
[2022-11-12] MEDS: HYDROmorphone INJ 0.5 MG/0.5 ML SYR IV PRN ×2 (00:27→20:09)
[2022-11-12] MEDS: SENNOSIDES 8.8 MG/5 ML UDC PO SCH ×2 (08:05→20:10)
[2022-11-12] MEDS: PANTOprazole 40 MG TAB PO SCH (08:05)
[2022-11-12] MEDS: HEPARIN SOD 5,000 UNIT/0.5 ML VIAL SQ SCH ×2 (08:05→20:09)
[2022-11-12] MEDS: TOPIRAMATE 50 MG TAB PO SCH ×2 (08:05→20:10)
[2022-11-12 09:01] LABS: Basophils # (auto) 0.02 K/uL (0-0.2); Basophils % (auto) 0.4 %; Eosinophils # (auto) 0.08 K/uL (0-0.50); Eosinophils % (auto) 1.8 %; Hematocrit (blood only) 39.7 % (37.0-47.0); Hemoglobin 13.6 g/dl (12.0-16.0); Immature Granulocytes # (auto) 0.02 K/uL (0.01-0.20); Immature Granulocytes % (auto) 0.4 %; Lymphocytes # (auto) 1.65 K/uL (1.2-3.4); Lymphocytes % (auto) 37.1 %; Mean Corpuscular Hemoglobin 32.2 pg (25.0-34.0); Mean Corpuscular Hgb Conc 34.3 g/dL (32.0-36.0); Mean Corpuscular Volume 93.9 fL (80.0-100.0); Mean Platelet Volume 9.6 fL (9.4-12.4); Neutrophils # (auto) 2.28 K/uL (1.40-6.50); Neutrophils % (auto) 51.3 %; Platelet Count 146 K/uL (130-400); RDW Coefficient of Variation 12.6 % (11.5-14.5); RDW Standard Deviation 43.3 fL (36.4-46.3); Red Blood Count 4.23 M/uL (4.20-5.40); White Blood Count 4.45 K/ul (4.8-10.8)
[2022-11-12 09:07] LABS: Albumin Level 4.2 gm/dl (3.4-5.0); BUN Creatinine Ratio 37.2 (10-20); Bilirubin,Total 0.5 mg/dl (0.2-1.0); Calcium 9.8 mg/dl (8.6-10.3); Creatinine Clr Calc Pharmacy 104.8 ml/min; Est GFR (African American) 116.9 ml/min; Est GFR (Non-African American) 100.9 ml/min; Phosphorus 4.3 mg/dl (2.5-4.9); Potassium 4.4 mmol/L (3.5-5.1); Total Protein 6.6 gm/dl (6.0-8.3)
--- NOTE | 2022-11-12 09:11 | Surgery Progress Note ---
Date of Service November 12, 2022 Assessment & Plan (1) SBO (small bowel obstruction): Plan: 72-year-old woman with small bowel obstruction. She has had prior small bowel obstruction in the past. She has a normal white count and no fever. avss abdomen is soft but still having pain No distention Passing flatus UGI SBFT normal Plan: advance diet to regular Continue conservative management encouraged oob to chair and ambulate hallway to increase gi motility pain management as needed will need outpatient GI follow-up as she may have decreased GI motility (history of getting SBFT during last SBO and then repeat imaging few weeks later showed retained contrast per patient) with resolution of the bowel obstruction, and in light of the GI motility issues, we will sign off for now. Please call with questions or concerns. Admission and Anticipated Discharge Date Admission Date: November 03, 2022 Subjective feeling ok; still some nausea. passing flatus and BM. Physical Exam Gastrointestinal (Abdomen): Inspection/Auscultation: abdomen normal to inspection; abdomen not distended Percussion/Palpation: + abdomen tender (LUQ) and abdomen soft; no guarding and abdomen not rigid Results & Data Vital Signs (Past 12 Hours) Vital Signs Temp Pulse Resp BP Pulse Ox O2 Del Method 11/12/22 07:02 36.7 C 70 16 109/70 94 Room Air 11/11/22 21:51 36.9 C 67 18 157/81 H 94 Room Air
--- NOTE | 2022-11-12 14:03 | Hospitalist Progress Note ---
Date of Service November 12, 2022 Assessment & Plan (1) SBO (small bowel obstruction): Plan: likely 2nd to adhesions has had SBOs in the past she had a surgery in the and during such had lysis of adhesions Transition point left lower quadrant on admission CT NG tube now removed and tolerating full liquids, was advanced to low fiber on 11/12--> having some increased abd distension so far with this gen surg consult appreciated upper GI series with SBFT-contrast reached the colon in 40 minutes and no other abnormalities of significance noted -continue low fiber and monitor for continued improvement, bowel function -dc PPN -follow CBC, CMP, Mag, Phos in AM -f/u with GI as outpt for slow transit -check KUB now (2) Abnormal LFTs (liver function tests): Plan: LFTs were normal at time of admission on 11/03/22 Then AST/ALT/alk phos all mildly elevated acute liver injury 2nd to recent zosyn use? (was on such initially) viral process given the low WBC count and low platelets? other? RUQ US trace GB sludge, otherwise negative LFTs now all normalized except Alk phos which may be lagging behind or perhaps related to intestinal source? follow LFTs (3) Thrombocytopenia: Plan: etiology uncertain-->viral? due to recent antibiotics (zosyn)? other? B12 normal within last 8 months Now resolving repeat CBC am (4) Neutropenia: Plan: her WBC count is chronically low but now she has very mild neutropenia etiology uncertain repeat CBC with diff AM if any worsening add neutropenic precautions if any worsening consider w/u for viral process (BioFire panel, CMV/EBV, other tests) (5) Celiac artery stenosis: Plan: known diagnosis high-grade 90% [facility] following it does seem she is having chronic symptoms from such (post-prandial pain for several months) will need to get back to [facility] shortly after d/c (6) Delayed gastric emptying: Plan: Recent GES with significant delayed emptying at 2 and 4 hours Following with [facility] Was told to follow a low fat, low fiber diet and small frequent meals per day 2nd to MS?? other etiology? discussed reglan prn but not great candidate given MS and neuro issues advised taking miralax daily at home to keep bowels moving once daily-currently has BM q3-4 days at home (7) Multiple sclerosis: Plan: Multiple sclerosis/rheumatoid arthritis Chronic and stable Usual meds - Sertraline, topiramate, modafinil and clonazepam - have been on hold-restart all po meds but modafinil (8) Chronic insomnia: Plan: continue clonazepam HS (9) Vitamin D deficiency: Plan: 25-OH vit D 2021 was wnl can resume supplementation on discharge (10) B12 deficiency: Plan: B12 level 2021 wnl Very robust level then (>1000) (11) Anxiety and depression: Plan: restarted Zoloft, klonopin (12) GERD (gastroesophageal reflux disease): Plan: continue Pantoprazole po Plan DVT proph - heparin 5000 BID Dispo-hopefully home tomorrow if tolerating low fiber diet and continues to move bowels Admission and Anticipated Discharge Date Admission Date: November 03, 2022 Subjective Pt seen by Surgery this AM and diet recommended adv to low fiber. SHe ate half a piece of chicken and some mashed potatoes, applesauce. Ate half of everything and having some increased abd distension. Had flatus this AM but none since then. Walked 8 laps in the halls. No BM today. No nausea. Physical Exam Constitutional: WD/WN, vitals as above Respiratory: normal respiratory effort, lungs clear to auscultation Cardiovascular: RRR, no murmur, no edema Gastrointestinal (Abdomen): Inspection/Auscultation: + abdomen distended (only mild) and normal bowel sounds Percussion/Palpation: + abdomen tender (LLQ w/o guarding/rebound) and abdomen soft Psychiatric: A+Ox3, euthymic affect Results & Data Results & Data Vital Signs (Past 12 Hours) Vital Signs Temp Pulse Resp BP Pulse Ox O2 Del Method 11/12/22 07:02 36.7 C 70 16 109/70 94 Room Air Laboratory Results CBC, CMP, TGs reviewed PG Care Time/CCT Total # of Minutes Spent Total Time Spent with Patient: Total time spent is greater than 50% in coordination of care (as documented) at patient's floor/unit and/or counseling patient: Coding Level of Care Code 08425 SUB INP/OBS CARE 2/35MIN Diagnoses SBO (small bowel obstruction) K56.609 Abnormal LFTs (liver function tests) R79.89 Thrombocytopenia D69.6 Neutropenia D70.9 Celiac artery stenosis I77.1 Delayed gastric emptying K30 Multiple sclerosis G35 Chronic insomnia F51.04 Vitamin D deficiency E55.9 B12 deficiency E53.8 Anxiety and depression F41.9; F32.9 GERD (gastroesophageal reflux disease) K21.9
--- NOTE | 2022-11-12 14:42 | XRay Report ---
KUB HISTORY: Small bowel obstruction. Follow-up. COMPARISON: Small bowel follow-through 11/09/2022. FINDINGS: The contrast from the prior small bowel follow-through is now seen within the colon. There are multiple borderline dilated gas-filled loops of large and small bowel seen throughout the abdomen . This may represent a mild ileus. No evidence for bowel obstruction at this time. There are surgical clips within the deep pelvis. There is a right hip arthroplasty again noted. No renal calculi. No u reteral calculi. No pneumoperitoneum or pneumatosis. IMPRESSION: 1. No evidence for a small bowel obstruction as described above. 2. A few borderline dilated gas-filled loops of large and small bowel seen throughout the abdomen. Th is may represent a mild ileus. ACT 112: Negative or not required by law. Electronically signed by: Andreas Tavera M.D. 11/12/2022 2:41 PM
[2022-11-12] MEDS: ONDANSETRON INJ 2 MG/ML 2 ML VIAL IV PRN (14:58)
[2022-11-12] MEDS: STOP CLINOLIPID SCH (20:03)
[2022-11-12] MEDS: ASPIRIN 81 MG ECTAB PO SCH (20:10)
[2022-11-12] MEDS: SERTRALINE HCL 100 MG TABLET PO SCH (20:10)
[2022-11-13] MEDS: HYDROmorphone INJ 0.5 MG/0.5 ML SYR IV PRN (01:40)
[2022-11-13] MEDS: SENNOSIDES 8.8 MG/5 ML UDC PO SCH (08:06)
[2022-11-13] MEDS: SERTRALINE HCL 100 MG TABLET PO SCH (08:06)
[2022-11-13] MEDS: PANTOprazole 40 MG TAB PO SCH (08:07)
[2022-11-13] MEDS: HEPARIN SOD 5,000 UNIT/0.5 ML VIAL SQ SCH (08:07)
[2022-11-13] MEDS: TOPIRAMATE 50 MG TAB PO SCH (08:07)
[2022-11-13 08:35] LABS: Basophils # (auto) 0.02 K/uL (0-0.2); Basophils % (auto) 0.5 %; Eosinophils # (auto) 0.06 K/uL (0-0.50); Eosinophils % (auto) 1.5 %; Hematocrit (blood only) 40.7 % (37.0-47.0); Immature Granulocytes # (auto) 0.02 K/uL (0.01-0.20); Immature Granulocytes % (auto) 0.5 %; Lymphocytes # (auto) 1.36 K/uL (1.2-3.4); Lymphocytes % (auto) 33.9 %; Mean Corpuscular Hemoglobin 32.4 pg (25.0-34.0); Mean Corpuscular Hgb Conc 34.4 g/dL (32.0-36.0); Mean Corpuscular Volume 94.2 fL (80.0-100.0); Mean Platelet Volume 9.6 fL (9.4-12.4); Monocytes # (auto) 0.41 K/uL (0.11-0.59); Monocytes % (auto) 10.2 %; Neutrophils # (auto) 2.14 K/uL (1.40-6.50); Neutrophils % (auto) 53.4 %; Platelet Count 170 K/uL (130-400); RDW Coefficient of Variation 12.7 % (11.5-14.5); RDW Standard Deviation 43.9 fL (36.4-46.3); Red Blood Count 4.32 M/uL (4.20-5.40); White Blood Count 4.01 K/ul (4.8-10.8)
[2022-11-13 08:54] LABS: Albumin Globulin Ratio 1.6 (0.9-2); Albumin Level 4.1 gm/dl (3.4-5.0); Bilirubin,Total 0.5 mg/dl (0.2-1.0); Calcium 9.9 mg/dl (8.6-10.3); Creatinine Clr Calc Pharmacy 90.2 ml/min; Est GFR (African American) 111.3 ml/min; Globulin 2.6 gm/dl (2.5-4.0); Magnesium 1.9 mg/dl (1.7-2.4); Phosphorus 4.6 mg/dl (2.5-4.9); Total Protein 6.7 gm/dl (6.0-8.3)
[2022-11-13 10:01] LABS: Vitamin B12 1206 pg/ml (180-914)
[2022-11-13] MEDS: ONDANSETRON INJ 2 MG/ML 2 ML VIAL IV PRN (11:56)
[2022-11-13] MEDS ORDERED: bisacodyL 10 MG SUPP PR STA (12:45)
--- NOTE | 2022-11-13 18:11 | Discharge Summary ---
Date of Service November 13, 2022 Admission HPI Per Admitting Provider The patient is a 72-year-old female with a past medical history including small bowel obstruction x3, with most recent 5 years ago, pneumonia, lumbar stenosis with neurogenic claudication, status post total hip arthroplasty, rheumatoid arthritis, multiple sclerosis, anxiety, C8 radiculopathy,, migraine without aura, vitamin D deficiency, vitamin B-12 deficiency, SNHL, gait disturbance, bilateral sacroiliitis, anxiety with depression and GERD. The patient presents emergency department with a cute onset and progressively worsening of symptoms as noted above. She has a history of a hysterectomy, resulting in multiple exploratory lap due to adhesions, and has had 3 small bowel obstructions in the past, with most recently [address] scan of abdomen pelvis this evening shows a small bowel obstruction with transition point left lower quadrant, and a stable severe stenosis at the origin of the celiac artery. She has undergone recent evaluation at [facility] for possible intestinal ischemia, with no intervention made. Principal Diagnosis SBO Discharge Exam Constitutional WD/WN, vitals as above Respiratory normal respiratory effort, lungs clear to auscultation Cardiovascular RRR, no murmur, no edema Gastrointestinal (Abdomen) Inspection/Auscultation: + abdomen distended (only mild) and normal bowel sounds Percussion/Palpation: + abdomen tender (LLQ w/o guarding/rebound) and abdomen soft Psychiatric A+Ox3, euthymic affect Discharge Data Allergies Allergy/AdvReac Type Severity Reaction Status Date / Time adhesive Allergy Intermediate Plastic Verified 11/03/22 17:35 clear tape (hives) Sulfa (Sulfonamide Allergy Intermediate Hives Verified 11/03/22 17:35 Antibiotics) sulfamethoxazole Allergy Intermediate Hives Verified 11/03/22 17:35 trimethoprim Allergy Intermediate Hives Verified 11/03/22 17:35 promethazine AdvReac Severe Hallucinati Verified 11/03/22 17:35 ons glatiramer (copolymer 1) AdvReac Intermediate Shakiness Verified 11/04/22 15:17 Consultations 11/03/22 19:49 Consult General Surgery Routine 11/03/22 20:21 ED Decision to Admit Stat Ordered Studies 11/03/22 16:52 CTA abdomen pelvis w con [CT angio abdomen pelvis w con] Stat 11/09/22 09:12 FL small bowel follow through Routine 11/10/22 14:40 US gallbladder Routine Hospital Course (1) SBO (small bowel obstruction): likely 2nd to adhesions has had SBOs in the past she had a surgery in the and during such had lysis of adhesions Transition point left lower quadrant on admission CT NGT placed and eventually on PPN x 2 days due to no po intake x 1 week NG tube now removed and tolerating low fiber since 5 KUB 5/4 with air into colon and mild ileus, improved Passing gas, had [facility] gen surg consult appreciated upper GI series with SBFT-contrast reached the colon in 40 minutes and no other abnormalities of significance noted -continue low fiber diet on discharge -gave bisacodyl NE x 1 on day of discharge and is passing gas -continue senna and start daily Miralax after discharge -f/u with GI as outpt for slow transit (2) Abnormal LFTs (liver function tests): LFTs were normal at time of admission on 11/03/22 Then AST/ALT/alk phos all mildly elevated acute liver injury 2nd to recent zosyn use? (was on such initially) viral process given the low WBC count and low platelets? other? RUQ US trace GB sludge, otherwise negative LFTs now all normalized except Alk phos mildly elevated which may be lagging behind or perhaps related to intestinal source? follow LFTs as outpt with GI and PCP (3) Thrombocytopenia: etiology uncertain-->viral? due to recent antibiotics (zosyn)? other? B12 normal within last 8 months Now resolved repeat CBC as outpt (4) Neutropenia: her WBC count is chronically low but now she has very mild neutropenia etiology uncertain follow CBC outpt but suspect is her normal (5) Celiac artery stenosis: known diagnosis high-grade 90% [facility] following it does seem she is having chronic symptoms from such (post-prandial pain for several months) will need to get back to [facility] shortly after d/c continue ASA (6) Delayed gastric emptying: Recent GES with significant delayed emptying at 2 and 4 hours Following with [facility] Was told to follow a low fat, low fiber diet and small frequent meals per day 2nd to MS?? other etiology? discussed reglan prn but not great candidate given MS and neuro issues advised taking miralax daily at home to keep bowels moving once daily-currently has BM q3-4 days at home (7) Multiple sclerosis: Multiple sclerosis/rheumatoid arthritis Chronic and stable Usual meds - Sertraline, topiramate, modafinil and clonazepam, modafinil (8) Chronic insomnia: continue clonazepam HS (9) Vitamin D deficiency: 25-OH vit D 2021 was wnl can resume supplementation on discharge (10) B12 deficiency: B12 level 2021 wnl Very robust level then (>1000) (11) Anxiety and depression: continue Zoloft, klonopin (12) GERD (gastroesophageal reflux disease): continue Pantoprazole po Plan DVT proph - heparin 5000 BID Dispo-dc to home today Total Time Total Time Spent Total Time Spent (In Minutes): 35 min Discharge Plan Discharge Items Patient Disposition: Home - Self-Care Reason For Visit: SBO Discharge Diagnosis: Small bowel obstruction Condition on Discharge: Fair Activity: Resume your previous activity Non-emergency contact: Primary Care Provider Call non-emergency contact if: you have any medication questions, your symptoms worsen and your pain is not controlled Follow-up/Referrals: Niles Saini [Primary Care Provider] - (Follow up within 1-2 weeks.) Diet: Low Fiber Addtl Attending Provider Instructions: Please continue eating a low fiber diet and ensure your bowels are moving frequently. You can take senna and Miralax at home. Follow up with GI within 2 weeks. Pending Studies at Discharge: No Stand-Alone Forms: My [facility], Smoking Cessation Medications and DC Order Prescriptions: New sennosides [senna] 8.8 mg/5 mL syrup 5 ml PO DAILY Qty: 237 0RF Rx Instructions: OTC polyethylene glycol 3350 [Miralax] 17 gram/dose powder 17 g PO DAILY Qty: 119 0RF Rx Instructions: OTC Continued sertraline [Zoloft] 100 mg tablet 100 mg PO BID 30 Days Qty: 60 5RF modafinil [Provigil] 200 mg tablet 200 mg PO QAM 30 Days Qty: 30 0RF Fish Oil 100-160-1,000 mg capsule 1 cap PO BID Patient Comments: 100 MG TWICE DAY turmeric 400 mg capsule 400 mg PO QAM cranberry 400 mg capsule 4,200 mg PO BID Rx Instructions: administer with a meal aspirin [Contreras Low Dose Aspirin] 81 mg Tablet,Delayed Release (Dr/Ec) 81 mg PO QPM cholecalciferol (vitamin D3) [Vitamin D3] 1,000 unit Capsule 5,000 unit PO QAM albuterol sulfate 90 mcg/actuation Hfa Aerosol Inhaler 1 inh INHALATION Q6H PRN (Reason: Wheezing) calcium carbonate [Calcium 600] 600 mg calcium (1,500 mg) Tablet 1,200 mg PO QAM docusate sodium [Col-Rite] 100 mg Capsule 200 mg PO BID naproxen 500 mg Tablet 500 mg PO BID PRN (Reason: Pain) diclofenac sodium [Voltaren] 1 % Gel 2 g TOPICAL QID PRN (Reason: Pain) clonazepam 2 mg Tablet 2 mg PO HS PRN (Reason: Anxiety) cyanocobalamin (vitamin B-12) [Vitamin B-12] 100 mcg Tablet 500 mcg PO QAM Patient Comments: SWALLOW FORM pantoprazole [Protonix] 40 mg Tablet,Delayed Release (Dr/Ec) 40 mg PO QPM ondansetron HCl 8 mg tablet 8 mg PO UD PRN (Reason: Nausea And Vomiting) topiramate 50 mg tablet 50 mg PO BID Rx Instructions: TAKE 1 TABLET BY MOUTH TWICE A DAY Discontinued hyoscyamine 0.15 mg Tablet 0.125 mg PO TID PRN (Reason: Spasms) Discharge Orders: Discharge Order (Routine); Ordered 11/13/22 Ordered By: Sneha Snyder Admission Data Admit Date/Time: 11/03/22 20:52 Attending Provider: Sneha Snyder Admit Provider: Jessee Payne Primary Care Provider: Niles Saini Other Providers: Jun Lunsford ; Jessee Payne Coding Level of Care Code 70986 INP/OBS DISCH >30 MIN Diagnoses SBO (small bowel obstruction) K56.609 Abnormal LFTs (liver function tests) R79.89 Thrombocytopenia D69.6 Neutropenia D70.9 Celiac artery stenosis I77.1 Delayed gastric emptying K30 Multiple sclerosis G35 Chronic insomnia F51.04 Vitamin D deficiency E55.9 B12 deficiency E53.8 Anxiety and depression F41.9; F32.9 GERD (gastroesophageal reflux disease) K21.9
== END 2022-11-13 18:39 | disposition home or self-care (01) | DRG 389 ==
LOC: ED 14:06 → SUATTDRO 20:52 → 3N 20:52 → 3W 11-10 05:30

== ENCOUNTER 2025-04-11 05:26 | Observation (INO) ==
--- NOTE | 2025-02-26 09:30 | PAT Medication Instructions ---
Medication Instructions Date of Service February 26, 2025 Home Medications Medication Instructions Recorded modafinil 200 mg tablet (Provigil) 200 mg PO QAM 90 days #90 tabs 08/10/24 sertraline 100 mg tablet 100 mg PO BID #60 tabs 09/05/24 clonazepam 2 mg tablet 2 mg PO HS PRN Anxiety #30 tabs 09/28/24 ondansetron HCl 8 mg tablet 8 mg PO TID PRN Nausea And 11/30/24 Vomiting #30 tabs bupropion HCl 150 mg 24 hr tablet, 150 mg PO QAM #30 tabs 12/05/24 extended release meclizine 25 mg tablet 25 mg PO BID PRN vertigo #60 tabs 01/26/25 omega 9-jod-biz-fish oil 100 mg-160 mg-1,000 mg capsule (Fish Oil) 1 cap PO BID cyanocobalamin (vitamin B-12) 100 mcg tablet (Vitamin B-12) 500 mcg PO QAM naproxen 500 mg tablet 500 mg PO BID PRN aspirin 81 mg tablet,delayed release (Adult Low Dose Aspirin) 81 mg PO QAM cholecalciferol (vitamin D3) 25 mcg (1,000 unit) capsule (Vitamin D3) 5,000 unit PO QAM modafinil 200 mg tablet (Provigil) 200 mg PO QAM sertraline 100 mg tablet 100 mg PO BID clonazepam 2 mg tablet 2 mg PO HS PRN Cranberry Tablets 4,200 mg PO BID Prevagen Extra Strength 1 tab PO DAILY diclofenac sodium 1 % topical gel 2 g topical DIRECTED PRN docusate sodium 100 mg capsule (Col-Rite) 200 mg PO BID ondansetron HCl 8 mg tablet 8 mg PO TID PRN bupropion HCl 150 mg 24 hr tablet, extended release 150 mg PO QAM meclizine 25 mg tablet 25 mg PO BID PRN pantoprazole 40 mg tablet,delayed release 40 mg PO HS ASK your surgeon for instructions naproxen 500 mg tablet 500 mg PO BID PRN ASK your prescriber and surgeon aspirin 81 mg tablet,delayed release (Adult Low Dose Aspirin) 81 mg PO QAM STOP taking 2 weeks before surgery (or as soon as possible if surgery is within 2 weeks) omega 3-aix-zmd-fish oil 100 mg-160 mg-1,000 mg capsule (Fish Oil) 1 cap PO BID Prevagen Extra Strength 1 tab PO DAILY STOP taking 24 hours before surgery diclofenac sodium 1 % topical gel 2 g topical DIRECTED PRN DO NOT take the morning of surgery cyanocobalamin (vitamin B-12) 100 mcg tablet (Vitamin B-12) 500 mcg PO QAM cholecalciferol (vitamin D3) 25 mcg (1,000 unit) capsule (Vitamin D3) 5,000 unit PO QAM modafinil 200 mg tablet (Provigil) 200 mg PO QAM Cranberry Tablets 4,200 mg PO BID docusate sodium 100 mg capsule (Col-Rite) 200 mg PO BID Take morning of surgery With a small sip of water, OTHERWISE NOTHING TO EAT OR DRINK AFTER MIDNIGHT: sertraline 100 mg tablet 100 mg PO BID ondansetron HCl 8 mg tablet 8 mg PO TID PRN(if needed) bupropion HCl 150 mg 24 hr tablet, extended release 150 mg PO QAM meclizine 25 mg tablet 25 mg PO BID PRN(if needed) Take evening before surgery sertraline 100 mg tablet 100 mg PO BID clonazepam 2 mg tablet 2 mg PO HS PRN(if needed) Cranberry Tablets 4,200 mg PO BID docusate sodium 100 mg capsule (Col-Rite) 200 mg PO BID ondansetron HCl 8 mg tablet 8 mg PO TID PRN(if needed) meclizine 25 mg tablet 25 mg PO BID PRN(if needed) pantoprazole 40 mg tablet,delayed release 40 mg PO HS Other Notes If you have any questions please call us at [phone] or [phone] or [phone] or [phone]
--- NOTE | 2025-02-28 11:04 | Anesthesiology Consultation ---
Date of Service February 28, 2025 Assessment & Plan (1) Encounter for pre-operative examination: - Infectious disease screening: Per assessment on 02/28/25- No known recent infectious disease contacts or current infectious disease symptoms. - Outpatient joint assessment: Pt currently scheduled for inpatient pathway. If surgeon requests review for outpatient joint pathway, patient is not recommended candidate for outpatient joint program from anesthesia standpoint based on available information. - Cardiology visit (03/14/24): "..I recommended that she increase her fluid intake and consider using something like Gatorade or Body Armor sports drink to increase her salt content in her diet as well as her overall fluids.. She had a recent Holter monitor that is in the process of being processed at this time.. I have asked her to undergo an echo annually to reassess her aortic valve. At this point it does not seem to be causing any kind of symptoms or decompensation and this should just be followed.." Previous abdominal complaints resolved without further intervention/workup; no significant findings. - Previous/recent anesthesia hx: * Right TKA (07/23/2021): LMA#4 + regional at [facility] * Colonoscopy (01/03/25): MAC at [facility] * Right thumb joint reconstruction (10/31/24): LMA#4 + regional at [facility] > Patient states that after recent hand surgery at [facility], had a regional block for the surgery. Patient states "had a hard time walking the day after the surgery.." Patient states her neurologist advised her she "shouldn't be getting blocks, definitely no block in the spine" - Hx Multiple sclerosis - Awaiting upcoming cardiology ([facility], appt 03/15) and PCP visit (Dr. Mckenna, appt 03/01). Patient otherwise acceptable risk for surgery. Chart Review Chart Review: Patient seen in Pre Admission Testing Teaching & Discussion Pre-Anesthesia Teaching/Discussion Notes: Instructed NPO after midnight before surgery,except medications with 15 cc of water. Medication instructions provided according to the PAT guidelines. History Surgery Operation Date: 04/11/25 07:00 Proposed Procedures p Left Total Hip Arthroplasty with Dual Mobility Implant - Vimal Brand MD Height/Weight Height: 5 ft 4 in Weight: 62.2 kg Allergies Allergy/AdvReac Type Severity Reaction Status Date / Time adhesive Allergy Intermediate Plastic Verified 02/26/25 07:34 clear tape (hives) Sulfa (Sulfonamide Allergy Intermediate Hives Verified 02/26/25 07:34 Antibiotics) sulfamethoxazole Allergy Intermediate Hives Verified 02/26/25 07:34 trimethoprim Allergy Intermediate Hives Verified 02/26/25 07:34 promethazine AdvReac Severe Hallucinati Verified 02/26/25 07:34 ons glatiramer (copolymer 1) AdvReac Intermediate Shakiness Verified 02/26/25 07:34 Medications Home Medications Medication Instructions Recorded Confirmed Last Taken omega 0-ebg-[id number]-fish oil 100 1 cap PO BID 04/28/22 02/26/25 01/01/25 mg-160 mg-1,000 mg capsule (Fish Oil) cyanocobalamin (vitamin B-12) 100 500 mcg PO QAM 06/01/22 02/26/25 01/01/25 mcg tablet (Vitamin B-12) naproxen 500 mg tablet 500 mg PO BID PRN Pain 05/05/24 02/26/25 10/28/24 aspirin 81 mg tablet,delayed 81 mg PO QAM 08/10/24 02/26/25 12/31/24 release (Adult Low Dose Aspirin) cholecalciferol (vitamin D3) 25 5,000 unit PO QAM 08/10/24 02/26/25 01/01/25 mcg (1,000 unit) capsule (Vitamin D3) modafinil 200 mg tablet (Provigil) 200 mg PO QAM 90 days #90 tabs 08/10/24 02/26/25 01/01/25 sertraline 100 mg tablet 100 mg PO BID #60 tabs 09/05/24 02/26/25 01/01/25 clonazepam 2 mg tablet 2 mg PO HS PRN Anxiety #30 tabs 09/28/24 02/26/25 10/28/24 Cranberry Tablets 4,200 mg PO BID 10/17/24 02/26/25 01/01/25 Prevagen Extra Strength 1 tab PO DAILY 10/17/24 02/26/25 01/01/25 diclofenac sodium 1 % topical gel 2 g topical DIRECTED PRN Pain 10/17/24 02/26/25 10/28/24 docusate sodium 100 mg capsule 200 mg PO BID 10/17/24 02/26/25 01/01/25 (Col-Rite) ondansetron HCl 8 mg tablet 8 mg PO TID PRN Nausea And 11/30/24 02/26/25 Unknown Vomiting #30 tabs bupropion HCl 150 mg 24 hr tablet, 150 mg PO QAM #30 tabs 12/05/24 02/26/25 01/01/25 extended release meclizine 25 mg tablet 25 mg PO BID PRN vertigo #60 tabs 01/26/25 02/26/25 Unknown pantoprazole 40 mg tablet,delayed 40 mg PO HS 02/26/25 02/26/25 Unknown release Past Medical History Medical History Anxiety and depression controlled, stable per pt Cervical radiculopathy Mild ROM limitation per patient Difficult intravenous access Dysesthesia of multiple sites GERD (gastroesophageal reflux disease) Heart valve problem Echo 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 Colindres History of blood transfusion Post-op > 40 years ago Post-op TKA > 20 years ago History of unsteady gait Occasional Hypersomnia Taking modafinil daily Idiopathic polyneuropathy Migraine Multiple sclerosis Stable, currently off meds without issues [place] neuro Osteoarthritis Pulmonary embolism Post-op abdominal surgery (25 years ago), was on AC x short period of time Rheumatoid arthritis Per records, patient denies SBO (small bowel obstruction) 2017 SNHL (sensorineural hearing loss) Spinal stenosis Uses inhaler device PRN wheezing, No definitive diagnosis per patient No recent issue/use Vertigo PRN meclizine by neuro No recent/current issues Exercise / Class Metabolic Activity III < 4 Walking/Shop/Light housework Past Family History Family History Grandfather (Paternal) Family hx of colon cancer Mother Diabetes Hypertension Father Hypertension Other Asthma Atrial fibrillation Breast cancer Cancer Heart disease No family history of adverse response to anesthesia No family history of bleeding disorder Ovarian cancer Skin cancer Past Surgical History Surgical History (Updated 02/28/25 @ 14:10 by Amanda Munson) H/O colonoscopy 12/2024 History of anesthesia reaction Right thumb joint reconstruction 10/31/24- LMA#4 + regional at [facility] Patient states that after recent hand surgery at [facility], had a regional block for the surgery. Patient states "had a hard time walking the day after the surgery.." Patient states her neurologist advised her she "shouldn't be getting blocks, definitely no block in the spine" History of back surgery Lumbar spine (3 surgeries total) History of cataract surgery R/L History of esophagogastroduodenoscopy (EGD) History of exploratory laparotomy R/t adhesions History of hand surgery Right thumb 10/31/24; [facility] History of hysterectomy History of removal of retained hardware (2023) Left wrist History of surgery on left wrist History of tonsillectomy and adenoidectomy History of tooth extraction History of total hip arthroplasty Right JESSICA (04/20/18): Grade view 1, MAC#3, ETT 7.5 at [facility]. No issues per anesthesia postop progress note. History of total left knee replacement History of total right knee replacement Right TKA (07/23/2021): LMA#4 + regional at [facility] S/P LASIK surgery Past Anesthesia History No Family Hx of Anesthesia Complications and Other (Patient states that after recent hand surgery at [facility], had a regional block for the surgery. Patient states "had a hard time walking the day after the surgery.." Patient states her neurologist advised her she "shouldn't be getting blocks, definitely no block in the spine") History of PONV No Hx of PONV and Hx of Motion Sickness (Situational) Social History Smoking Status: Never smoker Do You Dip or Chew Tobacco: No Hx Alcohol Use: Yes Alcohol type: wine alcohol intake frequency: holidays/special occasions only Hx Substance Use: No substance use type: does not use Review of Systems Patient denies chest pain, shortness of breath, fever, chills, cough, wheezing, palpitations. Physical Exam Vital Signs BP 1233/55 P 69 TEMP 98.2 SP02 96%RA RESP 16 Physical Full cervical extension range of motion. Full TMJ range of motion. TMD 3 finger breaths Mallampati Score II Dentition: intact, + bridge (upper right side) Lungs: clear throughout to auscultation Cardiac: regular rate and rhythm, no murmurs noted Spine: normal Carotid arteries: negative bruit Extremities: no LE edema Lab Results Anesthesia Preop Results Results Anesthesia Widget: WBC 3.07 K/ul (4.8-10.8) L 02/28/25 Hgb 12.9 g/dl (12.0-16.0) 08/20/25 Hct 37.4 % (37.0-47.0) 02/28/25 Plt 159 K/uL (130-400) 02/28/25 Na 140 mmol/L (136-145) 02/28/25 K 3.7 mmol/L (3.5-5.1) 02/28/25 Cl 106 mmol/L (98-107) 02/28/25 CO2 26 mmol/L (21-32) 02/28/25 BUN 22 mg/dl (6-23) 02/28/25 Creat 0.58 mg/dl (0.6-1.2) L 02/28/25 Glucose Level 102 mg/dl (70-99(Fasting)) H 02/28/25 PT 10.3 Seconds (9.0-12.0) 02/28/25 PTT 25 Seconds (21-31) 02/28/25 INR 0.9 (0.9-1.1) 02/28/25 Urine Color Yellow 02/28/25 Urine Appearance Slightly Cloudy (Clear) 02/28/25 Urine pH 8.5 (4.5-7.5) H 02/28/25 Urine Specific [place] 1.015 (1.000-1.030) 02/28/25 Urine Protein Negative (Negative) 02/28/25 Urine Glucose (UA) Negative (Negative) 02/28/25 Urine Ketones Negative (Negative) 02/28/25 Urine Blood Negative (Negative) 02/28/25 Urine Nitrite Negative (Negative) 02/28/25 Urine Bilirubin Negative (Negative) 02/28/25 Urine Urobilinogen Negative (Negative) 02/28/25 Urine Leukocyte Esterase Negative (Negative) 02/28/25 Blood Type B Positive 02/28/25 Antibody Screen NEGATIVE 02/28/25 Testing Electrocardiogram Date: 10/25/24 Findings: + NSR @ (70) Chest X-Ray Date: 02/28/25 FINDINGS: Heart size and pulmonary vasculature are normal. No consolidation or pleural effusion. IMPRESSION: No acute findings. Echocardiogram Date: 02/17/24 EF 65%. No RWMA. No LVH. Grade I DD. Ascending aorta measuring 3.2cm. Moderate AI. Other Testing compliance monitor Date: 03/03/24The basic rhythm was normal sinus rhythm with sinus arrhythmia. Very rare PVCs. Rare PACs and atrial pairs and a single 5 beat run of PAT. No pauses greater than 3 seconds or evidence of an AV block.
--- NOTE | 2025-04-10 15:50 | History & Physical Bridge Note ---
Date of Service April 10, 2025 History & Physical Bridge Note I have examined the patient, reviewed the History & Physical and in the interval since the performance of the History & Physical I have noted the following changes of clinical significance: Consent and site verified identified risk such as leg length inequality nerve damage instability and infection DVT PE were emphasized.no changes noted
[2025-04-11] MEDS: LR 60ML/HR IV SCH (06:03)
[2025-04-11] MEDS: LR 15ML/HR IV SCH (06:03)
[2025-04-11] MEDS ORDERED: ROPIVACAINE 0.5% 5 MG/ML 30 ML VIAL ONE (06:31)
[2025-04-11] MEDS ORDERED: ATROPINE SULFATE 0.1 MG/ML 10ML SYR IV PRN (06:35)
[2025-04-11] MEDS ORDERED: DROPERIDOL 5 MG/2 ML VIAL IV PRN (06:35)
[2025-04-11] MEDS ORDERED: ONDANSETRON INJ 2 MG/ML 2 ML VIAL IV PRN (06:35)
[2025-04-11] MEDS ORDERED: LIDOCAINE 2% 2 ML VIAL/AMP(20MG/ML) INFIL ONE (06:42)
[2025-04-11] MEDS ORDERED: ONDANSETRON INJ 2 MG/ML 2 ML VIAL ONE (06:42)
[2025-04-11] MEDS ORDERED: ROCURONIUM BROMIDE 10 MG/ML 5 ML VIAL IV ONE (06:42)
[2025-04-11] MEDS ORDERED: PROPOFOL IV EMULSION 10 MG/ML 20 ML VIAL IV ONE (06:42)
[2025-04-11] MEDS ORDERED: MIDAZOLAM HCL 1 MG/ML 2ML VIAL ONE (06:43)
[2025-04-11] MEDS ORDERED: DROPERIDOL 5 MG/2 ML VIAL ONE (06:47)
[2025-04-11] MEDS: TRANEXAMIC ACID 1,000 MG **IV Pre-op IV SCH (06:59)
[2025-04-11] MEDS: ORTHO JOINT ANESTHETIC ONE (07:36)
[2025-04-11] MEDS: ROPIV 0.5% 246mg, Ketorolac 30mg, EPINEPHrine 0.5mg in NSS INFIL SCH (08:37)
[2025-04-11] MEDS ORDERED: SUGAMMADEX SODIUM 200 MG/2 ML VIAL IV ONE (08:38)
--- NOTE | 2025-04-11 08:54 | Post Operative Brief Note ---
Immediate Post Op Note Date of Surgery April 11, 2025 Pre & Post Diagnosis Operation Date: 04/11/25 07:00 Pre-Op Diagnosis: Left Hip Osteoarthritis Post-Op Diagnosis: Left Hip Osteoarthritis I identified the patient and participated in the time-out.: Yes Procedure Operation Date: 04/11/25 07:00 Actual Procedures p Left Total Hip Arthroplasty with Dual Mobility Implant(Left) - Vimal Brand MD Surgeon Vimal Brand MD [facility] no resident or fellow available Estimated Blood Loss 150 Findings Consistent with Post-Op Diagnosis Severe osteoarthritis marginal osteophytes retroverted acetabulum Fluids See anesthesia report Complications None
--- NOTE | 2025-04-11 08:56 | Operative Report ---
Post Operative Report Pre & Post Diagnosis Operation Date: 04/11/25 07:00 Pre-Op Diagnosis: Left Hip Osteoarthritis Post-Op Diagnosis: Left Hip Osteoarthritis I identified the patient and participated in the time-out.: Yes Procedure Operation Date: 04/11/25 07:00 Actual Procedures p Left Total Hip Arthroplasty with Dual Mobility Implant(Left) - Vimal marquez MD Surgeon BRIDGET Brand MD [employer] Superintendent [facility] PAC no resident or fellow available Estimated Blood Loss 150 Findings Consistent with Post-Op Diagnosis see operative report Specimens see operative report Drains none Complications none Disposition Accompanied Patient To Recovery: Yes Indications This 74 year old female presented to the office with complaints of persisting left hip pain. She had tried conservative care measures without improvement. She elected to proceed with surgical intervention after being educated about potential risks and outcomes. Preoperative imaging was obtained. Description of Procedure The patient was taken to the operating room where she was given general anesthesia. She was prepped and draped in the usual sterile fashion. Please see Dr. Brand's operative report for specifics of the procedure. I was present for the entire case from initial patient positioning through final wound closure. Assistance was provided in tissue retraction, hemostasis, trial implant placement, final implant placement, and final wound closure. The patient was taken to the recovery room in satisfactory condition. I attest to the content of the Intraoperative Record and any orders documented therein. Any exceptions are noted below.
--- NOTE | 2025-04-11 08:59 | Operative Report ---
Post Operative Report Pre & Post Diagnosis Operation Date: 04/11/25 07:00 Pre-Op Diagnosis: Left Hip Osteoarthritis Post-Op Diagnosis: Left Hip Osteoarthritis I identified the patient and participated in the time-out.: Yes Procedure Operation Date: 04/11/25 07:00 Actual Procedures p Left Total Hip Arthroplasty with Dual Mobility Implant(Left) - Vimal marquez MD Surgeon Vimal Brand MD Diversity Specialist [facility] no resident or fellow available Estimated Blood Loss 150 Findings Consistent with Post-Op Diagnosis Severe osteoarthritis with marginal osteophytes acetabulum femoral neck retroverted acetabulum Fluids See anesthesia report Specimens Bone pathology Drains None Complications None Indications Severe pain x-ray end-stage disease Description of Procedure After the patient was up identified site verified consent verified antibiotics was been given patient was placed in right lateral cubitus position and the left lower extremity prepped and draped in routine fashion. She was about a half an short on that side. Some notes from her spine. This was identified preoperatively with her. We told her we will try to correct that is much as possible. Posterior approach state was then made sharp section carried to the skin blunt dissection through the fascia the IT band and gluteus carmelina fascia were then split Charnley retractor placement with short arms to protect the sciatic nerve which was palpated but not exposed. The short external rotators were released the capsule was then teed the hip was then dislocated the femoral neck was then resected leaving a long try to correct leg lengths. Appropriate acetabular exposure was then obtained and serial reaming carried up to a 50 to 50 cup impacted with appropriate anteversion inclination with excellent primary fixation with secondary fixation with a 6.5 x 25 screw with excellent purchase. Osteophytes were then removed and the dual mobility liner was seated. The hip was then flexed internally rotated and serial broaching then carried up to a 5 neck length was aligned so needed to be revised for stem was placed in seated a nd then 3 mm removed with the reamer. A 5 stem was then placed and the reduction was then carried out with a +4 head standard neck length. The hip was stable in all planes leg lengths were improved at least 50%. The hip was then dislocated and then the permanent stem and head combo were then seated hip was then reduced without difficulty nerve was protected at all times. Range of motion was excellent but lengths appeared improved wound was irrigated with Betadine Pulsavac at all stages and then closed of the capsule and short external rotators with #2 Vicryl deep fascia with #2 Vicryl the deep fat with #2 Vicryl the superficial fat with 2-0 Vicryl subcutaneous layer with 2-0 Vicryl and then the skin with standstill clips appropriate dressing applied the patient transferred to recovery in satisfactory stomach tolerated the procedure well. EBL was roughly 150 cc. Bone pathology pending. DVT prophylaxis to begin tomorrow. Patient has some difficulty with MS. Need to be carefully ambulated. Summary of implants size 50 acetabular shell sector cup 25 x 6.5 screw dome cover 50 x 43 [place] dual mobility liner 5 standard stem 43 x 22 bipolar 22+4 inner head. Small metal head based on size. EBL again was 150 cc or less crystalloid per anesthesia DVT prophylaxis to begin tomorrow I attest to the content of the Intraoperative Record and any orders documented therein. Any exceptions are noted below.
--- NOTE | 2025-04-11 09:01 | Discharge Summary ---
Date of Service April 12, 2025 Admission HPI Per Admitting Provider Osteoarthritis left hip Admission Exam Per Admitting Provider Osteoarthritis left hip Principal Diagnosis Status post left total preplacement dual mobility Discharge Data Allergies Allergy/AdvReac Type Severity Reaction Status Date / Time adhesive Allergy Intermediate Plastic Verified 04/11/25 05:36 clear tape (hives) Sulfa (Sulfonamide Allergy Intermediate Hives Verified 04/11/25 05:36 Antibiotics) sulfamethoxazole Allergy Intermediate Hives Verified 04/11/25 05:36 trimethoprim Allergy Intermediate Hives Verified 04/11/25 05:36 promethazine AdvReac Severe Hallucinati Verified 04/11/25 05:36 ons glatiramer (copolymer 1) AdvReac Intermediate Shakiness Verified 04/11/25 05:36 Vaccinations None Consultations PT OT Procedures Performed Operation Date: 04/11/25 07:00 Actual Procedures p Left Total Hip Arthroplasty with Dual Mobility Implant(Left) - Vimal Brand MD Ordered Studies Bone pathology x-rays Hospital Course (1) Status post left hip replacement: Total Time Total Time Spent Total Time Spent (In Minutes): 10 Discharge Plan Discharge Items Reason For Visit: Left Hip Osteoarthritis Discharge Diagnosis: Status post left hip replacement Follow-up/Referrals: Jahaira Mckenna MD [Primary Care Provider] - [facility] Attending Provider Instructions: DIET: * Resume previous diet. MEDICATIONS: * Please take your prescriptions as instructed at your pre-op appointment and/or see medication discharge instructions listed above. * If concerns develop, call your physician's office at . SPECIAL CARE INSTRUCTIONS: * Ice/Elevate as instructed. * Keep dressing clean, dry, intact. * Your surgical extremity may be discolored due to prepping agents used on the skin. A bluish-green tint is a normal variant and should not cause alarm. Call your doctor at [phone] if: * Temperature above 101 degrees * Pain not relieved by pain medicine ordered * There is increased drainage or redness from any incision * You have any unanswered questions, problems or concerns. FOLLOW UP VISIT: * If not already scheduled, please call the office at to schedule a follow-up appointment. Stand-Alone Forms: My [facility] Medications and DC Order Prescriptions: No Action sertraline 100 mg tablet 100 mg PO BID Qty: 60 5RF ondansetron HCl 8 mg tablet 8 mg PO TID PRN (Reason: Nausea And Vomiting) Qty: 30 5RF Patient Comments: 02/26/25: takes twice daily, every day bupropion HCl 150 mg tablet extended release 24 hr 150 mg PO QAM Qty: 30 5RF Rx Instructions: TAKE 1 TABLET BY MOUTH EVERY DAY IN THE MORNING clonazepam 2 mg tablet 2 mg PO HS PRN (Reason: Anxiety) Qty: 30 5RF pantoprazole 40 mg tablet,delayed release (DR/EC) 40 mg PO HS Qty: 30 5RF Fish Oil 100-160-1,000 mg capsule 1 cap PO BID Patient Comments: 100 MG TWICE DAY meclizine 25 mg tablet 25 mg PO BID PRN (Reason: vertigo) Qty: 60 5RF aspirin [Adult Low Dose Aspirin] 81 mg tablet,delayed release (DR/EC) 81 mg PO QAM modafinil [Provigil] 200 mg tablet 200 mg PO QAM 90 Days Qty: 90 1RF naproxen 500 mg tablet 500 mg PO BID PRN (Reason: Pain) cholecalciferol (vitamin D3) [Vitamin D3] 25 mcg (1,000 unit) capsule 5,000 unit PO QAM cyanocobalamin (vitamin B-12) [Vitamin B-12] 100 mcg Tablet 500 mcg PO QAM Patient Comments: SWALLOW FORM docusate sodium [Col-Rite] 100 mg Capsule 200 mg PO BID diclofenac sodium 1 % Gel 2 g TOPICAL DIRECTED PRN (Reason: Pain) Cranberry Tablets 4,200 mg PO BID Prevagen Extra Strength 1 tab PO DAILY Admission Data Admit Date/Time: 04/11/25 09:05 Attending Provider: Vimal Brand Admit Provider: Vimal Brand Primary Care Provider: Jahaira Mckenna Other Providers: [facility],Home Health
--- NOTE | 2025-04-11 09:02 | Orthopedic Progress Note ---
Date of Service April 11, 2025 Orthopedic Progress Note Patient underwent left total replacement tolerated well denies chest pain shortness of breath fever chills nausea vomiting headache. Has active motor function grossly. Unable to really assess based on altered sensorium at this point. contacted and his phone #[phone]. Postop x-ray pending.
[2025-04-11] MEDS: KETOROLAC 30 MG/ML VIAL IV PRN (09:10)
[2025-04-11] MEDS: HYDROmorphone INJ 1 MG/ML SYRINGE IV PRN (09:16)
--- NOTE | 2025-04-11 09:28 | XRay Report ---
XR pelvis 1-2V routine CLINICAL HISTORY: S/P L JESSICA COMPARISON: 01/22/2025 FINDINGS: Bilateral hip prostheses show no hardware complication. There is expected soft tissue gas on the left. Skin veronique are present laterally on the left. There are multiple stable pelvic surgica l clips. IMPRESSION: Unremarkable postoperative exam. ACT 112: Negative or not required by law. Electronically signed by: Buster Kruger M.D. 04/11/2025 9:27 AM
--- NOTE | 2025-04-11 10:47 | Anesthesiology Progress Note ---
Date of Service April 11, 2025 Anesthesia Post Procedure Vital Signs Vital Signs: Temp Pulse Pulse Resp BP BP Pulse Ox 04/11/25 10:40 36.7 C 69 17 117/71 97 04/11/25 10:00 74 12 132/72 96 04/11/25 09:45 75 13 138/72 96 04/11/25 09:35 36.4 C L 77 13 131/74 97 04/11/25 09:25 76 14 141/76 H 94 04/11/25 09:15 76 18 165/65 H 97 04/11/25 09:05 78 14 150/67 H 97 04/11/25 08:56 36.3 C L 82 16 143/86 H 99 04/11/25 05:55 36.7 C 75 18 143/75 H 134/70 94 O2 Del Method O2 Flow Rate 04/11/25 10:40 Nasal Cannula 2 04/11/25 10:00 Nasal Cannula 2 04/11/25 09:45 Nasal Cannula 2 04/11/25 09:35 Nasal Cannula 2 04/11/25 09:25 Nasal Cannula 2 04/11/25 09:15 Oxymask 2 04/11/25 09:05 Oxymask 2 04/11/25 08:56 Oxymask 7 04/11/25 05:55 Room Air Pain Intensity Left Hip: Pain Intensity: 4 Transfer of Care Handoff Completed per policy Notes Mental Status: alert / awake / arousable Patient Amnestic to Procedure: Yes Nausea / Vomiting: adequately controlled Pain: adequately controlled Airway Patency, RR, SpO2: stable & adequate BP & HR: stable & adequate Hydration State: stable & adequate Anesthetic Complications: no major complications apparent
[2025-04-11] MEDS ORDERED: NALOXONE HCL 0.4 MG/1 ML VIAL/CARP IV PRN (11:02)
[2025-04-11] MEDS ORDERED: ALUMINUM/MAGNESIUM SUSP 30 ML UDC PO PRN (11:02)
[2025-04-11] MEDS ORDERED: HYDROmorphone INJ 0.5 MG/0.5 ML SYR IV PRN (11:02)
[2025-04-11] MEDS ORDERED: VANCOMYCIN CONSULT ACTIVE PRN (11:02)
[2025-04-11] MEDS ORDERED: MECLIZINE HCL 25 MG TAB PO PRN (11:02)
[2025-04-11] MEDS ORDERED: MAGNESIUM HYDROXIDE SUSP 30 ML UDC PO PRN (11:02)
[2025-04-11] MEDS ORDERED: diphenhydrAMINE 50 MG/ML VIAL IV PRN (11:02)
[2025-04-11] MEDS ORDERED: METOCLOPRAMIDE HCL INJ 5 MG/ML 2 ML VIAL IV PRN (11:02)
[2025-04-11] MEDS ORDERED: clonazePAM 1 MG TAB PO PRN (11:02)
[2025-04-11] MEDS: SERTRALINE HCL 100 MG TABLET PO SCH (11:31)
[2025-04-11] MEDS: MULTIVITAMIN TAB PO SCH (11:32)
[2025-04-11] MEDS: ASPIRIN 81 MG ECTAB PO SCH (11:32)
[2025-04-11] MEDS: SODIUM CHLORIDE 0.9% 1,000 ML IV SCH (11:32)
[2025-04-11] MEDS: DOCUSATE SODIUM 100 MG CAP PO SCH (11:40)
[2025-04-11] MEDS: VANCOMYCIN HCL 1,000 MG in SODIUM CHLORIDE 0.9% 250 ML IV ONE (11:41)
[2025-04-11] MEDS: KETOROLAC TROMETHAMINE 15 MG/ML VIAL IV SCH (11:41)
--- NOTE | 2025-04-11 11:43 | Orthopedic Progress Note ---
Date of Service April 11, 2025 Assessment & Plan Admission and Anticipated Discharge Date Admission Date: April 11, 2025 Subjective Postoperative check status post left total hip noncemented hip replacement. Resting comfortably in bed. Drowsy. She is to be carefully assessed and not overmedicated. She requests a lot of pain medication traditionally. Vital signs are stable she is afebrile. Neurovascular check femoral sciatic nerve is normal. Wound dressing clean dry and intact. Postop x-rays look excellent. Assessment doing well status post left total replacement. She can be out of bed she can be weightbearing as tolerated. Use a walker for balance. Do not overmedicate make her drowsy. Initiate anticoagulation tomorrow. Results & Data Vital Signs (Past 12 Hours) Vital Signs Temp Pulse Pulse Resp BP BP Pulse Ox 04/11/25 11:12 68 16 110/65 97 04/11/25 10:40 36.7 C 69 17 117/71 97 04/11/25 10:00 74 12 132/72 96 04/11/25 09:45 75 13 138/72 96 04/11/25 09:35 36.4 C L 77 13 131/74 97 04/11/25 09:25 76 14 141/76 H 94 04/11/25 09:15 76 18 165/65 H 97 04/11/25 09:05 78 14 150/67 H 97 04/11/25 08:56 36.3 C L 82 16 143/86 H 99 04/11/25 05:55 36.7 C 75 18 143/75 H 134/70 94 O2 Del Method O2 Flow Rate 04/11/25 11:12 Nasal Cannula 2.0 04/11/25 10:40 Nasal Cannula 2 04/11/25 10:00 Nasal Cannula 2 04/11/25 09:45 Nasal Cannula 2 04/11/25 09:35 Nasal Cannula 2 04/11/25 09:25 Nasal Cannula 2 04/11/25 09:15 Oxymask 2 04/11/25 09:05 Oxymask 2 04/11/25 08:56 Oxymask 7 04/11/25 05:55 Room Air
--- NOTE | 2025-04-11 14:27 | Orthopedic Progress Note ---
Date of Service April 11, 2025 Assessment & Plan Admission and Anticipated Discharge Date Admission Date: April 11, 2025 Orthopedic Progress Note Continues to be very somnolent. She clearly is being overmedicated. Will adjust her pain medications. Needs to start doing the p.o. intake. Needs to eat to get her GI system going. This was emphasized to her. Vital signs are stable she is afebrile. Neurovascular check femoral sciatic nerve is normal. Wound dressing clean dry and intact. Emphasized to get her walker here with her and he will get that. He did get up moving. States she understands. Adjust pain medications.
[2025-04-11] MEDS ORDERED: ACETAMINOPHEN SUSP 160 MG/5 ML BTL PO STA (14:34)
[2025-04-11] MEDS: ACETAMINOPHEN 500 MG TAB PO SCH (14:52)
[2025-04-11] MEDS: ASCORBIC ACID 500 MG TAB PO SCH (17:41)
[2025-04-11] MEDS: FERROUS GLUCONATE 324 MG TAB PO SCH (17:41)
[2025-04-11] MEDS: HYDROmorphone INJ 0.5 MG/0.5 ML SYR IV PRN (20:11)
[2025-04-11] MEDS: SENNA 8.6 MG TAB PO SCH (21:16)
[2025-04-12] MEDS: ONDANSETRON INJ 2 MG/ML 2 ML VIAL IV PRN (01:07)
[2025-04-12 06:11] LABS: Hematocrit (blood only) 31.3 % (37.0-47.0); Hemoglobin 10.2 g/dl (12.0-16.0); Immature Granulocytes # (auto) 0.01 K/uL (0.01-0.20); Immature Granulocytes % (auto) 0.2 %; Mean Corpuscular Hemoglobin 32.2 pg (25.0-34.0); Mean Corpuscular Volume 98.7 fL (80.0-100.0); Platelet Count 115 K/uL (130-400); RDW Standard Deviation 43.7 fL (36.4-46.3); Red Blood Count 3.17 M/uL (4.20-5.40); White Blood Count 5.01 K/ul (4.8-10.8)
[2025-04-12 06:31] LABS: Anion Gap 4.0 (3-11); Blood Urea Nitrogen 18.0 mg/dl (6-23); Calcium 8.6 mg/dl (8.6-10.3); Carbon Dioxide 30.0 mmol/L (21-32); Chloride 105.0 mmol/L (98-107); Creatinine Clr Calc Pharmacy 68.8 ml/min; Glucose 113.0 mg/dl (70-99(Fasting)); Potassium 3.9 mmol/L (3.5-5.1); Sodium 139.0 mmol/L (136-145)
[2025-04-12] MEDS: dexAMETHasone 10 MG in SYRINGE 0 ML IV SCH (07:23)
[2025-04-12] MEDS: APIXABAN 2.5 MG TAB PO SCH (07:24)
--- NOTE | 2025-04-12 07:43 | Orthopedic Progress Note ---
Date of Service April 12, 2025 Assessment & Plan Admission and Anticipated Discharge Date Admission Date: April 11, 2025 Orthopedic Progress Note Postop day #1 status post left total replacement. Patient is little bit insecure about getting up and moving. States she felt a little bit nauseated. Emphasized the need for getting up and moving around. She states she has been to the bathroom. She is not vomiting. She has had no emesis. She is drinking well. She is eating appropriately. Vital signs are stable she is afebrile. Neurovascular check from sciatic nerve is normal hip is located wound dressing clean dry and intact. A.m. labs reveal stable hematocrit at 31+. Electrolytes are fine. Calves nontender. Assessment doing reasonably well needs to get some reassurance needs some confidence needs to be motivated needs to be mobilized with PT OT. Initiate anticoagulation today. Needs to eat and drink maximally. Conditionally discharged later today if she passes PT OT. Dressing change later today by SHEBA.
[2025-04-12] MEDS: SCOPOLAMINE 1 MG/72 HR TDSY PATCH TD SCH (10:25)
--- NOTE | 2025-04-12 11:07 | Orthopedic Progress Note ---
Date of Service April 12, 2025 Assessment & Plan (1) Status post left hip replacement: Plan: The patient was educated regarding today's findings. Conservative care measures were discussed. Her postsurgical dressings were changed. New gauze, ABDs, and paper tape were applied. She was encouraged to work with physical therapy. The patient stated she was dizzy and would like to try later. She stated she would prefer to be discharged tomorrow, as she is apprehensive about going home today given her pain level. She will be reassessed later today to see whether an additional night stay is needed. She was reminded about total hip precautions. Continue with the wedge pillow when laying down. She was encouraged to be out of bed to her chair. Scopolamine patch was ordered to assist with dizziness and nausea control. Addendum: The patient was reassessed this evening. She states her pain is still at 7/10. She has had some episodes of dizziness and nausea throughout the day, but overall states it is less than this morning. She would like to stay the evening and be discharged tomorrow morning. She did well with both physical and Occupational Therapy and has been ambulatory in the halls with staff and her . Vitals reveal pulse in the 70s with BP at 110/57. O2 sat 92% on room air. I do not think it is unreasonable for her to stay for an additional night and be discharged tomorrow. This was discussed with her. She was encouraged to be out of bed to her bedside chair and to be ambulatory with the assistance of nursing staff. She will be reassessed in the morning. Admission and Anticipated Discharge Date Admission Date: April 11, 2025 Subjective This 74-year-old female was seen today in her room. She is 1 day status post left total hip arthroplasty using dual mobility implant. She states she had a very rough night due to pain. She is currently nauseated and states she is dizzy. She denies any chest pain, shortness of breath, vomiting, or abdominal pain. She states her hip pain is currently 7/10. No other new complaints. Review of Systems Review of Systems: All systems reviewed & are unremarkable except as noted in HPI & below Physical Exam Physical Exam: General: Well-developed, well-nourished, thin elderly female, in no acute distress. Sitting in bed. Alert and oriented. Skin: Warm and dry with good turgor. No rashes. No ecchymosis. Postsurgical dressing is in place on the left hip. Upon removal, there is scant dried blood on her inner dressings. No ecchymosis, erythema, or edema at the hip or but tock. Karol are in place. Wound edges are well-approximated. No active bleeding. Musculoskeletal: The patient has supple motion of her left hip. Slight flexion contracture of the left knee. Intact motor function of her left ankle and toes. Neurologic: Gross sensation is intact across the left leg by soft touch. Peripheral pulses are 2+. Results & Data Vital Signs (Past 12 Hours) Vital Signs Temp Pulse Resp BP Pulse Ox O2 Del Method O2 Flow Rate 04/12/25 07:57 36.9 C 67 18 113/67 96 Nasal Cannula 2 04/12/25 07:10 36.9 C 68 16 99/55 L 96 Nasal Cannula 2 04/12/25 03:00 36.7 C 70 16 113/54 L 95 Room Air 04/11/25 23:52 36.8 C 68 16 122/62 96 Nasal Cannula 2 Laboratory Results CBC obtained today shows a white count of 5.01. H&H of 10.2 and 31.3. Platelets 115,000. Patient has normal electrolytes. BUN of 18 with creatinine 0.61. Glucose this morning is 113.
[2025-04-12] MEDS: CHECK SCOPOLAMINE PATCH PLACEMENT SCH (15:06)
[2025-04-13 07:14] VITALS: RESP 14; TEMP 98.6; O2SAT 92
--- NOTE | 2025-04-13 07:40 | Orthopedic Progress Note ---
Date of Service April 13, 2025 Assessment & Plan (1) Status post left hip replacement: Plan: The patient feels ready for discharge today. She will receive PT and OT here, and then plan on departing for home. Home health has been established. Continue with ice application to the left hip for pain control. Continue with the wedge pillow when reclining or sleeping. She will use her walker when standing and ambulating. Follow-up in the office in 2 weeks as scheduled for staple removal. Prescriptions for Percocet and Eliquis were sent to her pharmacy yesterday. Importance of being up and ambulatory was emphasized. Written discharge instructions were provided. Call the office with any other concerns. Admission and Anticipated Discharge Date Admission Date: April 11, 2025 Subjective This 74-year-old female is seen today in her room. She is postop day 2 from left total hip arthroplasty using dual mobility implant. She states she is still having pain in her hip, but that it is manageable. She feels she is ready to go home today. She denies any chest pain, shortness of breath, nausea, or vomiting. She states she was out of bed 6 times last night to walk with the nursing staff. No other new complaints. Review of Systems Review of Systems: Unchanged from yesterday. Physical Exam Physical Exam: General: Well-developed, well-nourished, elderly female, in no acute distress. Laying in bed watching TV. Alert and oriented. Skin: Warm and dry with good turgor. Postsurgical dressings are in place on the left hip. They are dry. They were not removed today. Musculoskeletal: The patient has intact motor function of her left leg. She is able to flex and extend her knee as well as perform a straight leg raise. She has intact motor function to her ankle and toes bilaterally. Neurologic: Gross sensation is intact across both lower extremities by soft touch. Peripheral pulses are 2+. Results & Data Vital Signs (Past 12 Hours) Vital Signs Temp Pulse Pulse Resp BP BP Pulse Ox 04/13/25 07:10 37.0 C 64 14 128/67 92 04/12/25 23:00 37.1 C 76 16 134/57 L 93 O2 Del Method 04/13/25 07:10 Room Air 04/12/25 23:00 Room Air
[2025-04-13 11:11] VITALS: BP 128/67; PULSE 64
[2025-04-15] MEDS ORDERED: REMOVE TRANSDERM-SCOP PATCH SCH (10:15)
== END 2025-04-13 11:36 | disposition home health service (06) ==
LOC: ASU 05:26 → 3E 09:05 → INTOOBSV 09:05